=== PATIENT | male | born 1965 | race Caucasian/White ===

== ENCOUNTER 2023-03-05 15:51 | Inpatient (IN) | payer OTHER, SELFPAY ==
[2023-03-05] VITALS (8 sets, daily range): BP systolic 97–131; BP diastolic 68–92; BMI 28.0
[2023-03-05 08:35] LABS: % Basophils 0.1 % (0-2); % Eosinophils 0.1 % (0-6); % Immature Granulocytes 0.4 % (0-0.5); % Lymphocytes 1.5 % (20.5-51.1); % Neutrophils 88.9 % (42.2-75.2); Absolute Immature Granulocytes 0.1 10^3/uL (0-0.05); Absolute Lymphocytes 0.2 10^3/uL (1.2-3.4); Absolute Monocytes 1.1 10^3/uL (0.1-0.6); Absolute Neutrophils 10.4 10^3/uL (1.4-6.5); Hematocrit 46.7 % (39.0-52.0); Mean Corp Hgb Conc. 34.3 g/dL (33.0-37.0); Mean Corpuscular Hgb 28.4 pg (27.0-31.0); Mean Corpuscular Volume 82.8 fL (80.0-94.0); Mean Platelet Volume 8.5 fL (7.4-10.4); Nucleated Red Blood Cells % 0 % (-); Platelet Count 153 10^3/uL (130-400); Red Blood Cell Count 5.64 10^6/uL (4.70-6.10); White Blood Cell Count 11.7 10^3/uL (4.8-10.8)
[2023-03-05 08:59] LABS: Troponin I 0.026 ng/ml
[2023-03-05 09:00] LABS: ALT (SGPT) 442 U/L (0-50); Albumin 3.9 g/dl (3.5-5.0); Alkaline Phosphatase 210 U/L (38-126); Blood Urea Nitrogen 11 mg/dl (9-20); Calcium 9.4 mg/dl (8.4-10.2); Carbon Dioxide 24 mmol/L (22-30); Chloride 101 mmol/L (98-107); Glucose 163 mg/dl (70-99); Potassium 3.4 mmol/L (3.5-5.1); Sodium 136 mmol/L (135-145); Total Bilirubin 2.3 mg/dl (0.2-1.3); Total Protein 7.1 g/dl (6.3-8.2); eGFR > 60.00
[2023-03-05 09:15] LABS: AST (SGOT) 911 U/L (17-59)
[2023-03-05] MEDS: OMNIPAQUE 50 ML PO (09:46)
[2023-03-05] MEDS: BENTYL 20 MG IM (09:46)
[2023-03-05] MEDS: ZOFRAN 4 MG IV (09:46)
[2023-03-05] MEDS: NSS 1000 IV ×2 (09:47→13:27)
[2023-03-05 09:57] LABS: Lactic Acid 1.2 mmol/L (0.7-2.0)
--- NOTE | 2023-03-05 09:59 | ED.GENMED ---
History of Present Illness
General
Chief Complaint: Abdominal Pain
Source: patient
Exam Limitations: none
Time Seen by Provider: 03/05/23 09:05
Nursing documentation reviewed up to this point in time: agreed with
Travel History
Have you had any contact with someone who has COVID-19?: No
Do you have any symptoms of coronavirus? Fever > 100 degrees, chills, cough, shortness of breath, sore throat, loss of taste or smell, muscle aches, or headache?: No
History of Present Illness
History of Present Illness:
57-year-old male with past medical history of Hodgkin's lymphoma, anxiety presenting to the emergency department today with concerns of abdominal discomfort diffuse to the abdomen but also slightly increased to the right upper quadrant. Also has
some discomfort rating to the chest and back. Has been evaluated as an outpatient for this and has pending colonoscopy and CT scan as an outpatient. Has been treated with omeprazole. Pain has been worsening over the past few days which prompted
come to the ER. Denies any fevers vomit of breath. Denies changes in bowel movements or vomiting.
Past History
Past History
ED Past Medical History: Psychiatric (Generalized anxiety disorder), Other (Chronic back pain) and Other (Hodgkin's Lymphoma); Negative HTN or NIDDM
ED Past Surgical History: Orthopedic
Social History
Tobacco: Smoker (History of chewing tobacco use, quit one year ago)
Alcohol: None
Drug: None
Living: with family
Employment: Employed
Family History
Family History: CAD
Review of Systems
Review of Systems
Allergies reviewed?: Yes
All Other Systems: ROS reviewed and negative except as documented in HPI and ROS
Phy Exam
Physical Exam
Physical Exam:
GENERAL: Alert , in no apparent distress
EYE: pupils equal and reactive
NECK: Supple, no significant adenopathy.
ENT: o/p clr, mmm.
CARDIAC: Regular rate and rhythm .
LUNGS: Clear breath sounds bilaterally, no acute respiratory distress, no wheezes/rales/rhonchi
ABDOMEN: Diffuse abdominal pain to palpation slightly worse to the right upper quadrant.
NEUROLOGICAL: Alert and oriented, no focal neuro deficits
SKIN: Warm and dry, skin intact.
MUSCULOSKELETAL: No edema, well perfused.
PSYCH: Normal and appropriate interaction.
Course
Orders/Labs/Results
Orders:
Orders
03/05/23 08:17
Electrocardiogram (*1) Urgent
Reason for Study: Chest Pain
EKG- Treatment ONCE
03/05/23 08:28
CMP [Comprehensive Metabolic Panel] Urgent
Complete Blood Count/With Diff Urgent
Troponin I Urgent
03/05/23 09:24
CT Abd/pel W Iv And Oral Contr Urgent
Comment:
Reason For Exam: DIFFUSE ABD PAIN, elevated lfts, bili
Dicyclomine HCl [Bentyl] 20 mg IM NOW STA
Iohexol [Omnipaque] See Protocol PO NOW STA
Ondansetron Injectable [Zofran] 4 mg IV NOW STA
03/05/23 09:25
0.9% Sodium Chloride 1000 ml [Nss] 1,000 ml IV BOLUS
03/05/23 09:35
Hepatitis A IgM Antibody Urgent
Hepatitis B Core Ab, IgM Urgent
Hepatitis B Surface Antibody Urgent
Hepatitis B Surface Antigen Urgent
Hepatitis C Antibody Urgent
Lactic Acid Urgent
Lipase Urgent
Monotest Urgent
03/05/23 10:38
US Abdomen Complete/Upper Urgent
Comment:
Reason For Exam: ruq pain
03/05/23 11:26
HYDROmorphone [Dilaudid] 0.5 mg IV NOW STA
03/05/23 13:16
0.9% Sodium Chloride 1000 ml [Nss] 1,000 ml IV BOLUS
03/05/23 14:33
HYDROmorphone [Dilaudid] 0.5 mg IV NOW STA
Abnormal Lab Results
03/05/23 03/05/23
08:28 09:35
WBC 11.7 H 10^3/uL
(4.8-10.8)
Abs Immat Gran (auto) 0.1 H 10^3/uL
(0-0.05)
Absolute Neuts (auto) 10.4 H 10^3/uL
(1.4-6.5)
Absolute Lymphs (auto) 0.2 L 10^3/uL
(1.2-3.4)
Absolute Monos (auto) 1.1 H 10^3/uL
(0.1-0.6)
Neutrophils % 88.9 H %
(42.2-75.2)
Lymphocytes % 1.5 L %
(20.5-51.1)
Potassium 3.4 L mmol/L
(3.5-5.1)
Glucose 163 H mg/dl
(70-99)
Total Bilirubin 2.3 H mg/dl
(0.2-1.3)
AST 911 H* U/L
(17-59)
ALT 442 H U/L
(0-50)
Alkaline Phosphatase 210 H U/L
(38-126)
Lipase 1913 H* U/L
(23-300)
03/05/23 08:28
03/05/23 08:28
Vital Signs
Initial and Last Documented VS:
Initial Vital Signs
Temp Pulse Resp BP Pulse Ox
97.7 F 134 18 129/92 98
03/05/23 08:13 03/05/23 08:13 03/05/23 08:13 03/05/23 08:13 03/05/23 08:13
Last Documented Vital Signs
Temp Pulse Resp BP Pulse Ox
98.1 F 91 15 100/69 89
03/05/23 12:46 03/05/23 14:00 03/05/23 14:00 03/05/23 14:00 03/05/23 13:30
MDM/Problems Addressed
MDM/Problems Addressed:
57-year-old male presenting to the emergency department today with concerns of diffuse abdominal pain worsening for the past few weeks has been somewhat chronic evaluated as an outpatient recommended for outpatient CT scan and colonoscopy which is
currently pending. On arrival here pulse rate elevated to 130s sinus tachycardia patient is afebrile patient appears somewhat uncomfortable does have tenderness throughout the abdomen maximal to the right upper quadrant. Patient was found to have
elevated liver function test alk phos and bilirubin levels. Concerning his abdominal pain is diffuse plan for CT scan for further assessment of this. Heart rate improving to the 90s after receiving fluids Dilaudid treating pain well. Does have
elevated liver function test alk phos bilirubin but no obstructive signs on ultrasound or CT scan. Lipase was elevated consistent with pancreatitis CT scan confirming pancreatitis without complication. Patient will be admitted for further
assessment and monitoring.
*Critical Care Note
Total Time (30-74mins, 75-104mins- exclusive of procedures): Not Applicable
ED Attending Note
-
Portions of this chart may have been created with voice recognition software.� Occasional wrong word or��sound alike� substitutions may have occurred due to the inherent limitations of voice recognition software.
Discharge Plan
Departure
Patient Disposition: Admit
Date of Disposition: 03/05/23
Time of Disposition: 14:36
Admit to: Med/Surg
Admit to doctor: Sheu
Presentation/result/management discussed w/ accepting MD/DO: Hospitalist
Patient with high blood pressure during this ER visit?: No
Condition: Good
Covid-19: Not Applicable
Discharge Problem:
Pancreatitis
Prescriptions:
No Action
tamsulosin [Flomax] 0.4 mg Capsule
0.4 mg PO DAILY
folic acid 1 mg tablet
1 mg PO DAILY Qty: 30 0RF
diazepam 5 mg tablet
5 mg PO BID PRN (Reason: anxiety) 3 Days Qty: 7 0RF
Patient Comments:
03/05/2023, pt. filled this med. on 02/15/2023 for 60 tablets according to PDMP.
citalopram 40 mg Tablet
40 mg PO DAILY
omeprazole 40 mg Capsule,Delayed Release(Dr/Ec)
40 mg PO DAILY
benzonatate 100 mg Capsule
100 mg PO TID PRN (Reason: cough)
diclofenac sodium 50 mg Tablet,Delayed Release (Dr/Ec)
50 mg PO BIDPRN PRN (Reason: mild pain)
metoprolol tartrate 25 mg Tablet
25 mg PO BID
midodrine 5 mg tablet
5 mg PO TID
thiamine HCl (vitamin B1) 100 mg tablet
100 mg PO DAILY
Referrals:
Mayra Brito DO [Family Provider] -
Interventions
Interventions:
*Risk Screen - Suicide Last Done: 03/05/23 09:58
*General Assessment Last Done: 03/05/23 09:58
*Neglect/Abuse Screening Last Done: 03/05/23 09:58
HG-Mmekrd-Iawixadsic Assessment Last Done: 03/05/23 09:58
[2023-03-05 10:14] LABS: Monotest Negative (Negative)
[2023-03-05 10:34] LABS: Lipase 1913 U/L (23-300)
[2023-03-05 10:40] LABS: Hepatitis B Surface Antigen Negative (Negative)
[2023-03-05 10:46] LABS: Hepatitis A IgM Antibody Negative (Negative); Hepatitis B Core Ab, IgM Negative (Negative)
[2023-03-05 10:58] LABS: Hepatitis C Antibody Negative (Negative)
[2023-03-05 12:47] LABS: Hepatitis B Surface Antibody Negative
[2023-03-05] MEDS: DILAUDID 0.5 MG IV ×2 (12:48→14:44)
--- NOTE | 2023-03-05 14:43 | HPS.HSE ---
Addendum entered and electronically signed by Wilfred Munguia MD 03/05/23 16:13:
I saw and examined the patient.
The CAREER SERVICES OFFICER's note was reviewed and I agree with the note.
57M with PMH of Hodgkin lymphoma, DENICE, Depression/anxiety, alcohol use came to ER with new onset of abd pain for few days. associated nausea, no vomiting. Poor historian and requires to be redirected for specific information. Denies of having
previous episodes of pancreatitis. Patient states of alcohol use disorder, drinks 4 to 12 of travel size 99 proof alcohol bottles/day. No previous history of alcohol withdrawal.
HEENT: No pallor, cyanosis, or jaundice. Throat clear.
NECK: Supple. No JVD.
RESPIRATORY: Lungs clear to auscultation.
CVS: S1, S2 normal. RRR. No murmur, rub or gallop.
ABDOMEN: minimal distention, diffuse tenderness
EXTREMITIES: No peripheral cyanosis or edema.
COLLABORATIVE TEACHER: AOx3. No focal deficits.
Acute pancreatitis
-Elevated lipase of 1913.
-CT a/p showing inflammation
-Likely alcohol use related. Abdominal ultrasound showing gallstone as well although CBD of 4.6 mm only
-Continue on IV fluid/NPO/Pain meds
-GI to follow. f/us with Dr eric.
Acute transaminitis
-alcohol use related likely
-AST 911 ALT 442 ALP 210 TBilli 2.3
-ED checked and hep panel neg
-Alcohol abstinence recommended
Alcohol use disorder
-Drinks 4-12 publicized 99 proof alcohol bottles
-Check alcohol level
-Maintain on MSAS/ativan
Original Note:
Family Physician
-
Family Physician: Karolina Brito DO
Chief Complaint
-
abdominal pain
History of Present Illness
57-year-old male with past medical history of Hodgkin's lymphoma, anxiety presenting to the emergency department today with concerns of abdominal discomfort diffuse to the abdomen for past few month, which for past few days got worse and constant
pain. not able to sleep due to the pain. denied n/v/d. stated some mid sternum chest discomfort.denied fever, chills, chest pain, sob. denied dysuria or hematuria. patient scheduled for colonoscopy in March. patient is alcoholic. last drink was
last night.
CT with acute pancreatitis. admitting for further management.
Medical History
Past Medical History
Past Medical History: Reports Other
Additional Past Medical History:
pancreatitis
Hodgkin lymphoma
anixety
Past Surgical History: Reports Other
Additional Past Surgical History:
back surgery
Social History
Tobacco: Non-smoker
Alcohol: Daily
Drug: None
Personal:
Living: With Family
Family History
Family History: Not pertinent
Allergies / Home Medications
Allergies reflects when Allergies were last updated in [employer].
Home Medications with original date entered in [employer]
Allergy/Medication List:
Allergies
Allergy/AdvReac Type Severity Reaction Status Date / Time
No Known Allergies Allergy Verified 09/04/22 11:28
Home Medications
tamsulosin 0.4 mg capsule (Flomax) 0.4 mg PO DAILY Urinary Issue 09/04/22
diazepam 5 mg tablet 5 mg PO BID PRN anxiety 3 days #7 tabs 09/24/22
folic acid 1 mg tablet 1 mg PO DAILY Supplement #30 tabs 09/24/22
benzonatate 100 mg capsule 100 mg PO TID PRN cough 03/05/23
citalopram 40 mg tablet 40 mg PO DAILY 03/05/23
diclofenac sodium 50 mg tablet,delayed release 50 mg PO BIDPRN PRN mild pain 03/05/23
metoprolol tartrate 25 mg tablet 25 mg PO BID 03/05/23
midodrine 5 mg tablet 5 mg PO TID 03/05/23
omeprazole 40 mg capsule,delayed release 40 mg PO DAILY 03/05/23
thiamine HCl (vitamin B1) 100 mg tablet 100 mg PO DAILY 03/05/23
Review of Systems
-
Constitutional: Reports No Symptoms
EENT: Reports No Symptoms
Respiratory: Reports No Symptoms
Cardiac: Reports No Symptoms
Abdomen/GI: Reports Abdominal Pain
: Reports No Symptoms
Musculoskeletal: Reports No Symptoms
Skin: Reports No Symptoms
Neurological: Reports No Symptoms
Endocrine: Reports No Symptoms
Hematologic/Lymphatic: Reports No Symptoms
Psych: Reports No Symptoms
Physical Exam
Vital Signs
Vital Signs
Temp Pulse Resp BP Pulse Ox
98.1 F 91 15 100/69 89
03/05/23 12:46 03/05/23 14:00 03/05/23 14:00 03/05/23 14:00 03/05/23 13:30
Physical Exam
General: Well Developed, Well Nourished and No Apparent Distress
HEENT: NormoCephalic, Moist mucous membranes and Atraumatic
Respiratory: Clear
Cardiac: S1/S2 and Regular Rhythm; No Murmur or Rub
GI: Soft, Non Distended, Normal Bowel Sounds and Tender; No Organomegaly
Rectal: Deferred by Provider
Musculoskeletal: No Clubbing, No Cyanosis and No Edema
Skin: No Rash
Neuro: Nonfocal/grossly intact
Psych: Calm
Laboratory Results
-
03/05/23 08:28
03/05/23 08:28
Laboratory Results
Lactic Acid 1.2 mmol/L (0.7-2.0) 03/05/23 09:35
Total Bilirubin 2.3 mg/dl (0.2-1.3) H 03/05/23 08:28
AST 911 U/L (17-59) H* 03/05/23 08:28
ALT 442 U/L (0-50) H 03/05/23 08:28
Alkaline Phosphatase 210 U/L (38-126) H 03/05/23 08:28
Troponin I 0.026 ng/ml 03/05/23 08:28
Lipase 1913 U/L (23-300) H* 03/05/23 09:35
Data Reviewed
-
CT Scan: Report Reviewed by me
Lab Data: Labs Reviewed by me
Impression/Plan
-
#acute pancreatitis likely alcohol induced
-hxt of severe hepatic steatosis
-Lipase 1913
-wbc 11.7
-ast 911,alt 442,alk 210
-hep panel negative
-abdomen US with the impression of Several small shadowing gallstones are present within the gallbladder as well as a small amount of sludge. The bladder wall is slightly thickened, and is nonspecific.No evidence for biliary ductal dilation.No gross
abnormality of the pancreas, with no evidence for peripancreatic collection. Of note, the pancreatic tail is not well-visualized with shadowing from overlying bowel gas.
-CT abdomen pelvis with Mild stranding of the fat adjacent to the pancreas, which likely represents mild changes of acute pancreatitis.1.5 cm well-defined low-density lesion within the head of the pancreas, which is likely a pseudocyst. Continued
follow-up with CT and/or MRI considered.Small soft tissue densities adjacent to the medial gallbladder wall, exact etiology uncertain, but possibly on the basis of adenomyomatosis. No evidence for calcified gallstones. No evidence for biliary ductal
dilation.Diffuse fatty infiltration of the liver. 8 mm lesion in the posterior and superior right lobe of the liver, with appearance highly suggestive of hemangioma, and no further imaging follow-up of this small lesion is recommended.Mild to
moderate trabeculation of the bladder wall, mainly posteriorly, with no evidence for bladder mass. Prostate gland appears moderately enlarged and extends into the base of the bladder, compatible with hyperplasia.Mild thickening of the wall of the
gastric antrum with mild thickening of the folds of the second portion the duodenum. Findings likely represent reactive inflammation from adjacent pancreatitis.
-iv Dilaudid prn for pain
-zofran prn for n/v
-fluids continued
-trend LFT
-GI consult
-NPO
#hypokalemia likely from poor oral intake
-k 3.4
-oral kcl
-monitor BMP
#alcohol dependence
-last drink last night
-alcohol protocol
-monitor MSAS score
#Non-Hodgkin's lymphoma-treated in 2015 and currently not on any treatment
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
-Continue omeprazole
#Anxiety
-Continue citalopram,diazepam
#BPH
-Continue finasteride
#essential htn
-BP stable in ER
-continue metoprolol with parameters
#orthostatic hypotension
-midodrine continued
#DVT prophylaxis
-Lovenox
#CODE status
-full code
[2023-03-05] MEDS: KCL ELIXIR 40 MEQ TUBE (15:07)
[2023-03-05 18:24] LABS: Urine Albumin Trace (Neg - Trace); Urine Bilirubin 1+ (Negative); Urine Character Clear (Clear); Urine Color Yellow; Urine Glucose Negative (Negative); Urine Ketone Negative (Negative); Urine Leukocyte Negative (Negative); Urine Nitrite Negative (Negative); Urine Occult Blood Negative (Negative); Urine Urobilinogen 4+ (Neg - 1+)
[2023-03-05] MEDS: LR 1000 IV ×2 (18:26→23:39)
[2023-03-05] MEDS: DILAUDID 1 MG IV (18:27)
[2023-03-05 18:28] LABS: INR 1.07; PT 14.1 Sec (11.4-14.6)
[2023-03-05 18:29] LABS: APTT 31.6 Sec (23.4-35.0)
[2023-03-05 18:34] LABS: Creatine Phosphokinase 605 U/L (55-170); GGTP 1086 U/L (15-73); Magnesium 2.1 mg/dl (1.6-2.3); Phosphorus 3.6 mg/dl (2.5-4.5); Triglycerides 57 mg/dl (10-149)
[2023-03-05 18:35] LABS: Alcohol None Detected
--- NOTE | 2023-03-05 18:36 | PTCARENOTE ---
pt admitted to room 2116 from the ED at 1745. pt oriented to room, bed controls and plan of care with verbalized understanding. pt forgetful, poor historian concerning medical history and needs frequent reminders. bed alarm placed for pt safety
after pt instructed to use call matos and proceeded to go to bathroom immediately after being told not to get out of bed without assistance. gait steady. pt admission completed by medical record. family arrived and instructed to take pt's home
meds home. telemetry applied -SR/ST 90-100's. MSAS score upon arrival 4. pt given urinal-voided eric urine and UA specimen sent. c/o abdominal pain-8 and medicated per APR. pt instructed NPO. will observe.
[2023-03-05 18:42] LABS: B-Hydroxybutyrate 0.07 mmol/L (0.02-0.27)
[2023-03-05 18:45] LABS: Benzodiazepines Positive (Negative)
[2023-03-05 18:46] LABS: Amphetamines Negative (Negative); Barbiturates Negative (Negative); Buprenorphine Negative (Negative); Cocaine Negative (Negative); Marijuana Negative (Negative); Methadone Negative (Negative); Methamphetamines Negative (Negative); Opiates Positive (Negative); Phencyclidine Negative (Negative); Tricyclic Antidepressants Negative (Negative)
[2023-03-05 19:23] LABS: Fentanyl, Urine Negative (Negative)
[2023-03-05] MEDS: ProAmatine PO (21:10)
[2023-03-05] MEDS: LOPRESSOR 25 MG PO (21:17)
[2023-03-05] MEDS: LOVENOX 40 MG SC (21:17)
[2023-03-05] MEDS: THIAMINE INJECTION 200 MG IV (21:18)
[2023-03-06] VITALS (7 sets, daily range): BP systolic 135–166; BP diastolic 76–107; BMI 28.0
[2023-03-06] MEDS: DILAUDID 1 MG IV (02:51)
--- NOTE | 2023-03-06 03:39 | PTCARENOTE ---
Pt noted to be scratching torso and back. Received 1 mg of IV dilaudid at 0251. Back diffusely reddened, chest red splotches (non raised). UPHOLSTERY CUTTER covering house contacted, electronic orders received for PO benadryl (awaiting pharmacy verification).
Ongoing MSAS assessments = 4.
Bed alarm active for safety. Call matos within reach. Will continue to closely monitor.
[2023-03-06] MEDS: BENADRYL 25 MG PO (03:47)
[2023-03-06] MEDS: ATIVAN 1 MG IV ×4 (04:04→22:07)
[2023-03-06] MEDS: NSS (PRESERVATIVE FREE) 0.5 ML IV ×2 (04:04→20:03)
--- NOTE | 2023-03-06 04:17 | PTCARENOTE ---
Pt medicated with 1 mg ativan for MSAS score 5 (refer to MAR). Conversation more confused with increased activity/restlessness. Will continue to closely monitor.
[2023-03-06] MEDS: LR 1000 IV ×3 (05:12→19:42)
--- NOTE | 2023-03-06 07:32 | CON.GI ---
Addendum entered and electronically signed by Bri Mendieta MD 03/06/23 14:49:
I saw and examined the patient.
The COMMUNITY RELATIONS OFFICER's note was reviewed and I agree with the note.
57yo presents with hx ETOH abuse, erosive esophagitis, non hodgkin's lymphoma not on treatment , adenomatous colon polyps,� anxiety, chronic back pain with recurrent admission with abdominal pain with concern for recurrent pancreatitis.� Prior
admission in with pancreatitis and noted pseudocyst.� Pt admits to continued ETOH use 12 shots per day. � On admission.� WBC 11,700, hbg 16, keri 2.2, AST 733, alt 574, alk phos 163, lipase 1913.� Last ETOH 2 days ago 12 shots per day.�
Imaging on return with CT noted changes of acute pancreatitis 1.5 cm lesion head of pancreas likely pseudocyst. Pt also due for follow up colonoscopy this spring with hx polyps.�
-recurrent pancreatitis likely ETOH related
-increased LFT's
-noted pancreatitic pseudocyst in the past
-leukocytosis
-ETOH abuse
-non hodgkin's lymphoma
plan
Clear liquid diet
Pain management as per medical team
Continue IV fluid
Follow-up MRI/MRCP
Alcohol withdrawal protocol as per medical team
Advised on alcohol abstinence on discharge
Original Note:
Consultation
-
Date/Time Consultation Requested: 03/05/23 1741
Date/Time Consultation Performed: 03/06/23 1530
Requesting Provider: JESSIE Burnett
Performing Provider: JESSIE Galdamez, Bri Mendieta MD
Reason for Consultation: pancreatitis
Medical History
Chief Complaint / HPI
Chief Complaint: abdominal pain
History of Present Illness:
Pt is a 57yo presents with hx ETOH abuse, erosive esophagitis, non hodgkin's lymphoma not on treatment , adenomatous colon polyps, anxiety, chronic back pain with admission with diffuse abdominal pain. Pt was admitted this past summer with
admission on 09/04 with concern for pancreatitis with ETOH withdrawal. Initial imaging 09/04 with severe acute interstitial edematous pancreatitis with large amount of peripancreatic inflammatory fat and non loculated fluid in upper abdomen. No
necrosis or collection. mild abdominopelvic ascites. severe hepatic steatosis. During admission patient developed fevers and repeat imaging 09/[address] with concern for severe pancreatitis with peripancreatic fluid and tail pseudocyst and LLL PNA
not excluded. He then returned in September with similar finding and some increased fluid on CT. He returned to Dr. Pelaez and Jeannine Malik for follow up in December and recommended repeat CT, was counseled on ETOH and set up for
colonoscopy in March with hx polyp. He now returns wit abdominal pain. WBC 11,700, hbg 16, keri 2.2, AST 733, alt 574, alk phos 163, lipase 1913. Last ETOH 2 days ago 12 shots per day.
Imaging on return with CT noted changes of acute pancreatitis 1.5 cm lesion head of pancreas likely pseudocyst. GB density possibly on the basis of adenomyomatosis. No duct dilation. no bladder mass. Fatty liver and liver lesion likely
hemagioma. Mild thickening of the wall of the gastric antrum with mild thickening of the folds of the second portion the duodenum. Findings likely represent reactive inflammation from adjacent pancreatitis. US noted gallstones with sludge. bladder
wall thickening No gross abnormality of the pancreas, with no evidence for peripancreatic collection with MRI pending.
At this time patient admits to GERD with tums as needed and 7.5/10 abdominal pain. Pain is improved with pain meds worse with holding pain meds. He also admits to small amount of blood with stools several days ago. He otherwise denies
dysphagia, nausea, vomiting, diarrhea, constipation or black stool. EGD 2020 with erosive esophagitis, small HH, bulbuous papilla , normal duodenum, bx neg colon 2017 with IH, 3 mm AC polyp, otherwise normal bx TA polyp
Past Medical History
Past Medical History: Other (ETOH abuse, erosive esophagitis, gastritis, colon polyp, fatty liver, lyme disease non hodgkin's lymphoma, anxiety, chronic back pain)
Social History
Tobacco: Non-Smoker
Alcohol: Daily ( up to 12 shots til 2 days ag )
Drug: Marijuana (in past)
Living: With Family
Family History
Family History: Other (denies hx colon CA)
Allergies / Home Medications
Allergy/AdvReac Type Severity Reaction Status Date / Time
No Known Allergies Allergy Verified 09/04/22 11:28
Medication Instructions Recorded
tamsulosin 0.4 mg capsule (Flomax) 0.4 mg PO DAILY Urinary Issue 09/04/22
diazepam 5 mg tablet 5 mg PO BID PRN anxiety 3 days #7 09/24/22
tabs
folic acid 1 mg tablet 1 mg PO DAILY Supplement #30 tabs 09/24/22
benzonatate 100 mg capsule 100 mg PO TID PRN cough 03/05/23
citalopram 40 mg tablet 40 mg PO DAILY Mental 03/05/23
Health/Anxiety
diclofenac sodium 50 mg 50 mg PO BIDPRN PRN mild pain 03/05/23
tablet,delayed release
metoprolol tartrate 25 mg tablet 25 mg PO BID Blood Pressure 03/05/23
midodrine 5 mg tablet 5 mg PO TID Blood Pressure 03/05/23
omeprazole 40 mg capsule,delayed 40 mg PO DAILY GERD 03/05/23
release
thiamine HCl (vitamin B1) 100 mg 100 mg PO DAILY Supplement 03/05/23
tablet
Review of Systems
-
History Source: Patient
EENT: Reports No Symptoms
Respiratory: Reports Trouble Breathing
Cardiac: Reports Chest Pain
Abdomen/GI: Reports Abdominal Pain, Nausea, Vomiting and Bloody Stools (trace blood a few days ago)
: Reports Dark Urine
Musculoskeletal: Reports No Symptoms
Skin: Reports No Symptoms
Neurological: Reports Weakness
Endocrine: Reports No Symptoms
Hematologic/Lymphatic: Reports No Symptoms
Vital Signs
Temp Pulse Resp BP Pulse Ox
98.1 F 93 16 137/80 94
03/06/23 03:05 03/06/23 03:05 03/06/23 03:05 03/06/23 03:05 03/06/23 03:05
Physical Exam
Exam
General: Well Developed, Well Nourished and Other (anxious with withdrawal)
HEENT: Normocephalic and Other (minimal jaundice)
Respiratory: Clear
Cardiac: Other (tachy)
GI: Soft, Non Tender and Non Distended
Musculoskeletal: No Clubbing and No Cyanosis
Skin: Warm and Dry
Neuro: Awake, Alert and AO x 3
Psych: Other (anxious with mild tremor with withdrawal)
Results
WBC 11.7 10^3/uL (4.8-10.8) H 03/05/23 08:28
Hgb 16.0 g/dL (13.0-18.0) 03/05/23 08:28
Hct 46.7 % (39.0-52.0) 03/05/23 08:28
MCV 82.8 fL (80.0-94.0) 03/05/23 08:28
Plt Count 153 10^3/uL (130-400) 03/05/23 08:28
Absolute Neuts (auto) 10.4 10^3/uL (1.4-6.5) H 03/05/23 08:28
PT 14.1 Sec (11.4-14.6) 03/05/23 17:54
INR 1.07 03/05/23 17:54
APTT 31.6 Sec (23.4-35.0) 03/05/23 17:54
Sodium 136 mmol/L (135-145) 03/05/23 08:28
Potassium 3.4 mmol/L (3.5-5.1) L 03/05/23 08:28
Chloride 101 mmol/L (98-107) 03/05/23 08:28
Carbon Dioxide 24 mmol/L (22-30) 03/05/23 08:28
BUN 11 mg/dl (9-20) 03/05/23 08:28
Creatinine 0.8 mg/dL (0.7-1.3) 03/05/23 08:28
Calcium 9.4 mg/dl (8.4-10.2) 03/05/23 08:28
Total Bilirubin 2.3 mg/dl (0.2-1.3) H 03/05/23 08:28
AST 911 U/L (17-59) H* 03/05/23 08:28
ALT 442 U/L (0-50) H 03/05/23 08:28
Alkaline Phosphatase 210 U/L (38-126) H 03/05/23 08:28
Lipase 1913 U/L (23-300) H* 03/05/23 09:35
Hepatitis A IgM Ab Negative (Negative) 03/05/23 09:35
Hep Bs Antibody Negative 03/05/23 09:35
Hep B Core IgM Ab Negative (Negative) 03/05/23 09:35
Hepatitis C Antibody Negative (Negative) 03/05/23 09:35
Diagnostic Image Results:
03/05/23 CT Abd/pel W Iv And Oral Contr
Mild stranding of the fat adjacent to the pancreas, which likely represents mild changes of acute pancreatitis.
1.5 cm well-defined low-density lesion within the head of the pancreas, which is likely a pseudocyst. Continued follow-up with CT and/or MRI considered.
Small soft tissue densities adjacent to the medial gallbladder wall, exact etiology uncertain, but possibly on the basis of adenomyomatosis. No evidence for calcified gallstones. No evidence for biliary ductal dilation.
Diffuse fatty infiltration of the liver. 8 mm lesion in the posterior and superior right lobe of the liver, with appearance highly suggestive of hemangioma, and no further imaging follow-up of this small lesion is recommended.
Mild to moderate trabeculation of the bladder wall, mainly posteriorly, with no evidence for bladder mass. Prostate gland appears moderately enlarged and extends into the base of the bladder, compatible with hyperplasia.
Mild thickening of the wall of the gastric antrum with mild thickening of the folds of the second portion the duodenum. Findings likely represent reactive inflammation from adjacent pancreatitis.
03/05/23 US abdomen
Several small shadowing gallstones are present within the gallbladder as well as a small amount of sludge. The bladder wall is slightly thickened, and is nonspecific.
No evidence for biliary ductal dilation.
No gross abnormality of the pancreas, with no evidence for peripancreatic collection. Of note, the pancreatic tail is not well-visualized with shadowing from overlying bowel gas.
MRI pending
Prior GI Procedures:
EGD:� �[facility] 2020� � � - LA Grade A erosive esophagitis with no bleeding.
�� � � � � � � � � � � Biopsied.
�� � � � � � � � � � � - Small hiatal hernia.
�� � � � � � � � � � � - Erythematous mucosa in the stomach. Biopsied.
�� � � � � � � � � � � - Bulbous appearing papilla (biopsied the side)
�� � � � � � � � � � � - No gross lesions in the entire examined duodenum.
�� � � � � � � � � � � Biopsied.� bx neg
Colonoscopy:� [facility] 2017
� � � � � � � � � - Non-bleeding internal hemorrhoids.
�� � � � � � � � � � - One 3 mm polyp in the ascending colon, removed with a
�� � � � � � � � � � jumbo cold forceps. Resected and retrieved.-- Bx TA
�� � � � � � � � � � - The examined portion of the ileum was normal.
�� � � � � � � � � � - Otherwise normal to terminal ileum.
Assessment / Plan
-
Pt is a 57yo presents with hx ETOH abuse, erosive esophagitis, non hodgkin's lymphoma not on treatment , adenomatous colon polyps, anxiety, chronic back pain with recurrent admission with abdominal pain with concern for recurrent pancreatitis.
Prior admission in with pancreatitis and noted pseudocyst. Pt admits to continued ETOH use 12 shots per day. On admission. WBC 11,700, hbg 16, keri 2.2, AST 733, alt 574, alk phos 163, lipase 1913. Last ETOH 2 days ago 12 shots per
day. Imaging on return with CT noted changes of acute pancreatitis 1.5 cm lesion head of pancreas likely pseudocyst. Pt also due for follow up colonoscopy this spring with hx polyps.
-recurrent pancreatitis likely ETOH related to continued use
-increased LFT's wit concern for component of ETOH hepatitis
-noted pancreatitic pseudocyst
-leukocytosis
-ETOH abuse with withdrawal
- hepatic steatosis
other medical problems:
non hodgkin's lymphoma
anxiety
chronic back pain
PLAN:
etiology of pancreatitis likely ETOH related vs other -- TG normal, calcium stable, denies new med and admits to increased ETOH use til 2 days ago
still with abdominal pain today
cont pain control per hospitalist
await MRI
CRP 134.4 cont to trend
cont aggressive IVF at 200ml.hr
stressed ETOH abstinence
monitor for withdrawal
due OP follow up colonoscopy for hx colon polyps which is already scheduled
-
-
Thank you for consultation and allowing me to participate in the patient's care. Please call the space systems operations craftsman GI physician during the after hours with any questions or concerns.
[2023-03-06 07:33] LABS: Hematocrit 39.5 % (39.0-52.0); Mean Corp Hgb Conc. 32.9 g/dL (33.0-37.0); Mean Corpuscular Hgb 28.3 pg (27.0-31.0); Mean Corpuscular Volume 86.1 fL (80.0-94.0); Mean Platelet Volume 8.6 fL (7.4-10.4); Platelet Count 152 10^3/uL (130-400); Red Blood Cell Count 4.59 10^6/uL (4.70-6.10); Red Cell Dist. Width 14.7 % (11.5-14.5); White Blood Cell Count 7.1 10^3/uL (4.8-10.8)
[2023-03-06 07:53] LABS: ALT (SGPT) 574 U/L (0-50); AST (SGOT) 733 U/L (17-59); Albumin 3.1 g/dl (3.5-5.0); Alkaline Phosphatase 163 U/L (38-126); Amylase 81 U/L (30-110); Blood Urea Nitrogen 9 mg/dl (9-20); Calcium 8.1 mg/dl (8.4-10.2); Carbon Dioxide 29 mmol/L (22-30); Chloride 106 mmol/L (98-107); Estimated Creatinine Clearance 81 ml/min; Glucose 72 mg/dl (70-99); HDL Cholesterol 30 mg/dl; LDL Cholesterol, Calculated 111 mg/dl; Lipase 894 U/L (23-300); Potassium 3.8 mmol/L (3.5-5.1); Sodium 137 mmol/L (135-145); Total Bilirubin 2.2 mg/dl (0.2-1.3); Total Cholesterol 160 mg/dl (50-199); Total Protein 5.8 g/dl (6.3-8.2); Triglyceride 95 mg/dl (10-149); Very Low Density Lipoprotein 19 mg/dl (0-30); eGFR > 60.00
[2023-03-06] MEDS: CELEXA 40 MG PO (08:07)
[2023-03-06] MEDS: LOPRESSOR 25 MG PO ×2 (08:07→20:03)
[2023-03-06] MEDS: ProAmatine 5 MG PO ×3 (08:07→17:00)
[2023-03-06] MEDS: THIAMINE INJECTION 200 MG IV ×2 (08:07→19:56)
[2023-03-06] MEDS: PROTONIX 40 MG PO (08:07)
[2023-03-06] MEDS: MORPHINE SULFATE 2 MG IV ×4 (08:08→23:33)
[2023-03-06] MEDS: FLOMAX 0.400000000000000022 MG PO (08:08)
[2023-03-06] MEDS: FOLVITE 1 MG PO (08:08)
--- NOTE | 2023-03-06 11:07 | W.PN.HOSP.TC ---
Today's Communication/Plan
-
trial of CL diet
MRI/MRCP clean
monitor LFT
dialudid changed to morphine
Assessment / Plan
Assessment / Plan
Acute pancreatitis
Pancreatic pseudocyst
-Elevated lipase of 1913 - trending down
-CT a/p showing inflammation of pancreas
-Abdominal ultrasound showing gallstone as well although CBD of 4.6 mm only
-MRI/MRCP showing pancreatic pseudocyst. no choledocholithiasis
-Likely alcohol use related.�
-Continue on IV fluid/Pain meds - Dilaudid changed to morphine due to rash
-Trial of CL diet today
Acute transaminitis - trending down
-alcohol use related likely
-AST 911 ALT 442 ALP 210 TBilli 2.3
-ED checked and hep panel neg
-Alcohol abstinence recommended
Alcohol use disorder
-Drinks 4-12 publicized 99 proof alcohol bottles
-Check alcohol level
-Maintain on MSAS/ativan
Essential HTN
-restart on toprol xl once able to take PO meds
BPH
-on flomax, no urinary complains currntly
Depression/anx
-continue home citalopram once on oral meds
DVT PPX - lovenox
Full code
Family at bedside and question answered.
Anticipated Discharge: 24 - 48 hours
Subjective/Interval History
-
Date of Service: March 06, 2023
still have some abd pain
no nausea/vomiting
no other reported problems
Objective Data
-
Labs:
Laboratory Results
03/06/23
05:16
WBC 7.1
Hgb 13.0
Hct 39.5
Plt Count 152
Sodium 137
Potassium 3.8
Chloride 106
Carbon Dioxide 29
BUN 9
Creatinine 0.9
Glucose 72
Calcium 8.1 L
Total Bilirubin 2.2 H
AST 733 H*
ALT 574 H*
Alkaline Phosphatase 163 H
Vital Signs:
Vital Signs
Temp Pulse Resp BP Pulse Ox
98.2 F 90 18 135/76 93
03/06/23 07:40 03/06/23 07:40 03/06/23 07:40 03/06/23 07:40 03/06/23 07:40
I&O
03/05/23 03/06/23 03/07/23
06:59 06:59 06:59
Intake Total 2200 / 2200
Output Total 650 / 650
Balance -650 / -650 2200 / 2200
Review of Systems
-
Respiratory: Reports No Symptoms
Cardiac: Reports No Symptoms
Abdomen/GI: Reports No Symptoms
Physical Exam
-
General: Negative Appears in Distress
HEENT: Negative Oxygen
GI: Soft, Normal Bowel Sounds and Tender (upper abdomen)
Musculoskeletal: No Edema
Neuro: Awake, Alert, Oriented and No Motor Deficits
Psych: Calm
--- NOTE | 2023-03-06 12:13 | CM ---
Received CM consult for substance abuse counseling. Reviewed the chart notes and spoke with the patient at the bedside. The patient resides with his mother in a one story home with four steps to enter. The patient reports no DME/VN/SNF in the
past. The patient confirmed his [facility] of choice [facility]. Discussed substance abuse resources, offered [facility] information. Per patient, he prefers to handle it on his own outside of the hospital. Per previous
admission notes, patient has been provided with information from [facility] and [facility]. CM continues to be available to patient/family and is monitoring medical plan for needs at discharge.
Plan: Discharge to home when medically stable with no additional needs being identified at this time.
--- NOTE | 2023-03-06 13:01 | PN.CDI ---
CDI
- -
CDI:
Physician Documentation Request
Admit Date: 03/05/23 15:51
Dear Doctor Ezra,
Clinical Indicators:
Patient admitted with acute pancreatitis.
03/05 H & P, 'alcohol dependence'
03/06 GI consult, 'ETOH abuse with withdrawal'
03/06 PN, 'Alcohol use disorder...-Maintain on MSAS/ativan.'
MSAS Scores 4 -5
Ativan 1mg IV x 1 dose.
Due to potentially conflicting documentation, please provide further specificity as outlined below:
1. Please clarify the pattern of alcohol use, include all that apply:
- Use, with or without abuse and/or dependence
- Abuse with or without dependence
- Dependence
- Unable to determine
2. Please identify any associated manifestations:
- Withdrawal
- Other, please specify
- No manifestations
- Unable to determine
Use of terms such as suspected, likely, concern for, or probable (associated with a specific diagnosis that is being evaluated, monitored, or treated as if it exists) are acceptable and can be coded in the inpatient setting, when documented at the
time of discharge.
Thank you,
ZULMA Farris RN
CDI Specialist
available via tiger text
Please use your independent medical judgment in providing your response.
[2023-03-06] MEDS: LOVENOX 40 MG SC (17:00)
[2023-03-06] MEDS: LR IV (19:41)
[2023-03-07] VITALS (12 sets, daily range): BP systolic 119–156; BP diastolic 76–111; BMI 27.7
[2023-03-07] MEDS: ATIVAN 1 MG IV ×10 (00:18→16:05)
[2023-03-07] MEDS: NSS (PRESERVATIVE FREE) 0.5 ML IV ×4 (00:18→06:04)
[2023-03-07] MEDS: LR 1000 IV ×5 (00:23→19:49)
--- NOTE | 2023-03-07 00:30 | PTCARENOTE ---
Pt's BP elevated. VICE PRESIDENT UNDERWRITING covering house contacted to request hold parameters for scheduled midodrine, electronic orders received (refer to APR). Ongoing MSAS assessements, PRN ativan administered per orders (refer to APR). Pt with visual/auditory
hallucinations, restless. Able to redirect at this time. Bed alarm remains active for safety, pt violates frequently. Will continue to closely monitor.
--- NOTE | 2023-03-07 03:25 | PTCARENOTE ---
Pt's MSAS reassessment = 4. Voiding frequently, using urinal. Attempting to use call matos as telephone, reoriented to surroundings. Bed alarm remains active for safety. LR infusing via #22 RH, no-no in place to prevent tubing from kinking. Will
continue to closely monitor.
[2023-03-07] MEDS: MORPHINE SULFATE 2 MG IV ×2 (03:58→12:48)
[2023-03-07 06:02] LABS: Hematocrit 42.1 % (39.0-52.0); Hemoglobin 14.1 g/dL (13.0-18.0); Mean Corp Hgb Conc. 33.5 g/dL (33.0-37.0); Mean Corpuscular Hgb 28.5 pg (27.0-31.0); Mean Corpuscular Volume 85.2 fL (80.0-94.0); Mean Platelet Volume 9.1 fL (7.4-10.4); Platelet Count 157 10^3/uL (130-400); Red Blood Cell Count 4.94 10^6/uL (4.70-6.10); Red Cell Dist. Width 14.3 % (11.5-14.5)
--- NOTE | 2023-03-07 06:06 | PTCARENOTE ---
Pt removing telemetry and attempting to pull IV. States 'I am going to have to leave, my 80 year old mother can't drive tonight in the rain' Attempted to reorient to time, pt becoming belligerent. Explained that transportation must be present in
order to leave AMA. Pt unable to dial telephone independently. Pressing #69. MSAS = 8, medicated per protocol. Encouraged to wait and order breakfast and speak to the physician upon rounds. Pt seems agreeable at present. METEOROLOGICAL TECHNICIAN covering house
contacted w/situation. Nursing supervisor webbing made aware. Continuing to monitor closely.
--- NOTE | 2023-03-07 06:36 | PTCARENOTE ---
TT to attending regarding situation. Instruced pt will be transferred to IMU. Nursing supervisor agency appointments made aware.
[2023-03-07 06:37] LABS: ALT (SGPT) 493 U/L (0-50); AST (SGOT) 392 U/L (17-59); Albumin 3.7 g/dl (3.5-5.0); Alkaline Phosphatase 177 U/L (38-126); Blood Urea Nitrogen 7 mg/dl (9-20); Calcium 8.7 mg/dl (8.4-10.2); Carbon Dioxide 28 mmol/L (22-30); Chloride 101 mmol/L (98-107); Estimated Creatinine Clearance 91 ml/min; Glucose 82 mg/dl (70-99); Lipase 460 U/L (23-300); Potassium 3.9 mmol/L (3.5-5.1); Sodium 135 mmol/L (135-145); Total Protein 6.6 g/dl (6.3-8.2); eGFR > 60.00
--- NOTE | 2023-03-07 07:47 | W.PN.HOSP.TC ---
Addendum entered and electronically signed by Wilfred Munguia MD 03/07/23 14:11:
Patient continues to remain confused, trying to get out of bed.
Systolic blood pressure in 150-160, heart rate in 8000 range afebrile
Already on phenobarb protocol and as needed Ativan
Precedex ordered for conscious sedation
Upgraded to ICU level. Discussed with transcribing operators supervisor.
Original Note:
Today's Communication/Plan
-
start phenobarb protcol
flight and fall risk
unable to get hold of POA
Assessment / Plan
Assessment / Plan
Acute pancreatitis
Pancreatic pseudocyst
-Elevated lipase of 1912 - trending down
-CT a/p showing inflammation of pancreas
-Abdominal ultrasound showing gallstone as well although CBD of 4.6 mm only
-MRI/MRCP showing pancreatic pseudocyst. no choledocholithiasis
-Likely alcohol use related.�
-Continue on IV fluid/Pain meds - Dilaudid changed to morphine due to rash
-Trial of CL diet today
Alcohol withdrawal
Alcohol use disorder
-requiring ativan 6mg overnight and MSAS remains elevated
-patient communicating but confused and needs frequent reorientation. keep requesting to call some place in [place] but unable to provide contact number
-giving valium 2mg x1 and phenobarb after that
-remains flight risk and harm to himself,
Acute transaminitis - trending down
-alcohol use related likely
-AST 911 ALT 442 ALP 210 TBilli 2.3
-ED checked and hep panel neg
-Alcohol abstinence recommended
Essential HTN
-restart on toprol xl once able to take PO meds
BPH
-on flomax, no urinary complains currntly
Depression/anx
-continue home citalopram once on oral meds
DVT PPX - lovenox
Full code
03/06 Family at bedside and question answered.
03/07 I have tried to contact patient's mother and significant other and both numbers are switched off.
Total time spent : 55 mins
Anticipated Discharge: Within 24 hours
Subjective/Interval History
-
Date of Service: March 07, 2023
patient getting agitated and more confused overnight
forgetful and unable to remember things.
patient was delirious overnight
MSAS score of 8+ in night
Objective Data
-
Labs:
Laboratory Results
03/07/23
04:56
WBC 6.0
Hgb 14.1
Hct 42.1
Plt Count 157
Sodium 135
Potassium 3.9
Chloride 101
Carbon Dioxide 28
BUN 7 L
Creatinine 0.8
Glucose 82
Calcium 8.7
Total Bilirubin 1.0 D
AST 392 H
ALT 493 H
Alkaline Phosphatase 177 H
Vital Signs:
Vital Signs
Temp Pulse Resp BP Pulse Ox
98.2 F 81 16 136/90 93
03/07/23 03:05 03/07/23 03:05 03/07/23 03:05 03/07/23 03:05 03/07/23 03:05
I&O
03/06/23 03/07/23 03/08/23
06:59 06:59 06:59
Intake Total 6620 / 6620
Output Total 650 / 650 3475 / 3475
Balance -650 / -650 3145 / 3145
Review of Systems
-
Unable to obtain full review of systems at this time due to: Acuity
Physical Exam
-
General: Negative Cachectic
HEENT: Negative Oxygen
Respiratory: Clear to Auscultation
Cardiac: Regular Rhythm and S1/S2; Negative Murmur
GI: Soft, Nontender and Nondistended
Musculoskeletal: No Edema
Neuro: Awake and No Motor Deficits
Psych: Confused and Agitated
[2023-03-07] MEDS: VALIUM INJECTION 2 MG IV (07:49)
[2023-03-07] MEDS: PHENOBARBITAL 104 MG IV (08:02)
[2023-03-07] MEDS: FOLVITE 1 MG PO (08:17)
[2023-03-07] MEDS: ProAmatine PO ×3 (08:17→17:31)
[2023-03-07] MEDS: PROTONIX 40 MG PO (08:17)
[2023-03-07] MEDS: FLOMAX 0.400000000000000022 MG PO (08:17)
[2023-03-07] MEDS: LOPRESSOR 25 MG PO (08:17)
[2023-03-07] MEDS: CELEXA 40 MG PO (08:17)
[2023-03-07] MEDS: THIAMINE INJECTION 200 MG IV ×2 (08:18→20:10)
[2023-03-07] MEDS: ZYPREXA 5 MG PO (08:18)
--- NOTE | 2023-03-07 08:32 | PTCARENOTE ---
0700 am MSAS scored at 7, per protocol pt to recieve 1 mg ativan q2h. As day RN And night RN were pulling medication to waste Dr Munguia entered the med room and instructed RNs to 'hold off on the ativan he needs something stronger, I am ordering
valium'. PRN valium given with no improvement, Phenobarbital ordered and given. Pt continuing to get OOB, stating he wants to leave AMA, and having confused conversations. Pt attempting to take out IV, tegederm reinforced. PO zyprexa ordered and
given. Per protocol pt to be assessed again at 0900 for MSAS.
--- NOTE | 2023-03-07 09:44 | PTCARENOTE ---
Pt to be transferred to ICU, report given to Christiano RN, all questions answered.
--- NOTE | 2023-03-07 09:56 | W.PN.GI.CBS2 ---
Today's Communication / Plan
-
continue CLD
Assessment / Plan
-
Pt is a 57yo presents with hx ETOH abuse, erosive esophagitis, non hodgkin's lymphoma not on treatment , adenomatous colon polyps, anxiety, chronic back pain with recurrent admission with abdominal pain with concern for recurrent pancreatitis.
Prior admission in with pancreatitis and noted pseudocyst. Pt admits to continued ETOH use 12 shots per day. On admission. WBC 11,700, hbg 16, keri 2.2, AST 733, alt 574, alk phos 163, lipase 1913. Last ETOH 2 days ago 12 shots per
day. Imaging on return with CT noted changes of acute pancreatitis 1.5 cm lesion head of pancreas likely pseudocyst. Pt also due for follow up colonoscopy this spring with hx polyps.
-recurrent pancreatitis with pseudocyst - likely ETOH related. MRI- no CBD stone
-increased LFT's wit concern for component of ETOH hepatitis - trending down
-noted pancreatitic pseudocyst
-leukocytosis
-ETOH abuse with withdrawal
- hepatic steatosis
other medical problems:
non hodgkin's lymphoma
anxiety
chronic back pain
MRI abd 03/06
IMPRESSION: Small layer of gallstones and/or sludge in the dependent portion of the gallbladder. No evidence for lobar wall thickening or pericholecystic edema.
There is no evidence for biliary ductal dilation. No evidence for bile duct calculus.
1.3 cm focus of increased T2 and STIR signal within the head of the pancreas, which very likely represents a pseudocyst. Advise follow-up CT or MRI evaluation with attention to the pancreas in 6 months.
9 mm lesion in the posterior right lobe of the liver, corresponding to lesion seen on recent CT examination, and likely a small hemangioma
PLAN:
medical team to evaluate for alcohol withdrawal based on protocol
continue clear liquid
IVF
pain management
trend LFT
will follow
Total Time Spent with Patient (in minutes): 35
Subjective
Subjective
Date of Service: March 07, 2023
still c/o abdominal pain. tolerating clears. agitated and having tremors +
Objective
Data Reviewed
Laboratory Data:
Laboratory Results
03/07/23 04:56
03/07/23 04:56
Laboratory Results
PT 14.1 Sec (11.4-14.6) 03/05/23 17:54
INR 1.07 03/05/23 17:54
APTT 31.6 Sec (23.4-35.0) 03/05/23 17:54
Phosphorus 3.6 mg/dl (2.5-4.5) 03/05/23 17:54
Magnesium 2.1 mg/dl (1.6-2.3) 03/05/23 17:54
Total Bilirubin 1.0 mg/dl (0.2-1.3) D 03/07/23 04:56
AST 392 U/L (17-59) H 03/07/23 04:56
ALT 493 U/L (0-50) H 03/07/23 04:56
Alkaline Phosphatase 177 U/L (38-126) H 03/07/23 04:56
Amylase 81 U/L (30-110) 03/06/23 05:16
Lipase 460 U/L (23-300) H 03/07/23 04:56
Vital Signs and I&O:
Vital Signs
Temp Pulse Resp BP Pulse Ox
98.2 F 92 19 156/101 94
03/07/23 07:40 03/07/23 07:40 03/07/23 07:40 03/07/23 07:40 03/07/23 07:40
I&O
03/06/23 03/07/23 03/08/23
06:59 06:59 06:59
Intake Total 6620 / 6620
Output Total 650 / 650 3475 / 3475
Balance -650 / -650 3145 / 3145
Physical Exam
Physical Exam
GI: Soft, Non Distended and Tender (epigastric tenderness)
--- NOTE | 2023-03-07 13:05 | PTCARENOTE ---
Received pt as IMU overflow from [address] [place] [address]. MSAS per protocol. MSAS observed 8-10 for tremor, tachycardia, nausea, hallucinations, restlessness, and vague orientation. Garbled speech. Conversations not grounded in reality. Talking to people in room
that are not present. Pt with repeated attempts to get out of bed. Bed alarm in place. SaO2 89% on room air. 2L NC applied; SaO2 96%. Lungs diminished throughout. Sinus rhythm/Sinus tach on classroom monitor. Pedal pulses palpable. Scheduled
Midodrine held due to ordered parameters. Pt unable to cooperate with PO intake. Occasional complaint of 11/10 abdominal pain. Clear yellow urine in urinal at times. Frequently incontinent. Condom catheter attempted but pt continuously removed. LR @
200ml/hr through (R) FA #[id number]. (L) chest wall subq port not accessed at this time.
[2023-03-07] MEDS: PRECEDEX 100 IV ×2 (14:28→20:10)
[2023-03-07] MEDS: PHENOBARBITAL 97.5 MG IV ×2 (16:03→21:10)
--- NOTE | 2023-03-07 16:16 | CON.INTV ---
Consultation
Consultation Request
Date/Time Consultation Requested: 03-07-20231411
Date/Time Consultation Performed: 03-07-20231521
Requesting Provider: Dr. Munguia
Performing Provider: Dr. Corona
Reason for Consultation: Worsening alcohol withdrawal
Medical History
-
Chief Complaint: Abdominal pain
History of Present Illness:
57-year-old male with a PMHx of alcohol use disorder, Hodgkin's lymphoma and DENICE who presented with abdominal pain X several months. Pain got worse over the last few days. Liver enzymes were elevated including alkaline phosphatase, AST and ALT,
bilirubin. Lipase 1913. CT abdomen/pelvis showed acute pancreatitis and an adjacent 1.5 cm suspected pseudocyst. There was no calcified gallstones or biliary ductal dilation. Diffuse fatty infiltration of the liver was seen. He was admitted to
the floors on IV fluids. Abdominal ultrasound showed gallstones without evidence of biliary ductal dilation. There was no peripancreatic collection. Gastroenterology has been consulted. MRCP showed layering gallstones and/or sludge in the
dependent gallbladder without wall thickening or pericholecystic edema. There was no biliary duct dilation, no bile duct calculus. 1.3 cm focus at the head of the pancreas suspected to be pseudocyst. Suspected small hemangioma at the right lobe
of the liver measuring 9 mm. Patient continued to be managed but then was exhibiting signs of alcohol withdrawal, requiring several doses of Ativan. Alcohol withdrawal symptoms worsened and he was transferred to the ICU for further care and
Precedex drip. Therapeutic Massage Technician service is consulted for additional management/recommendations.
When I saw the patient he was in bed, sleeping, on Precedex at 0.7mcg/kg/hr. BP 144/90, heart rate 66, saturating 94% on 2 L/min nasal cannula.
PMHx: Hodgkin lymphoma s/p left anterior chemo port, DENICE, alcohol use disorder, depression
PSHx: L4-5 laminectomy; Chemo-Port insertion (2015)
Past Medical History
Past Medical History: Other (Above as per HPI)
Past Surgical History: Other (Above as per HPI)
Social History
Tobacco: Non-smoker
Alcohol: Daily
Drug: None
Personal:
Living: With Family
Family History
Family History: Reviewed & Not Pertinent
Allergies / Home Medications
Allergies
Allergy/AdvReac Type Severity Reaction Status Date / Time
hydromorphone [From Dilaudid] Allergy Mild Itching Verified 03/06/23 07:48
Home Medications
Medication Instructions Recorded Confirmed Last Taken Type
tamsulosin 0.4 mg capsule (Flomax) 0.4 mg PO DAILY Urinary Issue 09/04/22 03/05/23 Unknown History
diazepam 5 mg tablet 5 mg PO BID PRN anxiety 3 days #7 09/24/22 03/05/23 03/05/23 Rx
tabs 10 mg
folic acid 1 mg tablet 1 mg PO DAILY Supplement #30 tabs 09/24/22 03/05/23 Unknown Rx
benzonatate 100 mg capsule 100 mg PO TID PRN cough 03/05/23 03/05/23 3 Days Ago History
~03/02/23
citalopram 40 mg tablet 40 mg PO DAILY Mental 03/05/23 03/05/23 Unknown History
Health/Anxiety
diclofenac sodium 50 mg 50 mg PO BIDPRN PRN mild pain 03/05/23 03/05/23 Unknown History
tablet,delayed release
metoprolol tartrate 25 mg tablet 25 mg PO BID Blood Pressure 03/05/23 03/05/23 Unknown History
midodrine 5 mg tablet 5 mg PO TID Blood Pressure 03/05/23 03/05/23 Unknown History
omeprazole 40 mg capsule,delayed 40 mg PO DAILY GERD 03/05/23 03/05/23 03/05/23 History
release
thiamine HCl (vitamin B1) 100 mg 100 mg PO DAILY Supplement 03/05/23 03/05/23 Unknown History
tablet
Review of Systems
-
Unable to Obtain full review of systems at this time due to: Acuity
Vitals / Labs / Diagnostic Testing
Vital Signs
Temp Pulse Resp BP Pulse Ox
99.1 F 92 19 156/101 95
03/07/23 15:52 03/07/23 07:40 03/07/23 07:40 03/07/23 07:40 03/07/23 15:47
Lab Data
03/07/23 04:56
03/07/23 04:56
Diagnostic Testing:
Physical Exam
-
HEENT: Normocephalic and Anicteric
Cardiovascular: S1/S2
Respiratory: Clear, Wheeze (Negative), Rales (Negative) and Rhonchi (Negative)
GI: Soft and Non Distended
Neurology: Other (Lethargic, arousable to verbal stimuli, confused)
Skin: Warm and Dry
General: Comfortable and Sweats (Negative)
Assessment
-
Assessment: 57-year-old male with a PMHx of alcohol use disorder, Hodgkin's lymphoma and DENICE who presented with abdominal pain X several months. Pain got worse over the last few days. Liver enzymes were elevated including alkaline phosphatase,
AST and ALT, bilirubin. Lipase 1913. CT abdomen/pelvis showed acute pancreatitis and an adjacent 1.5 cm suspected pseudocyst. There was no calcified gallstones or biliary ductal dilation. Diffuse fatty infiltration of the liver was seen. He was
admitted to the floors on IV fluids. Abdominal ultrasound showed gallstones without evidence of biliary ductal dilation. There was no peripancreatic collection. Gastroenterology has been consulted. MRCP showed layering gallstones and/or sludge
in the dependent gallbladder without wall thickening or pericholecystic edema. There was no biliary duct dilation, no bile duct calculus. 1.3 cm focus at the head of the pancreas suspected to be pseudocyst. Suspected small hemangioma at the right
lobe of the liver measuring 9 mm. Patient continued to be managed but then was exhibiting signs of alcohol withdrawal, requiring several doses of Ativan. Alcohol withdrawal symptoms worsened and he was transferred to the ICU for further care and
Precedex drip. Therapeutic Massage Technician service is consulted for additional management/recommendations.
Chronic medical conditions SENIOR SUSTAINABILITY ADVISOR:Hodgkin lymphoma s/p left anterior chemo port, DENICE, alcohol use disorder, depression
Impression:
#Acute alcohol withdrawal with high ativan requirements now started on precedex gtt
#Acute pancreatitis
#Transaminitis
#Acute respiratory failure with hypoxemia on supplemental oxygen - likely due to hypoventilation
#Hx of Hodgkin lymphoma s/p lefrt anterior chest wall chemo-port
Plan:
- Continue Precedex drip and wean as tolerated
- Phenobarbital protocol + prn ativan + MSAS
- IV fluids with LR at 150 cc/h
- Thiamine, folate and MVN
- Maintain SpO2 >90-94%
- Trend LFTs and lipase
- if his mental status does not clear up over next [address] head
- Check TSH w/ reflex to free T4; check B12 level
- Maintain MAP >65
- Goal BG 140-180
- Transfuse blood products as needed to keep Hb>7g/dL and plt>50k
- Replete K>4, Mg>2
- Stress ulcer prophylaxis: N/A
- DVT ppx: LMWH
Critical care statement (Patient seen and evaluated on 03/07/2023): A total of 40 minutes of critical care time was provided for this patient today. This includes management of unstable vital signs, evaluation of the patient at bedside, reviewing the
patient's pertinent medical records including radiographs, microbiology, laboratory evaluations, and discussion with primary team, consultants, pharmacy, nutrition, physical therapy, case management, charge nurse, critical care nursing, and
respiratory therapy.
Data:
MRCP 03-06-2023:�Small layer of gallstones and/or sludge in the dependent portion of the gallbladder. No evidence for lobar wall thickening or pericholecystic edema.
There is no evidence for biliary ductal dilation. No evidence for bile duct calculus.
1.3 cm focus of increased T2 and STIR signal within the head of the pancreas, which very likely represents a pseudocyst. Advise follow-up CT or MRI evaluation with attention to the pancreas in 6 months.
9 mm lesion in the posterior right lobe of the liver, corresponding to lesion seen on recent CT examination, and likely a small hemangioma
Abd US 03-05-2023:
Several small shadowing gallstones are present within the gallbladder as well as a small amount of sludge. The bladder wall is slightly thickened, and is nonspecific.
No evidence for biliary ductal dilation.
No gross abnormality of the pancreas, with no evidence for peripancreatic collection. Of note, the pancreatic tail is not well-visualized with shadowing from overlying bowel gas.
--- NOTE | 2023-03-07 18:06 | PTCARENOTE ---
Pt with increasing agitation and hallucinations. Talking to his mom and girlfriend who are not present. Pt with repeated attempts to get out of bed and unable to orient. Unable to have conversation that is grounded in reality. Beginning to push in
attempt to get out of bed. Ativan administered Q1H per MSAS protocol without (+) effect. Dr João Munguia notified. New order to transfer to ICU level of care and initiate Precedex gtt. Precedex gtt increased to 0.7 mcg/kg/hr before goal RASS of 0 to -2
met. Girlfriend and mother now at bedside; updated on plan of care.
[2023-03-07] MEDS: LOVENOX 40 MG SC (18:32)
--- NOTE | 2023-03-07 20:00 | PTCARENOTE ---
Pt received A&Ox1, disoriented to place and time, asleep upon initial assessment, arousable to tactile stimulation. S/O and mother at bedside. Here with acute pancreatitis and alcohol withdrawal. IVF and Precedex infusing and titrated per orders. Pt
turned in bed, bed alarm on. Pt NSR on tele. Abd soft, non tender per pt. Voiding appropriately via CC. Frequent reorientation by RN needed. Pt hallucinating with garbled speech. PIV flushed without difficulty. MSAS protocol maintained, at this time
3. B/L hand mitts applied d/t pt pulling at wires. Lung sounds clear, diminished at bases. Skin intact.
[2023-03-07] MEDS: LOPRESSOR PO (20:45)
--- NOTE | 2023-03-07 23:59 | PTCARENOTE ---
Pt reassessed, no changed from previous assessment. Continued need for B/L mitts, active order in place.
[2023-03-08] VITALS (25 sets, daily range): BP systolic 83–146; BP diastolic 57–116; PULSE 61; BMI 27.4
[2023-03-08] MEDS: LR 1000 IV ×3 (00:13→12:56)
[2023-03-08] MEDS: PRECEDEX 100 IV ×4 (03:00→20:41)
--- NOTE | 2023-03-08 04:00 | PTCARENOTE ---
Pt reassessed, Precedex titrated per orders. labs drawn via L chest SQ port. Pt turned in bed q2
[2023-03-08 04:08] LABS: Hematocrit 44.2 % (39.0-52.0); Mean Corp Hgb Conc. 33.9 g/dL (33.0-37.0); Mean Corpuscular Hgb 28.3 pg (27.0-31.0); Mean Corpuscular Volume 83.4 fL (80.0-94.0); Mean Platelet Volume 8.4 fL (7.4-10.4); Platelet Count 138 10^3/uL (130-400); Red Cell Dist. Width 13.9 % (11.5-14.5); White Blood Cell Count 5.6 10^3/uL (4.8-10.8)
[2023-03-08 04:52] LABS: ALT (SGPT) 330 U/L (0-50); AST (SGOT) 138 U/L (17-59); Albumin 3.3 g/dl (3.5-5.0); Alkaline Phosphatase 161 U/L (38-126); Blood Urea Nitrogen 6 mg/dl (9-20); Calcium 9.1 mg/dl (8.4-10.2); Carbon Dioxide 26 mmol/L (22-30); Chloride 100 mmol/L (98-107); Estimated Creatinine Clearance 122 ml/min; Glucose 112 mg/dl (70-99); Magnesium 2.1 mg/dl (1.6-2.3); Potassium 3.6 mmol/L (3.5-5.1); Sodium 135 mmol/L (135-145); Total Bilirubin 0.9 mg/dl (0.2-1.3); Total Protein 6.2 g/dl (6.3-8.2); eGFR > 60.00
[2023-03-08 05:08] LABS: Lipase 147 U/L (23-300)
--- NOTE | 2023-03-08 06:36 | PTCARENOTE ---
Pt Sp02 89% on 2 L, increased to 4L NC for Sp02 of 92%, pt encouraged to take deep breaths.
[2023-03-08] MEDS: ATIVAN 1 MG IV ×2 (07:57→13:09)
--- NOTE | 2023-03-08 08:03 | W.PN.INTV ---
Today's Communication / Plan
Recommendations
Precedex gtt
Prn ativan + phenobarb protocol
May need additional meds for EtOH with librium, either standing or prn --> giving a one time dose now (50mg) to assess his response
Goal SpO2>90-94%
Remain in bed; may need 1:1
IVF, low fat diet
Continue ICU level of care for now while on precedex gtt
Assessment
-
Assessment: 57-year-old male with a PMHx of alcohol use disorder, Hodgkin's lymphoma and DENICE who presented with abdominal pain X several months. Pain got worse over the last few days. Liver enzymes were elevated including alkaline phosphatase,
AST and ALT, bilirubin. Lipase 1913. CT abdomen/pelvis showed acute pancreatitis and an adjacent 1.5 cm suspected pseudocyst. There was no calcified gallstones or biliary ductal dilation. Diffuse fatty infiltration of the liver was seen. He was
admitted to the floors on IV fluids. Abdominal ultrasound showed gallstones without evidence of biliary ductal dilation. There was no peripancreatic collection. Gastroenterology has been consulted. MRCP showed layering gallstones and/or sludge
in the dependent gallbladder without wall thickening or pericholecystic edema. There was no biliary duct dilation, no bile duct calculus. 1.3 cm focus at the head of the pancreas suspected to be pseudocyst. Suspected small hemangioma at the right
lobe of the liver measuring 9 mm. Patient continued to be managed but then was exhibiting signs of alcohol withdrawal, requiring several doses of Ativan. Alcohol withdrawal symptoms worsened and he was transferred to the ICU for further care and
Precedex drip. Card Grader service is consulted for additional management/recommendations.
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
Impression:
#Acute alcohol withdrawal with high ativan requirements now started on precedex gtt
#Acute pancreatitis
#Transaminitis
#Acute respiratory failure with hypoxemia on supplemental oxygen - likely due to hypoventilation (CXR is clear); other DDx includes R to L shunt
#Hx of Hodgkin lymphoma s/p lefrt anterior chest wall chemo-port
Plan:
- Continue Precedex drip and wean as tolerated
- Phenobarbital protocol + prn ativan + MSAS; may need librium as he still has moments with hallucinations and tries to get up out of bed and is confused, non-directable despite being on precedex and phenobarb.
- IV fluids with LR at 80 cc/h and wean as tolerated while trending serum lipase + HCT
- Ok to advance diet to low fat and monitor for intolerance
- Thiamine, folate and MVN
- Maintain SpO2 >90-94%
- If sats remain poor then will check TTE with bubble study as his sats do tend to improve with patient lying flat, which could be orthodeoxia
- Trend LFTs
- CT Head done today shows no acute intracranial pathology
- Maintain MAP >65
- Goal BG 140-180
- Transfuse blood products as needed to keep Hb>7g/dL and plt>50k
- Replete K>4, Mg>2
- Stress ulcer prophylaxis: N/A
- DVT ppx: LMWH
Continue ICU level of care while pt remains on precedex gtt.
Critical care statement: A total of 37 minutes of critical care time was provided for this patient today. This includes management of unstable vital signs, evaluation of the patient at bedside, reviewing the patient's pertinent medical records
including radiographs, microbiology, laboratory evaluations, and discussion with primary team, consultants, pharmacy, nutrition, physical therapy, case management, charge nurse, critical care nursing, and respiratory therapy.
Data:
CT Head 03-08-2023: No acute intracranial abnormality
MRCP 03-06-2023:�Small layer of gallstones and/or sludge in the dependent portion of the gallbladder. No evidence for lobar wall thickening or pericholecystic edema.
There is no evidence for biliary ductal dilation. No evidence for bile duct calculus.
1.3 cm focus of increased T2 and STIR signal within the head of the pancreas, which very likely represents a pseudocyst. Advise follow-up CT or MRI evaluation with attention to the pancreas in 6 months.
9 mm lesion in the posterior right lobe of the liver, corresponding to lesion seen on recent CT examination, and likely a small hemangioma
Abd US 03-05-2023:
Several small shadowing gallstones are present within the gallbladder as well as a small amount of sludge. The bladder wall is slightly thickened, and is nonspecific.
No evidence for biliary ductal dilation.
No gross abnormality of the pancreas, with no evidence for peripancreatic collection. Of note, the pancreatic tail is not well-visualized with shadowing from overlying bowel gas.
Subjective Dataa
Subjective Data
Date of Service:
Date of Service: March 08, 2023
Chief Complaint: Card Grader Follow Up
Subjective:
Pt seen this AM. No overnight events. Was unable to wean precedex as he gets agitated. He is more alert today but does occasionally become sleepy again goes back to bed. He is on 6L/min NC with sats 88%. HR 62 and BP 138/96. No ativan required
overnight. MSAS this AM is 4. Lipase now WNL.
Review of Systems
General: Other (unable to assess as pt is confused)
Objective Data
Data Reviewed
Vital Signs / I&O / Oxygen:
Vital Signs
Temp Pulse Resp BP Pulse Ox
96.5 F L 60 21 114/92 87
03/08/23 08:54 03/08/23 09:45 03/08/23 09:45 03/08/23 09:11 03/08/23 09:45
Intake and Output
03/07/23 03/08/23 03/09/23
06:59 06:59 06:59
Intake Total 6620 / 6620 3835.3 / 3999.1 655.2 / 655.2
Output Total 3475 / 3475 5225 / 5225
Balance 3145 / 3145 -1389.7 / -1225.9 655.2 / 655.2
SaO2 87
Nasal Cannula flow liters per 4
minute
Physical Exam
General: Comfortable and Chills (Negative)
HEENT: Normocephalic and Anicteric
Cardiovascular: S1-S2 and Peripheral Edema (negative)
Respiratory: Clear and Other (poor inspiratory effort)
GI: Soft, Non Distended, Non Tender and Normal Bowel Sounds
Neurology: Other (sleepy but easily arousable and occasionally more alert and answering questions appropriately)
Skin: Warm and Dry
Labs/Micro/Reports
Lab Data
03/08/23 03:58
03/08/23 03:58
--- NOTE | 2023-03-08 08:54 | PTCARENOTE ---
Pt received in bed @ 0700. Oriented to self. Swatted away nursing during assessment. Began yelling, 'Where the fuck is my dog Latasha!?' Conversation not grounded in reality. Unable to orient to hospital. PRN Ativan provided per [facility] protocol. Precedex
gtt infusing @ 0.7 mcg/kg/hr. B/L soft limb mitts in place. SaO2 95% on 4L NC. Poor inspiratory effort. Unable to take deep breath upon request for auscultation. Sinus rhythm on hotel maintenance technician. Palpable peripheral pulses. Abdomen nontender.
Positive bowel sounds. Refusing PO intake. Condom catheter #[address]; voiding yellow. LR infusing @ 150 ml/hr.
[2023-03-08] MEDS: CELEXA 40 MG PO (09:17)
[2023-03-08] MEDS: FOLVITE 1 MG PO (09:17)
[2023-03-08] MEDS: FLOMAX 0.400000000000000022 MG PO (09:17)
[2023-03-08] MEDS: PHENOBARBITAL 97.5 MG IV ×3 (09:17→22:23)
[2023-03-08] MEDS: PROTONIX IV 40 MG IV (09:18)
[2023-03-08] MEDS: LOPRESSOR PO ×2 (09:18→21:41)
[2023-03-08] MEDS: THIAMINE INJECTION 200 MG IV (09:18)
[2023-03-08] MEDS: ProAmatine PO ×3 (09:23→16:02)
[2023-03-08] MEDS: NSS (PRESERVATIVE FREE) 10 ML IV (09:23)
--- NOTE | 2023-03-08 10:52 | W.PN.HOSP.TC ---
Today's Communication/Plan
-
Alcohol withdrawal protocol
Replace thiamine
Encourage out of bed or seated position
Incentive spirometry
Head CT
Assessment / Plan
Assessment / Plan
57-year-old male with pancreatitis
On examination patient is awake
Oriented x 1-knows he is in [place] thinks this is May 04
Cardiovascular system S1-S2 appreciated
Chest clear to auscultation
Abdomen mild discomfort
No pedal edema
Able to move all extremities
#Acute pancreatitis
Pancreatic pseudocyst
-Elevated lipase of 1912 -normalized
-CT a/p showing inflammation of pancreas
-Abdominal ultrasound showing gallstone as well although CBD of 4.6 mm only
-MRI/MRCP showing pancreatic pseudocyst. no choledocholithiasis
-Likely alcohol use related.�
-Continue on IV fluid/pain control- Dilaudid changed to morphine due to rash
-Patient seems to be on full liquid diet
-GI following
#Alcohol withdrawal
Alcohol use disorder
TME
-MSAS 4
-patient communicating but confused and needs frequent reorientation. keep requesting to call some place in [place] but unable to provide contact number
-On Precedex, phenobarbital and Ativan as needed
#Acute transaminitis - trending down
-Alcohol use related likely
-AST 911 ALT 442 ALP 210 TBilli 2.3
-Hepatitis serology negative
-Alcohol abstinence recommended
#Acute hypoxic respiratory insufficiency-secondary to atelectasis likely
Incentive spirometry
Encourage seated position
#Essential HTN
-Toprol-12.5 twice daily
#Fatty liver-likely secondary to alcohol use
#Thickening of the wall of the gastric antrum-likely secondary to pancreatitis however needs EGD as outpatient
On PPI
#Enlarged prostate
-Nn Flomax, no urinary complains currently
#Depression/anxiety
-continue home citalopram
-Diazepam on hold
#Chronic hypotension on midodrine as outpatient
#History of Hodgkin's lymphoma
8 years ago treated in [place]
#DVT PPX - Lovenox
#Full code
Discussed with nursing
Discussed with commercial agent
Called both Mom
CC time 33 min
Anticipated Discharge: > 48 hours
Subjective/Interval History
-
Date of Service: March 08, 2023
Objective Data
-
Labs:
Laboratory Results
03/08/23
03:58
WBC 5.6
Hgb 15.0
Hct 44.2
Plt Count 138
Sodium 135
Potassium 3.6
Chloride 100
Carbon Dioxide 26
BUN 6 L
Creatinine 0.5 L
Glucose 112 H
Calcium 9.1
Total Bilirubin 0.9
AST 138 H
ALT 330 H
Alkaline Phosphatase 161 H
Vital Signs:
Vital Signs
Temp Pulse Resp BP Pulse Ox
96.5 F L 60 21 114/92 87
03/08/23 08:54 03/08/23 09:45 03/08/23 09:45 03/08/23 09:11 03/08/23 09:45
I&O
03/07/23 03/08/23 03/09/23
06:59 06:59 06:59
Intake Total 6620 / 6620 3835.3 / 3999.1 655.2 / 655.2
Output Total 3475 / 3475 5225 / 5225
Balance 3145 / 3145 -1389.7 / -1225.9 655.2 / 655.2
[2023-03-08 11:57] LABS: TSH Reflex To Free T4 3.49 uIU/ml (0.47-4.68)
[2023-03-08 12:15] LABS: Vitamin B12 824 pg/ml (239-931)
--- NOTE | 2023-03-08 12:16 | PTCARENOTE ---
Pt reassessed. Pt now oriented x2, oriented to self and [facility]. Beginning to wean Precedex gtt; currently infusing @ 0.5 mcg/kg/hr with goal RASS of 0 to -2. Tolerating juice and jello for breakfast. SaO2 92% on 6L NC. Deep breathing
encouraged. Pt taken to CT scan and returned.
[2023-03-08] MEDS: ATIVAN 2 MG IV (14:05)
--- NOTE | 2023-03-08 14:12 | PTCARENOTE ---
Pt reassessed. Unable to wean Precedex gtt. HR to 120s. Gross tremors. Pt no longer oriented to place; refuses to believe he is in [facility]. Ripped tubing to blood pressure cuff. Hallucinations. Pouring pretend bottles and asking nurses
if they would like to have a shot. Talking to mother who is not in the room. Frequent attempts to get out of bed. Bed alarm in place. Pt unable to maintain pulse ox with activity and actively removing. 6L NC in place. Precedex gtt increased to 1.1
mcg/kg/hr. MSAS per protocol. MSAS 8 - 12. Ativan administered per protocol.
[2023-03-08] MEDS: LIBRIUM 50 MG PO (15:08)
[2023-03-08] MEDS: LOVENOX 40 MG SC (18:13)
--- NOTE | 2023-03-08 19:44 | W.PN.GI.CBS2 ---
Today's Communication / Plan
-
continue supportive mx
Assessment / Plan
-
Pt is a 57yo presents with hx ETOH abuse, erosive esophagitis, non hodgkin's lymphoma not on treatment , adenomatous colon polyps, anxiety, chronic back pain with recurrent admission with abdominal pain with concern for recurrent pancreatitis.
Prior admission in with pancreatitis and noted pseudocyst. Pt admits to continued ETOH use 12 shots per day. On admission. WBC 11,700, hbg 16, keri 2.2, AST 733, alt 574, alk phos 163, lipase 1913. Last ETOH 2 days ago 12 shots per
day. Imaging on return with CT noted changes of acute pancreatitis 1.5 cm lesion head of pancreas likely pseudocyst. Pt also due for follow up colonoscopy this spring with hx polyps.
Alcohol induced pancreatitis and also alcohol withdrawal, on precedex, phenobarbital and ativan. Can advance diet as tolerated when pt's mental status is better / awake. LFT elevated ? alcoholic hepatitis but trending down, no steroids needed.
MRI showed small pseudocyst (1.3 cm), no intervention needed for this. Continue supportive mx, will follow.
Total Time Spent with Patient (in minutes): 35
Subjective
Subjective
Date of Service: March 08, 2023
Arousable, AAO x 1
Objective
Data Reviewed
Laboratory Data:
Laboratory Results
03/08/23 03:58
03/08/23 03:58
Laboratory Results
PT 14.1 Sec (11.4-14.6) 03/05/23 17:54
INR 1.07 03/05/23 17:54
APTT 31.6 Sec (23.4-35.0) 03/05/23 17:54
Phosphorus 3.6 mg/dl (2.5-4.5) 03/05/23 17:54
Magnesium 2.1 mg/dl (1.6-2.3) 03/08/23 03:58
Total Bilirubin 0.9 mg/dl (0.2-1.3) 03/08/23 03:58
AST 138 U/L (17-59) H 03/08/23 03:58
ALT 330 U/L (0-50) H 03/08/23 03:58
Alkaline Phosphatase 161 U/L (38-126) H 03/08/23 03:58
Amylase 81 U/L (30-110) 03/06/23 05:16
Lipase 147 U/L (23-300) 03/08/23 03:58
Vital Signs and I&O:
Vital Signs
Temp Pulse Resp BP Pulse Ox
98.7 F 87 22 129/91 92
03/08/23 15:50 03/08/23 17:45 03/08/23 17:45 03/08/23 17:00 03/08/23 16:45
I&O
03/07/23 03/08/23 03/09/23
06:59 06:59 06:59
Intake Total 6620 / 6620 3835.3 / 3999.1 1949.6 / 1949.6
Output Total 3475 / 3475 5225 / 5225 1625 / 1625
Balance 3145 / 3145 -1389.7 / -1225.9 324.6 / 324.6
--- NOTE | 2023-03-08 19:56 | PTCARENOTE ---
Received patient on 1.1mcg/hr Precedex and LR @80ml/hr. Pt is lethargic, will attempt to taper precedex. Left SubQ port access and right forearm 20. Pupils are round, equal and reactive. Pt alert to self otherwise confused. NSR on monitor, no
edema, 6L NC lung are coarse and diminished. Abdomen soft non tender, #25CC with yellow urine, skin is intact. Pt does turn himself in bed. On going plan of care.
[2023-03-09] VITALS (34 sets, daily range): BP systolic 97–184; BP diastolic 65–124; PULSE 65; O2SAT 94; BMI 27.3
[2023-03-09] MEDS: THIAMINE INJECTION 200 MG IV ×4 (00:03→23:17)
[2023-03-09] MEDS: LR 1000 IV (00:08)
--- NOTE | 2023-03-09 01:00 | PTCARENOTE ---
Weaning Precedex as tolerated. Pt starting to become more agitated when aroused, Hallucinating and unable to follow commands, began to pull at lines and climb out of bed, attempt to reorient patient unsuccessful, B/L wrist restraints placed for
safety. NSR on monitor, does not appear to be in pain. LR @80ml/hr. Condom catheter #[address] Plan of care ongoing.
[2023-03-09] MEDS: PRECEDEX 100 IV ×5 (01:43→22:06)
[2023-03-09 03:35] LABS: Hematocrit 41.2 % (39.0-52.0); Hemoglobin 14.3 g/dL (13.0-18.0); Mean Corp Hgb Conc. 34.7 g/dL (33.0-37.0); Mean Corpuscular Hgb 27.9 pg (27.0-31.0); Mean Corpuscular Volume 80.3 fL (80.0-94.0); Mean Platelet Volume 9.1 fL (7.4-10.4); Platelet Count 150 10^3/uL (130-400); Red Blood Cell Count 5.13 10^6/uL (4.70-6.10); Red Cell Dist. Width 14.4 % (11.5-14.5); White Blood Cell Count 9.5 10^3/uL (4.8-10.8)
[2023-03-09] MEDS: ATIVAN 1 MG IV ×3 (03:36→17:02)
[2023-03-09 03:50] LABS: ALT (SGPT) 212 U/L (0-50); AST (SGOT) 64 U/L (17-59); Albumin 3.2 g/dl (3.5-5.0); Alkaline Phosphatase 141 U/L (38-126); Blood Urea Nitrogen 9 mg/dl (9-20); Calcium 8.5 mg/dl (8.4-10.2); Carbon Dioxide 26 mmol/L (22-30); Chloride 102 mmol/L (98-107); Estimated Creatinine Clearance 104 ml/min; Glucose 110 mg/dl (70-99); Lipase 95 U/L (23-300); Potassium 3.7 mmol/L (3.5-5.1); Sodium 134 mmol/L (135-145); Total Bilirubin 0.8 mg/dl (0.2-1.3); Total Protein 6.1 g/dl (6.3-8.2); eGFR > 60.00
--- NOTE | 2023-03-09 06:28 | PTCARENOTE ---
Able to starts weaning Precedex 0.8mcg/15.8ml. Pt remains drowsy, NSR on monitor. No urine output, bladder scanned for 542ml, with some coaching pt was able to urinate 600mls. Plan of care on going.
[2023-03-09] MEDS: FOLVITE 1 MG PO (07:42)
[2023-03-09] MEDS: CELEXA 40 MG PO (07:42)
[2023-03-09] MEDS: ProAmatine PO ×3 (07:42→16:13)
[2023-03-09] MEDS: LOPRESSOR 25 MG PO ×2 (07:42→20:20)
[2023-03-09] MEDS: FLOMAX 0.400000000000000022 MG PO (07:42)
[2023-03-09] MEDS: PROTONIX IV 40 MG IV (07:46)
[2023-03-09] MEDS: NSS (PRESERVATIVE FREE) 10 ML IV (07:46)
[2023-03-09] MEDS: PHENOBARBITAL 97.5 MG IV (07:47)
--- NOTE | 2023-03-09 07:59 | W.PN.INTV ---
Today's Communication / Plan
Recommendations
Precedex gtt
Prn ativan + phenobarb protocol
May need additional meds for EtOH with librium, either standing or prn --> giving a one time dose now (50mg) to assess his response
Goal SpO2>90-94%
Remain in bed; may need 1:1
IVF, low fat diet
Continue ICU level of care for now while on precedex gtt
Assessment
-
Assessment: 57-year-old male with a PMHx of alcohol use disorder, Hodgkin's lymphoma and DENICE who presented with abdominal pain X several months. Pain got worse over the last few days. Liver enzymes were elevated including alkaline phosphatase,
AST and ALT, bilirubin. Lipase 1913. CT abdomen/pelvis showed acute pancreatitis and an adjacent 1.5 cm suspected pseudocyst. There was no calcified gallstones or biliary ductal dilation. Diffuse fatty infiltration of the liver was seen. He was
admitted to the floors on IV fluids. Abdominal ultrasound showed gallstones without evidence of biliary ductal dilation. There was no peripancreatic collection. Gastroenterology has been consulted. MRCP showed layering gallstones and/or sludge
in the dependent gallbladder without wall thickening or pericholecystic edema. There was no biliary duct dilation, no bile duct calculus. 1.3 cm focus at the head of the pancreas suspected to be pseudocyst. Suspected small hemangioma at the right
lobe of the liver measuring 9 mm. Patient continued to be managed but then was exhibiting signs of alcohol withdrawal, requiring several doses of Ativan. Alcohol withdrawal symptoms worsened and he was transferred to the ICU for further care and
Precedex drip. Informatics Physician service is consulted for additional management/recommendations.
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
Impression:
#Acute alcohol withdrawal with high ativan requirements now started on precedex gtt
#Acute pancreatitis
#Transaminitis
#Acute respiratory failure with hypoxemia on supplemental oxygen - likely due to hypoventilation (CXR is clear); other DDx includes R to L shunt
#Hx of Hodgkin lymphoma s/p lefrt anterior chest wall chemo-port
Plan:
- Continue Precedex drip and wean as tolerated
- Phenobarbital protocol + prn ativan + MSAS; may need librium as he still has moments with hallucinations and tries to get up out of bed and is confused, non-directable despite being on precedex and phenobarb.
- IVF DC'd as lipase WNL x 2 days now
- Low fat diet - monitor for intolerance
- Thiamine, folate and MVN
- Maintain SpO2 >90-94%
- If sats remain poor then will check TTE with bubble study as his sats do tend to improve with patient lying flat, which could be orthodeoxia
- Trend LFTs
- CT Head done on 03/08/2023 shows no acute intracranial pathology
- Maintain MAP >65
- Goal BG 140-180
- Transfuse blood products as needed to keep Hb>7g/dL and plt>50k
- Replete K>4, Mg>2
- Stress ulcer prophylaxis: N/A
- DVT ppx: LMWH
Continue ICU level of care while pt remains on precedex gtt.
Critical care statement: A total of 38 minutes of critical care time was provided for this patient today. This includes management of unstable vital signs, evaluation of the patient at bedside, reviewing the patient's pertinent medical records
including radiographs, microbiology, laboratory evaluations, and discussion with primary team, consultants, pharmacy, nutrition, physical therapy, case management, charge nurse, critical care nursing, and respiratory therapy.
Data:
CT Head 03-08-2023: No acute intracranial abnormality
MRCP 03-06-2023:�Small layer of gallstones and/or sludge in the dependent portion of the gallbladder. No evidence for lobar wall thickening or pericholecystic edema.
There is no evidence for biliary ductal dilation. No evidence for bile duct calculus.
1.3 cm focus of increased T2 and STIR signal within the head of the pancreas, which very likely represents a pseudocyst. Advise follow-up CT or MRI evaluation with attention to the pancreas in 6 months.
9 mm lesion in the posterior right lobe of the liver, corresponding to lesion seen on recent CT examination, and likely a small hemangioma
Abd US 03-05-2023:
Several small shadowing gallstones are present within the gallbladder as well as a small amount of sludge. The bladder wall is slightly thickened, and is nonspecific.
No evidence for biliary ductal dilation.
No gross abnormality of the pancreas, with no evidence for peripancreatic collection. Of note, the pancreatic tail is not well-visualized with shadowing from overlying bowel gas.
Subjective Dataa
Subjective Data
Date of Service:
Date of Service: March 09, 2023
Chief Complaint: Informatics Physician Follow Up
Subjective:
More agitated today. Try to get out of bed. Confused, having hallucinations. Screaming out for Nikki. He is saturating 92% on 2 L/min nasal cannula, heart rate 78 and BP 147/97.
Review of Systems
General: Other (Unable to obtain due to patient's acute clinical status)
Objective Data
Data Reviewed
Vital Signs / I&O / Oxygen:
Vital Signs
Temp Pulse Resp BP Pulse Ox
97.5 F 81 24 132/92 89
03/09/23 11:24 03/09/23 14:15 03/09/23 14:15 03/09/23 14:10 03/09/23 14:15
Intake and Output
03/08/23 03/09/23 03/10/23
06:59 06:59 06:59
Intake Total 3835.3 / 3999.1 3613.2 / 3709.0 1726.4 / 1726.4
Output Total 5225 / 5225 2225 / 2225 350 / 350
Balance -1389.7 / -1225.9 1388.2 / 1484.0 1376.4 / 1376.4
SaO2 89
Nasal Cannula flow liters per 3
minute
Physical Exam
General: Chills (Negative) and Other (Agitated)
HEENT: Normocephalic and Anicteric
Cardiovascular: S1-S2 and Peripheral Edema (negative)
Respiratory: Clear and Other (poor inspiratory effort)
GI: Soft, Non Distended, Non Tender and Normal Bowel Sounds
Neurology: Awake and Other (Confused)
Skin: Warm and Dry
Labs/Micro/Reports
Lab Data
03/09/23 03:13
03/09/23 03:13
--- NOTE | 2023-03-09 08:16 | PTCARENOTE ---
recd pt agitated, animated, demanding to be out of restraints and go home, I don't need to be here. Not processing history or current situation. Brief trial of restraint release pt attempted and nearly succeeded OOB with RN in room, restraints
remain in place per order. VS noted. Med as noted, hallucinating, see MSAS. Attempted 4l nc, sats 88, returned to 6 liters and encouraged deep breathing. abd slightly tender, unable to quantify pain, no guarding, did not increase with gentle
assessment/palpation. precedex remains at 0.8. rest of assessment as documented, ordered breakfast.
--- NOTE | 2023-03-09 09:15 | W.PN.HOSP.TC ---
Today's Communication/Plan
-
Wean Precedex
Lower Ativan
PT OT
LF diet
Assessment / Plan
Assessment / Plan
57-year-old male with pancreatitis
On examination patient is drowsy arousable
Answers questiosns
wants to eat
Cardiovascular system S1-S2 appreciated
Chest clear to auscultation
Abdomen soft, nt
No pedal edema
Able to move all extremities
#Acute pancreatitis
Pancreatic pseudocyst
-Elevated lipase of 1913 -normalized
-CT a/p showing inflammation of pancreas
-Abdominal ultrasound showing gallstone as well although CBD of 4.6 mm only
-MRI/MRCP showing pancreatic pseudocyst. no choledocholithiasis
-Likely alcohol use related.�
-Continue on IV fluid/pain control- Dilaudid changed to morphine due to rash
-Low fat diet
-GI following
#Alcohol withdrawal
Alcohol use disorder
-TME
-MSAS and ativan
-patient communicating but confused and needs frequent reorientation. keep requesting to call some place in [place] but unable to provide contact number
-On Precedex, phenobarbital and Ativan as needed
-Lower the dose of Ativan
#Acute transaminitis - trending down
-Alcohol use related likely
-AST 911 ALT 442 ALP 210 TBilli 2.3 on admission
-Hepatitis serology negative
-Alcohol abstinence recommended
#Acute hypoxic respiratory insufficiency-secondary to atelectasis likely
Incentive spirometry
Encourage seated position
#Essential HTN
-Toprol-12.5 twice daily
#Fatty liver-likely secondary to alcohol use
#Thickening of the wall of the gastric antrum-likely secondary to pancreatitis however needs EGD as outpatient
On PPI
#Enlarged prostate
-On Flomax, no urinary complains currently
#Depression/anxiety
-continue home citalopram
-Diazepam on hold
#Chronic hypotension on midodrine as outpatient
#History of Hodgkin's lymphoma
8 years ago treated in [place]
#DVT PPX - Lovenox
#Full code
Discussed with nursing
spoke to Mom 03/08/23
Anticipated Discharge: > 48 hours
Subjective/Interval History
-
Date of Service: March 09, 2023
Objective Data
-
Labs:
Laboratory Results
03/09/23
03:13
WBC 9.5
Hgb 14.3
Hct 41.2
Plt Count 150
Sodium 134 L
Potassium 3.7
Chloride 102
Carbon Dioxide 26
BUN 9
Creatinine 0.7
Glucose 110 H
Calcium 8.5
Total Bilirubin 0.8
AST 64 H
ALT 212 H
Alkaline Phosphatase 141 H
Vital Signs:
Vital Signs
Temp Pulse Resp BP Pulse Ox
98.1 F 66 23 140/68 94
03/09/23 07:48 03/09/23 08:15 03/09/23 08:15 03/09/23 08:00 03/09/23 08:00
I&O
03/08/23 03/09/23 03/10/23
06:59 06:59 06:59
Intake Total 3835.3 / 3999.1 3613.2 / 3709.0 311.6 / 311.6
Output Total 5225 / 5225 2225 / 2225
Balance -1389.7 / -1225.9 1388.2 / 1484.0 311.6 / 311.6
[2023-03-09] MEDS: TORADOL 10 MG IV (11:54)
--- NOTE | 2023-03-09 12:00 | PTCARENOTE ---
precedex titrated per MD order, family visiting. still hallucinating. fed self breakfast. see VS.
[2023-03-09 12:29] LABS: Ammonia 12 umol/L (9-30)
[2023-03-09] MEDS: ATIVAN 0.5 MG IV ×2 (13:12→14:53)
--- NOTE | 2023-03-09 13:18 | PTCARENOTE ---
weaning precedex, see intervention, IV fluids capped, family in and out, pt vacillates quickly between cooperative and angry. hallucinating, having conversations with people not present. At times, trying to eat pulse ox (or smoke it) and has no
comprehension as to events and difficult to redirect. med with ativan, see MAR.
--- NOTE | 2023-03-09 13:31 | PTCARENOTE ---
belligerant and using threatening speech. presently in bed, unrestrained (not pulling at lines) watching TV, med sitter ordered. precedex increased.
--- NOTE | 2023-03-09 13:55 | W.PN.GI.CBS2 ---
Today's Communication / Plan
-
continue supportive mx, GI s/o.
Assessment / Plan
-
Pt is a 57yo presents with hx ETOH abuse, erosive esophagitis, non hodgkin's lymphoma not on treatment , adenomatous colon polyps, anxiety, chronic back pain with recurrent admission with abdominal pain with concern for recurrent pancreatitis.
Prior admission in with pancreatitis and noted pseudocyst. Pt admits to continued ETOH use 12 shots per day. On admission. WBC 11,700, hbg 16, keri 2.2, AST 733, alt 574, alk phos 163, lipase 1913. Last ETOH 2 days ago 12 shots per
day. Imaging on return with CT noted changes of acute pancreatitis 1.5 cm lesion head of pancreas likely pseudocyst. Pt also due for follow up colonoscopy this spring with hx polyps.
Alcohol induced pancreatitis and also alcohol withdrawal, on precedex, phenobarbital and ativan. Pt is more awake today, eating solid breakfast when seen. Remains on precedex and phenobarb. Weaning. LFT improving. As noted previously, MRI
showed small pseudocyst (1.3 cm)and no intervention is needed for this. Continue supportive mx. Pt can f/u in GI as OP after d/c. Will s/o, call with questions.
Total Time Spent with Patient (in minutes): 35
Subjective
Subjective
Date of Service: March 09, 2023
more awake today but remains confused.
Objective
Data Reviewed
Laboratory Data:
Laboratory Results
03/09/23 03:13
03/09/23 03:13
Laboratory Results
PT 14.1 Sec (11.4-14.6) 03/05/23 17:54
INR 1.07 03/05/23 17:54
APTT 31.6 Sec (23.4-35.0) 03/05/23 17:54
Phosphorus 3.6 mg/dl (2.5-4.5) 03/05/23 17:54
Magnesium 2.1 mg/dl (1.6-2.3) 03/08/23 03:58
Total Bilirubin 0.8 mg/dl (0.2-1.3) 03/09/23 03:13
AST 64 U/L (17-59) H 03/09/23 03:13
ALT 212 U/L (0-50) H 03/09/23 03:13
Alkaline Phosphatase 141 U/L (38-126) H 03/09/23 03:13
Amylase 81 U/L (30-110) 03/06/23 05:16
Lipase 95 U/L (23-300) 03/09/23 03:13
Vital Signs and I&O:
Vital Signs
Temp Pulse Resp BP Pulse Ox
97.5 F 67 28 144/101 96
03/09/23 11:24 03/09/23 11:41 03/09/23 10:15 03/09/23 11:41 03/09/23 10:15
I&O
03/08/23 03/09/23 03/10/23
06:59 06:59 06:59
Intake Total 3835.3 / 3999.1 3613.2 / 3709.0 1586.6 / 1586.6
Output Total 5225 / 5225 2225 / 2225 350 / 350
Balance -1389.7 / -1225.9 1388.2 / 1484.0 1236.6 / 1236.6
[2023-03-09] MEDS: LUMINAL 64.7999999999999972 MG PO ×2 (15:32→21:31)
--- NOTE | 2023-03-09 15:49 | PTCARENOTE ---
see MAR and precedex titration for interventions for agitation, belligerance. took pills with sip water. condom cath maintained, draining. asking for 'burner phone to call and order some stuff from friends'. safe environment maintained.
[2023-03-09] MEDS: LOVENOX SC (17:02)
[2023-03-09] MEDS: LOVENOX 40 MG SC (17:11)
--- NOTE | 2023-03-09 18:32 | PTCARENOTE ---
amped up over dinner with family, agitated, swinging legs over side of bed, remains restrained. I/O tallied, condom cath remains on. fell asleep approx 1750.
--- NOTE | 2023-03-09 20:00 | PTCARENOTE ---
Pt sleeping, appears comfortable, NSR on monitor, Precedex infusing at 1.2mcg/hr, B/L wrist restraints in place, VM also on.
[2023-03-09] MEDS: ATIVAN 0.25 MG IV (22:06)
--- NOTE | 2023-03-09 23:23 | PTCARENOTE ---
Pt BP consistently elevated, 170/144, despite giving PO metoprolol. 1x dose morphine to be given. MSAS per protocol. VM continued. Precedex tapered per protocol.
[2023-03-09] MEDS: MORPHINE SULFATE 2 MG IV (23:28)
[2023-03-10] VITALS (39 sets, daily range): BP systolic 86–184; BP diastolic 62–143; BMI 27.6
[2023-03-10] MEDS: ATIVAN 0.25 MG IV ×2 (00:23→13:22)
[2023-03-10] MEDS: ATIVAN 0.5 MG IV ×3 (01:43→10:05)
[2023-03-10] MEDS: PRECEDEX 100 IV ×6 (02:19→22:47)
--- NOTE | 2023-03-10 02:24 | PTCARENOTE ---
Pt becoming increasingly more agitated, titrating precedex, MSAS Q1 hour due to Ativan requirements. BP has improved with Ativan administration.
[2023-03-10] MEDS: APRESOLINE 10 MG IV (03:16)
[2023-03-10 03:51] LABS: Hemoglobin 14.2 g/dL (13.0-18.0); Mean Corp Hgb Conc. 34.6 g/dL (33.0-37.0); Mean Corpuscular Hgb 27.7 pg (27.0-31.0); Mean Corpuscular Volume 79.9 fL (80.0-94.0); Mean Platelet Volume 8.4 fL (7.4-10.4); Platelet Count 184 10^3/uL (130-400); Red Blood Cell Count 5.13 10^6/uL (4.70-6.10); Red Cell Dist. Width 14.2 % (11.5-14.5); White Blood Cell Count 9.2 10^3/uL (4.8-10.8)
[2023-03-10 04:24] LABS: ALT (SGPT) 172 U/L (0-50); AST (SGOT) 53 U/L (17-59); Albumin 3.4 g/dl (3.5-5.0); Alkaline Phosphatase 140 U/L (38-126); Blood Urea Nitrogen 7 mg/dl (9-20); Calcium 8.6 mg/dl (8.4-10.2); Carbon Dioxide 25 mmol/L (22-30); Chloride 104 mmol/L (98-107); Estimated Creatinine Clearance 122 ml/min; Glucose 104 mg/dl (70-99); Magnesium 2.1 mg/dl (1.6-2.3); Potassium 3.7 mmol/L (3.5-5.1); Sodium 135 mmol/L (135-145); Total Bilirubin 0.8 mg/dl (0.2-1.3); Total Protein 6.5 g/dl (6.3-8.2); eGFR > 60.00
[2023-03-10] MEDS: THIAMINE INJECTION 200 MG IV ×2 (08:03→15:30)
[2023-03-10] MEDS: PROTONIX IV 40 MG IV (08:03)
[2023-03-10] MEDS: NSS (PRESERVATIVE FREE) 10 ML IV (08:03)
--- NOTE | 2023-03-10 08:09 | W.PN.INTV ---
Today's Communication / Plan
Recommendations
Precedex gtt
Prn ativan + phenobarb protocol
Psych consulted --> risperdal started
Goal SpO2>90-94%
Remain in bed; may need 1:1
IVF, low fat diet
Continue ICU level of care for now while on precedex gtt
Assessment
-
Assessment: 57-year-old male with a PMHx of alcohol use disorder, Hodgkin's lymphoma and DENICE who presented with abdominal pain X several months. Pain got worse over the last few days. Liver enzymes were elevated including alkaline phosphatase,
AST and ALT, bilirubin. Lipase 1913. CT abdomen/pelvis showed acute pancreatitis and an adjacent 1.5 cm suspected pseudocyst. There was no calcified gallstones or biliary ductal dilation. Diffuse fatty infiltration of the liver was seen. He was
admitted to the floors on IV fluids. Abdominal ultrasound showed gallstones without evidence of biliary ductal dilation. There was no peripancreatic collection. Gastroenterology has been consulted. MRCP showed layering gallstones and/or sludge
in the dependent gallbladder without wall thickening or pericholecystic edema. There was no biliary duct dilation, no bile duct calculus. 1.3 cm focus at the head of the pancreas suspected to be pseudocyst. Suspected small hemangioma at the right
lobe of the liver measuring 9 mm. Patient continued to be managed but then was exhibiting signs of alcohol withdrawal, requiring several doses of Ativan. Alcohol withdrawal symptoms worsened and he was transferred to the ICU for further care and
Precedex drip. Import/Export Agent service is consulted for additional management/recommendations.
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
Impression:
#Acute alcohol withdrawal with high ativan requirements now on precedex gtt
#Acute pancreatitis
#Transaminitis
#Acute respiratory failure with hypoxemia on supplemental oxygen - likely due to hypoventilation (CXR is clear); other DDx includes R to L shunt
#Hx of Hodgkin lymphoma s/p lefrt anterior chest wall chemo-port
Plan:
- Continue Precedex drip and wean as tolerated
- Psych consult recommended --> Risperdal started
- Phenobarbital protocol + prn ativan + MSAS; may need librium as he still has moments with hallucinations and tries to get up out of bed and is confused, non-directable despite being on precedex and phenobarb.
- IVF DC'd as lipase WNL x 2 days in a row
- Low fat diet - monitor for intolerance
- Thiamine, folate and MVN
- Maintain SpO2 >90-94%
- If sats remain poor then will check TTE with bubble study as his sats do tend to improve with patient lying flat, which could be orthodeoxia
- Trend LFTs
- CT Head done on 03/08/2023 shows no acute intracranial pathology
- Maintain MAP >65
- Goal BG 140-180
- Transfuse blood products as needed to keep Hb>7g/dL and plt>50k
- Replete K>4, Mg>2
- Stress ulcer prophylaxis: N/A
- DVT ppx: LMWH
Continue ICU level of care while pt remains on precedex gtt.
Critical care statement: A total of 41 minutes of critical care time was provided for this patient today. This includes management of unstable vital signs, evaluation of the patient at bedside, reviewing the patient's pertinent medical records
including radiographs, microbiology, laboratory evaluations, and discussion with primary team, consultants, pharmacy, nutrition, physical therapy, case management, charge nurse, critical care nursing, and respiratory therapy.
Data:
CT Head 03-08-2023: No acute intracranial abnormality
MRCP 03-06-2023:�Small layer of gallstones and/or sludge in the dependent portion of the gallbladder. No evidence for lobar wall thickening or pericholecystic edema.
There is no evidence for biliary ductal dilation. No evidence for bile duct calculus.
1.3 cm focus of increased T2 and STIR signal within the head of the pancreas, which very likely represents a pseudocyst. Advise follow-up CT or MRI evaluation with attention to the pancreas in 6 months.
9 mm lesion in the posterior right lobe of the liver, corresponding to lesion seen on recent CT examination, and likely a small hemangioma
Abd US 03-05-2023:
Several small shadowing gallstones are present within the gallbladder as well as a small amount of sludge. The bladder wall is slightly thickened, and is nonspecific.
No evidence for biliary ductal dilation.
No gross abnormality of the pancreas, with no evidence for peripancreatic collection. Of note, the pancreatic tail is not well-visualized with shadowing from overlying bowel gas.
Subjective Dataa
Subjective Data
Date of Service:
Date of Service: March 10, 2023
Chief Complaint: Import/Export Agent Follow Up
Subjective:
Patient seen and evaluated today at bedside. He continues to be agitated. He is on Precedex drip. Afebrile overnight.
Review of Systems
General: Other (Unable to obtain ROS due to patient's acute clinical condition)
Objective Data
Data Reviewed
Vital Signs / I&O / Oxygen:
Vital Signs
Temp Pulse Resp BP Pulse Ox
97.1 F 67 16 102/88 97
03/10/23 07:49 03/10/23 11:15 03/10/23 11:15 03/10/23 11:00 03/10/23 11:15
Intake and Output
03/09/23 03/10/23 03/11/23
06:59 06:59 06:59
Intake Total 3613.2 / 3709.0 2395.9 / 2419.6 209.1 / 209.1
Output Total 2225 / 2225 1600 / 1600
Balance 1388.2 / 1484.0 795.9 / 819.6 209.1 / 209.1
SaO2 97
Nasal Cannula flow liters per 2
minute
Physical Exam
General: Chills (Negative) and Other (Agitated, and sleepy at times)
HEENT: Normocephalic and Anicteric
Cardiovascular: S1-S2 and Peripheral Edema (negative)
Respiratory: Clear and Other (poor inspiratory effort)
GI: Soft, Non Distended, Non Tender and Normal Bowel Sounds
Neurology: Tremors (neg), Lethargic and Other (Confused)
Skin: Warm and Dry
Labs/Micro/Reports
Lab Data
03/10/23 03:23
03/10/23 03:23
[2023-03-10] MEDS: LUMINAL 64.7999999999999972 MG PO ×3 (08:31→21:01)
[2023-03-10] MEDS: FLOMAX 0.400000000000000022 MG PO (08:32)
[2023-03-10] MEDS: CELEXA 40 MG PO (08:32)
[2023-03-10] MEDS: ProAmatine PO ×3 (08:36→17:01)
[2023-03-10] MEDS: FOLVITE 1 MG PO (09:05)
[2023-03-10] MEDS: THERAGRAN 1 TABLET PO (09:05)
[2023-03-10] MEDS: LOPRESSOR PO (09:15)
--- NOTE | 2023-03-10 09:16 | PTCARENOTE ---
recd handoff at bedside, titrating precedex as noted, awakened for pills, speech raspy, positioned for comfort, BP initially elevated then lower, lopressor held, pulse ox initially mid 90s tolerating 2l. breakfast ordered, resting at present when
undisturbed, restless, speech quickly profane, remains restrained as ordered for safety.
--- NOTE | 2023-03-10 10:23 | W.PN.HOSP.TC ---
Today's Communication/Plan
-
Psyche eval
Lower metoprolol
Assessment / Plan
Assessment / Plan
57-year-old male with pancreatitis
On examination patient is drowsy arousable
Answers questions
Very inappropriate behavior at times
Cardiovascular system S1-S2 appreciated
Chest clear to auscultation
Abdomen soft, nt
No pedal edema
Able to move all extremities
#Acute pancreatitis
Pancreatic pseudocyst
-Elevated lipase of 1913 -normalized
-CT a/p showing inflammation of pancreas
-Abdominal ultrasound showing gallstone as well although CBD of 4.6 mm only
-MRI/MRCP showing pancreatic pseudocyst. no choledocholithiasis
-Likely alcohol use related.�
-Low fat diet
-GI following
#Alcohol withdrawal
Alcohol use disorder
-TME
-MSAS and Ativan prn
-Inappropriate behavior
-On Precedex, phenobarbital and Ativan as needed
-Lower the dose of Ativan
#Acute transaminitis - trending down
-Alcohol use related likely
-AST 911 ALT 442 ALP 210 TBilli 2.3 on admission
-Hepatitis serology negative
-Alcohol abstinence recommended
#Acute hypoxic respiratory insufficiency-secondary to atelectasis likely
Incentive spirometry
Encourage seated position
#Essential HTN
-Toprol changed to-12.5 twice daily
#Fatty liver-likely secondary to alcohol use
#Thickening of the wall of the gastric antrum-likely secondary to pancreatitis however needs EGD as outpatient
On PPI
#Enlarged prostate
-On Flomax, no urinary complains currently
#Depression/anxiety
-continue home citalopram
-Diazepam on hold while on Ativan
#Chronic hypotension on midodrine as outpatient
#History of Hodgkin's lymphoma
8 years ago treated in [place]
#DVT PPX - Lovenox
#Full code
Discussed with nursing at bed side
Patient with very inappropriate behavior-will request psychiatry consultation
PT OT evaluation noted
Discussed with system technologist
Anticipated Discharge: 24 - 48 hours
Subjective/Interval History
-
Date of Service: March 10, 2023
Objective Data
-
Labs:
Laboratory Results
03/10/23
03:23
WBC 9.2
Hgb 14.2
Hct 41.0
Plt Count 184 D
Sodium 135
Potassium 3.7
Chloride 104
Carbon Dioxide 25
BUN 7 L
Creatinine 0.6 L
Glucose 104 H
Calcium 8.6
Total Bilirubin 0.8
AST 53
ALT 172 H
Alkaline Phosphatase 140 H
Vital Signs:
Vital Signs
Temp Pulse Resp BP Pulse Ox
97.1 F 66 24 116/86 93
03/10/23 07:49 03/10/23 09:45 03/10/23 09:45 03/10/23 09:31 03/10/23 09:45
I&O
03/09/23 03/10/23 03/11/23
06:59 06:59 06:59
Intake Total 3613.2 / 3709.0 2395.9 / 2419.6 209.1 / 209.1
Output Total 2225 / 2225 1600 / 1600
Balance 1388.2 / 1484.0 795.9 / 819.6 209.1 / 209.1
--- NOTE | 2023-03-10 11:18 | PTCARENOTE ---
c/o needing to leave hospital. remains on video monitor. ate small amount of meal, then threw water glass off one side of bed, coffee and tray off the other. condom cath off, complete bath, linens changed. family remains bedside. seen by
Mandie and Cj.
--- NOTE | 2023-03-10 11:56 | CS.PSYCHR ---
Consult Summary - Psychiatry
-
Pt is 57 yo male with history of alcohol use, admitted 03/05/23 with acute pancreatitis, acute transaminitis. Per family, pt stopped drinking a couple days prior to admission. Pt managed on Phenobarb taper and MSAS protocol. Psychiatry consulted
for agitation, becoming aggressive with attempts to wean down Precedex. Pt was followed by Psychiatry on previous admission August 2022, was given Risperidone for persistent agitation/protracted delirium, pt eventually improved.
Psych hx: no inpatient tx;� past Rx Celexafor depression. Alcohol rehab many years ago, may have been ordered
PMH:� hodgkin's lymphoma treated in '2015 or 2017', hx of GERD, chronic back pain, esophagitis
SH: lives with mother who is supportive. has one child no contact only learned this many years after child's � not working� never . Hx of daily alcohol use
MSE: lying in bed with family/ mother present, in soft wrist restraints. Pt drowsy, able to state he is in [facility], then appears confused with rambling speech. No agitation at present, no signs of psychosis
Imp: Alcohol use d/o, severe, withdrawal delirium
Rec: continue MSAS and Phenobarb taper
Will try Risperidone 0.5 mg TID- effective previously
Will follow
[2023-03-10] MEDS: TORADOL 10 MG IV (13:22)
--- NOTE | 2023-03-10 13:30 | PTCARENOTE ---
nearly out of bed despite family presence and video monitoring, back to bed, repositioned, pulled off monitor, hallucinating about hunting and doing motorcycle tricks (wheelies), whispering that we are going to scare it off, 'take the shot'. Not
redirectable. ate very poorly.
[2023-03-10] MEDS: ATIVAN 1 MG IV ×2 (14:08→17:21)
--- NOTE | 2023-03-10 14:21 | PTCARENOTE ---
yelling, trying to climb oob, extremely profane, see MAR for ativan dose, precedex increased. not redirectable.
--- NOTE | 2023-03-10 15:17 | PTCARENOTE ---
scooting down in bed, pulling at restraints and twisting to get nearly over siderail. multiple staff in room, remains profane and impulsive, making verbal threats of violence. repositioned. Dr Corona in room, orders for 4 point restraints
obtained and applied for patient/staff safety. took a few sips water then continues hallucinating.
[2023-03-10] MEDS: RISPERDAL M-TAB (ORALLY DISINTEGRATING) 0.5 MG PO ×2 (15:30→21:02)
[2023-03-10] MEDS: LOVENOX 40 MG SC (17:06)
--- NOTE | 2023-03-10 17:25 | PTCARENOTE ---
multiple staff in room attempting to keep pt in bed, redirect. will not cooperate. assisted back into good position, continuing to yell out, profanities, demanding that we 'call someone for that lady bleeding right there' and other visual
hallucinations.
--- NOTE | 2023-03-10 18:22 | PTCARENOTE ---
sonorous, sleeping after last dose of ativan (first nap of day). skin warm, dry, oxygen in place, sats good 94%. calm, face relaxed, no distress.
--- NOTE | 2023-03-10 20:00 | PTCARENOTE ---
Resumed care of pt this evening. Received pt on precedex gtt infusing at 1.2mcg/kg/hr via left subQ port central line. Pt is currently sedated, RASS -2. MSAS: 2. Pt is NSR on tele monitor, has no edema, and +pedal pulses. Pt on 2L of O2 satting at
94% pulse ox. On auscultation pt lungs sound diminished at the bases bilaterally. Pt has poor appetite, has a round abdomen, and hypoactive BS. Pt has a condom catheter voiding eric colored urine. Skin is C/D/I. VSS.
[2023-03-10] MEDS: LOPRESSOR 12.5 MG PO (21:01)
[2023-03-11] VITALS (22 sets, daily range): BP systolic 104–173; BP diastolic 80–137; PULSE 74–75; O2SAT 91–92; BMI 26.9
[2023-03-11] MEDS: THIAMINE INJECTION 200 MG IV ×3 (01:03→16:19)
[2023-03-11] MEDS: ATIVAN 0.5 MG IV ×4 (02:17→08:20)
[2023-03-11] MEDS: PRECEDEX 100 IV ×6 (02:30→21:57)
--- NOTE | 2023-03-11 02:30 | PTCARENOTE ---
Pt is increasingly agitated, MSAS 8. PRN dose of ativan administered by this RN. VSS.
[2023-03-11] MEDS: NSS (PRESERVATIVE FREE) 0.5 ML IV ×3 (03:26→19:14)
--- NOTE | 2023-03-11 04:30 | PTCARENOTE ---
Pt required another dose of IV ativan for MSAS: 8. Pt also received a PRN dose of hydralazine for SBP 173. VSS.
[2023-03-11 06:35] LABS: Hematocrit 40.5 % (39.0-52.0); Hemoglobin 14.2 g/dL (13.0-18.0); Mean Corp Hgb Conc. 35.1 g/dL (33.0-37.0); Mean Corpuscular Hgb 28.2 pg (27.0-31.0); Mean Corpuscular Volume 80.5 fL (80.0-94.0); Mean Platelet Volume 8.5 fL (7.4-10.4); Platelet Count 198 10^3/uL (130-400); Red Blood Cell Count 5.03 10^6/uL (4.70-6.10); Red Cell Dist. Width 14.5 % (11.5-14.5)
[2023-03-11 07:12] LABS: ALT (SGPT) 114 U/L (0-50); AST (SGOT) 32 U/L (17-59); Albumin 3.2 g/dl (3.5-5.0); Alkaline Phosphatase 120 U/L (38-126); Blood Urea Nitrogen 9 mg/dl (9-20); Carbon Dioxide 23 mmol/L (22-30); Chloride 101 mmol/L (98-107); Estimated Creatinine Clearance 122 ml/min; Glucose 100 mg/dl (70-99); Sodium 135 mmol/L (135-145); Total Bilirubin 0.7 mg/dl (0.2-1.3); Total Protein 6.1 g/dl (6.3-8.2); eGFR > 60.00
--- NOTE | 2023-03-11 07:24 | W.PN.INTV ---
Today's Communication / Plan
Recommendations
O2
Asp precs
Dexmed
Phenob
Ativan IV prn
Risperdone
Assessment
-
Assessment: 57-year-old male with a PMHx of alcohol use disorder, Hodgkin's lymphoma and DENICE who presented with abdominal pain X several months. Pain got worse over the last few days. Liver enzymes were elevated including alkaline phosphatase,
AST and ALT, bilirubin. Lipase 1913. CT abdomen/pelvis showed acute pancreatitis and an adjacent 1.5 cm suspected pseudocyst. There was no calcified gallstones or biliary ductal dilation. Diffuse fatty infiltration of the liver was seen. He was
admitted to the floors on IV fluids. Abdominal ultrasound showed gallstones without evidence of biliary ductal dilation. There was no peripancreatic collection. Gastroenterology has been consulted. MRCP showed layering gallstones and/or sludge
in the dependent gallbladder without wall thickening or pericholecystic edema. There was no biliary duct dilation, no bile duct calculus. 1.3 cm focus at the head of the pancreas suspected to be pseudocyst. Suspected small hemangioma at the right
lobe of the liver measuring 9 mm. Patient continued to be managed but then was exhibiting signs of alcohol withdrawal, requiring several doses of Ativan. Alcohol withdrawal symptoms worsened and he was transferred to the ICU for further care and
Precedex drip. Billet Worker service is consulted for additional management/recommendations.
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
Impression:
#Acute alcohol withdrawal with high ativan requirements now on precedex gtt
#Acute pancreatitis
#Transaminitis
#Acute respiratory failure with hypoxemia on supplemental oxygen - likely due to hypoventilation (CXR is clear); other DDx includes R to L shunt
#Hx of Hodgkin lymphoma s/p lefrt anterior chest wall chemo-port
Plan:
- Continue Precedex drip and wean as tolerated
- Psych consult recommended --> Risperdal started 03-10 as presented good response in past
- Phenobarbital protocol + prn ativan + MSAS
Given ongoing agitation will step up phenobarbital dosing 03-11
Soft restrains due to agitation and hazard to staff
- IVF DC'd as lipase WNL x 2 days in a row
- Low fat diet - monitor for intolerance
- Thiamine change to po
Continue folate and MVN
- Maintain SpO2 >90-94%, O2 4L, POx 94%
Not yet able to be OOB, or do IS, PT
- Trend LFTs, improving
- CT Head done on 03/08/2023 shows no acute intracranial pathology
- Maintain MAP >65
Discontinued midodrine 03-11
- Goal BG 140-180
- Transfuse blood products as needed to keep Hb>7g/dL and plt>50k
- Replete K>4, Mg>2
- Stress ulcer prophylaxis: N/A
- DVT ppx: LMWH
D/w MDT
D/w Mr Mari cookienbettina 03-11, all questions answered
Critical care time: 35 min
Data:
CXR 03-08-23: no pulm infiltrates. L chest port-A-cath
CT Head 03-08-2023: No acute intracranial abnormality
MRCP 03-06-2023:�Small layer of gallstones and/or sludge in the dependent portion of the gallbladder. No evidence for lobar wall thickening or pericholecystic edema.
There is no evidence for biliary ductal dilation. No evidence for bile duct calculus.
1.3 cm focus of increased T2 and STIR signal within the head of the pancreas, which very likely represents a pseudocyst. Advise follow-up CT or MRI evaluation with attention to the pancreas in 6 months.
9 mm lesion in the posterior right lobe of the liver, corresponding to lesion seen on recent CT examination, and likely a small hemangioma
Abd US 03-05-2023:
Several small shadowing gallstones are present within the gallbladder as well as a small amount of sludge. The bladder wall is slightly thickened, and is nonspecific.
No evidence for biliary ductal dilation.
No gross abnormality of the pancreas, with no evidence for peripancreatic collection. Of note, the pancreatic tail is not well-visualized with shadowing from overlying bowel gas.
Subjective Dataa
Subjective Data
Date of Service:
Date of Service: March 11, 2023
Chief Complaint: Billet Worker Follow Up
Subjective:
Intermittent agitation continues, in 4 point soft restrains, still posing some risk to staff
Non sensical talk at time of visit
Review of Systems
General: Other (limited historian due to DTs)
Objective Data
Data Reviewed
Vital Signs / I&O / Oxygen:
Vital Signs
Temp Pulse Resp BP Pulse Ox
97.9 F 74 18 104/80 92
03/10/23 19:31 03/11/23 06:30 03/11/23 06:30 03/11/23 06:00 03/11/23 06:30
Intake and Output
03/10/23 03/11/23 03/12/23
06:59 06:59 06:59
Intake Total 2395.9 / 2419.6 1185.3 / 1185.3
Output Total 1600 / 1600 575 / 575
Balance 795.9 / 819.6 610.3 / 610.3
SaO2 92
Nasal Cannula flow liters per 2
minute
Physical Exam
General: Respiratory Distress (n), Chills (Negative) and Other (Agitated, and sleepy at times)
HEENT: Normocephalic and Anicteric
Cardiovascular: S1-S2, Murmur and Peripheral Edema (negative)
Respiratory: Clear, Non-Labored Respirations, Stridor (n) and Other (poor inspiratory effort)
GI: Soft, Non Distended, Non Tender and Normal Bowel Sounds
Neurology: Tremors (neg), Lethargic and Other (Confused)
Skin: Warm and Dry
Labs/Micro/Reports
Lab Data
03/11/23 06:20
03/11/23 06:20
[2023-03-11 07:44] LABS: Potassium 3.8 mmol/L (3.5-5.1)
--- NOTE | 2023-03-11 08:00 | PTCARENOTE ---
Received pt laying in bed with 4 point soft restraints. Video observation in room as well. Left SQ port with Precedex 1.2mcg/kg/hr. Right FA#22g protective catheter flushed and patent. Poor pedal pulses. Skin cool but pt does not need a blanket. He
is hallucinating. I asked him to open his eyes. He follows simple commands at times. Tolerating oxygen 4 liters nasal cannula. Diminished breath sounds in the bases. He was instructed to take deep breaths. 2 assist with CHG bath. Mouth care
performed. He was able to provide a breakfast order. +BSX4. Abdomen soft and round. Condom catheter with clear yellow urine. He was instructed on the plan of care. Will reinforce all nursing interventions and instructions. Safe environment
maintained.
[2023-03-11] MEDS: NSS (PRESERVATIVE FREE) 0.25 ML IV ×2 (08:20→14:07)
[2023-03-11] MEDS: LUMINAL 64.7999999999999972 MG PO ×2 (08:34→16:18)
[2023-03-11] MEDS: FLOMAX 0.400000000000000022 MG PO (08:34)
[2023-03-11] MEDS: CELEXA 40 MG PO (08:34)
[2023-03-11] MEDS: RISPERDAL M-TAB (ORALLY DISINTEGRATING) 0.5 MG PO ×2 (08:35→15:25)
[2023-03-11] MEDS: NSS (PRESERVATIVE FREE) 10 ML IV (08:36)
[2023-03-11] MEDS: FOLVITE 1 MG PO (08:36)
[2023-03-11] MEDS: LOPRESSOR 12.5 MG PO ×2 (08:36→19:14)
[2023-03-11] MEDS: PROTONIX IV 40 MG IV (08:37)
[2023-03-11] MEDS: ProAmatine PO (09:40)
--- NOTE | 2023-03-11 10:36 | W.PN.HOSP.TC ---
Today's Communication/Plan
-
Precedex wean as possible
Risperidone
Pheno
Assessment / Plan
Assessment / Plan
57-year-old male with pancreatitis
On examination patient is drowsy arousable
Answers questions
Very inappropriate behavior at times
Cardiovascular system S1-S2 appreciated
Chest clear to auscultation, diminished
Abdomen soft, nt
No pedal edema
Able to move all extremities
#Acute pancreatitis
Pancreatic pseudocyst
-Elevated lipase of 1913 -normalized
-CT a/p showing inflammation of pancreas
-Abdominal ultrasound showing gallstone as well although CBD of 4.6 mm only
-MRI/MRCP showing pancreatic pseudocyst. no choledocholithiasis
-Likely alcohol use related.�
-Low fat diet
#Alcohol withdrawal
Alcohol use disorder
-TME
-MSAS
-Inappropriate behavior
-On Precedex, phenobarbital and Ativan as needed
-Risperidone added by psychiatry
#Acute transaminitis - trending down
-Alcohol use related likely
-AST 911 ALT 442 ALP 210 TBilli 2.3 on admission
-Hepatitis serology negative
-Alcohol abstinence recommended
#Acute hypoxic respiratory insufficiency-secondary to atelectasis likely
Incentive spirometry
Encourage seated position
#Essential HTN
-Toprol changed to-12.5 twice daily
#Fatty liver-likely secondary to alcohol use
#Thickening of the wall of the gastric antrum-likely secondary to pancreatitis however needs EGD as outpatient
On PPI
#Enlarged prostate
-On Flomax, no urinary complains currently
#Depression/anxiety
-continue home citalopram
-Diazepam on hold while on Ativan
#Chronic hypotension on midodrine as outpatient
#History of Hodgkin's lymphoma
8 years ago treated in [place]
#DVT PPX - Lovenox
#Full code
Discussed with nursing at bed side
PT OT
Spoke to mom and updated.
Anticipated Discharge: > 48 hours
Subjective/Interval History
-
Date of Service: March 11, 2023
Objective Data
-
Labs:
Laboratory Results
03/11/23
06:20
WBC 9.0
Hgb 14.2
Hct 40.5
Plt Count 198
Sodium 135
Potassium 3.8
Chloride 101
Carbon Dioxide 23
BUN 9
Creatinine 0.6 L
Glucose 100 H
Calcium 9.0
Total Bilirubin 0.7
AST 32
ALT 114 H
Alkaline Phosphatase 120
Vital Signs:
Vital Signs
Temp Pulse Resp BP Pulse Ox
98 F 76 19 143/109 95
03/11/23 07:56 03/11/23 10:30 03/11/23 10:30 03/11/23 10:00 03/11/23 10:30
I&O
03/10/23 03/11/23 03/12/23
06:59 06:59 06:59
Intake Total 2395.9 / 2419.6 1185.3 / 1209.0 414.8 / 414.8
Output Total 1600 / 1600 575 / 575 475 / 475
Balance 795.9 / 819.6 610.3 / 634.0 -60.2 / -60.2
[2023-03-11] MEDS: NSS (PRESERVATIVE FREE) 0.125 ML IV ×2 (10:43→11:59)
[2023-03-11] MEDS: ATIVAN 0.25 MG IV ×2 (10:43→11:58)
--- NOTE | 2023-03-11 11:00 | PTCARENOTE ---
Very confused conversations with paranoia. He thinks the wall clock is a saw. Continuing with MSAS.
--- NOTE | 2023-03-11 13:50 | PTCARENOTE ---
Pt yelling profanities. He is hallucinating that they are stealing his car. He is seeing people in the room. He was repositioned and grabbed at the staff. His legs were over the side rails. Medicated per MSAS.
[2023-03-11] MEDS: ATIVAN 1 MG IV ×2 (14:07→19:15)
--- NOTE | 2023-03-11 18:15 | PTCARENOTE ---
Repositioned in bed for dinner. He ate a quarter of his meal then drifted off to sleep. He was a total feed. Drank most of his iced tea. Condom catheter replaced.
[2023-03-11] MEDS: THERAGRAN PO (18:28)
[2023-03-11] MEDS: SENOKOT PO (18:28)
[2023-03-11] MEDS: LOVENOX 40 MG SC (18:30)
[2023-03-11] MEDS: SENOKOT 8.59999999999999964 MG PO (19:14)
[2023-03-11] MEDS: VITAMIN B1 100 MG PO (19:14)
--- NOTE | 2023-03-11 20:00 | PTCARENOTE ---
Resumed care of pt this evening. Pt remains on precedex gtt infusing at 1.2 mcg/kg/hr. MSAS > 11. Pt continues to have both auditory and visual hallucinations. Pt is yelling profanity and threatens to harm others physically. PRN dose of ativan
administered by this RN per protocol. Pt is restrained, soft limb 4points w/ side rails. Pt is able to move all 4 extremities. Pt is NSR on tele monitor, has no edema, and potitive pedal pulses. Pt on 4L of O2 satting at 95% pulse ox. On
auscultation pt lungs sound diminshed at the bases bilaterally. Pt did not eat dinner. Pt has not had a BM and has hypoactive BS. Pt has condom cath in place voiding yellow/eric colored urine. Skin is C/D/I. VSS.
[2023-03-12] VITALS (39 sets, daily range): BP systolic 76–163; BP diastolic 45–108; BMI 26.1
--- NOTE | 2023-03-12 | PTCARENOTE ---
Pt resting comfortably at this time. Continuing MSAS per protocol. Most recent score was a 2. VSS.
[2023-03-12] MEDS: PRECEDEX 100 IV ×5 (02:01→21:10)
[2023-03-12] MEDS: RISPERDAL M-TAB (ORALLY DISINTEGRATING) PO (02:06)
[2023-03-12] MEDS: LUMINAL PO (02:06)
[2023-03-12 04:14] LABS: Hematocrit 43.1 % (39.0-52.0); Hemoglobin 14.7 g/dL (13.0-18.0); Mean Corp Hgb Conc. 34.1 g/dL (33.0-37.0); Mean Corpuscular Hgb 28.1 pg (27.0-31.0); Mean Corpuscular Volume 82.4 fL (80.0-94.0); Mean Platelet Volume 8.4 fL (7.4-10.4); Platelet Count 233 10^3/uL (130-400); Red Blood Cell Count 5.23 10^6/uL (4.70-6.10); Red Cell Dist. Width 14.1 % (11.5-14.5); White Blood Cell Count 5.9 10^3/uL (4.8-10.8)
[2023-03-12 04:45] LABS: Blood Urea Nitrogen 7 mg/dl (9-20); Calcium 9.2 mg/dl (8.4-10.2); Carbon Dioxide 26 mmol/L (22-30); Chloride 100 mmol/L (98-107); Estimated Creatinine Clearance 122 ml/min; Glucose 109 mg/dl (70-99); Magnesium 2.1 mg/dl (1.6-2.3); Potassium 3.8 mmol/L (3.5-5.1); Sodium 137 mmol/L (135-145); eGFR > 60.00
[2023-03-12] MEDS: ATIVAN 0.5 MG IV ×9 (05:38→21:08)
[2023-03-12] MEDS: NSS (PRESERVATIVE FREE) 0.5 ML IV (05:38)
--- NOTE | 2023-03-12 05:45 | PTCARENOTE ---
Pt scored an 8 on the MSAS. Pt is again having hallucinations, shouting profanity, and making physical threats towards staff members. PRN dose of ativan administered by this RN per protocol. VSS.
--- NOTE | 2023-03-12 07:37 | W.PN.INTV ---
Today's Communication / Plan
Recommendations
O2
MSAS
Assessment
-
Assessment: 57-year-old male with a PMHx of alcohol use disorder, Hodgkin's lymphoma and DENICE who presented with abdominal pain X several months. Pain got worse over the last few days. Liver enzymes were elevated including alkaline phosphatase,
AST and ALT, bilirubin. Lipase 1913. CT abdomen/pelvis showed acute pancreatitis and an adjacent 1.5 cm suspected pseudocyst. There was no calcified gallstones or biliary ductal dilation. Diffuse fatty infiltration of the liver was seen. He was
admitted to the floors on IV fluids. Abdominal ultrasound showed gallstones without evidence of biliary ductal dilation. There was no peripancreatic collection. Gastroenterology has been consulted. MRCP showed layering gallstones and/or sludge
in the dependent gallbladder without wall thickening or pericholecystic edema. There was no biliary duct dilation, no bile duct calculus. 1.3 cm focus at the head of the pancreas suspected to be pseudocyst. Suspected small hemangioma at the right
lobe of the liver measuring 9 mm. Patient continued to be managed but then was exhibiting signs of alcohol withdrawal, requiring several doses of Ativan. Alcohol withdrawal symptoms worsened and he was transferred to the ICU for further care and
Precedex drip. Veneer Stock Grader service is consulted for additional management/recommendations.
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
Impression:
#Acute alcohol withdrawal with high ativan requirements now on precedex gtt
#Acute pancreatitis
#Transaminitis
#Acute respiratory failure with hypoxemia on supplemental oxygen - likely due to hypoventilation (CXR is clear); other DDx includes R to L shunt
#Hx of Hodgkin lymphoma s/p lefrt anterior chest wall chemo-port
Plan:
- Continue Precedex drip since 03-07
Wean as tolerated, d/w RN
- Psych consult recommended --> Risperdal started 03-10 as presented good response in past
- Phenobarbital protocol + prn ativan + MSAS
Given ongoing agitation will step up phenobarbital dosing 03-11
Soft restrains due to agitation and hazard to staff
- IVF DC'd as lipase WNL x 2 days in a row
- Low fat diet - monitor for intolerance
- Thiamine change to po
Continue folate and MVN
- Maintain SpO2 >90-94%, O2 4L, POx 94%
Not yet able to be OOB, or do IS, PT
- Trend LFTs, improving
- CT Head done on 03/08/2023 shows no acute intracranial pathology
- Maintain MAP >65
Discontinued midodrine 03-11
- Goal BG 140-180
- Transfuse blood products as needed to keep Hb>7g/dL and plt>50k
- Replete K>4, Mg>2
- Stress ulcer prophylaxis: N/A
- DVT ppx: LMWH
Bowel regimen: sennosides
D/w MDT
D/w Mr Guerra girlfriend 03-11, all questions answered
Critical care time: 35 min
Data:
CXR 03-08-23: no pulm infiltrates. L chest port-A-cath
CT Head 03-08-2023: No acute intracranial abnormality
MRCP 03-06-2023:�Small layer of gallstones and/or sludge in the dependent portion of the gallbladder. No evidence for lobar wall thickening or pericholecystic edema.
There is no evidence for biliary ductal dilation. No evidence for bile duct calculus.
1.3 cm focus of increased T2 and STIR signal within the head of the pancreas, which very likely represents a pseudocyst. Advise follow-up CT or MRI evaluation with attention to the pancreas in 6 months.
9 mm lesion in the posterior right lobe of the liver, corresponding to lesion seen on recent CT examination, and likely a small hemangioma
Abd US 03-05-2023:
Several small shadowing gallstones are present within the gallbladder as well as a small amount of sludge. The bladder wall is slightly thickened, and is nonspecific.
No evidence for biliary ductal dilation.
No gross abnormality of the pancreas, with no evidence for peripancreatic collection. Of note, the pancreatic tail is not well-visualized with shadowing from overlying bowel gas.
Subjective Dataa
Subjective Data
Date of Service:
Date of Service: March 12, 2023
Chief Complaint: Veneer Stock Grader Follow Up
Subjective:
Remains off dexmedetomidine
Intermittent agitation continues
limte
Review of Systems
General: Other (limited historian, DTs)
Objective Data
Data Reviewed
Vital Signs / I&O / Oxygen:
Vital Signs
Temp Pulse Resp BP Pulse Ox
97.4 F 69 17 134/93 82
03/12/23 04:00 03/12/23 06:40 03/12/23 06:40 03/12/23 06:40 03/12/23 04:30
Intake and Output
03/11/23 03/12/23 03/13/23
06:59 06:59 06:59
Intake Total 1185.3 / 1209.0 1136.2 / 1136.2
Output Total 575 / 575 2300 / 2300
Balance 610.3 / 634.0 -1163.8 / -1163.8
SaO2 82
Nasal Cannula flow liters per 4
minute
Physical Exam
General: Respiratory Distress (n), Chills (Negative) and Other (Agitated, and sleepy at times)
HEENT: Normocephalic and Anicteric
Cardiovascular: S1-S2, Murmur and Peripheral Edema (negative)
Respiratory: Clear, Non-Labored Respirations, Stridor (n) and Other (poor inspiratory effort)
GI: Soft, Non Distended, Non Tender and Normal Bowel Sounds
Neurology: Tremors (neg), Lethargic and Other (Confused)
Skin: Warm and Dry
Labs/Micro/Reports
Lab Data
03/12/23 03:36
03/12/23 03:36
[2023-03-12] MEDS: FLOMAX 0.400000000000000022 MG PO (07:43)
[2023-03-12] MEDS: VITAMIN B1 100 MG PO ×2 (07:46→21:08)
[2023-03-12] MEDS: CELEXA 40 MG PO (07:47)
[2023-03-12] MEDS: RISPERDAL M-TAB (ORALLY DISINTEGRATING) 0.5 MG PO (07:47)
[2023-03-12] MEDS: LUMINAL 64.7999999999999972 MG PO ×3 (07:47→21:08)
[2023-03-12] MEDS: THERAGRAN 1 TABLET PO (07:47)
[2023-03-12] MEDS: SENOKOT 8.59999999999999964 MG PO (07:47)
[2023-03-12] MEDS: PROTONIX 40 MG PO (07:47)
[2023-03-12] MEDS: FOLVITE 1 MG PO (07:47)
[2023-03-12] MEDS: LOPRESSOR PO (07:55)
[2023-03-12] MEDS: NSS (PRESERVATIVE FREE) 0.25 ML IV ×6 (08:52→17:40)
--- NOTE | 2023-03-12 09:24 | PN.CDI ---
CDI
- -
CDI:
Physician Documentation Request
Admit Date: 03/05/23 15:51
Dear Doctor Mandie,
.
Clinical Indicators:
Patient admitted with acute pancreatitis; transferred to ICU in acute alcohol withdrawal 03/07.
03/08 Director Of State PN, 'Acute respiratory failure with hypoxemia...'
03/08 PN, Acute hypoxic respiratory insufficiency...'
03/08 RR trend:
03/08/23
10:30 03/08/23
11:00 03/08/23
11:45
Resp Rate 23 28 33
03/08/23
13:00 03/08/23
13:44 03/08/23
14:30
Resp Rate 42 35 30
03/08/23
15:00 03/08/23
16:00 03/08/23
17:00
Resp Rate 37 28 25
03/08 02 requirements:
03/08/23
10:49 03/08/23
21:26 03/08/23
20:30
Nasal Cannula flow liters per minute 6 6 6
Due to potentially conflicting documentations, please clarify which of the following accurately represents the patient's respiratory status:
Acute hypoxic respiratory failure
Acute hypoxic respiratory insufficiency (documentation complete)
Other, please specify
Additional information for Respiratory Failure:
Recognized criteria for Respiratory Failure (Source: [facility] Dec 2012)
ABGs: (1 or more) Symptoms
1. p)2 <60 or RA SPO2 <91% on RA 1. Tachypnea, SOB, dyspnea
2. pCO2 50 and pH <7.35 2. Use of accessory muscles
3. pO2 decrease of pCO2 increase by 3. Pallor or cyanosis
10 mmHg from baseline if known 4. Anxiety or restlessness
5. Unable to speak in full sentences
Supplemental O2 of > 40% (5LPM) Intubation is not required
Use of terms such as suspected, likely, concern for, or probable (associated with a specific diagnosis that is being evaluated, monitored, or treated as if it exists) are acceptable and can be coded in the inpatient setting, when documented at the
time of discharge.
Thank you,
ZULMA Farris RN
CDI Specialist
available via tiger text
Please use your independent medical judgment in providing your response.
--- NOTE | 2023-03-12 10:03 | W.PN.HOSP.TC ---
Addendum entered and electronically signed by Efrem Lockwood MD 03/13/23 07:31:
acute hypoxic resp failure when admitted
Original Note:
Today's Communication/Plan
-
Continue risperidone
Wean Precedex as tolerated
Continue phenobarbital taper
Assessment / Plan
Assessment / Plan
57-year-old male with pancreatitis
On examination patient is awaake , confused
Answers questions
Very inappropriate behavior at times
Cardiovascular system S1-S2 appreciated
Chest clear to auscultation, diminished
Abdomen soft, nt
No pedal edema
Able to move all extremities
#Acute pancreatitis
Pancreatic pseudocyst
-Elevated lipase of 1913 -normalized
-CT a/p showing inflammation of pancreas
-Abdominal ultrasound showing gallstone as well although CBD of 4.6 mm only
-MRI/MRCP showing pancreatic pseudocyst. no choledocholithiasis
-Likely alcohol use related.�
-Low fat diet-tolerating
#Alcohol withdrawal
Alcohol use disorder
-TME
-MSAS
-Inappropriate behavior
-On Precedex, phenobarbital and Ativan as needed
-Risperidone added by psychiatry
#Acute transaminitis - trending down
-Alcohol use related likely
-AST 911 ALT 442 ALP 210 TBilli 2.3 on admission
-Hepatitis serology negative
-Alcohol abstinence recommended
#Acute hypoxic respiratory insufficiency-secondary to atelectasis likely
Incentive spirometry
Encourage seated position
#Essential HTN
-Toprol changed to-12.5 twice daily
#Fatty liver-likely secondary to alcohol use
#Thickening of the wall of the gastric antrum-likely secondary to pancreatitis however needs EGD as outpatient
On PPI
#Enlarged prostate
-On Flomax, no urinary complains currently
#Depression/anxiety
-continue home citalopram
-Diazepam on hold while on Ativan
#Chronic hypotension on midodrine as outpatient
#History of Hodgkin's lymphoma
8 years ago treated in [place]
#DVT PPX - Lovenox
#Full code
Discussed with nursing at bed side
Spoke to mom and updated. 03/11/23
Anticipated Discharge: > 48 hours
Subjective/Interval History
-
Date of Service: March 12, 2023
Objective Data
-
Labs:
Laboratory Results
03/12/23
03:36
WBC 5.9
Hgb 14.7
Hct 43.1
Plt Count 233
Sodium 137
Potassium 3.8
Chloride 100
Carbon Dioxide 26
BUN 7 L
Creatinine 0.6 L
Glucose 109 H
Calcium 9.2
Vital Signs:
Vital Signs
Temp Pulse Resp BP Pulse Ox
97.7 F 75 17 97/55 82
03/12/23 08:09 03/12/23 07:55 03/12/23 06:40 03/12/23 07:55 03/12/23 04:30
I&O
03/11/23 03/12/23 03/13/23
06:59 06:59 06:59
Intake Total 1185.3 / 1209.0 1136.2 / 1136.2
Output Total 575 / 575 2300 / 2300
Balance 610.3 / 634.0 -1163.8 / -1163.8
--- NOTE | 2023-03-12 11:27 | PTCARENOTE ---
pt drowsy at change of shift , he is now MSAS of 4-8 , medicating with IV lorazepam as per protocol , pt is on a Phenobarb taper and Risperdal was added yesterday, he had some meds held overnight due to sedation, attempting to wean off Precedex to
eval if pt has any changes in behavior , pt is delusional and hallucinating , argumentative , foul language at times , he is restrained and has video monitor for safety , HR on monitor is NSR , BP low this am 97/84 , beta lexi held this am ,
pt very confused , needs to be fed, poor appetite , needs encouragement with feeding
[2023-03-12] MEDS: NSS (PRESERVATIVE FREE) 10 ML IV (12:28)
[2023-03-12] MEDS: ATIVAN 2 MG IV (14:20)
[2023-03-12] MEDS: NSS (PRESERVATIVE FREE) 1 ML IV (14:26)
[2023-03-12] MEDS: ATIVAN IV (14:26)
[2023-03-12] MEDS: RISPERDAL M-TAB (ORALLY DISINTEGRATING) 1 MG PO ×2 (14:48→21:08)
--- NOTE | 2023-03-12 15:01 | PTCARENOTE ---
had pt weaned down on Precedex to .5 mcg , pt then had been incontinence of large soft brown stool making the pt agitated , he became very loud and verbally aggressive , threatening staff and becoming physically aggressive , Dr Saucedo and other
nursing staff at bedside , pt was given 2mg of IV lorazepam for MSAS of 12, pt also had Risperdal increased to 1mg and was given to at 1500 , pt is now on increased dose of Precedex 1.1 mcg for his increased agitation .
--- NOTE | 2023-03-12 15:47 | CM ---
CM following re: discharge planning.
Reviewed pt's chart, met with pt.
PT evaluations noted - SNF level of care recommended. CM made an attempt to discussed it with the pt and found pt being restrained, 2 points soft wrist, very agitated, was screaming and yelling, verbalized homicidal thoughts towards nurses: 'Give me
back my f...ing car because I am going to kill you'. Pt was very difficult to redirect.
Psychiatry following.
D/c plan: SNF when pt is medically and behaviorally stable.
CM will follow with discharge plan updates as hospitalization progresses
--- NOTE | 2023-03-12 16:54 | PTCARENOTE ---
continues with agitation , following MSAS protocol , he's now dosing off at times , when he awakens he continues with hallucinations . delusions and agitation , current dose of Precedex up to 1.3mcg
[2023-03-12] MEDS: LOVENOX 40 MG SC (17:11)
--- NOTE | 2023-03-12 19:52 | PTCARENOTE ---
received patient. patient yelling from bed, disoriented and hallucinating. [address] precedex gtt infusing through port. SR on monitor. 2L NC placed on patient for O2 sat in high 80s. diminished breath sounds noted. MSAS 8.
condom cath in place. pt repositioned in bed. pt care ongoing.
[2023-03-12] MEDS: SENOKOT PO (20:17)
[2023-03-12] MEDS: LOPRESSOR 12.5 MG PO (21:08)
[2023-03-12] MEDS: APRESOLINE 10 MG IV (22:14)
--- NOTE | 2023-03-12 23:40 | PTCARENOTE ---
pt given dose of hydralazine for SBP in 160s, see MAR. repeat BPs 70s/50s, ICU RIVER CAPTAIN notified. pt hallucinating but awake. no new orders at this time, will monitor BP.
[2023-03-13] VITALS (35 sets, daily range): BP systolic 73–179; BP diastolic 48–111; BMI 26.3
[2023-03-13] MEDS: PRECEDEX 100 IV ×6 (00:52→23:05)
[2023-03-13 03:47] LABS: Blood Urea Nitrogen 12 mg/dl (9-20); Calcium 9.4 mg/dl (8.4-10.2); Carbon Dioxide 27 mmol/L (22-30); Chloride 101 mmol/L (98-107); Estimated Creatinine Clearance 81 ml/min; Glucose 103 mg/dl (70-99); Magnesium 2.2 mg/dl (1.6-2.3); Potassium 3.7 mmol/L (3.5-5.1); Sodium 138 mmol/L (135-145); eGFR > 60.00
--- NOTE | 2023-03-13 04:51 | PTCARENOTE ---
pt reassessed. AM labs sent. precedex gtt infusing. systems unchanged, pt continues with hallucinations. pt repositioned, care ongoing.
[2023-03-13] MEDS: ATIVAN 0.5 MG IV ×4 (05:10→23:02)
[2023-03-13] MEDS: KCL 260 MEQ IV (05:10)
[2023-03-13] MEDS: NSS (PRESERVATIVE FREE) 0.25 ML IV ×2 (07:31→08:52)
[2023-03-13] MEDS: RISPERDAL M-TAB (ORALLY DISINTEGRATING) 1 MG PO ×3 (07:32→20:56)
[2023-03-13] MEDS: FOLVITE 1 MG PO (07:32)
[2023-03-13] MEDS: LUMINAL 64.7999999999999972 MG PO ×3 (07:32→20:56)
[2023-03-13] MEDS: VITAMIN B1 100 MG PO ×2 (07:33→20:57)
[2023-03-13] MEDS: FLOMAX 0.400000000000000022 MG PO (07:33)
[2023-03-13] MEDS: CELEXA 40 MG PO (07:33)
[2023-03-13] MEDS: LOPRESSOR 12.5 MG PO ×2 (07:33→20:55)
[2023-03-13] MEDS: THERAGRAN 1 TABLET PO (07:33)
[2023-03-13] MEDS: PROTONIX 40 MG PO (07:33)
[2023-03-13] MEDS: SENOKOT PO (07:34)
--- NOTE | 2023-03-13 07:35 | W.PN.INTV ---
Today's Communication / Plan
Recommendations
O2
Dexmed
Phenob
Risperidone
Quetiapine
Restrains
Assessment
-
Assessment: 57-year-old male with a PMHx of alcohol use disorder, Hodgkin's lymphoma and DENICE who presented with abdominal pain X several months. Pain got worse over the last few days. Liver enzymes were elevated including alkaline phosphatase,
AST and ALT, bilirubin. Lipase 1913. CT abdomen/pelvis showed acute pancreatitis and an adjacent 1.5 cm suspected pseudocyst. There was no calcified gallstones or biliary ductal dilation. Diffuse fatty infiltration of the liver was seen. He was
admitted to the floors on IV fluids. Abdominal ultrasound showed gallstones without evidence of biliary ductal dilation. There was no peripancreatic collection. Gastroenterology has been consulted. MRCP showed layering gallstones and/or sludge
in the dependent gallbladder without wall thickening or pericholecystic edema. There was no biliary duct dilation, no bile duct calculus. 1.3 cm focus at the head of the pancreas suspected to be pseudocyst. Suspected small hemangioma at the right
lobe of the liver measuring 9 mm. Patient continued to be managed but then was exhibiting signs of alcohol withdrawal, requiring several doses of Ativan. Alcohol withdrawal symptoms worsened and he was transferred to the ICU for further care and
Precedex drip. Rotary Veneer Machine Operator service is consulted for additional management/recommendations.
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
Impression:
#Acute alcohol withdrawal with high ativan requirements now on precedex gtt
#Acute pancreatitis
#Transaminitis
#Acute respiratory failure with hypoxemia on supplemental oxygen - likely due to hypoventilation (CXR is clear); other DDx includes R to L shunt
#Hx of Hodgkin lymphoma s/p lefrt anterior chest wall chemo-port
Plan:
- Continue Precedex drip since 03-07
Still needs high dosing. Wean as tolerated
- Psych consult recommended --> Risperidone started 03-10 as presented good response in past
Increased risperidone on 03-12 afternoon due to ongoing agitation
Added quetiapine 25 mg po tid and follow response, acceptable QTc
- Phenobarbital protocol + prn ativan + MSAS
Given ongoing agitation will step up phenobarbital dosing 03-11, not tapering down from 64.8 mg tid dosing for now given refractory agitation/delirium
Soft restrains due to agitation and hazard to staff
- IVF DC'd as lipase WNL x 2 days in a row
- Low fat diet - monitor for intolerance
- Thiamine change to po
Continue folate and MVN
- Maintain SpO2 >90-94%, O2 4L, POx 93%
Not yet able to be OOB, or do IS, PT due to agitation
- Trend LFTs, improving
- CT Head done on 03/08/2023 shows no acute intracranial pathology
- Maintain MAP >65
Discontinued midodrine 03-11
- Goal BG 140-180
- Transfuse blood products as needed to keep Hb>7g/dL and plt>50k
- Replete K>4, Mg>2
- Stress ulcer prophylaxis: N/A
- DVT ppx: LMWH
Bowel regimen: sennosides
Continue outpatient citalopram
D/w MDT
D/w Mr Guerra girlfriend 03-11, all questions answered
Critical care time: 35 min
Data:
CXR 03-08-23: no pulm infiltrates. L chest port-A-cath
CT Head 03-08-2023: No acute intracranial abnormality
MRCP 03-06-2023:�Small layer of gallstones and/or sludge in the dependent portion of the gallbladder. No evidence for lobar wall thickening or pericholecystic edema.
There is no evidence for biliary ductal dilation. No evidence for bile duct calculus.
1.3 cm focus of increased T2 and STIR signal within the head of the pancreas, which very likely represents a pseudocyst. Advise follow-up CT or MRI evaluation with attention to the pancreas in 6 months.
9 mm lesion in the posterior right lobe of the liver, corresponding to lesion seen on recent CT examination, and likely a small hemangioma
Abd US 03-05-2023:
Several small shadowing gallstones are present within the gallbladder as well as a small amount of sludge. The bladder wall is slightly thickened, and is nonspecific.
No evidence for biliary ductal dilation.
No gross abnormality of the pancreas, with no evidence for peripancreatic collection. Of note, the pancreatic tail is not well-visualized with shadowing from overlying bowel gas.
Subjective Dataa
Subjective Data
Date of Service:
Date of Service: March 13, 2023
Chief Complaint: Rotary Veneer Machine Operator Follow Up
Subjective:
Remains intermittently agitated and posing some risk to staff when agitation escalates
Continues on 4 point restraints
Review of Systems
General: Other (Nonsensical talk at times)
Objective Data
Data Reviewed
Vital Signs / I&O / Oxygen:
Vital Signs
Temp Pulse Resp BP Pulse Ox
97.0 F 71 14 93/80 76
03/13/23 03:33 03/13/23 06:01 03/13/23 06:01 03/13/23 06:01 03/13/23 04:02
Intake and Output
03/12/23 03/13/23 03/14/23
06:59 06:59 06:59
Intake Total 1136.2 / 1159.9 764.8 / 764.8
Output Total 2300 / 2300 975 / 975
Balance -1163.8 / -1140.1 -210.2 / -210.2
SaO2 76
Nasal Cannula flow liters per 2
minute
Physical Exam
General: Respiratory Distress (n), Chills (Negative) and Other (Agitated, and sleepy at times)
HEENT: Normocephalic and Anicteric
Cardiovascular: S1-S2, Murmur and Peripheral Edema (negative)
Respiratory: Clear, Non-Labored Respirations, Stridor (n) and Other (poor inspiratory effort)
GI: Soft, Non Distended, Non Tender and Normal Bowel Sounds
Neurology: Other (Intermittently agitated)
Skin: Warm and Dry
Labs/Micro/Reports
Lab Data
03/12/23 03:36
03/13/23 03:15
--- NOTE | 2023-03-13 09:07 | W.PN.HOSP.TC ---
Today's Communication/Plan
-
Will discuss with psychiatry if any medication changes would be considered given the combination of buspirone, phenobarbital, Precedex and Ativan is not working for him.
Assessment / Plan
Assessment / Plan
57-year-old male with pancreatitis
On examination patient is awake , confused
Very inappropriate behavior at times
Cardiovascular system S1-S2 appreciated
Chest clear to auscultation, diminished
Abdomen soft, nt
No pedal edema
Able to move all extremities
#Alcohol withdrawal
Alcohol use disorder
-TME
-Inappropriate behavior
-On Precedex, phenobarbital and Ativan as needed
-Risperidone added by psychiatry
-He still very confused, will discuss with psychiatry if he needs any medicine changes/adjustments.
-Clearly the combination of Precedex phenobarbital as needed Ativan and buspirone is not working for him.
#Acute pancreatitis
Pancreatic pseudocyst
-Elevated lipase of 1913 -normalized
-CT a/p showing inflammation of pancreas
-Abdominal ultrasound showing gallstone as well although CBD of 4.6 mm only
-MRI/MRCP showing pancreatic pseudocyst. no choledocholithiasis
-Likely alcohol use related.�
-Low fat diet-tolerating
#Acute transaminitis - trending down
-Alcohol use related likely
-AST 911 ALT 442 ALP 210 TBilli 2.3 on admission
-Hepatitis serology negative
-Alcohol abstinence recommended
#Acute hypoxic respiratory insufficiency-secondary to atelectasis likely
Incentive spirometry
Encourage seated position
#Essential HTN
-Toprol changed to-12.5 twice daily
#Fatty liver-likely secondary to alcohol use
#Thickening of the wall of the gastric antrum-likely secondary to pancreatitis however needs EGD as outpatient
On PPI
#Enlarged prostate
-On Flomax, no urinary complains currently
#Depression/anxiety
-continue home citalopram
-Diazepam on hold while on Ativan
#Chronic hypotension on midodrine as outpatient
#History of Hodgkin's lymphoma
8 years ago treated in [place]
#DVT PPX - Lovenox
#Full code
Discussed with nursing at bed side
Spoke to mom and updated. 03/11/23
Anticipated Discharge: > 48 hours
Subjective/Interval History
-
Date of Service: March 13, 2023
Objective Data
-
Labs:
Laboratory Results
03/13/23
03:15
Sodium 138
Potassium 3.7
Chloride 101
Carbon Dioxide 27
BUN 12
Creatinine 0.9
Glucose 103 H
Calcium 9.4
Vital Signs:
Vital Signs
Temp Pulse Resp BP Pulse Ox
97.0 F 67 14 127/87 76
03/13/23 07:45 03/13/23 07:33 03/13/23 06:01 03/13/23 07:33 03/13/23 04:02
I&O
03/12/23 03/13/23 03/14/23
06:59 06:59 06:59
Intake Total 1136.2 / 1159.9 764.8 / 764.8
Output Total 2300 / 2300 975 / 975
Balance -1163.8 / -1140.1 -210.2 / -210.2
--- NOTE | 2023-03-13 09:18 | PTCARENOTE ---
pt again agitated in am MSAS 8 , delusional and hallucinating , Precedex now up to 1.4mcg , IV lorazepam 0.5mg IV given x2 since change of shift , pt has poor appetite due to his confusion and agitation , pt needs to be fed, HR NSR on monitor , BP
127/87 , on 2L NC with sats of 93% , attempted to wean down and sats dropped to 88% on room air , adequate urine output , Dr Lockwood here and aware of pts continued confusion and agitation
[2023-03-13] MEDS: NSS (PRESERVATIVE FREE) 0.125 ML IV (11:06)
[2023-03-13] MEDS: ATIVAN 0.25 MG IV (11:06)
[2023-03-13] MEDS: SEROQUEL 25 MG PO (11:41)
--- NOTE | 2023-03-13 13:26 | PTCARENOTE ---
pt given 3 doses of Lorazepam with MSAS protocol as of now , he was given 25mg of Seroquel at 1145 , he is finally asleep resting comfortable
[2023-03-13] MEDS: ATIVAN 1 MG IV ×2 (14:17→23:51)
[2023-03-13] MEDS: NSS (PRESERVATIVE FREE) 0.5 ML IV (14:18)
--- NOTE | 2023-03-13 14:20 | W.PN.UPDATE ---
Update Note
Progress Note Update
patient seen chart reviewed. spoke with nursing cm and dr grayson. this patient is well known to me. please see the summer admission where he was here in mid august to late september and this admission is almost a carbon copy of that one. he at first
was able to converse but gradually devolved into a delirious state which is the situation at present that went on for about three or four weeks with staff scratching their head as to why etoh wd should go on this long. his qtc was over 500 (we
stopped celexa which i will also do today) he was on phenobarb ativan valium seroquel and finally risperdal which is what seemed to do the trick (and perhaps just time....and abstinence) despite interaction w phenobarb which can decrease risperdal
levels. (note mr yen was quite pleasant as he recovered). at this point will inc risperdal to one mg qid will add an ativan prn for agitation,. dc celexa bc qtc. dc seroquel for same reason (i fear it will increase already at 470) continue w
precedex phenobarb msas. dc valium which was being held and use ativan which is shorter acting.
--- NOTE | 2023-03-13 14:34 | PTCARENOTE ---
Addendum entered by Tamela Rodriguez RN 03/13/23 14:38:
pt seen by Dr Mancini (psychiatry) , pt to have med adjustments to assist with his alcohol withdraw , pt continues to have hallucinations and delusions , current MSAS was >11 , lorazepam given as per protocol , Precedex continues at 1.4mcg , pts
mother and girlfriend here and updated on plan of care
Original Note:
pt seen by Dr Mancini (psychiatry)
--- NOTE | 2023-03-13 16:09 | PTCARENOTE ---
Family at bedside with patient. Attempt to update and review plan of cares from critical cares team for day. Patient immediately yelling 'shut the F' up and get me the F' out of here' Redirect patient and family behaviors. Continue to reinforce
safety concerns, reinforce plan of cares, and provide supportive cares. Continue ongoing video monitoring. Continue ongoing hourly rounds or more frequent patient safety checks. Assessment and vital signs updated.
[2023-03-13] MEDS: APRESOLINE 10 MG IV (16:38)
[2023-03-13] MEDS: LOVENOX 40 MG SC (17:46)
--- NOTE | 2023-03-13 18:08 | PTCARENOTE ---
Patient attempting to swing to punch staff during cares. Patient pulled off condom cath and incontinent of urine. Staff attempting to clean patient and reposition and change sheets. Four point spd protocol.. Maintain patient in safe environment.
Skin cares completed. Patient then became remorseful, crying and stating that he was just playing football. Taper prescedex as tolerated. Medications via Emar. Will follow patient care needs with pharmacy. Skin cares as per protocol. Hourly rounds
and frequent patient safety checks with video monitoring in use.
--- NOTE | 2023-03-13 20:06 | PTCARENOTE ---
pt received. resting comfortably in bed, precedex gtt infusing through SQ port, MSAS 3. SR on monitor. [address] 4L NC, diminished breath sounds noted. hypoactive bowel sounds. condom cath #[address] pt care ongoing.
[2023-03-13] MEDS: COLACE 100 MG PO (20:56)
--- NOTE | 2023-03-13 23:51 | PTCARENOTE ---
pt combative and yelling/grabbing at staff. MSAS 12, RASS +3. 1mg ativan given, see MAR. pt repositioned in bed, care ongoing.
[2023-03-14] VITALS (27 sets, daily range): BP systolic 78–156; BP diastolic 58–113; BMI 26.4
[2023-03-14] MEDS: PRECEDEX 100 IV ×7 (02:49→22:42)
[2023-03-14 04:59] LABS: Hematocrit 42.8 % (39.0-52.0); Hemoglobin 14.4 g/dL (13.0-18.0); Mean Corp Hgb Conc. 33.6 g/dL (33.0-37.0); Mean Corpuscular Hgb 27.9 pg (27.0-31.0); Mean Corpuscular Volume 82.9 fL (80.0-94.0); Mean Platelet Volume 8.1 fL (7.4-10.4); Platelet Count 237 10^3/uL (130-400); Red Blood Cell Count 5.16 10^6/uL (4.70-6.10); Red Cell Dist. Width 14.5 % (11.5-14.5)
--- NOTE | 2023-03-14 05:17 | PTCARENOTE ---
patient reassessed, currently sleeping. MSAS 3. precedex gtt infusing. assessments unchanged. AM labs sent. pt care ongoing.
[2023-03-14 05:22] LABS: ALT (SGPT) 56 U/L (0-50); AST (SGOT) 25 U/L (17-59); Albumin 3.3 g/dl (3.5-5.0); Alkaline Phosphatase 117 U/L (38-126); Blood Urea Nitrogen 9 mg/dl (9-20); Carbon Dioxide 26 mmol/L (22-30); Chloride 106 mmol/L (98-107); Estimated Creatinine Clearance 122 ml/min; Glucose 110 mg/dl (70-99); Potassium 3.7 mmol/L (3.5-5.1); Sodium 136 mmol/L (135-145); Total Bilirubin 0.5 mg/dl (0.2-1.3); Total Protein 6.2 g/dl (6.3-8.2); eGFR > 60.00
--- NOTE | 2023-03-14 07:49 | W.PN.INTV ---
Today's Communication / Plan
Recommendations
O2
DT protocol
Assessment
-
Assessment: 57-year-old male with a PMHx of alcohol use disorder, Hodgkin's lymphoma and DENICE who presented with abdominal pain X several months. Pain got worse over the last few days. Liver enzymes were elevated including alkaline phosphatase,
AST and ALT, bilirubin. Lipase 1913. CT abdomen/pelvis showed acute pancreatitis and an adjacent 1.5 cm suspected pseudocyst. There was no calcified gallstones or biliary ductal dilation. Diffuse fatty infiltration of the liver was seen. He was
admitted to the floors on IV fluids. Abdominal ultrasound showed gallstones without evidence of biliary ductal dilation. There was no peripancreatic collection. Gastroenterology has been consulted. MRCP showed layering gallstones and/or sludge
in the dependent gallbladder without wall thickening or pericholecystic edema. There was no biliary duct dilation, no bile duct calculus. 1.3 cm focus at the head of the pancreas suspected to be pseudocyst. Suspected small hemangioma at the right
lobe of the liver measuring 9 mm. Patient continued to be managed but then was exhibiting signs of alcohol withdrawal, requiring several doses of Ativan. Alcohol withdrawal symptoms worsened and he was transferred to the ICU for further care and
Precedex drip. Freight Loader service is consulted for additional management/recommendations.
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
Impression:
#Acute alcohol withdrawal with high ativan requirements now on precedex gtt
#Acute pancreatitis
#Transaminitis
#Acute respiratory failure with hypoxemia on supplemental oxygen - likely due to hypoventilation (CXR is clear); other DDx includes R to L shunt
#Hx of Hodgkin lymphoma s/p lefrt anterior chest wall chemo-port
Plan:
- Continue Precedex drip since 03-07
Still needs high dosing. Wean as tolerated
- Psych consult recommended --> Risperidone started 03-10 as presented good response in past
Increased risperidone on 03-12 afternoon due to ongoing agitation
03-13 added quetiapine 25 mg po tid and follow response, acceptable QTc
Psych reeval 03-13: increased risperidone up to 1 mg qid, d/c celexa and d/c quetiapine. [facility] for prolonged adm for ETOH w/d (about 3-4wks)
- Phenobarbital protocol + prn ativan + MSAS
Given ongoing agitation step up phenobarbital dosing 03-11, not tapering down from 64.8 mg tid dosing for now given refractory agitation/delirium
Soft restrains due to agitation and hazard to staff
- IVF DC'd as lipase WNL x 2 days in a row
- Low fat diet - monitor for intolerance
- Thiamine changed to po
Continue folate and MVN
- Maintain SpO2 >90-94%, O2 4L, POx 93%
Not yet able to be OOB, or do IS, PT due to agitation
- Trend LFTs, improving
- CT Head done on 03/08/2023 shows no acute intracranial pathology
- Maintain MAP >65
Discontinued midodrine 03-11
- Goal BG 140-180
- Transfuse blood products as needed to keep Hb>7g/dL and plt>50k
- Replete K>4, Mg>2
- Stress ulcer prophylaxis: N/A
- DVT ppx: LMWH
D/w MDT
D/w Mr Guerra girlfriend 03-11, all questions answered
Critical care time: 35 min
Data:
CXR 03-08-23: no pulm infiltrates. L chest port-A-cath
CT Head 03-08-2023: No acute intracranial abnormality
MRCP 03-06-2023:�Small layer of gallstones and/or sludge in the dependent portion of the gallbladder. No evidence for lobar wall thickening or pericholecystic edema.
There is no evidence for biliary ductal dilation. No evidence for bile duct calculus.
1.3 cm focus of increased T2 and STIR signal within the head of the pancreas, which very likely represents a pseudocyst. Advise follow-up CT or MRI evaluation with attention to the pancreas in 6 months.
9 mm lesion in the posterior right lobe of the liver, corresponding to lesion seen on recent CT examination, and likely a small hemangioma
Abd US 03-05-2023:
Several small shadowing gallstones are present within the gallbladder as well as a small amount of sludge. The bladder wall is slightly thickened, and is nonspecific.
No evidence for biliary ductal dilation.
No gross abnormality of the pancreas, with no evidence for peripancreatic collection. Of note, the pancreatic tail is not well-visualized with shadowing from overlying bowel gas.
Subjective Dataa
Subjective Data
Date of Service:
Date of Service: March 14, 2023
Chief Complaint: Freight Loader Follow Up
Subjective:
Still intermittent agitated and posing a risk to staff
Followed by psychiatry yesterday, medications adjusted
Review of Systems
General: Unobtainable - Sedation and Other (Intermittent agitationPresent)
Objective Data
Data Reviewed
Vital Signs / I&O / Oxygen:
Vital Signs
Temp Pulse Resp BP Pulse Ox
97.6 F 67 20 129/91 96
03/14/23 04:52 03/14/23 07:40 03/14/23 07:40 03/14/23 07:40 03/14/23 07:40
Intake and Output
03/13/23 03/14/23 03/15/23
06:59 06:59 06:59
Intake Total 764.8 / 788.5 1240.8 / 1266.5 25.7 / 25.7
Output Total 975 / 975 950 / 950
Balance -210.2 / -186.5 290.8 / 316.5 25.7 / 25.7
SaO2 96
Nasal Cannula flow liters per 2
minute
Physical Exam
General: Respiratory Distress (n), Chills (Negative) and Other (Agitated, and sleepy at times)
HEENT: Normocephalic and Anicteric
Cardiovascular: S1-S2, Murmur and Peripheral Edema (negative)
Respiratory: Clear, Non-Labored Respirations, Stridor (n) and Other (poor inspiratory effort)
GI: Soft, Non Distended, Non Tender and Normal Bowel Sounds
Neurology: Other (Intermittently agitated)
Skin: Warm and Dry
Labs/Micro/Reports
Lab Data
03/14/23 04:45
03/14/23 04:45
[2023-03-14] MEDS: COLACE PO ×2 (09:31→20:15)
[2023-03-14] MEDS: FLOMAX PO (09:32)
[2023-03-14] MEDS: LUMINAL PO (09:32)
[2023-03-14] MEDS: LOPRESSOR PO (09:32)
[2023-03-14] MEDS: FOLVITE PO (09:32)
[2023-03-14] MEDS: PROTONIX PO (09:32)
[2023-03-14] MEDS: THERAGRAN PO (09:33)
[2023-03-14] MEDS: VITAMIN B1 PO (09:33)
[2023-03-14] MEDS: RISPERDAL M-TAB (ORALLY DISINTEGRATING) 1 MG PO ×4 (09:36→20:14)
--- NOTE | 2023-03-14 09:40 | W.PN.HOSP.TC ---
Today's Communication/Plan
-
Celexa discontinued
Continue risperidone, wean Precedex as tolerated
As needed Ativan
Scheduled phenobarbital
I will also check an EEG
Assessment / Plan
Assessment / Plan
57-year-old male with pancreatitis
On examination patient is awake , confused
Very inappropriate behavior at times
Cardiovascular system S1-S2 appreciated
Chest clear to auscultation, diminished
Abdomen soft, nt
No pedal edema
Able to move all extremities
#Alcohol withdrawal
Alcohol use disorder
-TME
-Inappropriate behavior, hurting staff , inappropriate language
-On Precedex, phenobarbital and Ativan as needed
-Risperidone added by psychiatry
-He still very confused, psychiatry evaluation appreciated
-Last time patient was here for 23 days with similar presentation
#Acute pancreatitis
Pancreatic pseudocyst
-Elevated lipase of 1913 -normalized
-CT a/p showing inflammation of pancreas
-Abdominal ultrasound showing gallstone as well although CBD of 4.6 mm only
-MRI/MRCP showing pancreatic pseudocyst. no choledocholithiasis
-Likely alcohol use related.�
-Low fat diet-tolerating
#Acute transaminitis - trending down
-Alcohol use related likely
-AST 911 ALT 442 ALP 210 TBilli 2.3 on admission
-Hepatitis serology negative
-Alcohol abstinence recommended
#Acute hypoxic respiratory insufficiency-secondary to atelectasis likely
Incentive spirometry
Encourage seated position
#Essential HTN
-Toprol changed to-12.5 twice daily
#Fatty liver-likely secondary to alcohol use
#Thickening of the wall of the gastric antrum-likely secondary to pancreatitis however needs EGD as outpatient
On PPI
#Enlarged prostate
-On Flomax, no urinary complains currently
#Depression/anxiety
-Discontinued citalopram
-Diazepam on hold while on Ativan
#Chronic hypotension on midodrine as outpatient
#History of Hodgkin's lymphoma
8 years ago treated in [place]
#DVT PPX - Lovenox
#Full code
Discussed with nursing at bed side
Discussed with psychiatry yesterday
Spoke to patient's mother and updated on 03/14/2023-she apologized for the patient hurting a nurse's wrist
Anticipated Discharge: > 48 hours
Subjective/Interval History
-
Date of Service: March 14, 2023
Objective Data
-
Labs:
Laboratory Results
03/14/23
04:45
WBC 8.0
Hgb 14.4
Hct 42.8
Plt Count 237
Sodium 136
Potassium 3.7
Chloride 106
Carbon Dioxide 26
BUN 9
Creatinine 0.6 L
Glucose 110 H
Calcium 9.0
Total Bilirubin 0.5
AST 25
ALT 56 H
Alkaline Phosphatase 117
Vital Signs:
Vital Signs
Temp Pulse Resp BP Pulse Ox
97.0 F 67 20 129/91 96
03/14/23 07:30 03/14/23 07:40 03/14/23 07:40 03/14/23 07:40 03/14/23 07:40
I&O
03/13/23 03/14/23 03/15/23
06:59 06:59 06:59
Intake Total 764.8 / 788.5 1240.8 / 1266.5 25.7 / 25.7
Output Total 975 / 975 950 / 950
Balance -210.2 / -186.5 290.8 / 316.5 25.7 / 25.7
--- NOTE | 2023-03-14 09:46 | PTCARENOTE ---
Updated patient assessment, vital signs ongoing and constant redirection when working with patient. Continue to reinforce day, date, time, events and plan of cares. Patient continues to verbally abusive then restless, agitated and then crying at
times. Continue supportive cares and emotional support. Attempts at PO hydration, intake, pills/medicine are met with patient spitting out any intake followed by verbally abusive remarks. Continue supportive cares, hourly or more frequent rounds
with safety checks, spd protocols. Continue skin cares and turning protocols. Update with patient family via phone. Update with critcal cares team during grand rounds. Follow up plan of cares with predatory animal trapper and pharmacy.
--- NOTE | 2023-03-14 09:52 | PTCARENOTE ---
Hospitalist at bedside with patient updated events of evening and plan of cares for day. Will continue to follow and update new orders, follow up assessments ongoing.
[2023-03-14] MEDS: PHENOBARBITAL 65 MG IV ×3 (11:32→20:14)
--- NOTE | 2023-03-14 11:43 | PTCARENOTE ---
EEG completed. Patient now presently sleeping lightly when undisturbed. Talking to self and surrounds. Patient wakes easily confused to day date place and events. Reinforce events of hospitalization. Continue skin cares, turning, and follow up
patient care needs. Maintain spd protocol and frequent patient safety checks. Remote monitoring in use. Follow up medications and plan with pharmacy.
--- NOTE | 2023-03-14 12:44 | PTCARENOTE ---
Vascular access team at bedside. Dressing change and re-access port at this time. New IV tubing as per protocol. Again patient spitting at staff at times. Continue to redirect behaviors.
--- NOTE | 2023-03-14 13:40 | PTCARENOTE ---
Patient assessment unchanged. More awake and cursing constantly. Non focal complaints about everything. Attempts to reorient continually met with verbal abuse. Continue to attempt to provide po intake. SPD protocol. Maintain safety measures and
supportive cares ongoing.
--- NOTE | 2023-03-14 14:35 | W.PN.UPDATE ---
Update Note
Progress Note Update
patient seen chart reviewed. mr yen continues with serious outbursts periodically that place himself and staff at risk. this is interspersed with periods of relative quiet where one is lulled into a false sense of security re his condition but
then th e agitation recurs. discussed w nursing a standing order of a small amount of ativan o.5 mg qid . they feel it has been difficult to use amsas to guide them bc he will seem calm for the moment and as stated with no warning aggression will
recur. he did talk to me but for the most part it was gibberish....something about licking and sealing things. neither nursing or myself could figure out what he was saying. will discuss w pharmacy staff in icu.
--- NOTE | 2023-03-14 14:43 | PTCARENOTE ---
Dr Mancini at bedside. Patient continues to be difficult to assess. Reinforce review events of day and night. Patient waxes and wanes from calm into agitated and aggressive. Verbally abusive with overall threatening tones. Discuss options for wean
prescedex and medicine regimen. Continue spd protocol. Follow up rounds assessment unchanged. Continue to offer po/intake. Assessment and vital signs ongoing.
[2023-03-14] MEDS: ATIVAN 1 MG IV ×2 (15:09→21:26)
--- NOTE | 2023-03-14 15:35 | CM ---
CM following re: discharge planning.
Reviewed pt's chart, met with pt.
Pt remains in 2 points soft wrist restraints, very tearful, repeating 'mother, mother', a few words coming out from the pt and very difficult to recognize those words.
PT and OT recommend SNF.
Psychiatry following.
D/c plan: SNF when pt is medically and behaviorally stable.
CM will follow with discharge plan updates as hospitalization progresses
[2023-03-14] MEDS: NSS (PRESERVATIVE FREE) 0.25 ML IV (17:08)
[2023-03-14] MEDS: ATIVAN 0.5 MG IV (17:08)
[2023-03-14] MEDS: LOVENOX 40 MG SC (17:08)
--- NOTE | 2023-03-14 19:16 | PTCARENOTE ---
patient received. patient resting in bed, precedex gtt infusing through port. [address] SR on monitor. VSS. 2L NC, satting high 90s. diminished breath sounds noted. hypoactive bowel sounds. condom cath #[address], draining
dark yellow urine. family at bedside, updated on plan of care. frequent patient safety checks ongoing, remote monitoring in use. pt care ongoing.
[2023-03-14] MEDS: LOPRESSOR 12.5 MG PO (20:14)
[2023-03-14] MEDS: VITAMIN B1 100 MG PO (20:14)
--- NOTE | 2023-03-14 20:58 | PTCARENOTE ---
patient awake and restless, precedex gtt titrated - see worklist. pt fed dinner, meds given, oral care and hygiene provided, tucked in with warm blanket. pt care ongoing.
--- NOTE | 2023-03-14 21:47 | EEG.RPT ---
Electroencephalogram Report
Recording
Date of EE03/14/23
Type of EEG: Routine
Length of EEG recordin mins
Done with Video Recording: Yes
Patient Status: Inpatient
Recording Conditions: Confused
Hyperventilation Performed: No
Photic Stimulation Performed: Yes
Report
METHODS
A 21 channel digitized electroencephalogram was performed at [facility]. The 10/20 international system of electrode placement was used. In addition to EEG, the patient was monitored for EKG. The duration of the recording was 29 minutes.
BACKGROUND
During the awake state, with the eyes closed, the background consisted of a normal amplitude, 9 Hertz posterior reactive rhythm that attenuated appropriately with eye opening. Beta activity was distributed diffusely with an anterior predominance.
There was a normal anterior-posterior voltage gradient. With eye opening the background activity changed to a low voltage mixture of alpha, beta, and occasional theta range frequencies. There were no significant asymmetries of background activity
noted.
PHOTIC STIMULATION
Photic stimulation using a step-joseph increase in photic frequency varying from 1-31 Hertz resulted in no driving responses but no appearance of abnormal activity.
ABNORMAL EEG ACTIVITY
None
CLINICAL EVENTS
None
INTERPRETATION AND CLINICAL CORRELATION
This EEG is normal during the awake state as well as during the activation procedure of photic stimulation. No seizures were noted during the recording. A normal EEG, in itself, does not rule out a diagnosis of epilepsy. If clinical suspicion for
seizure persists, a sleep-deprived and/or prolonged recording may be warranted.
[2023-03-15] VITALS (24 sets, daily range): BP systolic 88–158; BP diastolic 61–126; BMI 26.4
--- NOTE | 2023-03-15 | PTCARENOTE ---
[facility] assumed care of patient at 1900. Nursing assessment completed and as documented. Patient confused, restless, actively hallucinating, unable to answer questions appropriately and with intermittent periods of agitated
and verbal outbursts. Patient ST/SR on monitor, +PP, on RA lung sounds diminished bilaterally. Patient inc of urine and bowel, #[address] draining eric urine, bowel sounds hypoactive. Patient uncooperative towards staff, remains in 4pt
restraints, medsitter in place, remains on MSAS protocol - see worklist for documentation. Repositioned for comfort, call matos within reach, VSS, care ongoing.
[2023-03-15] MEDS: ATIVAN 0.5 MG IV ×5 (00:05→23:11)
[2023-03-15] MEDS: NSS (PRESERVATIVE FREE) 0.25 ML IV ×5 (00:06→23:12)
--- NOTE | 2023-03-15 00:26 | PTCARENOTE ---
patient reassessed. repositioned in bed, restraints in place. assessments unchanged. precedex gtt infusing. safe environment maintained, frequent checks ongoing, pt care continues.
[2023-03-15] MEDS: PRECEDEX 100 IV ×4 (01:59→21:15)
--- NOTE | 2023-03-15 04:04 | PTCARENOTE ---
patient reassessed. resting comfortably in bed, RASS -2. precedex gtt infusing. assessments unchanged. oral care provided. pt care ongoing.
[2023-03-15 04:52] LABS: Blood Urea Nitrogen 9 mg/dl (9-20); Calcium 9.3 mg/dl (8.4-10.2); Carbon Dioxide 28 mmol/L (22-30); Chloride 101 mmol/L (98-107); Estimated Creatinine Clearance 122 ml/min; Glucose 112 mg/dl (70-99); Potassium 3.5 mmol/L (3.5-5.1); Sodium 138 mmol/L (135-145); eGFR > 60.00
[2023-03-15] MEDS: KCL 260 MEQ IV (05:29)
--- NOTE | 2023-03-15 08:00 | PTCARENOTE ---
Received patient from night time babysitter. Patient is AAOxself. Remains on dex gtt through left chest wall port. Handoff as charted in worklist. Patient is on 4L nasal cannula, saturation 91%. Sinus karen to sinus rhythm on monitor. Patient is in four
point restraints and medsitter for safety. Remains somnolent, hallucinating. Patient is a feed/ has been incontinent of bowel and bladder. Condom cath for urine. Skin intact. Will review orders, maintain safe environment.
[2023-03-15] MEDS: LOPRESSOR 12.5 MG PO ×2 (08:34→20:28)
[2023-03-15] MEDS: RISPERDAL M-TAB (ORALLY DISINTEGRATING) 1 MG PO ×4 (08:35→20:28)
[2023-03-15] MEDS: PHENOBARBITAL 65 MG IV (08:35)
[2023-03-15] MEDS: FOLVITE 1 MG PO (08:35)
[2023-03-15] MEDS: PROTONIX 40 MG PO (08:40)
[2023-03-15] MEDS: COLACE PO (08:40)
[2023-03-15] MEDS: FLOMAX 0.400000000000000022 MG PO (08:40)
[2023-03-15] MEDS: VITAMIN B1 100 MG PO ×2 (08:41→20:28)
[2023-03-15] MEDS: THERAGRAN 1 TABLET PO (08:41)
--- NOTE | 2023-03-15 08:46 | W.PN.INTV ---
Today's Communication / Plan
Recommendations
Dexmed
Phenob
Ativan
Assessment
-
Assessment: 57-year-old male with a PMHx of alcohol use disorder, Hodgkin's lymphoma and DENICE who presented with abdominal pain X several months. Pain got worse over the last few days. Liver enzymes were elevated including alkaline phosphatase,
AST and ALT, bilirubin. Lipase 1913. CT abdomen/pelvis showed acute pancreatitis and an adjacent 1.5 cm suspected pseudocyst. There was no calcified gallstones or biliary ductal dilation. Diffuse fatty infiltration of the liver was seen. He was
admitted to the floors on IV fluids. Abdominal ultrasound showed gallstones without evidence of biliary ductal dilation. There was no peripancreatic collection. Gastroenterology has been consulted. MRCP showed layering gallstones and/or sludge
in the dependent gallbladder without wall thickening or pericholecystic edema. There was no biliary duct dilation, no bile duct calculus. 1.3 cm focus at the head of the pancreas suspected to be pseudocyst. Suspected small hemangioma at the right
lobe of the liver measuring 9 mm. Patient continued to be managed but then was exhibiting signs of alcohol withdrawal, requiring several doses of Ativan. Alcohol withdrawal symptoms worsened and he was transferred to the ICU for further care and
Precedex drip. [employer] service is consulted for additional management/recommendations.
Chronic medical conditions [employer]:Hodgkin lymphoma s/p left anterior chemo port, DENICE, alcohol use disorder, depression
Impression:
#Acute alcohol withdrawal with high ativan requirements now on precedex gtt
#Acute pancreatitis
#Transaminitis
#Acute respiratory failure with hypoxemia on supplemental oxygen - likely due to hypoventilation (CXR is clear); other DDx includes R to L shunt
#Hx of Hodgkin lymphoma s/p left anterior chest wall chemo-port
Plan:
- Continue Precedex drip since 03-07
Still needs high dosing gtt. Wean as tolerated, unfortunately agitation escalates when weaning attempted
- Psych consult --> Risperidone started 03-10 as presented good response in past
Increased risperidone on 03-12 afternoon due to ongoing agitation
Psych reeval 03-13: increased risperidone up to 1 mg qid, d/c celexa and d/c short trial of quetiapine. Known to psych from previous adm for prolonged adm for ETOH w/d (about 3-4wks)
- Phenobarbital protocol
Given ongoing agitation step up phenobarbital dosing 03-11, not tapering down from 64.8 mg tid dosing for now given refractory agitation/delirium
IV ativan currently ATC plus prn
4 point soft restrains due to agitation and hazard to staff
- IVF DC'd as lipase WNL x 2 days in a row
- Low fat diet - monitor for intolerance
- Thiamine changed to po
Continue folate and MVN
- Maintain SpO2 >90-94%, O2 4L, POx 93%
Not yet able to be OOB, or do IS, PT due to agitation
- Trend LFTs, improving
- CT Head done on 03/08/2023 shows no acute intracranial pathology
Discontinued midodrine 03-11
- Goal BG 140-180
- Transfuse blood products as needed to keep Hb>7g/dL and plt>50k
- Replete K>4, Mg>2
- Stress ulcer prophylaxis: N/A
- DVT ppx: LMWH
D/w MDT
D/w Mr Guerra girlfriend 03-11, all questions answered
Critical care time: 35 min
Data:
CXR 03-08-23: no pulm infiltrates. L chest port-A-cath
CT Head 03-08-2023: No acute intracranial abnormality
MRCP 03-06-2023:�Small layer of gallstones and/or sludge in the dependent portion of the gallbladder. No evidence for lobar wall thickening or pericholecystic edema.
There is no evidence for biliary ductal dilation. No evidence for bile duct calculus.
1.3 cm focus of increased T2 and STIR signal within the head of the pancreas, which very likely represents a pseudocyst. Advise follow-up CT or MRI evaluation with attention to the pancreas in 6 months.
9 mm lesion in the posterior right lobe of the liver, corresponding to lesion seen on recent CT examination, and likely a small hemangioma
Abd US 03-05-2023:
Several small shadowing gallstones are present within the gallbladder as well as a small amount of sludge. The bladder wall is slightly thickened, and is nonspecific.
No evidence for biliary ductal dilation.
No gross abnormality of the pancreas, with no evidence for peripancreatic collection. Of note, the pancreatic tail is not well-visualized with shadowing from overlying bowel gas.
Subjective Dataa
Subjective Data
Date of Service:
Date of Service: March 15, 2023
Chief Complaint: [employer] Follow Up
Subjective:
Continue intermittent agitation is still posing threat to staff
So far unable to wean down dexmedetomidine drip
Review of Systems
General: Unobtainable - Sedation
Objective Data
Data Reviewed
Vital Signs / I&O / Oxygen:
Vital Signs
Temp Pulse Resp BP Pulse Ox
96 F L 68 12 118/90 99
03/15/23 08:44 03/15/23 08:34 03/15/23 06:30 03/15/23 08:34 03/15/23 06:30
Intake and Output
03/14/23 03/15/23 03/16/23
06:59 06:59 06:59
Intake Total 1240.8 / 1266.5 1056.8 / 1080.5 47.4 / 47.4
Output Total 950 / 950 1050 / 1050
Balance 290.8 / 316.5 6.8 / 30.5 47.4 / 47.4
SaO2 99
Nasal Cannula flow liters per 2
minute
Physical Exam
General: Respiratory Distress (n), Chills (Negative) and Other (Agitated, and sleepy at times)
HEENT: Normocephalic and Anicteric
Cardiovascular: S1-S2, Murmur and Peripheral Edema (negative)
Respiratory: Clear, Non-Labored Respirations, Stridor (n) and Other (poor inspiratory effort)
GI: Soft, Non Distended, Non Tender and Normal Bowel Sounds
Neurology: Other (Intermittently agitated)
Skin: Warm and Dry
Labs/Micro/Reports
Lab Data
03/14/23 04:45
03/15/23 04:22
--- NOTE | 2023-03-15 10:46 | W.PN.HOSP.TC ---
Today's Communication/Plan
-
Continue Ativan risperidone and try and wean Precedex as tolerated
Psychiatric following
Assessment / Plan
Assessment / Plan
57-year-old male with pancreatitis
On examination patient is awake , confused
Very inappropriate behavior at times
Cardiovascular system S1-S2 appreciated
Chest clear to auscultation, diminished
Abdomen soft, nt
No pedal edema
Able to move all extremities
#Alcohol withdrawal
Alcohol use disorder
-TME
-Inappropriate behavior, hurting staff , inappropriate language
-On Precedex, phenobarbital and Ativan
-Risperidone added by psychiatry
-He still very confused, psychiatry evaluation appreciated
-Last time patient was here for 23 days with similar presentation
#Acute pancreatitis
Pancreatic pseudocyst
-Elevated lipase of 1913 -normalized
-CT a/p showing inflammation of pancreas
-Abdominal ultrasound showing gallstone as well although CBD of 4.6 mm only
-MRI/MRCP showing pancreatic pseudocyst. no choledocholithiasis
-Likely alcohol use related.�
-Low fat diet-tolerating
#Acute transaminitis - trending down
-Alcohol use related likely
-AST 911 ALT 442 ALP 210 TBilli 2.3 on admission
-Hepatitis serology negative
-Alcohol abstinence recommended
#Acute hypoxic respiratory insufficiency-secondary to atelectasis likely
Incentive spirometry
Encourage seated position
#Essential HTN
-Toprol -12.5 twice daily
#Fatty liver-likely secondary to alcohol use
#Thickening of the wall of the gastric antrum-likely secondary to pancreatitis however needs EGD as outpatient
On PPI
#Enlarged prostate
-On Flomax, no urinary complains currently
#Depression/anxiety
-Discontinued citalopram
-Diazepam on hold while on Ativan
#Chronic hypotension on midodrine as outpatient
#History of Hodgkin's lymphoma
8 years ago treated in [place]
#DVT PPX - Lovenox
#Full code
Discussed with nursing at bed side
Spoke to patient's mother and updated on 03/14/2023
Anticipated Discharge: > 48 hours
Subjective/Interval History
-
Date of Service: March 15, 2023
Objective Data
-
Labs:
Laboratory Results
03/15/23
04:22
Sodium 138
Potassium 3.5
Chloride 101
Carbon Dioxide 28
BUN 9
Creatinine 0.6 L
Glucose 112 H
Calcium 9.3
Vital Signs:
Vital Signs
Temp Pulse Resp BP Pulse Ox
96 F L 67 11 103/78 90
03/15/23 08:44 03/15/23 09:00 03/15/23 09:00 03/15/23 09:00 03/15/23 08:45
I&O
03/14/23 03/15/23 03/16/23
06:59 06:59 06:59
Intake Total 1240.8 / 1266.5 1056.8 / 1080.5 94.8 / 94.8
Output Total 950 / 950 1050 / 1050
Balance 290.8 / 316.5 6.8 / 30.5 94.8 / 94.8
--- NOTE | 2023-03-15 13:57 | W.PN.UPDATE ---
Update Note
Progress Note Update
patient seen chart reviewed. spoke with nursing.today seems to be going a little bit better. the patient was quiet but he was awake and calm when i saw him. he remains delirious but started to cry and actually told me he was sad. he also said
other things that did not make sense but this is a step in the right direction. i don't think we should change psych meds at this point except to try and cut back the precedex (which of course is not really a psych medication) i would not add a
second antipsychotic at this point which could be counterproductive as akathisia could make him more agitated. his last admission it took a lot of time for him to get well and i suspect it will as well this go around. will follow
--- NOTE | 2023-03-15 14:00 | PTCARENOTE ---
Untied patients restraints. Patient helped turn from side to side in changing his linens. Then set up lunch tray and patient became verbally abusive upset with staff. Restrained patient again for his safety. Has had periods of calmness but never
lucid.
--- NOTE | 2023-03-15 14:04 | CM ---
CM following re: discharge planning.
Reviewed pt's chart, met with pt and pt's mother. pt's mother stated that pt has been sober for years and now has a girlfriend who is a drinker. Per mother, pt and his girlfriend live in her house
Pt remains on 4 pints points restraints, no changes since yesterday.
PT and OT recommend SNF.
Psychiatry following.
D/c plan: SNF when pt is medically and behaviorally stable.
CM will follow with discharge plan updates as hospitalization progresses
[2023-03-15] MEDS: ATIVAN 1 MG IV ×2 (14:50→21:33)
[2023-03-15] MEDS: LUMINAL 32.3999999999999986 MG PO ×2 (15:24→20:28)
--- NOTE | 2023-03-15 16:00 | PTCARENOTE ---
Continued to offer PO, patient was agreeable at first but then spit out his soup and apple juice. Will continue to offer
[2023-03-15] MEDS: LOVENOX 40 MG SC (17:56)
--- NOTE | 2023-03-15 18:01 | PTCARENOTE ---
Patient continues to be delirious. States he is speaking to his dad, who has , keeps talking to people at bedside who are not present, severe hallucinations and unable to reorient.
--- NOTE | 2023-03-15 20:00 | PTCARENOTE ---
[facility] assumed care of patient at 1900. Nursing assessment completed and as documented. Patient confused, restless, actively hallucinating, unable to answer questions appropriately and with intermittent periods of agitated
and verbal outbursts. Patient ST/SR on monitor, +PP, on RA lung sounds diminished bilaterally. Patient inc of urine and bowel, #[address] draining eric urine, bowel sounds hypoactive. Patient uncooperative towards staff, remains in 4pt
restraints, medsitter in place, remains on MSAS protocol - see worklist for documentation. Repositioned for comfort, call matos within reach, VSS, care ongoing.
[2023-03-15] MEDS: COLACE 100 MG PO (20:28)
[2023-03-16] VITALS (27 sets, daily range): BP systolic 54–164; BP diastolic 43–105; BMI 25.2
--- NOTE | 2023-03-16 | PTCARENOTE ---
No changes to physical assessment, patient remains hallucinating, intermittent verbal outburst, and uncooperative with staff/care. Remains on 4pt restraints, medsitter in place, and MSAS protocol. Care ongoing.
[2023-03-16] MEDS: APRESOLINE 10 MG IV (01:04)
[2023-03-16] MEDS: PRECEDEX 100 IV ×4 (01:05→17:31)
[2023-03-16] MEDS: ATIVAN 1 MG IV ×5 (03:41→20:51)
--- NOTE | 2023-03-16 04:00 | PTCARENOTE ---
No changes to physical assessment. Patient remains confused, conversing with self, and hallucinating. Labs drawn and sent. Attempting to wean precedex, see worklist. MSAS per protocol, 4pt restraints remain, med sitter remains in place. VSS, care
ongoing.
[2023-03-16 04:15] LABS: Hematocrit 43.7 % (39.0-52.0); Hemoglobin 14.8 g/dL (13.0-18.0); Mean Corp Hgb Conc. 33.9 g/dL (33.0-37.0); Mean Corpuscular Hgb 27.7 pg (27.0-31.0); Mean Corpuscular Volume 81.7 fL (80.0-94.0); Mean Platelet Volume 8.2 fL (7.4-10.4); Platelet Count 309 10^3/uL (130-400); Red Blood Cell Count 5.35 10^6/uL (4.70-6.10); Red Cell Dist. Width 14.5 % (11.5-14.5); White Blood Cell Count 8.6 10^3/uL (4.8-10.8)
[2023-03-16 04:39] LABS: Blood Urea Nitrogen 5 mg/dl (9-20); Calcium 9.2 mg/dl (8.4-10.2); Carbon Dioxide 22 mmol/L (22-30); Chloride 100 mmol/L (98-107); Estimated Creatinine Clearance 122 ml/min; Glucose 102 mg/dl (70-99); Magnesium 1.8 mg/dl (1.6-2.3); Potassium 3.7 mmol/L (3.5-5.1); Sodium 137 mmol/L (135-145); eGFR > 60.00
[2023-03-16] MEDS: ATIVAN 0.5 MG IV ×4 (06:22→23:39)
[2023-03-16] MEDS: NSS (PRESERVATIVE FREE) 0.25 ML IV ×4 (06:22→23:39)
[2023-03-16] MEDS: COLACE 100 MG PO ×2 (07:30→19:49)
[2023-03-16] MEDS: PROTONIX 40 MG PO (07:30)
[2023-03-16] MEDS: LOPRESSOR 12.5 MG PO (07:30)
[2023-03-16] MEDS: FLOMAX 0.400000000000000022 MG PO (07:30)
[2023-03-16] MEDS: LUMINAL 32.3999999999999986 MG PO ×3 (07:30→19:50)
[2023-03-16] MEDS: RISPERDAL M-TAB (ORALLY DISINTEGRATING) 1 MG PO ×4 (07:30→19:49)
[2023-03-16] MEDS: VITAMIN B1 100 MG PO ×2 (07:30→19:50)
[2023-03-16] MEDS: FOLVITE 1 MG PO (07:30)
[2023-03-16] MEDS: THERAGRAN 1 TABLET PO (07:31)
--- NOTE | 2023-03-16 07:39 | W.PN.HOSP.TC ---
Today's Communication/Plan
-
wean precedex as tolerated
ativan prn
phenobarbital taper
Risperidone as per psych
Assessment / Plan
Assessment / Plan
Physical Exam
General: no acute distress sedated on restraints
Cardiovascular system S1-S2 appreciated
Chest clear to auscultation, diminished
Abdomen: soft, nt
Ext:No pedal edema
Neuro/Psych: sedated confused
#Alcohol withdrawal
Alcohol use disorder
-TME
-Inappropriate behavior, hurting staff , inappropriate language
-On Precedex, phenobarbital and Ativan
-Risperidone as per psychiatry
-Last time patient was here for 23 days with similar presentation
#Acute pancreatitis
Pancreatic pseudocyst
-Elevated lipase of 1913 -normalized
-CT a/p showing inflammation of pancreas
-Abdominal ultrasound showing gallstone as well although CBD of 4.6 mm only
-MRI/MRCP showing pancreatic pseudocyst. no choledocholithiasis
-Likely alcohol use related.�
-Low fat diet-tolerating
#Acute transaminitis - trending down/resolving
-Alcohol use related likely
-AST 911 ALT 442 ALP 210 TBilli 2.3 on admission
-Hepatitis serology negative
-Alcohol abstinence recommended
#Acute hypoxic respiratory insufficiency-secondary to atelectasis likely
Incentive spirometry
Encourage seated position
#Essential HTN
-Toprol -12.5 twice daily
#Fatty liver-likely secondary to alcohol use
#Thickening of the wall of the gastric antrum-likely secondary to pancreatitis however needs EGD as outpatient
On PPI
#Enlarged prostate
-On Flomax, no urinary complains currently
#Depression/anxiety
-Discontinued citalopram
-Diazepam on hold while on Ativan
#Chronic hypotension on midodrine as outpatient
resume home midodrine with holding paramaters
#History of Hodgkin's lymphoma
8 years ago treated in [place]
#DVT PPX - Lovenox
#Full code
updated patient's mother Yvonne on 03/16/2023
I spent a total of 50 minutes with the patient or on the floor. More than 50% of this time involved counseling and coordination of care.
Anticipated Discharge: > 48 hours
Subjective/Interval History
-
Date of Service: March 16, 2023
Sedated appears comfortable at time of evaluation. Per nurse patient had to be sedated earlier in day with prn ativan following agitation arguing with his mother.
Objective Data
-
Labs:
Laboratory Results
03/16/23
03:48
WBC 8.6
Hgb 14.8
Hct 43.7
Plt Count 309 D
Sodium 137
Potassium 3.7
Chloride 100
Carbon Dioxide 22
BUN 5 L
Creatinine 0.5 L
Glucose 102 H
Calcium 9.2
Vital Signs:
Vital Signs
Temp Pulse Resp BP Pulse Ox
98.3 F 94 16 113/91 93
03/16/23 07:25 03/16/23 07:30 03/16/23 06:00 03/16/23 07:30 03/16/23 06:00
I&O
03/15/23 03/16/23 03/17/23
06:59 06:59 06:59
Intake Total 1056.8 / 1080.5 557.0 / 557.0
Output Total 1050 / 1050 1900 / 1900
Balance 6.8 / 30.5 -1343.0 / -1343.0
[2023-03-16] MEDS: NSS (PRESERVATIVE FREE) 0.5 ML IV ×4 (08:09→20:51)
--- NOTE | 2023-03-16 08:30 | W.PN.INTV ---
Today's Communication / Plan
Recommendations
DT protocol
Assessment
-
Assessment: 57-year-old male with a PMHx of alcohol use disorder, Hodgkin's lymphoma and DENICE who presented with abdominal pain X several months. Pain got worse over the last few days. Liver enzymes were elevated including alkaline phosphatase,
AST and ALT, bilirubin. Lipase 1913. CT abdomen/pelvis showed acute pancreatitis and an adjacent 1.5 cm suspected pseudocyst. There was no calcified gallstones or biliary ductal dilation. Diffuse fatty infiltration of the liver was seen. He was
admitted to the floors on IV fluids. Abdominal ultrasound showed gallstones without evidence of biliary ductal dilation. There was no peripancreatic collection. Gastroenterology has been consulted. MRCP showed layering gallstones and/or sludge
in the dependent gallbladder without wall thickening or pericholecystic edema. There was no biliary duct dilation, no bile duct calculus. 1.3 cm focus at the head of the pancreas suspected to be pseudocyst. Suspected small hemangioma at the right
lobe of the liver measuring 9 mm. Patient continued to be managed but then was exhibiting signs of alcohol withdrawal, requiring several doses of Ativan. Alcohol withdrawal symptoms worsened and he was transferred to the ICU for further care and
Precedex drip. [employer] W[employer]ing Machine Operator service is consulted for additional management/recommendations.
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
Impression:
#Acute alcohol withdrawal with high ativan requirements now on precedex gtt
#Acute pancreatitis
#Transaminitis
#Acute respiratory failure with hypoxemia on supplemental oxygen - likely due to hypoventilation (CXR is clear); other DDx includes R to L shunt
#Hx of Hodgkin lymphoma s/p left anterior chest wall chemo-port
Plan:
- Continue Precedex drip since 03-07
Still needs high dosing gtt. Wean as tolerated, unfortunately agitation escalates when weaning attempted
- Psych consult --> Risperidone started 03-10 as presented good response in past
Increased risperidone on 03-12 afternoon due to ongoing agitation
Psych reeval 03-13: increased risperidone up to 1 mg qid, d/c celexa and d/c short trial of quetiapine. Known to psych from previous adm for prolonged adm for ETOH w/d (about 3-4wks)
- Phenobarbital protocol
IV ativan currently ATC plus prn
4 point soft restrains due to agitation and hazard to staff
- IVF DC'd as lipase WNL x 2 days in a row
- Low fat diet - monitor for intolerance
- Thiamine changed to po
Continue folate and MVN
- Maintain SpO2 >90-94%, O2 4L, POx 93%
Not yet able to be OOB, or do IS, PT due to agitation
- Trend LFTs, improving
- CT Head done on 03/08/2023 shows no acute intracranial pathology
Discontinued midodrine 03-11
- Goal BG 140-180
- Transfuse blood products as needed to keep Hb>7g/dL and plt>50k
- Replete K>4, Mg>2
- Stress ulcer prophylaxis: N/A
- DVT ppx: LMWH
D/w MDT
D/w Mr Guerra girlfriend 03-11, all questions answered
Critical care time: 35 min
Data:
CXR 03-08-23: no pulm infiltrates. L chest port-A-cath
CT Head 03-08-2023: No acute intracranial abnormality
MRCP 03-06-2023:�Small layer of gallstones and/or sludge in the dependent portion of the gallbladder. No evidence for lobar wall thickening or pericholecystic edema.
There is no evidence for biliary ductal dilation. No evidence for bile duct calculus.
1.3 cm focus of increased T2 and STIR signal within the head of the pancreas, which very likely represents a pseudocyst. Advise follow-up CT or MRI evaluation with attention to the pancreas in 6 months.
9 mm lesion in the posterior right lobe of the liver, corresponding to lesion seen on recent CT examination, and likely a small hemangioma
Abd US 03-05-2023:
Several small shadowing gallstones are present within the gallbladder as well as a small amount of sludge. The bladder wall is slightly thickened, and is nonspecific.
No evidence for biliary ductal dilation.
No gross abnormality of the pancreas, with no evidence for peripancreatic collection. Of note, the pancreatic tail is not well-visualized with shadowing from overlying bowel gas.
Subjective Dataa
Subjective Data
Date of Service:
Date of Service: March 16, 2023
Chief Complaint: [employer] Waxing Machine Operator Follow Up
Subjective:
Continues with intermittent agitation and hallucinations
Continues with restraints
Review of Systems
General: Unobtainable - Sedation
Objective Data
Data Reviewed
Vital Signs / I&O / Oxygen:
Vital Signs
Temp Pulse Resp BP Pulse Ox
98.3 F 94 16 113/91 93
03/16/23 07:25 03/16/23 07:30 03/16/23 06:00 03/16/23 07:30 03/16/23 06:00
Intake and Output
03/15/23 03/16/23 03/17/23
06:59 06:59 06:59
Intake Total 1056.8 / 1080.5 557.0 / 557.0
Output Total 1050 / 1050 1900 / 1900
Balance 6.8 / 30.5 -1343.0 / -1343.0
SaO2 93
Nasal Cannula flow liters per 4
minute
Physical Exam
General: Respiratory Distress (n), Chills (Negative) and Other (Agitated, and sleepy at times)
HEENT: Normocephalic and Anicteric
Cardiovascular: S1-S2, Murmur and Peripheral Edema (negative)
Respiratory: Clear, Non-Labored Respirations, Stridor (n) and Other (poor inspiratory effort)
GI: Soft, Non Distended, Non Tender and Normal Bowel Sounds
Neurology: Other (Intermittently agitated)
Skin: Warm and Dry
Labs/Micro/Reports
Lab Data
03/16/23 03:48
03/16/23 03:48
--- NOTE | 2023-03-16 08:48 | PTCARENOTE ---
report received, assessments per work list. patient oriented to self only. visual and auditory hallucinations. restless. attempts to get up from bed. restraints maintained for patient and staff safety. Precedex per work list. prn dose Ativan given.
took medications with applesauce, no overt signs aspiration. abdomen soft. condom cath in place, eric urine. protective foams placed on bilateral wrists. left sided port with good blood returns. video monitoring continues
--- NOTE | 2023-03-16 11:50 | PTCARENOTE ---
Addendum entered by Manda Luna RN 03/16/23 13:03:
patient screaming and crying, sees his mother on fire on floor next to his bed. unable to redirect. prn dose ativan given
Original Note:
reassessed, no changes. remains intermittently restless. continues to hallucinate, restraints maintained for patient safety
--- NOTE | 2023-03-16 14:31 | W.PN.UPDATE ---
Update Note
Progress Note Update
patient seen chart reviewed. patient is much the same as when seen yesterday. lying quietly in bed eyes closed at this moment muttering to himself. he did rouse when i greeted him. spoke with nursing. precedex down to seven. did not make any
changes in psych meds today. patient was admitted on mar 05 this is approximately day 11/12 as mentioned he took much longer to clear last go around.
--- NOTE | 2023-03-16 15:50 | PTCARENOTE ---
Addendum entered by Manda Luna RN 03/16/23 16:43:
patient continues to be agitated and screaming in spite of precedex titration, calling this writer technical publications 'you stupid cunt' and attempting to grab and hit staff. medicated with Ativan per prn order
Original Note:
reassessed. increasingly more agitated and combative. screaming and hallucinating, visual and auditory. precedex titration per work list
[2023-03-16] MEDS: LOVENOX 40 MG SC (17:13)
--- NOTE | 2023-03-16 18:16 | PTCARENOTE ---
patient hypotensive, precedex per work list. scheduled ativan given. patient sleeping soundly for first time all shift, heart rate 80's
[2023-03-16] MEDS: LOPRESSOR PO (19:35)
--- NOTE | 2023-03-16 19:57 | PTCARENOTE ---
reassessed, oriented to self only, rass 0. precedex per work list. took a few bites dinner, pm medications administered without overt aspiration in applesauce. talking to self and avidly hallucinating.restraints maintained for patient and staff
safety
[2023-03-17] VITALS (31 sets, daily range): BP systolic 78–169; BP diastolic 37–136; PULSE 135–138; BMI 25.4
[2023-03-17] MEDS: PRECEDEX 100 IV ×5 (00:22→22:55)
--- NOTE | 2023-03-17 01:22 | PTCARENOTE ---
Received patient in bed, only oriented to self, in 4 point restraints with 4 side rails. Confused, slow conversation, having visual and auditory hallucinations. MSAS 7. Titrated precedex as per order. Afebrile, sinus tachycardia, 110s. BP high,
140s-160s/90s-100s. On 0.5 L nasal cannula, saturating 94%. Lung sounds diminished. Abdomen soft, no bowel movement. [address], draining yellow urine. Foams on wrists and ankles where restraints are. Precedex gtt through left chest
wall port. Hourly rounding and patient safety checks ongoing.
--- NOTE | 2023-03-17 04:19 | PTCARENOTE ---
Patient assessment unchanged from previous. Disoriented to time, place, and situation, unable to be reoriented. Patient safety checks and monitoring ongoing.
[2023-03-17] MEDS: NSS (PRESERVATIVE FREE) 0.25 ML IV ×4 (05:07→23:55)
[2023-03-17] MEDS: ATIVAN 0.5 MG IV ×4 (05:07→23:55)
[2023-03-17 05:32] LABS: Hematocrit 42.3 % (39.0-52.0); Hemoglobin 14.1 g/dL (13.0-18.0); Mean Corp Hgb Conc. 33.3 g/dL (33.0-37.0); Mean Corpuscular Hgb 27.8 pg (27.0-31.0); Mean Corpuscular Volume 83.3 fL (80.0-94.0); Mean Platelet Volume 8.1 fL (7.4-10.4); Platelet Count 319 10^3/uL (130-400); Red Blood Cell Count 5.08 10^6/uL (4.70-6.10); Red Cell Dist. Width 14.6 % (11.5-14.5); White Blood Cell Count 7.4 10^3/uL (4.8-10.8)
[2023-03-17 06:02] LABS: Blood Urea Nitrogen 7 mg/dl (9-20); Calcium 9.1 mg/dl (8.4-10.2); Carbon Dioxide 26 mmol/L (22-30); Chloride 105 mmol/L (98-107); Estimated Creatinine Clearance 81 ml/min; Glucose 108 mg/dl (70-99); Potassium 3.9 mmol/L (3.5-5.1); Sodium 137 mmol/L (135-145); eGFR > 60.00
[2023-03-17] MEDS: PROTONIX 40 MG PO (07:44)
[2023-03-17] MEDS: RISPERDAL M-TAB (ORALLY DISINTEGRATING) 1 MG PO ×4 (07:44→21:43)
[2023-03-17] MEDS: FOLVITE 1 MG PO (07:44)
[2023-03-17] MEDS: FLOMAX 0.400000000000000022 MG PO (07:45)
[2023-03-17] MEDS: ProAmatine PO ×4 (07:45→17:19)
[2023-03-17] MEDS: VITAMIN B1 100 MG PO ×2 (07:45→19:32)
[2023-03-17] MEDS: COLACE 100 MG PO ×2 (07:46→19:32)
[2023-03-17] MEDS: LUMINAL PO ×2 (07:46→09:00)
[2023-03-17] MEDS: LOPRESSOR 12.5 MG PO ×2 (07:46→19:32)
[2023-03-17] MEDS: THERAGRAN 1 TABLET PO (07:46)
--- NOTE | 2023-03-17 07:51 | W.PN.HOSP.TC ---
Today's Communication/Plan
-
wean precedex as tolerated
ativan prn
phenobarbital taper
Risperidone as per psych
Assessment / Plan
Assessment / Plan
Physical Exam
General: no acute distress sedated on restraints
Cardiovascular system S1-S2 appreciated
Chest clear to auscultation, diminished
Abdomen: soft, nt
Ext:No pedal edema
Neuro/Psych: sedated confused
#Alcohol withdrawal
Alcohol use disorder
-TME
-Inappropriate behavior, hurting staff , inappropriate language
-On Precedex, phenobarbital and Ativan
-Risperidone as per psychiatry
-Last time patient was here for 23 days with similar presentation
#Acute pancreatitis
Pancreatic pseudocyst
-Elevated lipase of 1913 -normalized
-CT a/p showing inflammation of pancreas
-Abdominal ultrasound showing gallstone as well although CBD of 4.6 mm only
-MRI/MRCP showing pancreatic pseudocyst. no choledocholithiasis
-Likely alcohol use related.�
-Low fat diet-tolerating
#Acute transaminitis - trending down/resolving
-Alcohol use related likely
-AST 911 ALT 442 ALP 210 TBilli 2.3 on admission
-Hepatitis serology negative
-Alcohol abstinence recommended
#Acute hypoxic respiratory insufficiency-secondary to atelectasis likely
Incentive spirometry
Encourage seated position
#Essential HTN
-Toprol -12.5 twice daily
#Fatty liver-likely secondary to alcohol use
#Thickening of the wall of the gastric antrum-likely secondary to pancreatitis however needs EGD as outpatient
On PPI
#Enlarged prostate
-On Flomax, no urinary complains currently
#Depression/anxiety
-Discontinued citalopram
-Diazepam on hold while on Ativan
#Chronic hypotension on midodrine as outpatient
resume home midodrine with holding paramaters
#History of Hodgkin's lymphoma
8 years ago treated in [place]
#DVT PPX - Lovenox
#Full code
updated patient's mother Yvonne on 03/16/2023
Total Critical Care Time___35__ minutes. I was immediately available to the patient and staff. I personally examined, reviewed labs, diagnostic images/reports, interpretations, treatment plans, discussed patient care with other providers and
family or caregivers (if patient is unable to make decisions), entered orders as appropriate and documented the medical record.
Anticipated Discharge: > 48 hours
Subjective/Interval History
-
Date of Service: March 17, 2023
sedated confused on restraints
Objective Data
-
Labs:
Laboratory Results
03/17/23
05:06
WBC 7.4
Hgb 14.1
Hct 42.3
Plt Count 319
Sodium 137
Potassium 3.9
Chloride 105
Carbon Dioxide 26
BUN 7 L
Creatinine 0.9
Glucose 108 H
Calcium 9.1
Vital Signs:
Vital Signs
Temp Pulse Resp BP Pulse Ox
98 F 133 15 138/91 92
03/17/23 07:40 03/17/23 07:46 03/17/23 06:00 03/17/23 07:46 03/17/23 06:00
I&O
03/16/23 03/17/23 03/18/23
06:59 06:59 06:59
Intake Total 557.0 / 692.8 718.3 / 718.3
Output Total 1900 / 1900 800 / 800
Balance -1343.0 / -1207.2 -81.7 / -81.7
[2023-03-17] MEDS: ATIVAN 1 MG IV ×2 (08:02→21:00)
[2023-03-17] MEDS: NSS (PRESERVATIVE FREE) 0.5 ML IV ×2 (08:02→21:00)
--- NOTE | 2023-03-17 09:44 | W.PN.INTV ---
Today's Communication / Plan
Recommendations
O2
Asp precs
DT protocol
Assessment
-
Assessment: 57-year-old male with a PMHx of alcohol use disorder, Hodgkin's lymphoma and DENICE who presented with abdominal pain X several months. Pain got worse over the last few days. Liver enzymes were elevated including alkaline phosphatase,
AST and ALT, bilirubin. Lipase 1913. CT abdomen/pelvis showed acute pancreatitis and an adjacent 1.5 cm suspected pseudocyst. There was no calcified gallstones or biliary ductal dilation. Diffuse fatty infiltration of the liver was seen. He was
admitted to the floors on IV fluids. Abdominal ultrasound showed gallstones without evidence of biliary ductal dilation. There was no peripancreatic collection. Gastroenterology has been consulted. MRCP showed layering gallstones and/or sludge
in the dependent gallbladder without wall thickening or pericholecystic edema. There was no biliary duct dilation, no bile duct calculus. 1.3 cm focus at the head of the pancreas suspected to be pseudocyst. Suspected small hemangioma at the right
lobe of the liver measuring 9 mm. Patient continued to be managed but then was exhibiting signs of alcohol withdrawal, requiring several doses of Ativan. Alcohol withdrawal symptoms worsened and he was transferred to the ICU for further care and
Precedex drip. Inventory Associate service is consulted for additional management/recommendations.
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
Impression:
#Acute alcohol withdrawal with high ativan requirements now on precedex gtt
#Acute pancreatitis
#Transaminitis
#Acute respiratory failure with hypoxemia on supplemental oxygen - likely due to hypoventilation (CXR is clear); other DDx includes R to L shunt
#Hx of Hodgkin lymphoma s/p left anterior chest wall chemo-port
Plan:
- Continue Precedex drip since 03-07
Still needs high dosing gtt. Wean as tolerated, unfortunately agitation escalates when weaning attempted
- Psych consult --> Risperidone started 03-10 as presented good response in past
Increased risperidone on 03-12 afternoon due to ongoing agitation
Psych reeval 03-13: increased risperidone up to 1 mg qid, d/c celexa and d/c short trial of quetiapine. Known to psych from previous adm for prolonged adm for ETOH w/d (about 3-4wks)
- Phenobarbital protocol to continue
IV ativan currently ATC plus prn
4 point soft restrains due to agitation and hazard to staff, continue
- IVF DC'd as lipase WNL x 2 days in a row
- Low fat diet - monitor for intolerance
- Thiamine changed to po
Continue folate and MVN
- Maintain SpO2 >90-94%, O2 4L, POx 93%
Not yet able to be OOB, or do IS, PT due to agitation
- Trend LFTs, improving
- CT Head done on 03/08/2023 shows no acute intracranial pathology
Discontinued midodrine 03-11
- Goal BG 140-180
- Transfuse blood products as needed to keep Hb>7g/dL and plt>50k
- Replete K>4, Mg>2
- Stress ulcer prophylaxis: N/A
- DVT ppx: LMWH
D/w MDT
D/w Mr Mari martinsfriend 03-11, all questions answered
Critical care time: 35 min
Data:
CXR 03-08-23: no pulm infiltrates. L chest port-A-cath
CT Head 03-08-2023: No acute intracranial abnormality
MRCP 03-06-2023:�Small layer of gallstones and/or sludge in the dependent portion of the gallbladder. No evidence for lobar wall thickening or pericholecystic edema.
There is no evidence for biliary ductal dilation. No evidence for bile duct calculus.
1.3 cm focus of increased T2 and STIR signal within the head of the pancreas, which very likely represents a pseudocyst. Advise follow-up CT or MRI evaluation with attention to the pancreas in 6 months.
9 mm lesion in the posterior right lobe of the liver, corresponding to lesion seen on recent CT examination, and likely a small hemangioma
Abd US 03-05-2023:
Several small shadowing gallstones are present within the gallbladder as well as a small amount of sludge. The bladder wall is slightly thickened, and is nonspecific.
No evidence for biliary ductal dilation.
No gross abnormality of the pancreas, with no evidence for peripancreatic collection. Of note, the pancreatic tail is not well-visualized with shadowing from overlying bowel gas.
Subjective Dataa
Subjective Data
Date of Service:
Date of Service: March 17, 2023
Chief Complaint: Inventory Associate Follow Up
Subjective:
Remains intermittently agitated
Restrained due to safety issues
Review of Systems
General: Other (Uncooperative)
Objective Data
Data Reviewed
Vital Signs / I&O / Oxygen:
Vital Signs
Temp Pulse Resp BP Pulse Ox
98 F 130 20 143/100 90
03/17/23 07:40 03/17/23 09:00 03/17/23 09:00 03/17/23 09:00 03/17/23 09:00
Intake and Output
03/16/23 03/17/23 03/18/23
06:59 06:59 06:59
Intake Total 557.0 / 692.8 718.3 / 734.1 55.4 / 55.4
Output Total 1900 / 1900 800 / 800 200 / 200
Balance -1343.0 / -1207.2 -81.7 / -65.9 -144.6 / -144.6
SaO2 90
Nasal Cannula flow liters per 2
minute
Physical Exam
General: Respiratory Distress (n), Chills (Negative) and Other (Agitated, and sleepy at times)
HEENT: Normocephalic and Anicteric
Cardiovascular: S1-S2, Murmur and Peripheral Edema (negative)
Respiratory: Clear, Non-Labored Respirations, Stridor (n) and Other (poor inspiratory effort)
GI: Soft, Non Distended, Non Tender and Normal Bowel Sounds
Neurology: Other (Intermittently agitated)
Skin: Warm and Dry
Labs/Micro/Reports
Lab Data
03/17/23 05:06
03/17/23 05:06
[2023-03-17] MEDS: LUMINAL 32.3999999999999986 MG PO (09:47)
--- NOTE | 2023-03-17 09:54 | PTCARENOTE ---
Complete assessment done and noted in chart/worklist. Pt was calm when received, but quickly became agitated, not following commands, hollaring out, and having hallucinations. Ativan prn given with little effect. Pt initially spitting crushed meds
in applesauce out, and refusing to take. Then after a while, pt was able to be fed meds and his breakfast. Precedex being titrated using RASS and MSAS, presently @ 1.1 mcg/kg/hr. Pt seen by Dr Saucedo, will con't with present plan of care. Pt with
remote screen observations maintained for added safety. Pt with 4 pt restraints on, foams under each retraint for skin protection.
[2023-03-17] MEDS: NSS 1000 IV ×2 (11:35→23:56)
--- NOTE | 2023-03-17 11:46 | W.PN.UPDATE ---
Update Note
Progress Note Update
patient seen chart reviewed discussed w nursing and dr mayer the patient was very quiet this am. mumbling in bed. he remains delirious but the precedex dosage is down to 1.1 which is lower than previously. he continues w scheduled and prn ativan.
did not make any changes at this point . my sense is that he is improving...he is not combative...but sensorium remains very clouded. will follow
[2023-03-17] MEDS: LOVENOX 40 MG SC (17:25)
--- NOTE | 2023-03-17 18:09 | PTCARENOTE ---
Pt MSAS throughout day 6-9. Precedex at 1.1 mcg/kg/hr, along with NS at 80 ml/hr. Pt occ sitting self up and hollaring out, other times sleeping. Pt's family member called and was updated. Dr Mancini in to see pt, updated, and will con't to monitor
and support during ETOH withdrawal.
--- NOTE | 2023-03-17 20:00 | PTCARENOTE ---
Received patient in bed, confused, disoriented, visual and auditory hallucinations. Precedex gtt on, 4 point restraints. Ate crushed meds through applesauce, tolerated well. Afebrile, sinus tach 100s-130s. BP high, 140-150s/100s. on 2 liters nasal
cannula, lung sounds diminished. Abdomen soft, no bowel movement in 3 days. Condom cath intact, draining yellow urine. Foams on wrists and ankles for protection. SQ port WNL. Hourly rounding and patient safety checks ongoing. Mother called and
updated.
--- NOTE | 2023-03-17 21:28 | PTCARENOTE ---
Patient increasingly more agitated, kicking, taking off EKG leads. Repeatedly asking to leave to go to 'the real hospital', when told patient is in [facility], patient responds 'I need to go to the real one, this one is old from the 1930s.
My mom is picking me up'. PRN ativan given for agitation.
[2023-03-17] MEDS: VALIUM INJECTION 5 MG IV (22:20)
--- NOTE | 2023-03-17 22:48 | PTCARENOTE ---
Patient restless, incomprehensible conversation, severe visual and auditory hallucinations. Patient screaming out, '[facility], there's a man in the room having a heart attack'. When attempted to reposition, patient became physically
violent and verbally abusive to staff. Kicking and cursing at staff, unable to be reoriented or calmed down with nonpharmacological techniques. Stat diazepam ordered and given, see MAR. Patient remains restrained in 4 points, talking to self. Safety
checks and emotional support ongoing
[2023-03-18] VITALS (26 sets, daily range): BP systolic 90–188; BP diastolic 70–127; BMI 25.8
[2023-03-18] MEDS: NSS (PRESERVATIVE FREE) 0.5 ML IV (01:05)
[2023-03-18] MEDS: ATIVAN 1 MG IV ×4 (01:05→19:06)
[2023-03-18] MEDS: PRECEDEX 100 IV ×7 (02:03→23:05)
[2023-03-18] MEDS: APRESOLINE 10 MG IV ×3 (02:04→16:03)
[2023-03-18 03:53] LABS: Hematocrit 40.5 % (39.0-52.0); Hemoglobin 13.9 g/dL (13.0-18.0); Mean Corp Hgb Conc. 34.3 g/dL (33.0-37.0); Mean Corpuscular Hgb 27.7 pg (27.0-31.0); Mean Corpuscular Volume 80.8 fL (80.0-94.0); Mean Platelet Volume 7.8 fL (7.4-10.4); Platelet Count 305 10^3/uL (130-400); Red Blood Cell Count 5.01 10^6/uL (4.70-6.10); Red Cell Dist. Width 14.6 % (11.5-14.5); White Blood Cell Count 8.5 10^3/uL (4.8-10.8)
[2023-03-18 04:18] LABS: ALT (SGPT) 32 U/L (0-50); AST (SGOT) 30 U/L (17-59); Albumin 3.4 g/dl (3.5-5.0); Alkaline Phosphatase 109 U/L (38-126); Blood Urea Nitrogen 8 mg/dl (9-20); Carbon Dioxide 22 mmol/L (22-30); Chloride 109 mmol/L (98-107); Estimated Creatinine Clearance 122 ml/min; Glucose 116 mg/dl (70-99); Potassium 3.9 mmol/L (3.5-5.1); Sodium 137 mmol/L (135-145); Total Bilirubin 0.5 mg/dl (0.2-1.3); Total Protein 6.3 g/dl (6.3-8.2); eGFR > 60.00
--- NOTE | 2023-03-18 04:24 | PTCARENOTE ---
Patient more calm now, appears to be sleeping. Patient was still yelling out and talking to self until about 0400. When turned, bathed, and changed, patient began reacting to visual and auditory hallucinations, resisting staff but tolerable and
nonviolent compared to earlier. Hourly rounding and patient safety checks ongoing.
[2023-03-18] MEDS: ATIVAN 0.5 MG IV ×4 (05:13→23:26)
[2023-03-18] MEDS: NSS (PRESERVATIVE FREE) 0.25 ML IV ×4 (05:14→23:26)
--- NOTE | 2023-03-18 07:01 | W.PN.HOSP.TC ---
Today's Communication/Plan
-
wean precedex as tolerated
ativan prn
phenobarbital taper
Risperidone as per psych
IVF gentle hydration while oral intake poor
Assessment / Plan
Assessment / Plan
Physical Exam
General: no acute distress sedated on restraints
Cardiovascular system S1-S2 appreciated
Chest clear to auscultation, diminished
Abdomen: soft, nt
Ext:No pedal edema
Neuro/Psych: sedated confused
#Alcohol withdrawal
Alcohol use disorder
-TME
-Inappropriate behavior, hurting staff , inappropriate language
-On Precedex, ativan scheduled and prn. Phenobarbital taper completed as per ICU
-Risperidone as per psychiatry
-Last time patient was here for 23 days with similar presentation
-IVF gentle hydration while oral intake poor d/t agitation confusion
#Acute pancreatitis
Pancreatic pseudocyst
-Elevated lipase of 1913 -normalized
-CT a/p showing inflammation of pancreas
-Abdominal ultrasound showing gallstone as well although CBD of 4.6 mm only
-MRI/MRCP showing pancreatic pseudocyst. no choledocholithiasis
-Likely alcohol use related.�
-Low fat diet as tolerated
#Acute transaminitis - trending down/resolving
-Alcohol use related likely
-AST 911 ALT 442 ALP 210 TBilli 2.3 on admission
-Hepatitis serology negative
-Alcohol abstinence recommended
#Acute hypoxic respiratory insufficiency-secondary to atelectasis likely
Incentive spirometry
Encourage seated position
#hx Essential HTN
-cont Toprol -12.5 twice daily with holding parameters
#Chronic hypotension on midodrine as outpatient
resume home midodrine with holding paramaters
#Fatty liver-likely secondary to alcohol use
#Thickening of the wall of the gastric antrum-likely secondary to pancreatitis however needs EGD as outpatient
On PPI
#Enlarged prostate
-On Flomax, no urinary complains currently
#Depression/anxiety
-Discontinued citalopram
-Diazepam on hold while on Ativan
#History of Hodgkin's lymphoma
8 years ago treated in [place]
#DVT PPX - Lovenox
#Full code
updated patient's significant other primary contact Valdo
Total Critical Care Time___35__ minutes. I was immediately available to the patient and staff. I personally examined, reviewed labs, diagnostic images/reports, interpretations, treatment plans, discussed patient care with other providers and
family or caregivers (if patient is unable to make decisions), entered orders as appropriate and documented the medical record.
Anticipated Discharge: > 48 hours
Subjective/Interval History
-
Date of Service: March 18, 2023
Sedated on restraints. Remains confused. Continues to require precedex
Objective Data
-
Labs:
Laboratory Results
03/18/23
03:36
WBC 8.5
Hgb 13.9
Hct 40.5
Plt Count 305
Sodium 137
Potassium 3.9
Chloride 109 H
Carbon Dioxide 22
BUN 8 L
Creatinine 0.6 L
Glucose 116 H
Calcium 9.0
Total Bilirubin 0.5
AST 30
ALT 32
Alkaline Phosphatase 109
Vital Signs:
Vital Signs
Temp Pulse Resp BP Pulse Ox
97.5 F 63 11 124/92 96
03/18/23 04:00 03/18/23 06:00 03/18/23 06:00 03/18/23 06:00 03/18/23 06:00
I&O
03/17/23 03/18/23 03/19/23
06:59 06:59 06:59
Intake Total 718.3 / 734.1 1586.4 / 1586.4
Output Total 800 / 800 600 / 600
Balance -81.7 / -65.9 986.4 / 986.4
[2023-03-18] MEDS: FLOMAX 0.400000000000000022 MG PO (07:17)
[2023-03-18] MEDS: THERAGRAN 1 TABLET PO (07:17)
[2023-03-18] MEDS: PROTONIX 40 MG PO (07:17)
[2023-03-18] MEDS: FOLVITE 1 MG PO (07:18)
[2023-03-18] MEDS: COLACE 100 MG PO (07:18)
[2023-03-18] MEDS: RISPERDAL M-TAB (ORALLY DISINTEGRATING) 1 MG PO ×4 (07:18→22:22)
[2023-03-18] MEDS: VITAMIN B1 100 MG PO (07:18)
--- NOTE | 2023-03-18 07:46 | W.PN.INTV ---
Today's Communication / Plan
Recommendations
Adjust sedation
Psychiatry following
Ropinirole continues
Continue Precedex
Consider Seroquel-follow QTc
Assessment
-
57-year-old male with a PMHx of alcohol use disorder, Hodgkin's lymphoma and DENICE who presented with abdominal pain X several months. Pain got worse over the last few days. Liver enzymes were elevated including alkaline phosphatase, AST and ALT,
bilirubin. Lipase 1913. CT abdomen/pelvis showed acute pancreatitis and an adjacent 1.5 cm suspected pseudocyst. There was no calcified gallstones or biliary ductal dilation. Diffuse fatty infiltration of the liver was seen. He was admitted to
the floors on IV fluids. Abdominal ultrasound showed gallstones without evidence of biliary ductal dilation. There was no peripancreatic collection. Gastroenterology has been consulted. MRCP showed layering gallstones and/or sludge in the
dependent gallbladder without wall thickening or pericholecystic edema. There was no biliary duct dilation, no bile duct calculus. 1.3 cm focus at the head of the pancreas suspected to be pseudocyst. Suspected small hemangioma at the right lobe
of the liver measuring 9 mm. Patient continued to be managed but then was exhibiting signs of alcohol withdrawal, requiring several doses of Ativan. Alcohol withdrawal symptoms worsened and he was transferred to the ICU for further care and
Precedex drip. Auto Heater Mechanic service is consulted for additional management/recommendations.
Chronic medical conditions SALES PERSON:
Hodgkin lymphoma s/p left anterior chemo port,
DENICE,
alcohol use disorder,
depression
Impression:
#Acute alcohol withdrawal with high ativan requirements now on precedex gtt
#Acute pancreatitis
#Transaminitis
#Acute respiratory failure with hypoxemia on supplemental oxygen - likely due to hypoventilation (CXR is clear); other DDx includes R to L shunt
#Hx of Hodgkin lymphoma s/p left anterior chest wall chemo-port
Plan:
Remains critically ill on a Precedex drip intermittently with severe agitation
Supplemental oxygen as needed
Aspiration precautions
Nebulizers if needed
Alcohol withdrawal treatment protocol
Follow MSAS
Attempt to wean Precedex
Benzodiazepines as needed
Phenobarbital protocol
Thiamine continues
Folate
Psychiatry following
Risperidone
Consider Seroquel-follow QTc
Lipase normalized
Follow LFTs
Monitor hemoglobin
Transfuse as needed
Replace electrolytes
DVT prophylaxis-on Lovenox
GI prophylaxis-on pantoprazole
Nutrition as tolerated
Bedside range of motion/eventual physical therapy
Critical care statement: A total of 38 minutes of critical care time was provided for this patient today. This includes management of unstable vital signs, evaluation of the patient at bedside, reviewing the patient's pertinent medical records
including radiographs, Precedex management microbiology, laboratory evaluations, and discussion with primary team, consultants, pharmacy, nutrition, physical therapy, case management, charge nurse, critical care nursing, and respiratory therapy.
Data:
CXR 03-08-23: no pulm infiltrates. L chest port-A-cath
CT Head 03-08-2023: No acute intracranial abnormality
MRCP 03-06-2023:�Small layer of gallstones and/or sludge in the dependent portion of the gallbladder. No evidence for lobar wall thickening or pericholecystic edema.
There is no evidence for biliary ductal dilation. No evidence for bile duct calculus.
1.3 cm focus of increased T2 and STIR signal within the head of the pancreas, which very likely represents a pseudocyst. Advise follow-up CT or MRI evaluation with attention to the pancreas in 6 months.
9 mm lesion in the posterior right lobe of the liver, corresponding to lesion seen on recent CT examination, and likely a small hemangioma
Abd US 03-05-2023:
Several small shadowing gallstones are present within the gallbladder as well as a small amount of sludge. The bladder wall is slightly thickened, and is nonspecific.
No evidence for biliary ductal dilation.
No gross abnormality of the pancreas, with no evidence for peripancreatic collection. Of note, the pancreatic tail is not well-visualized with shadowing from overlying bowel gas.
Subjective Dataa
Subjective Data
Date of Service:
Date of Service: March 18, 2023
Chief Complaint: Auto Heater Mechanic Follow Up and Pulmonary Follow Up
Subjective:
Patient sedated, review of systems unobtainable, no respiratory distress
Review of Systems
General: Other (Per HPI)
Objective Data
Data Reviewed
Vital Signs / I&O / Oxygen:
Vital Signs
Temp Pulse Resp BP Pulse Ox
97.5 F 63 11 124/92 96
03/18/23 04:00 03/18/23 06:00 03/18/23 06:00 03/18/23 06:00 03/18/23 06:00
Intake and Output
03/17/23 03/18/23 03/19/23
06:59 06:59 06:59
Intake Total 718.3 / 734.1 1586.4 / 1586.4
Output Total 800 / 800 600 / 600
Balance -81.7 / -65.9 986.4 / 986.4
SaO2 96
Nasal Cannula flow liters per 2
minute
Physical Exam
General: Respiratory Distress (n), Comfortable, Chills (Negative), Other (Agitated, and sleepy at times) and Other (Thick neck)
HEENT: Normocephalic, Anicteric and Moist Mucous Membranes
Cardiovascular: S1-S2, Murmur and Peripheral Edema (negative)
Respiratory: Clear, Crackles (Bilateral bases), Non-Labored Respirations, Accessory Resp Muscle Use (None), Stridor (n) and Other (poor inspiratory effort)
GI: Soft, Non Distended, Non Tender and Normal Bowel Sounds
Neurology: Awake, Alert and No Motor Deficits
Skin: Warm, Dry, Good Color and Cyanosis (n)
Labs/Micro/Reports
Lab Data
03/18/23 03:36
03/18/23 03:36
[2023-03-18] MEDS: ProAmatine PO ×2 (08:01→18:05)
[2023-03-18] MEDS: LOPRESSOR 12.5 MG PO ×2 (08:01→19:05)
[2023-03-18] MEDS: NSS 1000 IV ×2 (12:01→23:29)
[2023-03-18] MEDS: ProAmatine 5 MG PO (13:13)
--- NOTE | 2023-03-18 14:20 | PTCARENOTE ---
Patient received in AM with assessment as noted. Continues going through ETOH withdrawal and is extremely confused and frequently yelling out and verbally agitated. Having auditory and visual hallucinations and unable to reorient. MSAS scores of
6-7. Precedex continues at 1.3 mcg/kg/hr with PRN Ativan 1 mg q 4 hrs for increased agitation. Soft 4 pt restraints continued for patient safety with current order on chart and documentation as noted. NSR on monitor. Hypertensive in AM and received
Hydralazine 10 mg IV x1. B/P's improved after 1200. Hypothermic with 1200 rectal temp of 95.2 and Ethel hugger therapy initiated and documented as per protocol. Lungs decreased in bases bilaterally otherwise CTA. Sao2 96% on 2lnc. Hypo BS. Refusing
offers of food but he did take his PO meds crushed and mixed with applesauce. No bowel movement today. Isabella urine draining via condom catheter. Patient currently in bed with soft restraints in place. Will continue to monitor closely.
--- NOTE | 2023-03-18 16:05 | CM ---
CM following re: discharge planning.
Discussed in Rounds, reviewed pt's chart, met with pt.
Pt remains on 4 pints points restraints, no changes, became agitated when weak up, continue supportive care
PT and OT recommend SNF.
Psychiatry following.
D/c plan: SNF when pt is medically and behaviorally stable.
CM will follow with discharge plan updates as hospitalization progresses
[2023-03-18] MEDS: ATIVAN 2 MG IV (16:29)
[2023-03-18] MEDS: NSS (PRESERVATIVE FREE) 1 ML IV (16:29)
--- NOTE | 2023-03-18 16:37 | PTCARENOTE ---
Patient yelling out and increasingly agitated. aware and Ativan 2 mg IV x1 given at 1630 as per orders. Continues agitated and yelling out with audio and visual hallucinations ongoing at this time. Unable to reorient. Ethel ruiz held for
patient agitation and rectal temp >96.5. All other assessment data as previously noted.
[2023-03-18] MEDS: LOVENOX 40 MG SC (18:04)
[2023-03-18] MEDS: SEROQUEL 25 MG PO (19:28)
--- NOTE | 2023-03-18 20:00 | PTCARENOTE ---
Pt received this shift extremely agitated, hallucinating, yelling out, attempting to grab at staff, exit the bed and pulling at wires. PRN ativan and one time dose of seroquel given. [address] Precedex infusing and titrated per
orders. NRS-ST on the monitor. Lungs CTA, 2L NC in place. Pt with no BM for 3 days. Afebrile. CC #25 draining clear yellow urine. Skin checked under devices. SQ port infusing mediations without incident. q2 turns and hourly rounding completed
[2023-03-18] MEDS: COLACE PO (20:06)
[2023-03-18] MEDS: VITAMIN B1 PO (21:41)
[2023-03-19] VITALS (23 sets, daily range): BP systolic 101–191; BP diastolic 66–141; BMI 26.6
[2023-03-19] MEDS: PRECEDEX 100 IV ×6 (01:57→21:03)
--- NOTE | 2023-03-19 04:14 | PTCARENOTE ---
Pt remains in 4 point restraints. Ethel hugger placed for rectal temp 95.4, current temp 96.0 rectally
[2023-03-19] MEDS: ATIVAN 1 MG IV ×3 (04:45→16:44)
[2023-03-19 04:58] LABS: Blood Urea Nitrogen 6 mg/dl (9-20); Calcium 8.8 mg/dl (8.4-10.2); Carbon Dioxide 26 mmol/L (22-30); Chloride 106 mmol/L (98-107); Estimated Creatinine Clearance 122 ml/min; Glucose 106 mg/dl (70-99); Potassium 3.6 mmol/L (3.5-5.1); Sodium 138 mmol/L (135-145); eGFR > 60.00
[2023-03-19] MEDS: NSS (PRESERVATIVE FREE) 0.25 ML IV ×3 (05:34→17:49)
[2023-03-19] MEDS: ATIVAN 0.5 MG IV ×3 (05:34→17:48)
--- NOTE | 2023-03-19 07:08 | W.PN.HOSP.TC ---
Today's Communication/Plan
-
wean precedex as tolerated
ativan prn
seroquel
IVF gentle hydration while oral intake poor
Assessment / Plan
Assessment / Plan
Physical Exam
General: no acute distress sedated on restraints
Cardiovascular system S1-S2 appreciated
Chest clear to auscultation, diminished
Abdomen: soft, nt
Ext:No pedal edema
Neuro/Psych: sedated confused
#Alcohol withdrawal
Alcohol use disorder
-TME
-Inappropriate behavior, hurting staff , inappropriate language
-On Precedex, ativan scheduled and prn. Phenobarbital taper completed as per ICU
-Risperidone ineffective, switched to Seroquel
-Last time patient was here for 23 days with similar presentation
-IVF gentle hydration while oral intake poor d/t agitation confusion
Low Temps unclear etiology, resolved with donald ruiz
-TSH high but T4 wnl, rechecking with next AM labs
-cortisol low, rechecking with next AM labs
#Acute pancreatitis
Pancreatic pseudocyst
-Elevated lipase of 1913 -normalized
-CT a/p showing inflammation of pancreas
-Abdominal ultrasound showing gallstone as well although CBD of 4.6 mm only
-MRI/MRCP showing pancreatic pseudocyst. no choledocholithiasis
-Likely alcohol use related.�
-Low fat diet as tolerated
#Acute transaminitis - trending down/resolving
-Alcohol use related likely
-AST 911 ALT 442 ALP 210 TBilli 2.3 on admission
-Hepatitis serology negative
-Alcohol abstinence recommended
#Acute hypoxic respiratory insufficiency-secondary to atelectasis likely
Incentive spirometry
Encourage seated position
#hx Essential HTN
-cont Toprol -12.5 twice daily with holding parameters
#Chronic hypotension on midodrine as outpatient
resume home midodrine with holding paramaters
#Fatty liver-likely secondary to alcohol use
#Thickening of the wall of the gastric antrum-likely secondary to pancreatitis however needs EGD as outpatient
On PPI
#Enlarged prostate
-On Flomax, no urinary complains currently
#Depression/anxiety
-Discontinued citalopram
-Diazepam on hold while on Ativan
#History of Hodgkin's lymphoma
8 years ago treated in [place]
#DVT PPX - Lovenox
#Full code
updated patient's significant other primary contact Valdo
Total Critical Care Time___37__ minutes. I was immediately available to the patient and staff. I personally examined, reviewed labs, diagnostic images/reports, interpretations, treatment plans, discussed patient care with other providers and
family or caregivers (if patient is unable to make decisions), entered orders as appropriate and documented the medical record.
Anticipated Discharge: > 48 hours
Subjective/Interval History
-
Date of Service: March 19, 2023
Low temps unclear etiology. Remains on precedex gtt confused hallucinating intermittently agitated on restraints
Objective Data
-
Labs:
Laboratory Results
03/19/23
04:22
Sodium 138
Potassium 3.6
Chloride 106
Carbon Dioxide 26
BUN 6 L
Creatinine 0.6 L
Glucose 106 H
Calcium 8.8
Vital Signs:
Vital Signs
Temp Pulse Resp BP Pulse Ox
96.5 F L 73 14 146/91 93
03/19/23 04:36 03/19/23 06:00 03/19/23 06:00 03/19/23 06:00 03/19/23 06:00
I&O
03/18/23 03/19/23 03/20/23
06:59 06:59 06:59
Intake Total 1586.4 / 1696.1 2588.8 / 2588.8
Output Total 600 / 600 1550 / 1550
Balance 986.4 / 1096.1 1038.8 / 1038.8
--- NOTE | 2023-03-19 07:39 | W.PN.INTV ---
Today's Communication / Plan
Recommendations
Seroquel added
Wean Precedex
Thiamine
Replace electrolytes
Check TSH and cortisol with persistent hypothermia
Assessment
-
57-year-old male with a PMHx of alcohol use disorder, Hodgkin's lymphoma and DENICE who presented with abdominal pain X several months. Pain got worse over the last few days. Liver enzymes were elevated including alkaline phosphatase, AST and ALT,
bilirubin. Lipase 1913. CT abdomen/pelvis showed acute pancreatitis and an adjacent 1.5 cm suspected pseudocyst. There was no calcified gallstones or biliary ductal dilation. Diffuse fatty infiltration of the liver was seen. He was admitted to
the floors on IV fluids. Abdominal ultrasound showed gallstones without evidence of biliary ductal dilation. There was no peripancreatic collection. Gastroenterology has been consulted. MRCP showed layering gallstones and/or sludge in the
dependent gallbladder without wall thickening or pericholecystic edema. There was no biliary duct dilation, no bile duct calculus. 1.3 cm focus at the head of the pancreas suspected to be pseudocyst. Suspected small hemangioma at the right lobe
of the liver measuring 9 mm. Patient continued to be managed but then was exhibiting signs of alcohol withdrawal, requiring several doses of Ativan. Alcohol withdrawal symptoms worsened and he was transferred to the ICU for further care and
Precedex drip. Copy Director service is consulted for additional management/recommendations.
Chronic medical conditions RETORT COOLER:
Hodgkin lymphoma s/p left anterior chemo port,
DENICE,
alcohol use disorder,
depression
Hypothermia
Impression:
#Acute alcohol withdrawal with high ativan requirements now on precedex gtt
#Acute pancreatitis
#Transaminitis
#Acute respiratory failure with hypoxemia on supplemental oxygen - likely due to hypoventilation (CXR is clear); other DDx includes R to L shunt
#Hx of Hodgkin lymphoma s/p left anterior chest wall chemo-port
Plan:
Continues to be critically ill on a Precedex drip intermittently with severe agitation
Supplemental oxygen as needed
Aspiration precautions
Nebulizers if needed
Alcohol withdrawal treatment protocol
Continue to follow MSAS
Attempt to wean Precedex
Benzodiazepines as needed
Phenobarbital protocol-finished
Thiamine continues
Folate
Psychiatry following
Risperidone
Continue with Seroquel twice daily-follow QTc
Lipase normalized
Follow LFTs
Follow hemoglobin
Transfuse as needed
Monitor hypothermia-warming blanket
Check TSH
Check random cortisol
Continue to replace electrolytes
DVT prophylaxis-on Lovenox
GI prophylaxis-on pantoprazole
Nutrition as tolerated
Bedside range of motion/eventual physical therapy
Critical care statement: A total of 33 minutes of critical care time was provided for this patient today. This includes management of unstable vital signs, evaluation of the patient at bedside, reviewing the patient's pertinent medical records
including radiographs, Precedex management microbiology, laboratory evaluations, and discussion with primary team, consultants, pharmacy, nutrition, physical therapy, case management, charge nurse, critical care nursing, and respiratory therapy.
Data:
CXR 03-08-23: no pulm infiltrates. L chest port-A-cath
CT Head 03-08-2023: No acute intracranial abnormality
MRCP 03-06-2023:�Small layer of gallstones and/or sludge in the dependent portion of the gallbladder. No evidence for lobar wall thickening or pericholecystic edema.
There is no evidence for biliary ductal dilation. No evidence for bile duct calculus.
1.3 cm focus of increased T2 and STIR signal within the head of the pancreas, which very likely represents a pseudocyst. Advise follow-up CT or MRI evaluation with attention to the pancreas in 6 months.
9 mm lesion in the posterior right lobe of the liver, corresponding to lesion seen on recent CT examination, and likely a small hemangioma
Abd US 03-05-2023:
Several small shadowing gallstones are present within the gallbladder as well as a small amount of sludge. The bladder wall is slightly thickened, and is nonspecific.
No evidence for biliary ductal dilation.
No gross abnormality of the pancreas, with no evidence for peripancreatic collection. Of note, the pancreatic tail is not well-visualized with shadowing from overlying bowel gas.
Subjective Dataa
Subjective Data
Date of Service:
Date of Service: March 19, 2023
Chief Complaint: Copy Director Follow Up and Pulmonary Follow Up
Subjective:
Provided Seroquel last evening, less agitated, slept better, able to wean Precedex a bit, no respiratory distress
Review of Systems
General: Other
Objective Data
Data Reviewed
Vital Signs / I&O / Oxygen:
Vital Signs
Temp Pulse Resp BP Pulse Ox
96.5 F L 73 14 146/91 93
03/19/23 04:36 03/19/23 06:00 03/19/23 06:00 03/19/23 06:00 03/19/23 06:00
Intake and Output
03/18/23 03/19/23 03/20/23
06:59 06:59 06:59
Intake Total 1586.4 / 1696.1 2588.8 / 2588.8
Output Total 600 / 600 1550 / 1550
Balance 986.4 / 1096.1 1038.8 / 1038.8
SaO2 93
Nasal Cannula flow liters per 2
minute
Physical Exam
General: Respiratory Distress (n), Comfortable, Chills (Negative), Other (Agitated, and sleepy at times) and Other (Thick neck)
HEENT: Normocephalic, Anicteric and Moist Mucous Membranes
Cardiovascular: S1-S2, Murmur and Peripheral Edema (negative)
Respiratory: Clear, Crackles (Bilateral bases), Non-Labored Respirations, Accessory Resp Muscle Use (None), Stridor (n) and Other (poor inspiratory effort)
GI: Soft, Non Distended, Non Tender and Normal Bowel Sounds
Neurology: Awake, Alert and No Motor Deficits
Skin: Warm, Dry, Good Color and Cyanosis (n)
Labs/Micro/Reports
Lab Data
03/18/23 03:36
03/19/23 04:22
[2023-03-19] MEDS: FOLVITE 1 MG PO (08:00)
[2023-03-19] MEDS: LOPRESSOR 12.5 MG PO ×2 (08:00→20:49)
[2023-03-19] MEDS: COLACE 100 MG PO ×2 (08:00→20:49)
[2023-03-19] MEDS: RISPERDAL M-TAB (ORALLY DISINTEGRATING) 1 MG PO (08:00)
[2023-03-19] MEDS: THERAGRAN 1 TABLET PO (08:00)
[2023-03-19] MEDS: VITAMIN B1 100 MG PO ×2 (08:00→20:49)
[2023-03-19] MEDS: PROTONIX 40 MG PO (08:00)
[2023-03-19] MEDS: FLOMAX 0.400000000000000022 MG PO (08:00)
[2023-03-19] MEDS: ProAmatine PO ×3 (08:01→18:08)
[2023-03-19] MEDS: SEROQUEL 25 MG PO ×2 (08:18→20:49)
--- NOTE | 2023-03-19 10:48 | W.PN.UPDATE ---
Update Note
Progress Note Update
Pt seen, reviewed with nursing staff. Pt reportedly�very agitated last night- hallucinating, yelling out, attempting to grab at staff, got out of bed pulling at wires. Staff reports pt calmed with Seroquel in addition to Ativan. Decision was
made to switch from Risperidone to Seroquel. QTc 481 yesterday 03/18, compared to 459 on 03/15. Pt currently sleeping soundly. Precedex still being slowly weaned down; pt having persistent delirium with hallucinations per staff.
Imp: Alcohol use d/o, severe; protracted withdrawal delirium, similar to previous hospital course
Rec: Agree with trial of switching from Risperidone to Seroquel, although Seroquel has relatively more risk of QT prolongation. Would try to keep the dose in low range- 25 to 50 mg, monitoring EKG. Based on last episode, delirium will hopefully
clear with more time. Will continue to follow
[2023-03-19] MEDS: NSS 1000 IV (11:53)
[2023-03-19 12:41] LABS: Cortisol, Random 2.9 ug/dl
[2023-03-19 13:10] LABS: Free T4 1.18 ng/dl (0.78-2.19)
[2023-03-19] MEDS: APRESOLINE 10 MG IV (13:22)
[2023-03-19] MEDS: NSS (PRESERVATIVE FREE) 0.5 ML IV (16:44)
--- NOTE | 2023-03-19 16:56 | PTCARENOTE ---
Patient received in AM with assessment as noted. Calm at 0700 and took his AM meds without difficulty. Seroquel 25 mg PO q12 hrs started. He remained calm through the morning and Precedex weaned from 1.5 to 1.3 mcg/kg/hr. Around 1230 he became
agitated, yelling out and trying to climb OOB. PRN Ativan 1 mg IV given with minimal reduction in agitation. Precedex increased to 1.5 mcg at 1300. He has continued to yell out and trying to climb OOB through the afternoon and additional PRN Ativan
1 mg given at 1640. Auditory/Visual hallucinations continue. Oriented only to self. MSAS scores between 6-10 depending on level of agitation and HR. 4 pt soft restraints maintained for patient safety with current order on chart and documentation as
noted. NSR when calm and sinus tach with an HR 130-145 when agitated. Normothermic today. B/P's elevated when agitated. Lungs CTA. sao2 96% on room air. Hypo BS. Refusing food but will take crushed meds with applesauce. Had a moderate sized loose
brown stool today. Condom catheter draining eric urine. Patient currently in bed with restraints in place and bed alarm on. Will continue to monitor closely.
[2023-03-19] MEDS: LOVENOX 40 MG SC (17:48)
[2023-03-20] VITALS (20 sets, daily range): BP systolic 103–174; BP diastolic 65–119; BMI 27.0
[2023-03-20] MEDS: PRECEDEX 100 IV ×5 (00:21→23:56)
[2023-03-20] MEDS: NSS 1000 IV ×3 (00:33→23:55)
[2023-03-20] MEDS: ATIVAN 0.5 MG IV ×5 (00:35→23:56)
[2023-03-20] MEDS: NSS (PRESERVATIVE FREE) 0.25 ML IV ×5 (00:36→23:55)
[2023-03-20 04:50] LABS: Hematocrit 38.2 % (39.0-52.0); Hemoglobin 12.9 g/dL (13.0-18.0); Mean Corp Hgb Conc. 33.8 g/dL (33.0-37.0); Mean Corpuscular Hgb 27.4 pg (27.0-31.0); Mean Corpuscular Volume 81.3 fL (80.0-94.0); Mean Platelet Volume 8.1 fL (7.4-10.4); Platelet Count 307 10^3/uL (130-400); Red Cell Dist. Width 14.7 % (11.5-14.5); White Blood Cell Count 6.3 10^3/uL (4.8-10.8)
[2023-03-20 05:29] LABS: Blood Urea Nitrogen 3 mg/dl (9-20); Calcium 8.6 mg/dl (8.4-10.2); Carbon Dioxide 24 mmol/L (22-30); Chloride 105 mmol/L (98-107); Estimated Creatinine Clearance 122 ml/min; Glucose 93 mg/dl (70-99); Magnesium 1.8 mg/dl (1.6-2.3); Phosphorus 3.4 mg/dl (2.5-4.5); Potassium 3.6 mmol/L (3.5-5.1); Sodium 137 mmol/L (135-145); eGFR > 60.00
[2023-03-20 06:01] LABS: Cortisol, Random 7.2 ug/dl
[2023-03-20 06:29] LABS: Free T4 1.02 ng/dl (0.78-2.19)
--- NOTE | 2023-03-20 07:27 | W.PN.HOSP.TC ---
Today's Communication/Plan
-
start low dose synthroid
temp support as necessary
wean precedex restraints as possible
cont seroquel prn ativan
Assessment / Plan
Assessment / Plan
Physical Exam
General: no acute distress on restraints
Cardiovascular system S1-S2 appreciated
Chest clear to auscultation, diminished
Abdomen: soft, nt
Ext:No pedal edema
Neuro/Psych: awake alert but confused remains delirious, some meaningful verbal responses
#Alcohol withdrawal
Alcohol use disorder
-TME
-Inappropriate behavior, hurting staff , inappropriate language
-On Precedex, ativan scheduled and prn. Phenobarbital taper completed as per ICU
-Risperidone ineffective, switched to Seroquel
-Last time patient was here for 23 days with similar presentation
-IVF gentle hydration while oral intake poor d/t agitation confusion
Low Temps unclear etiology, resolved with donald ruiz
Hypothyroidism
-TSH high but T4 wnl, rechecked with next AM labs, TSH improved but remains elevated >10 though T4 wnl, started low dose Synthroid 25 mcg daily
-cortisol low, rechecked with next AM labs wnl
#Acute pancreatitis
Pancreatic pseudocyst
-Elevated lipase of 1913 -normalized
-CT a/p showing inflammation of pancreas
-Abdominal ultrasound showing gallstone as well although CBD of 4.6 mm only
-MRI/MRCP showing pancreatic pseudocyst. no choledocholithiasis
-Likely alcohol use related.�
-Low fat diet as tolerated
#Acute transaminitis - trending down/resolving
-Alcohol use related likely
-AST 911 ALT 442 ALP 210 TBilli 2.3 on admission
-Hepatitis serology negative
-Alcohol abstinence recommended
#Acute hypoxic respiratory insufficiency-secondary to atelectasis likely
Incentive spirometry
Encourage seated position
#hx Essential HTN
-cont Toprol -12.5 twice daily with holding parameters
#Chronic hypotension on midodrine as outpatient
resume home midodrine with holding paramaters
#Fatty liver-likely secondary to alcohol use
#Thickening of the wall of the gastric antrum-likely secondary to pancreatitis however needs EGD as outpatient
On PPI
#Enlarged prostate
-On Flomax, no urinary complains currently
#Depression/anxiety
-Discontinued citalopram
-Diazepam on hold while on Ativan
#History of Hodgkin's lymphoma
8 years ago treated in [place]
#DVT PPX - Lovenox
#Full code
updated patient's significant other primary contact Valdo
Total Critical Care Time___40__ minutes. I was immediately available to the patient and staff. I personally examined, reviewed labs, diagnostic images/reports, interpretations, treatment plans, discussed patient care with other providers and
family or caregivers (if patient is unable to make decisions), entered orders as appropriate and documented the medical record.
Anticipated Discharge: > 48 hours
Subjective/Interval History
-
Date of Service: March 20, 2023
remains confused delirious but calmer able to give meaningful verbal responses occasionally. Remains on precedex and restraints
Objective Data
-
Labs:
Laboratory Results
03/20/23
04:31
WBC 6.3
Hgb 12.9 L
Hct 38.2 L
Plt Count 307
Sodium 137
Potassium 3.6
Chloride 105
Carbon Dioxide 24
BUN 3 L
Creatinine 0.6 L
Glucose 93
Calcium 8.6
Vital Signs:
Vital Signs
Temp Pulse Resp BP Pulse Ox
98.0 F 99 13 162/100 96
03/20/23 04:35 03/19/23 22:00 03/19/23 22:00 03/19/23 22:00 03/19/23 22:00
I&O
03/19/23 03/20/23 03/21/23
06:59 06:59 06:59
Intake Total 2588.8 / 2698.5 2612.8 / 2612.8
Output Total 1550 / 1550 3100 / 3100
Balance 1038.8 / 1148.5 -487.2 / -487.2
[2023-03-20] MEDS: PROTONIX 40 MG PO (07:41)
[2023-03-20] MEDS: LOPRESSOR 12.5 MG PO ×2 (07:42→19:58)
[2023-03-20] MEDS: FLOMAX 0.400000000000000022 MG PO (07:44)
[2023-03-20] MEDS: SEROQUEL 25 MG PO ×2 (07:45→10:01)
[2023-03-20] MEDS: VITAMIN B1 100 MG PO ×2 (07:45→19:59)
[2023-03-20] MEDS: ProAmatine PO (07:45)
[2023-03-20] MEDS: THERAGRAN 1 TABLET PO (07:45)
[2023-03-20] MEDS: COLACE 100 MG PO ×2 (07:45→19:58)
[2023-03-20] MEDS: FOLVITE 1 MG PO (07:45)
--- NOTE | 2023-03-20 07:46 | W.PN.INTV ---
Today's Communication / Plan
Recommendations
Increase Seroquel
Attempt to wean Precedex
Ativan as needed
Psychiatry following
Assessment
-
57-year-old male with a PMHx of alcohol use disorder, Hodgkin's lymphoma and DENICE who presented with abdominal pain X several months. Pain got worse over the last few days. Liver enzymes were elevated including alkaline phosphatase, AST and ALT,
bilirubin. Lipase 1913. CT abdomen/pelvis showed acute pancreatitis and an adjacent 1.5 cm suspected pseudocyst. There was no calcified gallstones or biliary ductal dilation. Diffuse fatty infiltration of the liver was seen. He was admitted to
the floors on IV fluids. Abdominal ultrasound showed gallstones without evidence of biliary ductal dilation. There was no peripancreatic collection. Gastroenterology has been consulted. MRCP showed layering gallstones and/or sludge in the
dependent gallbladder without wall thickening or pericholecystic edema. There was no biliary duct dilation, no bile duct calculus. 1.3 cm focus at the head of the pancreas suspected to be pseudocyst. Suspected small hemangioma at the right lobe
of the liver measuring 9 mm. Patient continued to be managed but then was exhibiting signs of alcohol withdrawal, requiring several doses of Ativan. Alcohol withdrawal symptoms worsened and he was transferred to the ICU for further care and
Precedex drip. Guest Services Associate service is consulted for additional management/recommendations.
Chronic medical conditions SNAILER:
Hodgkin lymphoma s/p left anterior chemo port,
DENICE,
alcohol use disorder,
depression
Hypothermia
Impression:
#Acute alcohol withdrawal with high ativan requirements now on precedex gtt
#Acute pancreatitis
#Transaminitis
#Acute respiratory failure with hypoxemia on supplemental oxygen - likely due to hypoventilation (CXR is clear); other DDx includes R to L shunt
#Hx of Hodgkin lymphoma s/p left anterior chest wall chemo-port
Plan:
Continues to be critically ill on a Precedex drip intermittently with severe intermittent agitation
Supplemental oxygen as needed
Aspiration precautions
Nebulizers if needed
Alcohol withdrawal treatment protocol
Continue to follow MSAS
Attempt to wean Precedex-still on high doses
Benzodiazepines as needed
Phenobarbital protocol-finished
Thiamine continues
Folate
Psychiatry following
Ropinirole discontinued
Continue with Seroquel twice daily-follow QTc-increase Seroquel 50 in the morning and 20 5 at night
Lipase normalized
Follow LFTs
Follow hemoglobin
Transfuse as needed
Monitor hypothermia-warming blanket
Check TSH
Check random cortisol
Continue to replace electrolytes
DVT prophylaxis-on Lovenox
GI prophylaxis-on pantoprazole
Nutrition as tolerated
Bedside range of motion/eventual physical therapy
Critical care statement: A total of 35 minutes of critical care time was provided for this patient today. This includes management of unstable vital signs, evaluation of the patient at bedside, reviewing the patient's pertinent medical records
including radiographs, Precedex management microbiology, delirium management, laboratory evaluations, and discussion with primary team, consultants, pharmacy, nutrition, physical therapy, case management, charge nurse, critical care nursing, and
respiratory therapy.
Data:
CXR 03-08-23: no pulm infiltrates. L chest port-A-cath
CT Head 03-08-2023: No acute intracranial abnormality
MRCP 03-06-2023:�Small layer of gallstones and/or sludge in the dependent portion of the gallbladder. No evidence for lobar wall thickening or pericholecystic edema.
There is no evidence for biliary ductal dilation. No evidence for bile duct calculus.
1.3 cm focus of increased T2 and STIR signal within the head of the pancreas, which very likely represents a pseudocyst. Advise follow-up CT or MRI evaluation with attention to the pancreas in 6 months.
9 mm lesion in the posterior right lobe of the liver, corresponding to lesion seen on recent CT examination, and likely a small hemangioma
Abd US 03-05-2023:
Several small shadowing gallstones are present within the gallbladder as well as a small amount of sludge. The bladder wall is slightly thickened, and is nonspecific.
No evidence for biliary ductal dilation.
No gross abnormality of the pancreas, with no evidence for peripancreatic collection. Of note, the pancreatic tail is not well-visualized with shadowing from overlying bowel gas.
Subjective Dataa
Subjective Data
Date of Service:
Date of Service: March 20, 2023
Chief Complaint: Guest Services Associate Follow Up and Pulmonary Follow Up
Subjective:
Still extremely agitated at times,, not oriented, no respiratory distress, adequate review of systems unobtainable
Review of Systems
General: Unobtainable - Sedation
Objective Data
Data Reviewed
Vital Signs / I&O / Oxygen:
Vital Signs
Temp Pulse Resp BP Pulse Ox
98.0 F 65 13 173/109 96
03/20/23 04:35 03/20/23 07:42 03/19/23 22:00 03/20/23 07:45 03/19/23 22:00
Intake and Output
03/19/23 03/20/23 03/21/23
06:59 06:59 06:59
Intake Total 2588.8 / 2698.5 2612.8 / 2612.8
Output Total 1550 / 1550 3100 / 3100
Balance 1038.8 / 1148.5 -487.2 / -487.2
SaO2 96
Nasal Cannula flow liters per 4
minute
Physical Exam
General: Respiratory Distress (n), Comfortable, Chills (Negative), Other (Agitated, and sleepy at times) and Other (Thick neck)
HEENT: Normocephalic, Anicteric and Moist Mucous Membranes
Cardiovascular: S1-S2, Murmur and Peripheral Edema (negative)
Respiratory: Clear, Crackles (Bilateral bases), Non-Labored Respirations, Accessory Resp Muscle Use (None), Stridor (n) and Other (poor inspiratory effort)
GI: Soft, Non Distended, Non Tender and Normal Bowel Sounds
Neurology: Awake, Alert, No Motor Deficits and Other (Agitated)
Skin: Warm, Dry, Good Color and Cyanosis (n)
Labs/Micro/Reports
Lab Data
03/20/23 04:31
03/20/23 04:31
--- NOTE | 2023-03-20 08:10 | PTCARENOTE ---
Assumed care of pt at 0715 following shift report. Can attest to vital signs following 714. Pt received in 4 pt soft restraints w/ 4 side rails in use to protect pt. Pt restless/agitated at times. Notable for visual and auditory hallucinations. Pt
oriented to self only. Conversation mostly inappropriate (at times unintelligible) and unable to orient pt to surroundings or situation. Pt does not follow any commands and No distress noted. Pt on RA w/ POx 90-94%. No cough/SOB noted. Condom
catheter remains intact w/ eric urine noted. Precedex gtt infusing at 1.5 mcg/kg/min and NS @ 80ml/hr. Rectal probe in use w/ temp 95.9F noted- Ethel Hugger applied and set to medium. Pt turned and repositioned,comfort care and hygiene provided. Bed
exit alarm in use and safe environment maintained.
--- NOTE | 2023-03-20 09:30 | PTCARENOTE ---
Pt's POx 88-91% on RA. O2 applied at 2l/min w/ Pox improved to 92-96%. No respiratory distress noted.
[2023-03-20] MEDS: SYNTHROID 25 MCG PO (10:02)
[2023-03-20] MEDS: ATIVAN 1 MG IV ×4 (10:32→20:18)
[2023-03-20] MEDS: NSS (PRESERVATIVE FREE) 0.5 ML IV ×2 (10:33→17:23)
[2023-03-20] MEDS: KCL 270 MEQ IV (11:25)
--- NOTE | 2023-03-20 11:37 | PTCARENOTE ---
Addendum entered by Jeannine Dwyer RN 03/20/23 11:44:
Pt resting more quietly since prn dose Ativan 1mg IV administered for increasing agitation. Pt continues to have periods of restlessness but no longer fighting restraints or attempting to get OOB. Pt remains on O2 at 2l/min w/ POx 95%. Ethel Beltre
no longer in use as pt refusing it. Current rectal temp= 97.6F.
Original Note:
Phone call received from pt's significant other w/ reportedly pt's mother listening in on conversation. Update provided on pt's present condition/ plan of care. Questions answered-asking when they can come visit pt. This RN assured them that they
are welcome to visit at any point during visiting hours w/ goal of keeping pt calm and safe. Significant other verbalized understanding.
--- NOTE | 2023-03-20 12:08 | PTCARENOTE ---
Pt suddenly extremely agitated, yelling loudly, aggressively trying to hit and kick any staff who comes near him. HR 140's. Dr Cronin on unit and aware. STAT order for Ativan 1mg IV received and administered to pt.
--- NOTE | 2023-03-20 14:37 | CM ---
CM following re: discharge planning.
Discussed in Rounds, reviewed pt's chart, met with pt.
Pt remains on 4 pints restraints, no changes, became agitated when weak up, calling out 'Nikki Jordan'. continue supportive care
PT and OT recommend SNF.
Psychiatry following.
D/c plan: uncertain at this time and will depend on pt's progress.
CM will follow with discharge plan updates as hospitalization progresses
--- NOTE | 2023-03-20 16:00 | PTCARENOTE ---
Pt resting quietly w/ intervals of restlessness/extreme agitation. Unable to titrate Precedex due to agitation. Does not follow any commands. Safe environment maintained. Pt offered lunch and encouraged to eat but refused. No changes from previous
assessment findings.
--- NOTE | 2023-03-20 16:20 | W.PN.UPDATE ---
Update Note
Progress Note Update
patient seen chart reviewed spoke with nursing. the patient has again had periods of agitation today. at this moment he is quietly mumbling in bed. in my experience with him it was the risperdal which seemed to help although it could also have
been simply the time. i did review the last admit in detail. he was admitted 08/26. when i saw him on 09/05 he was still able to give some hx but by 09/06 he was already entering an encephalopathic state which continued until at least 09/16 when he was
agitated in four point restraints. there was a note on 09/19 from this sql report writer which noted he was better. he was from ten days to 13 days in a delirious state. he was not dc'ed until mid september. he is now on seroquel but so far no real
improvement. personally i would go back to the risperdal but will follow with you as seroquel is titrated. nursing reported there is a continuous ecg monitor. it may be that only time will heal him at this point.
[2023-03-20] MEDS: LOVENOX 40 MG SC (18:00)
--- NOTE | 2023-03-20 19:45 | PTCARENOTE ---
Pt continues to have visual and auditory hallucinations. Pt curses and yells out. PRN dose of ativan administered by this RN. Pt is in 4 point soft limb restraints w/ B/L mitts. VSS.
[2023-03-20] MEDS: SEROQUEL 50 MG PO (19:59)
--- NOTE | 2023-03-20 23:30 | PTCARENOTE ---
Pt took PO meds including seroquel dose w/ applesauce. Pt now appears to be resting comfortably w/ precedex gtt infusing at 1.5 mcg/kg/hr via left subQport. VSS.
[2023-03-21] VITALS (31 sets, daily range): BP systolic 94–158; BP diastolic 55–115; BMI 25.8
[2023-03-21] MEDS: PRECEDEX 100 IV ×7 (03:07→23:02)
[2023-03-21 05:00] LABS: Hematocrit 40.6 % (39.0-52.0); Hemoglobin 13.8 g/dL (13.0-18.0); Mean Corpuscular Hgb 28.1 pg (27.0-31.0); Mean Corpuscular Volume 82.7 fL (80.0-94.0); Mean Platelet Volume 8.2 fL (7.4-10.4); Platelet Count 288 10^3/uL (130-400); Red Blood Cell Count 4.91 10^6/uL (4.70-6.10); Red Cell Dist. Width 14.6 % (11.5-14.5); White Blood Cell Count 7.5 10^3/uL (4.8-10.8)
[2023-03-21] MEDS: ATIVAN 0.5 MG IV ×4 (05:04→23:51)
[2023-03-21] MEDS: NSS (PRESERVATIVE FREE) 0.25 ML IV ×4 (05:04→23:51)
[2023-03-21 05:29] LABS: Blood Urea Nitrogen 4 mg/dl (9-20); Carbon Dioxide 25 mmol/L (22-30); Chloride 102 mmol/L (98-107); Estimated Creatinine Clearance 122 ml/min; Glucose 110 mg/dl (70-99); Magnesium 1.9 mg/dl (1.6-2.3); Phosphorus 3.8 mg/dl (2.5-4.5); Potassium 3.6 mmol/L (3.5-5.1); Sodium 137 mmol/L (135-145); eGFR > 60.00
--- NOTE | 2023-03-21 07:26 | W.PN.HOSP.TC ---
Today's Communication/Plan
-
start low dose synthroid
temp support as necessary
wean precedex restraints as possible
cont seroquel
scheduled and prn ativan
Temperature control, repeat blood cultures, check covid flu
Assessment / Plan
Assessment / Plan
Physical Exam
General: no acute distress on restraints
Cardiovascular system S1-S2 appreciated
Chest clear to auscultation, diminished
Abdomen: soft, nt
Ext:No pedal edema
Neuro/Psych: awake alert but confused remains delirious, tangential speech
#Alcohol withdrawal
Alcohol use disorder
-TME
-Inappropriate behavior, hurting staff , inappropriate language
-On Precedex, ativan scheduled and prn. Phenobarbital taper completed as per ICU
-Risperidone ineffective, switched to Seroquel titrating as per ICU
-Last time patient was here for 23 days with similar presentation
-IVF gentle hydration while oral intake poor d/t agitation confusion
Low Temps unclear etiology, resolved with donald ruiz
Hypothyroidism
-TSH high but T4 wnl, rechecked with next AM labs, TSH improved but remains elevated >10 though T4 wnl, started low dose Synthroid 25 mcg daily
-cortisol low, rechecked with next AM labs wnl
Elevated temp fever 101.3 03/21 unclear etiology
-IV tylenol once ordered, cooling blanket prn
-checking COVID Influenza blood cultures CK
-temp possibly delirium related as oppose to infection
#Acute pancreatitis
Pancreatic pseudocyst
-Elevated lipase of 1913 -normalized
-CT a/p showing inflammation of pancreas
-Abdominal ultrasound showing gallstone as well although CBD of 4.6 mm only
-MRI/MRCP showing pancreatic pseudocyst. no choledocholithiasis
-Likely alcohol use related.�
-Low fat diet as tolerated
#Acute transaminitis - trending down/resolving
-Alcohol use related likely
-AST 911 ALT 442 ALP 210 TBilli 2.3 on admission
-Hepatitis serology negative
-Alcohol abstinence recommended
#Acute hypoxic respiratory insufficiency-secondary to atelectasis likely
Incentive spirometry
Encourage seated position
#hx Essential HTN
-cont Toprol -12.5 twice daily with holding parameters
#Chronic hypotension on midodrine as outpatient
resume home midodrine with holding paramaters
#Fatty liver-likely secondary to alcohol use
#Thickening of the wall of the gastric antrum-likely secondary to pancreatitis however needs EGD as outpatient
On PPI
#Enlarged prostate
-On Flomax, no urinary complains currently
#Depression/anxiety
-Discontinued citalopram
-Diazepam on hold while on scheduled Ativan as per psych
#History of Hodgkin's lymphoma
8 years ago treated in [place]
#DVT PPX - Lovenox
#Full code
updated patient's significant other primary contact Valdo
Total Critical Care Time___40__ minutes. I was immediately available to the patient and staff. I personally examined, reviewed labs, diagnostic images/reports, interpretations, treatment plans, discussed patient care with other providers and
family or caregivers (if patient is unable to make decisions), entered orders as appropriate and documented the medical record.
Anticipated Discharge: > 48 hours
Subjective/Interval History
-
Date of Service: March 21, 2023
Rambling. Occasionally answers questions but tangential speech.
Objective Data
-
Labs:
Laboratory Results
03/21/23
04:46
WBC 7.5
Hgb 13.8
Hct 40.6
Plt Count 288
Sodium 137
Potassium 3.6
Chloride 102
Carbon Dioxide 25
BUN 4 L
Creatinine 0.6 L
Glucose 110 H
Calcium 9.0
Vital Signs:
Vital Signs
Temp Pulse Resp BP Pulse Ox
97.1 F 66 15 136/101 92
03/21/23 03:34 03/21/23 06:00 03/21/23 06:00 03/21/23 06:00 03/20/23 20:00
I&O
03/20/23 03/21/23 03/22/23
06:59 06:59 06:59
Intake Total 2612.8 / 2722.5 2882.8 / 2882.8
Output Total 3100 / 3100 2675 / 2675
Balance -487.2 / -377.5 207.8 / 207.8
--- NOTE | 2023-03-21 07:44 | W.PN.INTV ---
Today's Communication / Plan
Recommendations
Titrate Seroquel
Consider Risperdal-psychiatry suggesting-I am okay with changing is unclear what works best for him
Follow hypothermia
Assessment
-
57-year-old male with a PMHx of alcohol use disorder, Hodgkin's lymphoma and DENICE who presented with abdominal pain X several months. Pain got worse over the last few days. Liver enzymes were elevated including alkaline phosphatase, AST and ALT,
bilirubin. Lipase 1913. CT abdomen/pelvis showed acute pancreatitis and an adjacent 1.5 cm suspected pseudocyst. There was no calcified gallstones or biliary ductal dilation. Diffuse fatty infiltration of the liver was seen. He was admitted to
the floors on IV fluids. Abdominal ultrasound showed gallstones without evidence of biliary ductal dilation. There was no peripancreatic collection. Gastroenterology has been consulted. MRCP showed layering gallstones and/or sludge in the
dependent gallbladder without wall thickening or pericholecystic edema. There was no biliary duct dilation, no bile duct calculus. 1.3 cm focus at the head of the pancreas suspected to be pseudocyst. Suspected small hemangioma at the right lobe
of the liver measuring 9 mm. Patient continued to be managed but then was exhibiting signs of alcohol withdrawal, requiring several doses of Ativan. Alcohol withdrawal symptoms worsened and he was transferred to the ICU for further care and
Precedex drip. Director Emergency Department service is consulted for additional management/recommendations.
Chronic medical conditions MANAGER AEROSPACE:
Hodgkin lymphoma s/p left anterior chemo port,
DENICE,
alcohol use disorder,
depression
Hypothermia
Impression:
#Acute alcohol withdrawal with high ativan requirements now on precedex gtt
#Acute pancreatitis
#Transaminitis
#Acute respiratory failure with hypoxemia on supplemental oxygen - likely due to hypoventilation (CXR is clear); other DDx includes R to L shunt
#Hx of Hodgkin lymphoma s/p left anterior chest wall chemo-port
Plan:
Remains critically ill on a Precedex drip intermittently with severe intermittent agitation
Supplemental oxygen as needed
Aspiration precautions
Nebulizers if needed-currently not bronchospastic
Alcohol withdrawal treatment protocol continues
Follow MSAS
Attempt to wean Precedex-still on high doses-1.5
Benzodiazepines as needed
Phenobarbital protocol-finished
Thiamine continues
Folate
Psychiatry following-correspondence reviewed-recommend Risperdal
Ropinirole discontinued
For now patient on Seroquel twice daily-follow QTc-increase Seroquel 50 in the morning and 25 at night
Lipase normalized
Follow LFTs
Follow hemoglobin
Transfuse as needed
Monitor hypothermia-warming blanket
TSH noted-Synthroid increased
Random cortisol noted
Replace electrolytes
DVT prophylaxis-on Lovenox
GI prophylaxis-on pantoprazole
Nutrition as tolerated
Bedside range of motion/eventual physical therapy
Critical care statement: A total of 34 minutes of critical care time was provided for this patient today. This includes management of unstable vital signs, evaluation of the patient at bedside, reviewing the patient's pertinent medical records
including radiographs, Precedex management microbiology, delirium management, laboratory evaluations, and discussion with primary team, consultants, pharmacy, nutrition, physical therapy, case management, charge nurse, critical care nursing, and
respiratory therapy.
Data:
CXR 03-08-23: no pulm infiltrates. L chest port-A-cath
CT Head 03-08-2023: No acute intracranial abnormality
MRCP 03-06-2023:�Small layer of gallstones and/or sludge in the dependent portion of the gallbladder. No evidence for lobar wall thickening or pericholecystic edema.
There is no evidence for biliary ductal dilation. No evidence for bile duct calculus.
1.3 cm focus of increased T2 and STIR signal within the head of the pancreas, which very likely represents a pseudocyst. Advise follow-up CT or MRI evaluation with attention to the pancreas in 6 months.
9 mm lesion in the posterior right lobe of the liver, corresponding to lesion seen on recent CT examination, and likely a small hemangioma
Abd US 03-05-2023:
Several small shadowing gallstones are present within the gallbladder as well as a small amount of sludge. The bladder wall is slightly thickened, and is nonspecific.
No evidence for biliary ductal dilation.
No gross abnormality of the pancreas, with no evidence for peripancreatic collection. Of note, the pancreatic tail is not well-visualized with shadowing from overlying bowel gas.
Subjective Dataa
Subjective Data
Date of Service:
Date of Service: March 21, 2023
Chief Complaint: Director Emergency Department Follow Up and Pulmonary Follow Up
Subjective:
Unclear if Seroquel helping significantly, still has episodes of agitation and outbursts, no respiratory distress, remains hypothermic
Review of Systems
General: Other (Per HPI)
Objective Data
Data Reviewed
Vital Signs / I&O / Oxygen:
Vital Signs
Temp Pulse Resp BP Pulse Ox
97.1 F 66 15 136/101 92
03/21/23 03:34 03/21/23 06:00 03/21/23 06:00 03/21/23 06:00 03/20/23 20:00
Intake and Output
03/20/23 03/21/23 03/22/23
06:59 06:59 06:59
Intake Total 2612.8 / 2722.5 2882.8 / 2882.8
Output Total 3100 / 3100 2675 / 2675
Balance -487.2 / -377.5 207.8 / 207.8
SaO2 92
Nasal Cannula flow liters per 4
minute
Physical Exam
General: Respiratory Distress (n), Comfortable, Chills (Negative), Other (Agitated, and sleepy at times) and Other (Thick neck)
HEENT: Normocephalic, Anicteric and Moist Mucous Membranes
Cardiovascular: S1-S2, Murmur and Peripheral Edema (negative)
Respiratory: Clear, Crackles (Bilateral bases), Non-Labored Respirations, Accessory Resp Muscle Use (None), Stridor (n) and Other (poor inspiratory effort)
GI: Soft, Non Distended, Non Tender and Normal Bowel Sounds
Neurology: Awake, Alert, No Motor Deficits and Other (Agitated)
Skin: Warm, Dry, Good Color and Cyanosis (n)
Labs/Micro/Reports
Lab Data
03/21/23 04:46
03/21/23 04:46
[2023-03-21] MEDS: PROTONIX 40 MG PO (08:10)
[2023-03-21] MEDS: FLOMAX 0.400000000000000022 MG PO (08:10)
[2023-03-21] MEDS: THERAGRAN 1 TABLET PO (08:11)
[2023-03-21] MEDS: FOLVITE 1 MG PO (08:11)
[2023-03-21] MEDS: SEROQUEL 50 MG PO ×2 (08:11→19:56)
[2023-03-21] MEDS: VITAMIN B1 100 MG PO ×2 (08:11→19:57)
--- NOTE | 2023-03-21 08:24 | PTCARENOTE ---
Richard ruiz applied to patient due to temperature being 96.5 F on rectal temperature probe reading.
[2023-03-21] MEDS: SYNTHROID 25 MCG PO (08:28)
[2023-03-21] MEDS: LOPRESSOR 12.5 MG PO ×2 (08:28→19:56)
[2023-03-21] MEDS: COLACE PO ×3 (08:29→20:50)
[2023-03-21] MEDS: KCL 270 MEQ IV (11:28)
--- NOTE | 2023-03-21 11:40 | PTCARENOTE ---
Patient took morning medications crushed in applesauce without difficulty. He ate 80% of his breakfast and is drinking thin liquids without any difficulty as well. Patient continues to demonstrate visual hallucinations and has episodes of agitation
on and off. Pt remains on Precedex 1.5mcg/kg/hr. Pt's girlfriend (Nikki) was updated over the phone by RN. Pt is receiving a potassium replacement IV at this time.
[2023-03-21] MEDS: ATIVAN 1 MG IV ×4 (13:19→22:52)
--- NOTE | 2023-03-21 13:23 | PTCARENOTE ---
Patient experiencing visual hallucinations, is restless in bed, HR and blood pressure are elevated, and he is yelling/cursing at nurse. 1mg Ativan IV given per agitation order.
--- NOTE | 2023-03-21 14:15 | W.PN.UPDATE ---
Update Note
Progress Note Update
patient seen chart reviewed. discussed w nursing. the patient has continued to have periods where he is combative. nursing told me they tried several times to remove mitts. when i saw him he proved to be quite paranoid and delusional. on the plus
side he was articulating words well. in the past i have been unable to understand him as his speech was quite garbled. so that is an improvement. however the verbalization of psychotic material was striking. he told me to please call 911 and report
that he is being held hostage. he also was seeing dogs in the room. i was able to distract him and fed him pudding and held a cup for him and he drank about 8 oz fluid which is also a positive. i don't know if one can say he is better or worse
with this change in medication but would hold on for another few days and see if he improves.
--- NOTE | 2023-03-21 15:31 | W.PN.UPDATE ---
Update Note
Progress Note Update
received a text from [facility] re continued agitation crying out in a very loud voice asking for another prn. i would be reluctant to use quietiapine given qtc and my memory of his last stay had qtc up over 500 significantly. i would consider returning
to risperdal although if you use ativan prns as a measure of how he is doing it seems he has had less today but it is very variable. i have increased the ativan prn frequency to q 2h. tomorrow would consider increase in ativan to one qid if he is
uses a lot of ativan. i would not increase the seroquel as i have seen in others increase in qtc.
--- NOTE | 2023-03-21 16:36 | PTCARENOTE ---
Made hospitalist aware of pt HR in 120-130's, rectal temp 101.3
[2023-03-21] MEDS: NSS 1000 IV (17:16)
[2023-03-21] MEDS: OFIRMEV 100 IV (17:26)
[2023-03-21 17:32] LABS: Hematocrit 44.1 % (39.0-52.0); Hemoglobin 15.1 g/dL (13.0-18.0); Mean Corp Hgb Conc. 34.2 g/dL (33.0-37.0); Mean Corpuscular Volume 81.7 fL (80.0-94.0); Mean Platelet Volume 8.3 fL (7.4-10.4); Platelet Count 363 10^3/uL (130-400); Red Cell Dist. Width 14.7 % (11.5-14.5); White Blood Cell Count 10.1 10^3/uL (4.8-10.8)
[2023-03-21] MEDS: LOVENOX 40 MG SC (17:36)
[2023-03-21 17:44] LABS: Creatine Phosphokinase 1352 U/L (55-170); Lactic Acid 1.2 mmol/L (0.7-2.0)
[2023-03-21 17:54] LABS: COVID-19 Antigen Negative (Negative)
--- NOTE | 2023-03-21 19:15 | PTCARENOTE ---
Report given to oncoming RN. Patient remains on precedex gtt and IVF. Blood cultures and flu/covid swab sent per order as patient had a temperature of 101.3 rectally in afternoon, see VS flowsheets. Lab called and told RN flu swab was rejected but
covid swab was able to be tested. Relayed to oncoming RN that patient still needs flu swab collected. Patient PRN ativan moved to q2 hours for increased agitation. See flowsheet/MAR for more shift details.
[2023-03-21] MEDS: NSS (PRESERVATIVE FREE) 0.5 ML IV ×2 (20:06→22:52)
[2023-03-21] MEDS: TYLENOL 650 MG PO (23:06)
[2023-03-22] VITALS (62 sets, daily range): BP systolic 61–177; BP diastolic 40–126; BMI 25.3
[2023-03-22] MEDS: NSS 1000 IV ×3 (02:36→22:46)
[2023-03-22] MEDS: ATIVAN 1 MG IV ×6 (02:36→22:50)
[2023-03-22] MEDS: NSS (PRESERVATIVE FREE) 0.5 ML IV ×4 (02:36→18:28)
[2023-03-22] MEDS: PRECEDEX 100 IV ×4 (02:38→14:33)
[2023-03-22] MEDS: VALIUM INJECTION 5 MG IV (05:05)
[2023-03-22 05:33] LABS: Hematocrit 44.1 % (39.0-52.0); Hemoglobin 15.1 g/dL (13.0-18.0); Mean Corp Hgb Conc. 34.2 g/dL (33.0-37.0); Mean Corpuscular Hgb 27.9 pg (27.0-31.0); Mean Corpuscular Volume 81.4 fL (80.0-94.0); Mean Platelet Volume 8.4 fL (7.4-10.4); Platelet Count 382 10^3/uL (130-400); Red Blood Cell Count 5.42 10^6/uL (4.70-6.10); Red Cell Dist. Width 14.7 % (11.5-14.5); White Blood Cell Count 17.4 10^3/uL (4.8-10.8)
[2023-03-22 05:40] LABS: Blood Urea Nitrogen 4 mg/dl (9-20); Calcium 9.1 mg/dl (8.4-10.2); Carbon Dioxide 27 mmol/L (22-30); Chloride 103 mmol/L (98-107); Estimated Creatinine Clearance 122 ml/min; Glucose 119 mg/dl (70-99); Magnesium 1.6 mg/dl (1.6-2.3); Phosphorus 2.5 mg/dl (2.5-4.5); Potassium 3.7 mmol/L (3.5-5.1); Sodium 137 mmol/L (135-145); eGFR > 60.00
[2023-03-22] MEDS: ATIVAN 0.5 MG IV ×2 (05:54→16:55)
[2023-03-22] MEDS: NSS (PRESERVATIVE FREE) 0.25 ML IV ×2 (05:54→16:55)
[2023-03-22] MEDS: APRESOLINE 10 MG IV (05:55)
--- NOTE | 2023-03-22 07:47 | W.PN.INTV ---
Today's Communication / Plan
Recommendations
Check cultures
Infectious disease evaluation
CT abdomen pelvis pending
Introduce clonidine if BP tolerates
Precedex wean
Assessment
-
57-year-old male with a PMHx of alcohol use disorder, Hodgkin's lymphoma and DENICE who presented with abdominal pain X several months. Pain got worse over the last few days. Liver enzymes were elevated including alkaline phosphatase, AST and ALT,
bilirubin. Lipase 1913. CT abdomen/pelvis showed acute pancreatitis and an adjacent 1.5 cm suspected pseudocyst. There was no calcified gallstones or biliary ductal dilation. Diffuse fatty infiltration of the liver was seen. He was admitted to
the floors on IV fluids. Abdominal ultrasound showed gallstones without evidence of biliary ductal dilation. There was no peripancreatic collection. Gastroenterology has been consulted. MRCP showed layering gallstones and/or sludge in the
dependent gallbladder without wall thickening or pericholecystic edema. There was no biliary duct dilation, no bile duct calculus. 1.3 cm focus at the head of the pancreas suspected to be pseudocyst. Suspected small hemangioma at the right lobe
of the liver measuring 9 mm. Patient continued to be managed but then was exhibiting signs of alcohol withdrawal, requiring several doses of Ativan. Alcohol withdrawal symptoms worsened and he was transferred to the ICU for further care and
Precedex drip. Clinical Trials Specialist service is consulted for additional management/recommendations.
Chronic medical conditions FRUIT TESTER:
Hodgkin lymphoma s/p left anterior chemo port,
DENICE,
alcohol use disorder,
depression
Hypothermia
Febrile illness
Impression:
#Acute alcohol withdrawal with high ativan requirements now on precedex gtt
#Acute pancreatitis
#Transaminitis
#Acute respiratory failure with hypoxemia on supplemental oxygen - likely due to hypoventilation (CXR is clear); other DDx includes R to L shunt
#Hx of Hodgkin lymphoma s/p left anterior chest wall chemo-port
Plan:
Critically ill on a Precedex drip intermittently with severe intermittent agitation
Supplemental oxygen as needed
Aspiration precautions
Nebulizers if needed-currently not bronchospastic
Chest x-ray 03/22/2023-NAD
Alcohol withdrawal treatment protocol continues
Follow MSAS
Attempt to wean Precedex-still on high doses-1.5
Benzodiazepines as needed
Phenobarbital protocol-finished
Thiamine continues
Folate
Psychiatry following-correspondence reviewed-recommend Risperdal
Ropinirole discontinued
Patient on Seroquel twice daily-follow QTc-increase Seroquel 50 in the morning and 25 at night
Introduce clonidine if blood pressure tolerates
Lipase normalized
Follow LFTs
Spiked temperature 03/21/2023
Check cultures-unrevealing thus far
Check chest x-ray-NAD
CT abdomen and pelvis
Lipase now normal
Infectious disease evaluation
Pressors if needed
Fluid boluses if needed
Monitor hemoglobin
Transfuse as needed
Follow hypothermia-warming blanket
TSH noted-Synthroid increased
Random cortisol noted
Continue to replace electrolytes
DVT prophylaxis-on Lovenox
GI prophylaxis-on pantoprazole
Nutrition as tolerated
Bedside range of motion/eventual physical therapy
Critical care statement: A total of 35 minutes of critical care time was provided for this patient today. This includes management of unstable vital signs, evaluation of the patient at bedside, reviewing the patient's pertinent medical records
including radiographs, Precedex management microbiology, delirium management, laboratory evaluations, and discussion with primary team, consultants, pharmacy, nutrition, physical therapy, case management, charge nurse, critical care nursing, and
respiratory therapy.
Data:
CXR 03-08-23: no pulm infiltrates. L chest port-A-cath
CT Head 03-08-2023: No acute intracranial abnormality
MRCP 03-06-2023:�Small layer of gallstones and/or sludge in the dependent portion of the gallbladder. No evidence for lobar wall thickening or pericholecystic edema.
There is no evidence for biliary ductal dilation. No evidence for bile duct calculus.
1.3 cm focus of increased T2 and STIR signal within the head of the pancreas, which very likely represents a pseudocyst. Advise follow-up CT or MRI evaluation with attention to the pancreas in 6 months.
9 mm lesion in the posterior right lobe of the liver, corresponding to lesion seen on recent CT examination, and likely a small hemangioma
Abd US 03-05-2023:
Several small shadowing gallstones are present within the gallbladder as well as a small amount of sludge. The bladder wall is slightly thickened, and is nonspecific.
No evidence for biliary ductal dilation.
No gross abnormality of the pancreas, with no evidence for peripancreatic collection. Of note, the pancreatic tail is not well-visualized with shadowing from overlying bowel gas.
Subjective Dataa
Subjective Data
Date of Service:
Date of Service: March 22, 2023
Chief Complaint: Clinical Trials Specialist Follow Up and Pulmonary Follow Up
Subjective:
Still intermittently agitated, no respiratory distress, no specific complaints
Review of Systems
General: Other (Per HPI)
Objective Data
Data Reviewed
Vital Signs / I&O / Oxygen:
Vital Signs
Temp Pulse Resp BP Pulse Ox
99.6 F 139 13 157/98 92
03/22/23 05:42 03/22/23 07:00 03/22/23 07:00 03/22/23 07:00 03/21/23 20:00
Intake and Output
03/21/23 03/22/23 03/23/23
06:59 06:59 06:59
Intake Total 2882.8 / 3092.5 3708.8 / 3708.8
Output Total 2675 / 2675 3825 / 3825
Balance 207.8 / 417.5 -116.2 / -116.2
SaO2 92
Nasal Cannula flow liters per 4
minute
Physical Exam
General: Respiratory Distress (n), Comfortable, Chills (Negative), Other (Agitated, and sleepy at times) and Other (Thick neck)
HEENT: Normocephalic, Anicteric and Moist Mucous Membranes
Cardiovascular: S1-S2, Murmur and Peripheral Edema (negative)
Respiratory: Clear, Crackles (Bilateral bases), Non-Labored Respirations, Accessory Resp Muscle Use (None), Stridor (n) and Other (poor inspiratory effort)
GI: Soft, Non Distended, Non Tender and Normal Bowel Sounds
Neurology: Awake, Alert, No Motor Deficits and Other (Agitated)
Skin: Warm, Dry, Good Color and Cyanosis (n)
Labs/Micro/Reports
Lab Data
03/22/23 04:51
03/22/23 04:51
[2023-03-22] MEDS: SEROQUEL 50 MG PO ×2 (08:11→20:40)
[2023-03-22] MEDS: VITAMIN B1 100 MG PO ×2 (08:12→20:40)
[2023-03-22] MEDS: TYLENOL 650 MG PO ×2 (08:12→18:16)
[2023-03-22] MEDS: FOLVITE 1 MG PO (08:12)
[2023-03-22] MEDS: LOPRESSOR 12.5 MG PO (08:12)
[2023-03-22] MEDS: PROTONIX 40 MG PO (08:12)
[2023-03-22] MEDS: SYNTHROID 25 MCG PO (08:12)
[2023-03-22] MEDS: THERAGRAN 1 TABLET PO (08:12)
[2023-03-22] MEDS: FLOMAX 0.400000000000000022 MG PO (08:12)
[2023-03-22] MEDS: COLACE 100 MG PO ×2 (08:12→20:40)
--- NOTE | 2023-03-22 09:30 | PTCARENOTE ---
Addendum entered by Mary Alice Acharya RN 03/22/23 09:42:
all safety precautions in place
Original Note:
pt received from previous rn- aox1, pt remains on precedex, given prn ativan as ordered. pt restless in bed, hallucinating. on room air, sinus tachy on monitor. pt four point restraints with mitts. pt refusing to eat breakfast however pt was given
liquids and applesauce with meds and tolerated. frequent reorientation. oral care and am care provided. plan of care discussed in rounds with dr. lemus
--- NOTE | 2023-03-22 09:57 | W.PN.HOSP.TC ---
Today's Communication/Plan
-
Check a chest x-ray
CT scan of the abdomen and pelvis with contrast
ID eval
Assessment / Plan
Assessment / Plan
CVS: S1-S2 normal
Chest: CTA B/L
Abdomen: Soft, unclear if patient has any tenderness. Not reliable exam, bowel sounds present
Extremities: No edema, normal pulses
HEELER: Non focal exam, no neck stiffness
#Alcohol withdrawal
Alcohol use disorder
-TME
-Inappropriate behavior, hurting staff , inappropriate language
-On Precedex, Ativan scheduled and prn.
-Phenobarbital taper completed .
-Risperidone ineffective, switched to Seroquel titrating per Psyche
-Last time patient was here for 23 days with similar presentation
-IVF gentle hydration while oral intake poor d/t agitation confusion
#Fevers
-Bld Cx
-Covid Neg
-Check CT A/P with contrast as the patient has a history of pseudocyst, add lipase
-Abdomen exam unreliable
-Check a chest x-ray
-ID eval
#Hypothyroidism
-TSH high but T4 wnl, rechecked with next AM labs, TSH improved but remains elevated >10 though T4 wnl, started low dose Synthroid 25 mcg daily
-Cortisol low, rechecked with next AM labs wnl
#Acute pancreatitis
Pancreatic pseudocyst
-Elevated lipase of 1913 -normalized
-CT a/p showing inflammation of pancreas
-Abdominal ultrasound showing gallstone as well although CBD of 4.6 mm only
-MRI/MRCP showing pancreatic pseudocyst. no choledocholithiasis
-Likely alcohol use related.�
-Low fat diet as tolerated
-Recheck as above
#Acute transaminitis - trending down/resolving
-Alcohol use related likely
-AST 911 ALT 442 ALP 210 TBilli 2.3 on admission
-Hepatitis serology negative
-Alcohol abstinence recommended
#Acute hypoxic respiratory insufficiency-secondary to atelectasis likely
Incentive spirometry
Encourage seated position
Rpt CXR
#hx Essential HTN
-cont Toprol -12.5 twice daily with holding parameters
#Chronic hypotension on midodrine as outpatient
resume home midodrine with holding paramaters
#Fatty liver-likely secondary to alcohol use
#Thickening of the wall of the gastric antrum-likely secondary to pancreatitis however needs EGD as outpatient
On PPI
#Enlarged prostate
-On Flomax, no urinary complains currently
#Depression/anxiety
-Discontinued citalopram
-Diazepam on hold while on scheduled Ativan as per psych
#History of Hodgkin's lymphoma
8 years ago treated in [place]
#DVT PPX - Lovenox
#Full code
Updated patient's mother.
D/W ID
Anticipated Discharge: > 48 hours
Subjective/Interval History
-
Date of Service: March 22, 2023
Objective Data
-
Labs:
Laboratory Results
03/22/23
04:51
WBC 17.4 H
Hgb 15.1
Hct 44.1
Plt Count 382
Sodium 137
Potassium 3.7
Chloride 103
Carbon Dioxide 27
BUN 4 L
Creatinine 0.6 L
Glucose 119 H
Calcium 9.1
Vital Signs:
Vital Signs
Temp Pulse Resp BP Pulse Ox
100.9 F H 123 13 146/84 95
03/22/23 08:00 03/22/23 08:12 03/22/23 07:00 03/22/23 08:12 03/22/23 08:00
I&O
03/21/23 03/22/23 03/23/23
06:59 06:59 06:59
Intake Total 2882.8 / 3092.5 3708.8 / 4078.5 629.1 / 629.1
Output Total 2675 / 2675 3825 / 4175 350 / 350
Balance 207.8 / 417.5 -116.2 / -96.5 279.1 / 279.1
[2023-03-22 10:39] LABS: Creatine Phosphokinase 1508 U/L (55-170); Lipase 197 U/L (23-300)
--- NOTE | 2023-03-22 11:08 | W.PN.UPDATE ---
Addendum entered and electronically signed by Hardik Mancini MD 03/22/23 11:50:
nms was suggested unlikely w seroquel but he was on risperdal for some time. he has the confusion and fever but he is not rigid...wrists ankles quite supple. doubt nms but workup will continue could consider stopping seroquel but i doubt this is
nms.
Original Note:
Update Note
Progress Note Update
patient seen chart reviewed. discussed with nursing and with dr silva. the patient was quiet when i saw him but that has not been the case earlier this am. he remains in a delirious state. discussed with dr goel that there are studies re seroquel's
effect on qtc which do not show that torsade is a serious risk will continue medications as they are. nursing continues to try to wean down the precedex. noted patient w fever and being seen by ID cxr and abd cat have been ordered. psych will
continue to follow
[2023-03-22] MEDS: KCL ELIXIR 40 MEQ PO (11:09)
[2023-03-22] MEDS: MAGNESIUM OXIDE 500 MG PO (11:09)
[2023-03-22] MEDS: OMNIPAQUE 50 ML PO (11:10)
--- NOTE | 2023-03-22 11:16 | CON.ID ---
Addendum entered and electronically signed by Sebastián Oneal, 03/22/23 13:22:
Automated differential reveals a significant left shift, and procalcitonin is noted to be elevated. Will initiate empiric antibiotics and follow.
Original Note:
Consultation
-
Date/Time Consultation Requested: 03/22/2023 10 AM
Date/Time Consultation Performed: 03/22/2023 11 AM
Requesting Provider: Dr. Lockwood
Performing Provider: Dr. Oneal
Reason for Consultation: Fever
Chief Complaint / Past History
History of Present Illness
Jovanni Guerra is a 57-year-old man being evaluated at the request of Dr. Lockwood in regards to fever. History is obtained from chart review, along with patient interview and review of records contained in the hospital EMR system. The patient was
initially admitted on 03/05/23 after presenting to the emergency room with abdominal discomfort. He was found to have acute pancreatitis and acute transaminitis likely secondary to recent alcohol use. It is noted that he was using significant
alcohol prior to admission.
Hospital course significant for alcohol withdrawal. Transaminitis improved, although he was found to have a pancreatic pseudocyst. Over the past 24 hours he has developed fevers to 101.3 degrees, and Infectious Diseases is asked to comment upon
further antimicrobial management.
At present, very little additional history is available from the patient secondary to encephalopathy. The patient denies pain.
Past History
Additional Past Medical History:
Anxiety
Chronic back pain
Hodgkin's lymphoma
EtOH abuse
Allergy History:
hydromorphone [From Dilaudid] Allergy (Verified 03/08/23 21:50)
Itching
Medications Reviewed: Yes
Current Antibiotics:
None
Social History
Tobacco: Smoker
Alcohol: Daily
Drug: None
Living: With Family
Employment: Employed
Family History
Family History: Unable to Obtain
Review of Systems
Vital Signs
Temp Pulse Resp BP Pulse Ox
100.9 F H 123 13 146/84 95
03/22/23 08:00 03/22/23 08:12 03/22/23 07:00 03/22/23 08:12 03/22/23 08:00
Physical Exam
Physical Exam
Constitutional: Well Developed, Acutely Ill, Chronically Ill and Non-toxic
Head: Normocephalic
Eyes: No Conjunctival Hemorrhage and Sclera Anicteric
Pharynx: Benign
Oral: No Thrush and No Ulcers
Cardiovascular: Regular Rate and S1/S2; Negative S3/S4
Pulmonary: Clear; Negative Wheezes, Rales or Rhonchi
Gastrointestinal: Soft, Non Tender, Non Distended, Normal Bowel Sounds, No Rebound and No Guarding
Extremities: Negative Edema, Cyanosis or Erythema
Skin: Negative Rash or Jaundice
Neurological: Awake and Alert
Psychological: Confused
Lines: Port (Left ACW; accessed. No surrounding erythema or tenderness.)
.
Lab / Diagnostic Study Results
03/22/23 04:51
03/22/23 04:51
Abs Immat Gran (auto) 0.1 10^3/uL (0-0.05) H 03/05/23 08:28
Absolute Neuts (auto) 10.4 10^3/uL (1.4-6.5) H 03/05/23 08:28
Absolute Lymphs (auto) 0.2 10^3/uL (1.2-3.4) L 03/05/23 08:28
Absolute Monos (auto) 1.1 10^3/uL (0.1-0.6) H 03/05/23 08:28
Absolute Basos (auto) 0.0 10^3/uL (0-0.2) 03/05/23 08:28
Immature Gran % 0.4 % (0-0.5) 03/05/23 08:28
Neutrophils % 88.9 % (42.2-75.2) H 03/05/23 08:28
Lymphocytes % 1.5 % (20.5-51.1) L 03/05/23 08:28
Monocytes % 9.0 % (1.7-9.3) 03/05/23 08:28
Eosinophils % 0.1 % (0-6) 03/05/23 08:28
Basophils % 0.1 % (0-2) 03/05/23 08:28
PT 14.1 Sec (11.4-14.6) 03/05/23 17:54
INR 1.07 03/05/23 17:54
Lactic Acid 1.2 mmol/L (0.7-2.0) 03/21/23 16:57
C-Reactive Protein 77.30 mg/L (0.0-10.00) H 03/07/23 04:56
Microbiology Results
Micro:
03/21/23 16:58 Blood Culture - Pending
Blood/Venous
03/21/23 16:58 Blood Culture - Pending
Blood/Venous
03/21/23 16:57 Influenza Types A & B (CHRISTIANNE) - Pending
Nasal Swab
Imaging:
03/22/2023 CXR: no acute infiltrates noted. No evidence of free intraperitoneal air. Visualized osseous structures are within normal limits.
03/06/2023 MRI abdomen without contrast: Small area of gallstones and/or sludge in the dependent portion of the gallbladder. No evidence for lobar wall thickening or pericholecystic edema. No evidence for biliary ductal dilatation. A 1.3 cm focus
of increased T2 and STIR signal within the head of the pancreas which likely represents a pseudocyst. Follow-up advised. Please see full dictation for additional detail.
Assessment / Plan
Fever
Leukocytosis
Pancreatitis; improved
CK; rising
Anxiety
Chronic back pain
Hodgkin's lymphoma
EtOH abuse
Recommendations:
Will check automated differential on today's CBC to determine if there is elevated neutrophils. If normal differential, it makes a bacterial etiology less likely.
Additionally, we will check a procalcitonin level; if normal, it again makes a bacterial etiology less likely.
Follow white count and temperature curve.
Will initiate further workup depending on pending labs and ongoing clinical status.
Care Review
Plan reviewed with: Physician (Hospitalist)
Total Time Spent with Patient (in minutes): 75
--- NOTE | 2023-03-22 11:41 | PTCARENOTE ---
pt noted to be hypotensive- pt woken up- bp slightly improved to map 63-70. Dr. lemus aware. hold catapres and ativan for [address] lemus. pt desatting to 85% while sleeping- placed on 2LNC. full bed bath provided, condom cath changed.
Discussed contrast intake with Kanchan Lockwood- pt drinking small amounts. pt in for ct abd, cxr completed. per Dr. Lockwood hold off on urine specimen until ct results. preecedex weaned to 1.1mcg
[2023-03-22 11:49] LABS: % Basophils 0.2 % (0-2); % Eosinophils 0.1 % (0-6); % Immature Granulocytes 0.6 % (0-0.5); % Lymphocytes 2.3 % (20.5-51.1); % Monocytes 6.6 % (1.7-9.3); % Neutrophils 90.2 % (42.2-75.2); Absolute Immature Granulocytes 0.1 10^3/uL (0-0.05); Absolute Lymphocytes 0.4 10^3/uL (1.2-3.4); Absolute Monocytes 1.1 10^3/uL (0.1-0.6); Absolute Neutrophils 15.4 10^3/uL (1.4-6.5); Nucleated Red Blood Cells % 0 % (-)
[2023-03-22 12:38] LABS: Procalcitonin 7.49 ng/ml (0.0-0.25)
[2023-03-22] MEDS: ATIVAN IV (12:42)
[2023-03-22] MEDS: LR 1000 IV (12:42)
[2023-03-22] MEDS: NSS (PRESERVATIVE FREE) IV (12:52)
[2023-03-22] MEDS: MERREM 500 MG IV ×2 (13:59→20:40)
[2023-03-22] MEDS: MORPHINE SULFATE 1 MG IV ×4 (13:59→20:40)
[2023-03-22] MEDS: STERILE WATER FOR INJECTION 10 ML IV ×2 (14:00→20:40)
--- NOTE | 2023-03-22 14:36 | CM ---
CM following re: discharge planning.
Discussed in Rounds, reviewed pt's chart, met with pt.
Pt remains on 4 pints restraints, no changes, became agitated when weak up, aox1, pt remains on Precedex, restless in bed, hallucinating, on room air.
PT and OT recommend SNF.
Psychiatry following.
D/c plan: uncertain at this time and will depend on pt's progress.
CM will follow with discharge plan updates as hospitalization progresses
--- NOTE | 2023-03-22 15:52 | PTCARENOTE ---
pt taken to cat scan, urine sent as per order. morphine ordered and given for severe abdominal pain. precedex weaned off and restraints taken off at 1400. pt cooperative at times. assisting with turning and repositioning. ivf continue. assessment
unchanged./
[2023-03-22 16:16] LABS: Urine Albumin Negative (Neg - Trace); Urine Bilirubin Negative (Negative); Urine Character Clear (Clear); Urine Color Yellow; Urine Glucose Negative (Negative); Urine Ketone Negative (Negative); Urine Leukocyte Negative (Negative); Urine Nitrite Negative (Negative); Urine Occult Blood Negative (Negative); Urine Urobilinogen Negative (Neg - 1+)
[2023-03-22] MEDS: LOVENOX 40 MG SC (16:54)
--- NOTE | 2023-03-22 17:29 | PTCARENOTE ---
pt given morphine and ativan as per order. discussed plan of care with dr. vale, pt fidgety and restless at times, however, redirectable, able to state location. remains tachy on room air.
--- NOTE | 2023-03-22 20:22 | PTCARENOTE ---
Assumed care of pt at 1900. Received pt off of Precedex infusion, is currently only receiving NS through his port. Pt A/O x1-2, stated that he was 'apparently in [facility]' as if it was hard to believe, was oriented to name and birthday
but not to time or situation. Unable to reorient. Pt is currently pleasantly confused and following commands, speech is almost entirely confabulated. Pt had removed the tegaderm from his SQ port, it was found underneath his gown, port was still
accessed with steri strips and biopatch intact. Sterile technique used to clean around port site with chloraprep and apply new central line dressing. Silk tape applied around edges of dressing to make it more difficult to possibly remove. Physical
assessment completed, see nursing shift assessment flowsheet for details. Pt has been ST 130s-140s on monitor, temp is currently low grade (99.3--had received Tylenol towards the end of previous shift). SpO2 92-93% on RA, pt keeps removing his pulse
ox. Pt in 4 point restraints with all side rails up, bed alarm activated.
[2023-03-22] MEDS: ATIVAN 2 MG IV (23:00)
[2023-03-22] MEDS: NSS (PRESERVATIVE FREE) 1 ML IV (23:00)
--- NOTE | 2023-03-22 23:03 | PTCARENOTE ---
Pt cooperative at start of shift, took pills without an issue, then became agitated that he was not allowed to leave. Pt cursing, pulling on restraints, hallucinating. Pt continuously needing to be pulled up in bed, repositioned, only to scoot to
the bottom of the bed again and bunch up the linens. Pt not making any sense when talking. Pt's significant other, Valdo, called with pt's mother in the background, updated on pt's condition/plan of care. Valdo asked if she could speak with
patient on the phone. Call was transferred in and phone held up to pt's ear, pt became more agitated and yelled into the phone 'my mom's you sick fuck' and attempted to bite the phone. Ativan given at 2250 when he was due for his PRN dose, and
another stat dose of 2mg was ordered by ICU [facility] [employer]NS[employer], given at 2300. Pt remains agitated, cursing, attempting to get restraints off and get OOB. Remains ST on monitor with HR in 140s and up to 160s at times.
[2023-03-23] VITALS (23 sets, daily range): BP systolic 100–162; BP diastolic 70–113; BMI 25.9
[2023-03-23] MEDS: ATIVAN 0.5 MG IV ×4 (00:02→23:40)
[2023-03-23] MEDS: NSS (PRESERVATIVE FREE) 0.25 ML IV ×4 (00:03→23:40)
--- NOTE | 2023-03-23 00:50 | PTCARENOTE ---
Midnight assessment unchanged. After stat dose of Ativan pt continued to be agitated with visual and auditory hallucinations, yelling out and cursing and having conversations with people who weren't there. Pt received scheduled dose of Ativan at
midnight and around 0030 was noted to be asleep. HR has come down to 120s.
[2023-03-23] MEDS: MERREM 500 MG IV ×4 (02:40→19:51)
[2023-03-23] MEDS: STERILE WATER FOR INJECTION 10 ML IV ×4 (02:41→19:51)
[2023-03-23] MEDS: ATIVAN 1 MG IV ×2 (02:41→07:57)
--- NOTE | 2023-03-23 04:14 | PTCARENOTE ---
Assessment unchanged. Pt is currently pleasantly confused again, cooperative with care, more soft-spoken and polite. Has remained off of Precedex all shift. ST 120s on monitor.
[2023-03-23 04:57] LABS: Hematocrit 37.5 % (39.0-52.0); Hemoglobin 12.9 g/dL (13.0-18.0); Mean Corp Hgb Conc. 34.4 g/dL (33.0-37.0); Mean Corpuscular Hgb 27.7 pg (27.0-31.0); Mean Corpuscular Volume 80.6 fL (80.0-94.0); Mean Platelet Volume 8.2 fL (7.4-10.4); Platelet Count 286 10^3/uL (130-400); Red Blood Cell Count 4.65 10^6/uL (4.70-6.10); Red Cell Dist. Width 15.5 % (11.5-14.5); White Blood Cell Count 11.9 10^3/uL (4.8-10.8)
[2023-03-23 05:20] LABS: Blood Urea Nitrogen 5 mg/dl (9-20); Calcium 8.8 mg/dl (8.4-10.2); Carbon Dioxide 22 mmol/L (22-30); Chloride 105 mmol/L (98-107); Estimated Creatinine Clearance 104 ml/min; Glucose 104 mg/dl (70-99); Magnesium 1.9 mg/dl (1.6-2.3); Potassium 3.5 mmol/L (3.5-5.1); Sodium 139 mmol/L (135-145); eGFR > 60.00
--- NOTE | 2023-03-23 05:22 | PTCARENOTE ---
Pt remains calm/cooperative at this time. Still confused, alert to self only. Allowed me to do CHG cloth bath and change linens and gown. Pt has had hiccups for the last couple of hours, discussed with Neel ROMAN as to what patient can have
that would not affect his QT. x1 dose of Valium ordered.
[2023-03-23] MEDS: VALIUM INJECTION 5 MG IV (05:38)
[2023-03-23] MEDS: ATIVAN IV (05:38)
[2023-03-23] MEDS: NSS (PRESERVATIVE FREE) IV (05:39)
[2023-03-23] MEDS: KCL 160 MEQ IV (05:45)
[2023-03-23] MEDS: SYNTHROID 25 MCG PO (05:53)
--- NOTE | 2023-03-23 07:42 | W.PN.INTV ---
Today's Communication / Plan
Recommendations
Precedex weaned
Clonidine added, Ativan as needed
Antibiotics
If remains off Precedex then transfer out of ICU-call pulmonary if respiratory issues arise
Assessment
-
57-year-old male with a PMHx of alcohol use disorder, Hodgkin's lymphoma and DENICE who presented with abdominal pain X several months. Pain got worse over the last few days. Liver enzymes were elevated including alkaline phosphatase, AST and ALT,
bilirubin. Lipase 1913. CT abdomen/pelvis showed acute pancreatitis and an adjacent 1.5 cm suspected pseudocyst. There was no calcified gallstones or biliary ductal dilation. Diffuse fatty infiltration of the liver was seen. He was admitted to
the floors on IV fluids. Abdominal ultrasound showed gallstones without evidence of biliary ductal dilation. There was no peripancreatic collection. Gastroenterology has been consulted. MRCP showed layering gallstones and/or sludge in the
dependent gallbladder without wall thickening or pericholecystic edema. There was no biliary duct dilation, no bile duct calculus. 1.3 cm focus at the head of the pancreas suspected to be pseudocyst. Suspected small hemangioma at the right lobe
of the liver measuring 9 mm. Patient continued to be managed but then was exhibiting signs of alcohol withdrawal, requiring several doses of Ativan. Alcohol withdrawal symptoms worsened and he was transferred to the ICU for further care and
Precedex drip. Continuous Process Machine Operator service is consulted for additional management/recommendations.
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
Hodgkin lymphoma s/p left anterior chemo port,
DENICE,
alcohol use disorder,
depression
Hypothermia
Febrile illness
Impression:
#Acute alcohol withdrawal with high ativan requirements now on precedex gtt
#Acute pancreatitis
#Transaminitis
#Acute respiratory failure with hypoxemia on supplemental oxygen - likely due to hypoventilation (CXR is clear); other DDx includes R to L shunt
#Hx of Hodgkin lymphoma s/p left anterior chest wall chemo-port
Plan:
Remains critically ill-Precedex drip just discontinued with continued ongoing hallucinations/delusions and agitation
Continue supplemental oxygen as needed
Aspiration precautions
Nebulizers if needed-currently not bronchospastic
Chest x-ray 03/22/2023-NAD
Continue with alcohol withdrawal treatment protocol
Continue to follow MSAS
Precedex finally weaned after over 2 weeks on 03/23/2023
Benzodiazepines as needed
Phenobarbital protocol-finished
Thiamine continues
Folate
Psychiatry following-correspondence reviewed-recommend Risperdal
Ropinirole discontinued
Patient on Seroquel twice daily-follow QTc-increase Seroquel 50 in the morning and 25 at night
Clonidine added 03/22/2023 if blood pressure tolerates
Lipase normalized
Follow LFTs
Spiked temperature 03/21/2023
Cultures unrevealing
Chest x-ray-NAD
CT abdomen and pelvis-possible UTI, no other abnormalities
UA negative
Lipase now normal
Infectious disease evaluation ongoing-correspondence reviewed-continue meropenem
Pressors if needed
Intermittent fluid boluses if needed
Follow hemoglobin
Transfuse as needed
Monitor hypothermia-warming blanket
TSH noted-Synthroid increased
Random cortisol noted
Replace electrolytes
DVT prophylaxis-on Lovenox
GI prophylaxis-on pantoprazole
Nutrition as tolerated
Bedside range of motion/eventual physical therapy
If hemodynamics improve and remains off Precedex then transfer out of ICU-call pulmonary if respiratory issues arise
Critical care statement: A total of 33 minutes of critical care time was provided for this patient today. This includes management of unstable vital signs, evaluation of the patient at bedside, reviewing the patient's pertinent medical records
including radiographs, Precedex management microbiology, delirium management, laboratory evaluations, and discussion with primary team, consultants, pharmacy, nutrition, physical therapy, case management, charge nurse, critical care nursing, and
respiratory therapy.
Data:
CXR 03-08-23: no pulm infiltrates. L chest port-A-cath
CT Head 03-08-2023: No acute intracranial abnormality
MRCP 03-06-2023:�Small layer of gallstones and/or sludge in the dependent portion of the gallbladder. No evidence for lobar wall thickening or pericholecystic edema.
There is no evidence for biliary ductal dilation. No evidence for bile duct calculus.
1.3 cm focus of increased T2 and STIR signal within the head of the pancreas, which very likely represents a pseudocyst. Advise follow-up CT or MRI evaluation with attention to the pancreas in 6 months.
9 mm lesion in the posterior right lobe of the liver, corresponding to lesion seen on recent CT examination, and likely a small hemangioma
Abd US 03-05-2023:
Several small shadowing gallstones are present within the gallbladder as well as a small amount of sludge. The bladder wall is slightly thickened, and is nonspecific.
No evidence for biliary ductal dilation.
No gross abnormality of the pancreas, with no evidence for peripancreatic collection. Of note, the pancreatic tail is not well-visualized with shadowing from overlying bowel gas.
Subjective Dataa
Subjective Data
Date of Service:
Date of Service: March 23, 2023
Chief Complaint: Continuous Process Machine Operator Follow Up and Pulmonary Follow Up
Subjective:
Still agitated, hallucinating, delusional, no complaints of shortness of breath
Review of Systems
General: Other (Per HPI)
Objective Data
Data Reviewed
Vital Signs / I&O / Oxygen:
Vital Signs
Temp Pulse Resp BP Pulse Ox
100.2 F 128 18 141/88 92
03/23/23 07:22 03/23/23 06:00 03/23/23 06:00 03/23/23 06:00 03/23/23 06:00
Intake and Output
03/22/23 03/23/23 03/24/23
06:59 06:59 06:59
Intake Total 3708.8 / 4078.5 4634.8 / 4634.8
Output Total 3825 / 4175 2450 / 2450
Balance -116.2 / -96.5 2184.8 / 2184.8
SaO2 92
Nasal Cannula flow liters per 4
minute
Physical Exam
General: Respiratory Distress (n), Comfortable, Chills (Negative), Other (Agitated, and sleepy at times) and Other (Thick neck)
HEENT: Normocephalic, Anicteric and Moist Mucous Membranes
Cardiovascular: S1-S2, Murmur and Peripheral Edema (negative)
Respiratory: Clear, Crackles (Bilateral bases), Non-Labored Respirations, Accessory Resp Muscle Use (None), Stridor (n) and Other (poor inspiratory effort)
GI: Soft, Non Distended, Non Tender and Normal Bowel Sounds
Neurology: Awake, Alert, No Motor Deficits and Other (Agitated)
Skin: Warm, Dry, Good Color and Cyanosis (n)
Labs/Micro/Reports
Lab Data
03/23/23 04:33
03/23/23 04:33
Microbiology
03/23/23 04:33 Nasal Swab Influenza Types A & B (CHRISTIANNE) - Final
Negative for Influenza A & B, NAAT
Negative results must be combined with clinical observations
and patient history.
Nucleic Acid Amplification test (NAAT)performed on the
[employer] platform.
03/21/23 16:58 Blood/Venous Blood Culture - Preliminary
No Growth in 24 hours- Final report to follow
03/21/23 16:58 Blood/Venous Blood Culture - Preliminary
No Growth in 24 hours- Final report to follow
[2023-03-23] MEDS: SEROQUEL 50 MG PO ×2 (07:56→19:50)
[2023-03-23] MEDS: COLACE 100 MG PO ×2 (07:56→19:50)
[2023-03-23] MEDS: FOLVITE 1 MG PO (07:56)
[2023-03-23] MEDS: FLOMAX 0.400000000000000022 MG PO (07:56)
[2023-03-23] MEDS: PROTONIX 40 MG PO (07:56)
[2023-03-23] MEDS: THERAGRAN 1 TABLET PO (07:56)
[2023-03-23] MEDS: VITAMIN B1 100 MG PO ×2 (07:57→19:50)
[2023-03-23] MEDS: MAGNESIUM OXIDE 500 MG PO (07:57)
[2023-03-23] MEDS: NSS 1000 IV ×2 (07:59→18:04)
--- NOTE | 2023-03-23 09:24 | W.PN.HOSP.TC ---
Today's Communication/Plan
-
Continue AB
Meds for agitation
Assessment / Plan
Assessment / Plan
CVS: S1-S2 normal
Chest: CTA B/L
Abdomen: Soft, unclear if patient has any tenderness. Not reliable exam, bowel sounds present
Extremities: No edema, normal pulses
DRAWBRIDGE TENDER: Non focal exam, no neck stiffness
#TME
Alcohol withdrawal
Alcohol use disorder
-? Wernicke's encephalopathy or Korsakoff's
-Inappropriate behavior, hurting staff , inappropriate language
-Off Precedex, Ativan scheduled and prn.
-Phenobarbital taper completed .
-Risperidone ineffective, switched to Seroquel titrating per Psyche
-Last time patient was here for 23 days with similar presentation
-IVF gentle hydration while oral intake poor d/t agitation confusion
-On restraints
#Fevers
-Bld Cx pending
-Covid Neg
-Chest x-ray negative
-CT of the abdomen and pelvis-1 cm pancreatic pseudocyst unchanged. Multiple 2 cm pseudocyst also unchanged. Diffuse thickening of the urinary bladder wall and enlargement of the prostate
-Abdomen exam unreliable
-Elevated procalcitonin level noted
-ID eval appreciated
-Started on meropenem
#Hypothyroidism
-TSH high but T4 wnl, rechecked with next AM labs, TSH improved but remains elevated >10 though T4 wnl, started low dose Synthroid 25 mcg daily
-Cortisol low, rechecked with next AM labs wnl
#Acute pancreatitis
Pancreatic pseudocyst
-Elevated lipase of 1913 -normalized
-CT a/p showing inflammation of pancreas
-Abdominal ultrasound showing gallstone as well although CBD of 4.6 mm only
-MRI/MRCP showing pancreatic pseudocyst. no choledocholithiasis
-Likely alcohol use related.�
-Low fat diet as tolerated
#Acute transaminitis - trending down/resolving
-Alcohol use related likely
-AST 911 ALT 442 ALP 210 TBilli 2.3 on admission
-Hepatitis serology negative
-Alcohol abstinence recommended
#Acute hypoxic respiratory insufficiency-secondary to atelectasis likely
Incentive spirometry
Encourage seated position
#hx Essential HTN
-Hold Toprol -12.5 twice daily
#Chronic hypotension on midodrine as outpatient
#Fatty liver-likely secondary to alcohol use
#Thickening of the wall of the gastric antrum-likely secondary to pancreatitis however needs EGD as outpatient
On PPI
#Enlarged prostate
-On Flomax
#Depression/anxiety
-Discontinued citalopram
-Diazepam on hold while on scheduled Ativan as per psych
#History of Hodgkin's lymphoma
8 years ago treated in [place]
#DVT PPX - Lovenox
#Full code
03/22/23-Updated patient's mother.
D/W RN and tile sorter
Anticipated Discharge: > 48 hours
Subjective/Interval History
-
Date of Service: March 23, 2023
Objective Data
-
Labs:
Laboratory Results
03/23/23
04:33
WBC 11.9 H
Hgb 12.9 L
Hct 37.5 L
Plt Count 286 D
Sodium 139
Potassium 3.5
Chloride 105
Carbon Dioxide 22
BUN 5 L
Creatinine 0.7
Glucose 104 H
Calcium 8.8
Vital Signs:
Vital Signs
Temp Pulse Resp BP Pulse Ox
100.2 F 128 18 141/88 92
03/23/23 07:22 03/23/23 06:00 03/23/23 06:00 03/23/23 06:00 03/23/23 06:00
I&O
03/22/23 03/23/2324
06:59 06:59 06:59
Intake Total 3708.8 / 4078.5 4634.8 / 4634.8
Output Total 3825 / 4175 2450 / 2450
Balance -116.2 / -96.5 2184.8 / 2184.8
--- NOTE | 2023-03-23 09:58 | W.PN.ID1 ---
Date of Service
Date of Service: March 23, 2023
Today's Communication
on meropenem and clinically improving - hopefully for deescalation to orals in the near future
Assessment / Plan
Pancreatic Pseudocyst
Fever
Leukocytosis
Pancreatitis; improved
CK; rising
Anxiety
Chronic back pain
Hodgkin's lymphoma
EtOH abuse
Recommendations:
had pancreatitis just over [address] a/p likely pancreatitc pseudocyst, possible cystitis
UA negative - cystitis ruled out, no need for culture and did not reflex
qtc acceptable
on meropenem and clinically improving - hopefully for deescalation to orals in the near future
Follow white count and temperature curve.
Chief Complaint
-: Fever, Leukocytosis and Other (Pancreatic pseudocyst)
Subjective / Review of Systems
fever curve improving - nearly resolved
BP stable
declining leukocytosis
cr stable
Vital Signs / Physical Exam
Vital Signs
Vital Signs
Temp Pulse Resp BP Pulse Ox
100.2 F 128 18 141/88 98
03/23/23 07:22 03/23/23 06:00 03/23/23 06:00 03/23/23 06:00 03/23/23 08:00
Physical Exam
Constitutional: No Acute Distress
Cardiovascular: Regular Rate and S1/S2; Negative Murmur or Rub
Pulmonary: Clear and Symmetric; Negative Wheezes or Rales
Gastrointestinal: Soft, Non Tender, Distended (mildly distended), Normal Bowel Sounds, No Rebound and No Guarding
Genito-Urinary: Negative Suprapubic Tenderness
Skin: Warm and Dry; Negative Rash or Jaundice
Neurological: Negative Oriented (confused)
Objective Data
Lab Data
Lab Results
03/23/23 04:33
03/23/23 04:33
PT 14.1 Sec (11.4-14.6) 03/05/23 17:54
INR 1.07 03/05/23 17:54
APTT 31.6 Sec (23.4-35.0) 03/05/23 17:54
Estimated Creat Clear 104 ml/min 03/23/23 04:33
Lactic Acid 1.2 mmol/L (0.7-2.0) 03/21/23 16:57
Total Bilirubin 0.5 mg/dl (0.2-1.3) 03/18/23 03:36
GGT 1086 U/L (15-73) H 03/05/23 17:54
AST 30 U/L (17-59) 03/18/23 03:36
ALT 32 U/L (0-50) 03/18/23 03:36
Alkaline Phosphatase 109 U/L (38-126) 03/18/23 03:36
C-Reactive Protein 77.30 mg/L (0.0-10.00) H 03/07/23 04:56
Amylase 81 U/L (30-110) 03/06/23 05:16
Most recent labs reviewed.
Micro Results:
03/23/23 04:33 Influenza Types A & B (CHRISTIANNE) - Final
Nasal Swab Negative for Influenza A & B, NAAT
Negative results must be combined with clinical observations
and patient history.
Nucleic Acid Amplification test (NAAT)performed on the
[employer] platform.
03/21/23 16:58 Blood Culture - Preliminary
Blood/Venous No Growth in 24 hours- Final report to follow
03/21/23 16:58 Blood Culture - Preliminary
Blood/Venous No Growth in 24 hours- Final report to follow
Imaging:
03/22/2023 CXR: no acute infiltrates noted. No evidence of free intraperitoneal air. Visualized osseous structures are within normal limits.
03/06/2023 MRI abdomen without contrast: Small area of gallstones and/or sludge in the dependent portion of the gallbladder. No evidence for lobar wall thickening or pericholecystic edema. No evidence for biliary ductal dilatation. A 1.3 cm focus
of increased T2 and STIR signal within the head of the pancreas which likely represents a pseudocyst. Follow-up advised. Please see full dictation for additional detail.
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
[2023-03-23] MEDS: NSS (PRESERVATIVE FREE) 0.5 ML IV (11:55)
--- NOTE | 2023-03-23 12:30 | PTCARENOTE ---
Pt assessed.No change in assessment.Pt is constantly conversing to auditory/visual hallucinations.He seems less agitated and less anxious at this time.He states he wants to go home as he is concerned about his mother,cars and pets.Plan of care
discussed with pt.He has removed his condom cath x 2 with resulting large amount incontinent urine.
--- NOTE | 2023-03-23 15:52 | PTCARENOTE ---
Pt assessed.No change in assessment noted.He has been intermittently sleeping,and awakens to verbal stimulation.Plan of care discussed with pt.
[2023-03-23] MEDS: LOVENOX 40 MG SC (18:01)
--- NOTE | 2023-03-23 18:13 | W.PN.UPDATE ---
Update Note
Progress Note Update
Chart reviewed, pt seen at bedside - was sleeping calmly, in soft mitts. Did not rouse so as to avoid risk of agitation, however it seems that overall behavior has been a bit calmer. Will continue to monitor.
No changes to medication regimen at this time
[2023-03-23] MEDS: MORPHINE SULFATE 1 MG IV (19:51)
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
[2023-03-24] VITALS (23 sets, daily range): BP systolic 87–172; BP diastolic 59–112; PULSE 112–144; BMI 26.0
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
[2023-03-24] MEDS: MERREM 500 MG IV ×4 (01:26→19:55)
[2023-03-24] MEDS: MORPHINE SULFATE 1 MG IV ×6 (01:27→22:52)
[2023-03-24] MEDS: STERILE WATER FOR INJECTION 10 ML IV ×4 (01:27→19:55)
[2023-03-24 04:28] LABS: Hematocrit 36.5 % (39.0-52.0); Hemoglobin 12.8 g/dL (13.0-18.0); Mean Corp Hgb Conc. 35.1 g/dL (33.0-37.0); Mean Corpuscular Hgb 28.4 pg (27.0-31.0); Mean Corpuscular Volume 81.1 fL (80.0-94.0); Platelet Count 264 10^3/uL (130-400); Red Cell Dist. Width 15.4 % (11.5-14.5); White Blood Cell Count 8.5 10^3/uL (4.8-10.8)
--- NOTE | 2023-03-24 04:35 | PTCARENOTE ---
Assessment unchanged. Pt remains calm and cooperative, conversation appropriate mixed with some confabulation. No longer talking about having his money stolen or his cars or cats, more fixated on getting home to take care of his mom because she has
a hard time caring for herself. Pt insistent that he is leaving today and told me to 'put in a good word for him'. ST 110s-120s on monitor. Given another PRN dose of Morphine, see EMAR. Pt has not slept all shift. Bed alarm activated.
[2023-03-24 04:56] LABS: Blood Urea Nitrogen 4 mg/dl (9-20); Calcium 8.5 mg/dl (8.4-10.2); Carbon Dioxide 25 mmol/L (22-30); Chloride 106 mmol/L (98-107); Creatine Phosphokinase 345 U/L (55-170); Estimated Creatinine Clearance 122 ml/min; Glucose 122 mg/dl (70-99); Magnesium 2.1 mg/dl (1.6-2.3); Potassium 3.6 mmol/L (3.5-5.1); Sodium 137 mmol/L (135-145); eGFR > 60.00
[2023-03-24] MEDS: NSS 1000 IV (05:22)
--- NOTE | 2023-03-24 07:30 | W.PN.INTV ---
Today's Communication / Plan
Recommendations
Continue Ativan as needed
Seroquel 50 twice daily
Clonidine continues
No longer requiring 4 point restraints-more cooperative
Assessment
-
57-year-old male with a PMHx of alcohol use disorder, Hodgkin's lymphoma and DENICE who presented with abdominal pain X several months. Pain got worse over the last few days. Liver enzymes were elevated including alkaline phosphatase, AST and ALT,
bilirubin. Lipase 1913. CT abdomen/pelvis showed acute pancreatitis and an adjacent 1.5 cm suspected pseudocyst. There was no calcified gallstones or biliary ductal dilation. Diffuse fatty infiltration of the liver was seen. He was admitted to
the floors on IV fluids. Abdominal ultrasound showed gallstones without evidence of biliary ductal dilation. There was no peripancreatic collection. Gastroenterology has been consulted. MRCP showed layering gallstones and/or sludge in the
dependent gallbladder without wall thickening or pericholecystic edema. There was no biliary duct dilation, no bile duct calculus. 1.3 cm focus at the head of the pancreas suspected to be pseudocyst. Suspected small hemangioma at the right lobe
of the liver measuring 9 mm. Patient continued to be managed but then was exhibiting signs of alcohol withdrawal, requiring several doses of Ativan. Alcohol withdrawal symptoms worsened and he was transferred to the ICU for further care and
Precedex drip. Art History Instructor service is consulted for additional management/recommendations.
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
Hodgkin lymphoma s/p left anterior chemo port,
DENICE,
alcohol use disorder,
depression
Hypothermia
Febrile illness
Impression:
#Acute alcohol withdrawal with high ativan requirements now on precedex gtt
#Acute pancreatitis
#Transaminitis
#Acute respiratory failure with hypoxemia on supplemental oxygen - likely due to hypoventilation (CXR is clear); other DDx includes R to L shunt
#Hx of Hodgkin lymphoma s/p left anterior chest wall chemo-port
Plan:
Improved-off Precedex drip, more cooperative, less abusive-now out of restraints
Wean supplemental oxygen
Aspiration precautions
Nebulizers if needed-currently not bronchospastic
Note: Chest x-ray 03/22/2023-NAD
Alcohol withdrawal treatment protocol
Follow MSAS
Precedex finally weaned off after over 2 weeks on 03/23/2023
Benzodiazepines as needed
Phenobarbital protocol-finished
Thiamine continues
Folate
Psychiatry following-correspondence reviewed-recommend Risperdal
Ropinirole discontinued
Patient on Seroquel twice daily-follow QTc-increased to Seroquel 50 mg twice daily
Clonidine added 03/22/2023 if blood pressure tolerates
Lipase normalized
Follow LFTs
Spiked temperature 03/21/2023
Cultures unrevealing
Chest x-ray-NAD
CT abdomen and pelvis-possible UTI, no other abnormalities
UA negative
Lipase now normal
Infectious disease evaluation ongoing-correspondence reviewed-continue meropenem
Pressors if needed
Intermittent fluid boluses if needed
Monitor hemoglobin
Transfuse as needed
Follow hypothermia-warming blanket
TSH noted-Synthroid increased
Random cortisol noted
Continue to replace electrolytes
DVT prophylaxis-on Lovenox
GI prophylaxis-on pantoprazole
Nutrition as tolerated
Bedside range of motion/eventual physical therapy
If remains off Precedex he may be transferred out of ICU-at that point brake lining driller will sign off and call pulmonary if respiratory issues arise
Reviewed the patient's pertinent medical records including radiographs, Precedex management microbiology, delirium management, laboratory evaluations, and discussion with primary team, consultants, pharmacy, nutrition, physical therapy, case
management, charge nurse, critical care nursing, and respiratory therapy.
Data:
CXR 03-08-23: no pulm infiltrates. L chest port-A-cath
CT Head 03-08-2023: No acute intracranial abnormality
MRCP 03-06-2023:�Small layer of gallstones and/or sludge in the dependent portion of the gallbladder. No evidence for lobar wall thickening or pericholecystic edema.
There is no evidence for biliary ductal dilation. No evidence for bile duct calculus.
1.3 cm focus of increased T2 and STIR signal within the head of the pancreas, which very likely represents a pseudocyst. Advise follow-up CT or MRI evaluation with attention to the pancreas in 6 months.
9 mm lesion in the posterior right lobe of the liver, corresponding to lesion seen on recent CT examination, and likely a small hemangioma
Abd US 03-05-2023:
Several small shadowing gallstones are present within the gallbladder as well as a small amount of sludge. The bladder wall is slightly thickened, and is nonspecific.
No evidence for biliary ductal dilation.
No gross abnormality of the pancreas, with no evidence for peripancreatic collection. Of note, the pancreatic tail is not well-visualized with shadowing from overlying bowel gas.
Subjective Dataa
Subjective Data
Date of Service:
Date of Service: March 24, 2023
Chief Complaint: Art History Instructor Follow Up and Pulmonary Follow Up
Subjective:
More pleasant and cooperative today, more oriented, no complaints of shortness of breath, chest pain or abdominal pain
Review of Systems
General: Other (Per HPI)
Objective Data
Data Reviewed
Vital Signs / I&O / Oxygen:
Vital Signs
Temp Pulse Resp BP Pulse Ox
98.0 F 111 22 143/112 92
03/23/23 23:38 03/24/23 06:00 03/24/23 06:00 03/24/23 06:00 03/23/23 21:36
Intake and Output
03/23/23 03/24/23 03/25/23
06:59 06:59 06:59
Intake Total 4634.8 / 4734.8 3840 / 3840
Output Total 2450 / 2450 2675 / 2675
Balance 2184.8 / 2284.8 1165 / 1165
SaO2 92
Nasal Cannula flow liters per 4
minute
Physical Exam
General: Respiratory Distress (n), Comfortable, Chills (Negative), Other (Agitated, and sleepy at times) and Other (Thick neck)
HEENT: Normocephalic, Anicteric and Moist Mucous Membranes
Cardiovascular: S1-S2, Murmur and Peripheral Edema (negative)
Respiratory: Clear, Crackles (Bilateral bases), Non-Labored Respirations, Accessory Resp Muscle Use (None), Stridor (n) and Other (poor inspiratory effort)
GI: Soft, Non Distended, Non Tender and Normal Bowel Sounds
Neurology: Awake, Alert, No Motor Deficits and Other (Agitated)
Skin: Warm, Dry, Good Color and Cyanosis (n)
Labs/Micro/Reports
Lab Data
03/24/23 04:15
03/24/23 04:15
Microbiology
03/21/23 16:58 Blood/Venous Blood Culture - Preliminary
No Growth in 48 hours- Final report to follow
03/21/23 16:58 Blood/Venous Blood Culture - Preliminary
No Growth in 48 hours- Final report to follow
03/23/23 04:33 Nasal Swab Influenza Types A & B (CHRISTIANNE) - Final
Negative for Influenza A & B, NAAT
Negative results must be combined with clinical observations
and patient history.
Nucleic Acid Amplification test (NAAT)performed on the
[employer] platform.
[2023-03-24] MEDS: ATIVAN IV (07:33)
[2023-03-24] MEDS: NSS (PRESERVATIVE FREE) IV (07:33)
[2023-03-24] MEDS: SEROQUEL 50 MG PO ×2 (07:59→19:56)
[2023-03-24] MEDS: FLOMAX 0.400000000000000022 MG PO (07:59)
[2023-03-24] MEDS: VITAMIN B1 100 MG PO ×2 (08:00→19:56)
[2023-03-24] MEDS: PROTONIX 40 MG PO (08:00)
[2023-03-24] MEDS: THERAGRAN 1 TABLET PO (08:00)
[2023-03-24] MEDS: FOLVITE 1 MG PO (08:00)
[2023-03-24] MEDS: COLACE 100 MG PO ×2 (08:00→19:55)
[2023-03-24] MEDS: MAGNESIUM OXIDE 500 MG PO (08:00)
[2023-03-24] MEDS: SYNTHROID 25 MCG PO (08:04)
--- NOTE | 2023-03-24 09:00 | PTCARENOTE ---
Received pt awake and alert.Pt is more lucid and conversation is less confused.+LAMB.Pt assisted to bathroom with 1 person minimal assist,and then to chair.Gait is slightly unsteady.Chair and bed alarm utilized.Pt c/o some abdominal discomfort
occasionally,but is unable to quantify or qualify.Does not want pain medication at this time.ST noted.Left sub q port intact with IVF.Decreased breath sounds bibasilar.POX 95% on RA.Appetite fair.No BM.Condom cath fell off and pt will use
urinal.Plan of care discussed with pt.
[2023-03-24] MEDS: APRESOLINE 10 MG IV (09:05)
--- NOTE | 2023-03-24 10:24 | W.PN.HOSP.TC ---
Today's Communication/Plan
-
Metoprolol
Stop IVF
OOB
Assessment / Plan
Assessment / Plan
CVS: S1-S2 normal
Chest: CTA B/L
Abdomen: Soft, unclear if patient has any tenderness. Not reliable exam, Pt says he has pancreatitis and not to touch the abdomen bowel sounds present
Extremities: No edema, normal pulses
BEVELER: Non focal exam, no neck stiffness
More organized and cooperative today. Pleasant
#TME
Alcohol withdrawal
Alcohol use disorder
-Was having Inappropriate behavior, hurting staff , inappropriate language - Much better today!
-Off Precedex, Ativan scheduled held and prn.
-Phenobarbital taper completed .
-Risperidone ineffective, switched to Seroquel to be continued
-Last time patient was here for 23 days with similar presentation
-Off restraints!
#Fevers
-Unclear source
-Bld Cx pending
-Covid Neg
-Chest x-ray negative
-CT of the abdomen and pelvis-1 cm pancreatic pseudocyst unchanged. Multiple 2 cm pseudocyst also unchanged. Diffuse thickening of the urinary bladder wall and enlargement of the prostate
-Abdomen exam unreliable
-Elevated procalcitonin level noted
-ID eval appreciated
-Started on meropenem
#Hypothyroidism
-TSH high but T4 wnl, rechecked with next AM labs, TSH improved but remains elevated >10 though T4 wnl, started low dose Synthroid 25 mcg daily
-Cortisol low, rechecked with next AM labs wnl
#Acute pancreatitis
Pancreatic pseudocyst
-Elevated lipase of 1913 -normalized
-CT a/p showing inflammation of pancreas
-Abdominal ultrasound showing gallstone as well although CBD of 4.6 mm only
-MRI/MRCP showing pancreatic pseudocyst. no choledocholithiasis
-Likely alcohol use related.�
-Low fat diet as tolerated
#Acute transaminitis - trending down/resolving
-Alcohol use related likely
-AST 911 ALT 442 ALP 210 TBilli 2.3 on admission
-Hepatitis serology negative
-Alcohol abstinence recommended
#Acute hypoxic respiratory insufficiency-secondary to atelectasis likely
Incentive spirometry
Encourage seated position
#Essential HTN
-Restart Toprol -12.5 twice daily and titrate up
#Chronic hypotension on midodrine as outpatient
#Fatty liver-likely secondary to alcohol use
#Thickening of the wall of the gastric antrum-likely secondary to pancreatitis however needs EGD as outpatient
On PPI
#Enlarged prostate
-On Flomax
#Depression/anxiety
-Discontinued citalopram
-Diazepam on hold while on scheduled Ativan as per psych
#History of Hodgkin's lymphoma
8 years ago treated in [place]
#DVT PPX - Lovenox
#Full code
D/W RN and casting machine service operator
Spoke to mom and updated 03/24/23
Anticipated Discharge: 24 - 48 hours
Subjective/Interval History
-
Date of Service: March 24, 2023
Objective Data
-
Labs:
Laboratory Results
03/24/23
04:15
WBC 8.5
Hgb 12.8 L
Hct 36.5 L
Plt Count 264
Sodium 137
Potassium 3.6
Chloride 106
Carbon Dioxide 25
BUN 4 L
Creatinine 0.6 L
Glucose 122 H
Calcium 8.5
Vital Signs:
Vital Signs
Temp Pulse Resp BP Pulse Ox
100.3 F 111 22 143/112 92
03/24/23 07:30 03/24/23 06:00 03/24/23 06:00 03/24/23 06:00 03/23/23 21:36
I&O
03/23/23 03/24/23 03/25/23
06:59 06:59 06:59
Intake Total 4634.8 / 4734.8 3840 / 3940 660 / 660
Output Total 2450 / 2450 2675 / 2675
Balance 2184.8 / 2284.8 1165 / 1265 660 / 660
--- NOTE | 2023-03-24 11:15 | PTCARENOTE ---
Pt assessed.No change in assessment noted.Pt received Hydralazine BP 175/100.Pt's Mom and girlfriend are at bedside.Plan of care discussed.
--- NOTE | 2023-03-24 12:04 | W.PN.ID1 ---
Date of Service
Date of Service: March 24, 2023
Today's Communication
on meropenem and clinically improving - hopefully for deescalation to orals in the near future
Assessment / Plan
Pancreatic Pseudocyst - likely infected
Fever - resolved
Leukocytosis - resolved
Pancreatitis; improved
CK; rising
Anxiety
Chronic back pain
Hodgkin's lymphoma
EtOH abuse
Recommendations:
had pancreatitis just over [address] a/p likely pancreatitc pseudocyst, possible cystitis
blood cultures x2 no growth to date
qtc acceptable
on meropenem and clinically improving - hopefully for deescalation to orals in the near future
Follow white count and temperature curve.
Chief Complaint
-: Fever, Leukocytosis and Other (Pancreatic pseudocyst)
Subjective / Review of Systems
no further mena fevers
hypotensive most of this am to 170s systolic - now hypotensive
tachycardia ongoing
leukocytosis resolved
plt normal
cr stable
Vital Signs / Physical Exam
Vital Signs
Vital Signs
Temp Pulse Resp BP Pulse Ox
98.9 F 124 14 93/78 95
03/24/23 11:30 03/24/23 10:18 03/24/23 10:18 03/24/23 11:17 03/24/23 08:00
Physical Exam
Constitutional: No Acute Distress
Cardiovascular: Regular Rate and S1/S2; Negative Murmur or Rub
Pulmonary: Clear and Symmetric; Negative Wheezes or Rales
Gastrointestinal: Soft, Tender, Non Distended and Normal Bowel Sounds
Skin: Warm and Dry; Negative Rash or Jaundice
Objective Data
Lab Data
Lab Results
03/24/23 04:15
03/24/23 04:15
PT 14.1 Sec (11.4-14.6) 03/05/23 17:54
INR 1.07 03/05/23 17:54
APTT 31.6 Sec (23.4-35.0) 03/05/23 17:54
Estimated Creat Clear 122 ml/min 03/24/23 04:15
Lactic Acid 1.2 mmol/L (0.7-2.0) 03/21/23 16:57
Total Bilirubin 0.5 mg/dl (0.2-1.3) 03/18/23 03:36
GGT 1086 U/L (15-73) H 03/05/23 17:54
AST 30 U/L (17-59) 03/18/23 03:36
ALT 32 U/L (0-50) 03/18/23 03:36
Alkaline Phosphatase 109 U/L (38-126) 03/18/23 03:36
C-Reactive Protein 77.30 mg/L (0.0-10.00) H 03/07/23 04:56
Amylase 81 U/L (30-110) 03/06/23 05:16
Most recent labs reviewed.
Micro Results:
03/21/23 16:58 Blood Culture - Preliminary
Blood/Venous No Growth in 48 hours- Final report to follow
03/21/23 16:58 Blood Culture - Preliminary
Blood/Venous No Growth in 48 hours- Final report to follow
03/23/23 04:33 Influenza Types A & B (CHRISTIANNE) - Final
Nasal Swab Negative for Influenza A & B, NAAT
Negative results must be combined with clinical observations
and patient history.
Nucleic Acid Amplification test (NAAT)performed on the
[employer] platform.
Imaging:
03/22/2023 CXR: no acute infiltrates noted. No evidence of free intraperitoneal air. Visualized osseous structures are within normal limits.
03/06/2023 MRI abdomen without contrast: Small area of gallstones and/or sludge in the dependent portion of the gallbladder. No evidence for lobar wall thickening or pericholecystic edema. No evidence for biliary ductal dilatation. A 1.3 cm focus
of increased T2 and STIR signal within the head of the pancreas which likely represents a pseudocyst. Follow-up advised. Please see full dictation for additional detail.
--- NOTE | 2023-03-24 13:29 | PTCARENOTE ---
Pt c/o abdominal pain.medicated with Morphine as requested.
[2023-03-24 13:32] LABS: D-Dimer 1.08 ug/mlFEU (0.00-0.50)
[2023-03-24] MEDS: ATIVAN 1 MG IV ×3 (15:22→22:52)
--- NOTE | 2023-03-24 15:25 | PTCARENOTE ---
Increased agitation and confusion noted.Continues to c/o abdominal pain,and now also right leg pain.Climbing OOB,wants to go downstairs.Reoriented.Medicated with morphine for pain and Ativan for agitation.
--- NOTE | 2023-03-24 16:02 | PTCARENOTE ---
Report given to Iftikhar Park RN to assume patient care.
--- NOTE | 2023-03-24 17:23 | W.PN.UPDATE ---
Update Note
Progress Note Update
Per radiology there is a small filling defect in the anterior basal left lower lobe pulmonary artery and minimal filling defect in the proximal aspect of the visualized right upper lobe pulmonary arteries consistent with small volume pulmonary
embolism bilaterally. 4 mm nodule in the right middle lobe
Will make pulmonary aware
Start Lovenox
[2023-03-24] MEDS: LOVENOX 75 MG SC (18:19)
--- NOTE | 2023-03-24 18:23 | W.PN.UPDATE ---
Update Note
Progress Note Update
Chart reviewed, pt not present at bedside however as per notes it appears that he has been increasingly calmer. Will need to returm to asses further.
No changes to medication regimen at this time
[2023-03-24] MEDS: LOPRESSOR 12.5 MG PO (19:56)
[2023-03-24] MEDS: ATIVAN 2 MG IV (21:32)
--- NOTE | 2023-03-24 22:00 | PTCARENOTE ---
Received pt eating dinner with girlfriend at bedside. Pt. oriented to place and self. Thought it was the year 1931. At times, pt cooperative and conversive with staff. Other times, he is argumentative and uncooperative, trying to climb OOB.
Reorienting frequently without much success. Pt. laughs at staff when trying to reorient. Ativan given at 2051 for agitation. Morphine also given for abdominal pain per pt. At 2129, bed alarm going off, pt. pulling all his wires off and at the
bottom of the bed screaming 'I have to go upstairs to get my clothes!'. Pt redirected back to bed, 2mg ativan ordered and given. Pt. now resting more calmly.
[2023-03-25] VITALS (10 sets, daily range): BP systolic 112–166; BP diastolic 67–138; BMI 25.5
--- NOTE | 2023-03-25 01:12 | PTCARENOTE ---
Bed alarm went off and pt found standing on top of his bed yelling 'you have to let my mom inside shes freezing outside!' Able to redirect pt back into bed. Pt apologizing for behavior. Encouraged to keep resting
[2023-03-25] MEDS: MERREM 500 MG IV ×4 (02:17→19:45)
[2023-03-25] MEDS: STERILE WATER FOR INJECTION 10 ML IV ×4 (02:17→19:45)
[2023-03-25 04:37] LABS: Hemoglobin 12.9 g/dL (13.0-18.0); Mean Corp Hgb Conc. 33.9 g/dL (33.0-37.0); Mean Corpuscular Hgb 28.2 pg (27.0-31.0); Mean Corpuscular Volume 83.2 fL (80.0-94.0); Mean Platelet Volume 8.3 fL (7.4-10.4); Platelet Count 257 10^3/uL (130-400); Red Blood Cell Count 4.57 10^6/uL (4.70-6.10); Red Cell Dist. Width 15.4 % (11.5-14.5); White Blood Cell Count 7.3 10^3/uL (4.8-10.8)
[2023-03-25 04:58] LABS: Blood Urea Nitrogen 6 mg/dl (9-20); Calcium 8.7 mg/dl (8.4-10.2); Carbon Dioxide 29 mmol/L (22-30); Chloride 104 mmol/L (98-107); Estimated Creatinine Clearance 104 ml/min; Glucose 107 mg/dl (70-99); Potassium 3.6 mmol/L (3.5-5.1); Sodium 137 mmol/L (135-145); eGFR > 60.00
[2023-03-25] MEDS: ATIVAN 1 MG IV ×6 (04:58→21:56)
[2023-03-25] MEDS: SYNTHROID 25 MCG PO (05:41)
[2023-03-25] MEDS: LOVENOX 75 MG SC ×2 (05:41→19:21)
--- NOTE | 2023-03-25 07:02 | PTCARENOTE ---
Pt continues to hallucinate always looking for his cats outside and demanding to go upstairs. PRN ativan given throughout night.
[2023-03-25] MEDS: COLACE 100 MG PO (07:52)
[2023-03-25] MEDS: LOPRESSOR 12.5 MG PO ×2 (07:53→19:45)
[2023-03-25] MEDS: FLOMAX 0.400000000000000022 MG PO (07:53)
[2023-03-25] MEDS: THERAGRAN 1 TABLET PO (07:53)
[2023-03-25] MEDS: VITAMIN B1 100 MG PO ×2 (07:53→19:44)
[2023-03-25] MEDS: MAGNESIUM OXIDE 500 MG PO (07:55)
[2023-03-25] MEDS: SEROQUEL 50 MG PO ×2 (07:55→19:45)
[2023-03-25] MEDS: FOLVITE 1 MG PO (07:55)
[2023-03-25] MEDS: PROTONIX 40 MG PO (07:55)
[2023-03-25] MEDS: MORPHINE SULFATE 1 MG IV ×5 (08:05→21:55)
--- NOTE | 2023-03-25 09:00 | PTCARENOTE ---
Received pt @ change of shift. Drowsy, awakens to verbal stimuli. Oriented to self only, required reorientation to time/place. Active hallucinations. Unable to reorient but remains cooperative. Anx/restless @ x's. Bed alarm active. C/O severe abd
pain, medicated w prn- see on monitor w HR in 100's. SpO2 95% on RA. Cont b/b. Able to take meds whole w H20, assisted w breakfast order. L SC port and #20 [employer] patent, dressings, c/d/i. Updated pt.'s significant other via phone and pt.
able to speak w her via phone as well. Pt. instructed on how to report care concerns. Call matos in reach.
--- NOTE | 2023-03-25 10:08 | W.PN.PUL3 ---
Today's Communication / Plan
-
Systemic AC
Check TTE
Maintain SpO2 >90-94%
PT/OT
Walking pulse ox prior to discharge
Hematology consult for hypercoagulable workup as he is unlikely to have good outpatient follow-up
Pulmonary service will continue to briefly follow.
Assessment
-
57-year-old male with a PMHx of alcohol use disorder, Hodgkin's lymphoma and DENICE who presented with abdominal pain X several months.� Pain got worse over the last few days.� Liver enzymes were elevated including alkaline phosphatase, AST and ALT,
bilirubin.� Lipase 1913.� CT abdomen/pelvis showed acute pancreatitis and an adjacent 1.5 cm suspected pseudocyst.� There was no calcified gallstones or biliary ductal dilation.� Diffuse fatty infiltration of the liver was seen.� He was admitted to
the floors on IV fluids.� Abdominal ultrasound showed gallstones without evidence of biliary ductal dilation.� There was no peripancreatic collection.� Gastroenterology has been consulted.� MRCP showed layering gallstones and/or sludge in the
dependent gallbladder without wall thickening or pericholecystic edema.� There was no biliary duct dilation, no bile duct calculus.� 1.3 cm focus at the head of the pancreas suspected to be pseudocyst.� Suspected small hemangioma at the right lobe
of the liver measuring 9 mm.� Patient continued to be managed but then was exhibiting signs of alcohol withdrawal, requiring several doses of Ativan.� Alcohol withdrawal symptoms worsened and he was transferred to the ICU for further care and
Precedex drip.� Primary Grade Teacher service was consulted for additional management/recommendations. Patient continues to be managed in the ICU and he is now improved with his level of agitation but he developed a pulmonary embolism which he was started on
therapeutic anticoagulation for. He is now downgraded to the IMU and pulmonary is continuing to follow along for additional recommendations.
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
Hodgkin lymphoma s/p left anterior chemo port,
DENICE,
alcohol use disorder,
depression
Hypothermia
Febrile illness
Impression:
#Bilateral submassive pulmonary embolism without RV strain
#Acute alcohol withdrawal with high ativan requirements now on precedex gtt
#Acute pancreatitis
#Transaminitis
#Hx of Hodgkin lymphoma s/p left anterior chest wall chemo-port
Plan:
Check TTE to assess right sided pressures
Maintain SpO2 >90-94%
PT/OT
Psych following for agitation episodes
Wean supplemental oxygen
Aspiration precautions
Nebulizers if needed-currently not bronchospastic
Spiked temperature 03/21/2023
Cultures unrevealing
Chest x-ray-NAD
CT abdomen and pelvis-possible UTI, no other abnormalities
UA negative
Lipase now normal
Infectious disease evaluation ongoing-correspondence reviewed-continue meropenem
Intermittent fluid boluses if needed
Monitor hemoglobin
Transfuse as needed
TSH and free T4 noted 9albeit checked on different days) -> continue LT4 and re-check TFTs in 4-6 weeks
Random cortisol noted
Continue to replace electrolytes
DVT prophylaxis-on therapeutic dosing of Lovenox
GI prophylaxis-on pantoprazole
Nutrition as tolerated
Bedside range of motion/eventual physical therapy
Patient continues to be managed in the IMU. Pulmonary service will continue to follow along briefly. Thank you for allowing us to be involved in care of this patient.
Data:
CXR 03-08-23: no pulm infiltrates. L chest port-A-cath
CT Head 03-08-2023:�No acute intracranial abnormality
MRCP 03-06-2023:�Small layer of gallstones and/or sludge in the dependent portion of the gallbladder. No evidence for lobar wall thickening or pericholecystic edema.
There is no evidence for biliary ductal dilation. No evidence for bile duct calculus.
1.3 cm focus of increased T2 and STIR signal within the head of the pancreas, which very likely represents a pseudocyst. Advise follow-up CT or MRI evaluation with attention to the pancreas in 6 months.
9 mm lesion in the posterior right lobe of the liver, corresponding to lesion seen on recent CT examination, and likely a small hemangioma
Abd US 03-05-2023:
Several small shadowing gallstones are present within the gallbladder as well as a small amount of sludge. The bladder wall is slightly thickened, and is nonspecific.
No evidence for biliary ductal dilation.
No gross abnormality of the pancreas, with no evidence for peripancreatic collection. Of note, the pancreatic tail is not well-visualized with shadowing from overlying bowel gas.
CTA Chest 03-24-2023:
1. � Small filling defect in the anterior basal left lower lobe pulmonary artery and minimal filling defect in the proximal aspect of the visualized right upper pulmonary arteries consistent with small volume pulmonary emboli bilaterally.
Significant attenuation of the left upper lobe pulmonary arteries limits evaluation.
2. � No aortic dissection or aneurysm.
3. � The 4 mm nodule in the right middle lobe is not clearly identified on prior chest CT due to motion artifact on the previous exam. Consider follow-up chest CT in 6 months to document stability.
Subjective Data
-
Date of Service:
Date of Service: March 25, 2023
Chief Complaint: Pulmonary Follow Up
Subjective:
Patient seen and evaluated today at bedside. Still confused, much less agitated than last several days, weeks, but says he is leaving in the morning. He is on room air, SpO2 95%. Heart rate 110. He does say that he feels short of breath, had been
worsening these last 3 days but better today.
Review of Systems
General: Other (Negative unless mentioned above)
Objective Data
Data Reviewed
Vital Signs / I&O / Oxygen:
Vital Signs
Temp Pulse Resp BP Pulse Ox
98.3 F 111 20 121/87 95
03/25/23 07:52 03/25/23 18:00 03/25/23 18:00 03/25/23 16:48 03/25/23 08:18
Intake and Output
03/24/23 03/25/23 03/26/23
06:59 06:59 06:59
Intake Total 3840 / 3940 1140 / 1140
Output Total 2675 / 2675 250 / 250 400 / 400
Balance 1165 / 1265 890 / 890 -400 / -400
SaO2 95
Nasal Cannula flow liters per 4
minute
Physical Exam
General: Respiratory Distress (Negative) and Comfortable
HEENT: Normocephalic and Anicteric
Cardiovascular: Peripheral Edema (Negative) and Other (Tachycardic)
Respiratory: Clear, Wheeze (Negative), Crackles (Negative) and Non-Labored Respirations
GI: Soft, Non Distended and Non Tender
Neurology: Awake, Alert, No Motor Deficits and Tremors (negative)
Skin: Warm and Dry
Labs/Micro/Reports
Lab Data
03/25/23 04:04
03/25/23 04:04
Microbiology
03/21/23 16:58 Blood/Venous Blood Culture - Preliminary
No Growth in 4 days- Final report to follow
03/21/23 16:58 Blood/Venous Blood Culture - Preliminary
No Growth in 4 days- Final report to follow
03/23/23 04:33 Nasal Swab Influenza Types A & B (CHRISTIANNE) - Final
Negative for Influenza A & B, NAAT
Negative results must be combined with clinical observations
and patient history.
Nucleic Acid Amplification test (NAAT)performed on the
[employer] platform.
--- NOTE | 2023-03-25 10:17 | W.PN.HOSP.TC ---
Today's Communication/Plan
-
urine porphobilinogen and Porphyrins
Lovenox
MRI Brain
Assessment / Plan
Assessment / Plan
CVS: S1-S2 normal
Chest: CTA B/L
Abdomen: Soft, patient states he has abdomen discomfort.
Extremities: No edema, normal pulses
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
More organized and cooperative today. But still has hallucinations
#TME
Alcohol withdrawal
Alcohol use disorder
-Was having Inappropriate behavior, hurting staff , inappropriate language - Much better today!
-Off Precedex, Ativan scheduled held and prn.
-Phenobarbital taper completed .
-Risperidone ineffective, switched to Seroquel to be continued
-Last time patient was here for 23 days with similar presentation
-Off restraints
-Patient is more cooperative now therefore we will order an MRI of the brain with and without contrast
-With patient having Isabella urine also check Urine Porphobilinogen, Porphyrin (R/O AIP)
# Segmental PE-started on Lovenox weight-based
-Will switch to Eliquis soon
-Venous Dopplers with no DVT
#Fevers
-Unclear source
-Bld Cx pending
-Covid Neg
-Chest x-ray negative
-CT of the abdomen and pelvis-1 cm pancreatic pseudocyst unchanged. Multiple 2 cm pseudocyst also unchanged. Diffuse thickening of the urinary bladder wall and enlargement of the prostate
-Abdomen exam unreliable
-Elevated procalcitonin level noted
-ID eval appreciated
-Started on meropenem
#Hypothyroidism
-TSH high but T4 wnl, rechecked with next AM labs, TSH improved but remains elevated >10 though T4 wnl, started low dose Synthroid 25 mcg daily
-Cortisol low, rechecked with next AM labs wnl
#Acute pancreatitis
Pancreatic pseudocyst
-Elevated lipase of 1913 -normalized
-CT a/p showing inflammation of pancreas
-Abdominal ultrasound showing gallstone as well although CBD of 4.6 mm only
-MRI/MRCP showing pancreatic pseudocyst. no choledocholithiasis
-Likely alcohol use related.�
-Low fat diet as tolerated
#Acute transaminitis - trending down/resolving
-Alcohol use related likely
-AST 911 ALT 442 ALP 210 TBilli 2.3 on admission
-Hepatitis serology negative
-Alcohol abstinence recommended
#Acute hypoxic respiratory insufficiency-secondary to atelectasis likely
Incentive spirometry
Encourage seated position
#Essential HTN
-Restarted Toprol -12.5 twice daily and titrate up
#Chronic hypotension on midodrine as outpatient
#Fatty liver-likely secondary to alcohol use
#Thickening of the wall of the gastric antrum-likely secondary to pancreatitis however needs EGD as outpatient
On PPI
#Enlarged prostate
-On Flomax
#Depression/anxiety
-Discontinued citalopram
-Diazepam on hold while on scheduled Ativan as per psych
#History of Hodgkin's lymphoma
8 years ago treated in [place]
#DVT PPX - Lovenox
#Full code
D/W RN and customer sales consultant
Spoke to mom and updated 03/24/23
Anticipated Discharge: 24 - 48 hours
Subjective/Interval History
-
Date of Service: March 25, 2023
Objective Data
-
Labs:
Laboratory Results
03/25/23
04:04
WBC 7.3
Hgb 12.9 L
Hct 38.0 L
Plt Count 257
Sodium 137
Potassium 3.6
Chloride 104
Carbon Dioxide 29
BUN 6 L
Creatinine 0.7
Glucose 107 H
Calcium 8.7
Vital Signs:
Vital Signs
Temp Pulse Resp BP Pulse Ox
98.3 F 99 48 122/81 95
03/25/23 07:52 03/25/23 09:03 03/25/23 08:00 03/25/23 07:53 03/25/23 08:18
I&O
03/24/23 03/25/23 03/26/23
06:59 06:59 06:59
Intake Total 3840 / 3940 1140 / 1140
Output Total 2675 / 2675 250 / 250 200 / 200
Balance 1165 / 1265 890 / 890 -200 / -200
--- NOTE | 2023-03-25 14:16 | CM ---
CM following re: discharge planning.
Reviewed pt's chart, met with pt. Pt presents sitting on the bed preparing to eat. pt expressed his desire to go to a SNF for a short term rehab, pt admitted being very weak.
PT and OT evaluations noted - SNF level of cafe recommended. Pt is aware, expressed his agreement. Pt stated he does not have a preference of a SNF but he would like to be in [facility].
Pt referred to following SNFs: [facility], [facility], [facility], [facility].
D/C plan: preferred and accepted SNF.
CM will follow to assist pt with discharge to a preferred SNF for a short term rehab.
--- NOTE | 2023-03-25 14:35 | W.PN.ID1 ---
Date of Service
Date of Service: March 25, 2023
Today's Communication
Continue antibiotics
Assessment / Plan
Pancreatic Pseudocyst - likely infected
Fever - resolved
Leukocytosis - resolved
Pancreatitis; improved
CK; rising
Anxiety
Chronic back pain
Hodgkin's lymphoma
EtOH abuse
Recommendations:
had pancreatitis just over [address] a/p likely pancreatitc pseudocyst, possible cystitis
blood cultures x2 no growth to date
qtc acceptable
on meropenem (d#4) and clinically improving - hopefully for deescalation to orals (possibly cipro + metronidazole) in the near future
Follow white count and temperature curve.
����������������������������������������������������������
Chief Complaint
-: Fever, Leukocytosis and Other (Pancreatic pseudocyst)
Subjective / Review of Systems
Review of Systems: No Fever, Abdominal Pain and No Nausea
Vital Signs / Physical Exam
Vital Signs
Vital Signs
Temp Pulse Resp BP Pulse Ox
98.3 F 99 48 122/81 95
03/25/23 07:52 03/25/23 09:03 03/25/23 08:00 03/25/23 07:53 03/25/23 08:18
Physical Exam
Constitutional: Comfortable, Chronically Ill and Non-toxic
Eyes: No Conjunctival Hemorrhage and Sclera Anicteric
Cardiovascular: S1/S2; Negative S3/S4
Pulmonary: Non Labored; Negative Wheezes, Rales or Rhonchi
Gastrointestinal: Soft, Tender, Non Distended, Normal Bowel Sounds, No Rebound and No Guarding
Genito-Urinary: Negative Lucas
Musculoskeletal: Negative Joint Swelling or Joint Effusion
Neurological: Awake and Alert
Psychological: Confused
Lines: Port
Objective Data
Lab Data
Lab Results
03/25/23 04:04
03/25/23 04:04
PT 14.1 Sec (11.4-14.6) 03/05/23 17:54
INR 1.07 03/05/23 17:54
APTT 31.6 Sec (23.4-35.0) 03/05/23 17:54
Estimated Creat Clear 104 ml/min 03/25/23 04:04
Lactic Acid 1.2 mmol/L (0.7-2.0) 03/21/23 16:57
Total Bilirubin 0.5 mg/dl (0.2-1.3) 03/18/23 03:36
GGT 1086 U/L (15-73) H 03/05/23 17:54
AST 30 U/L (17-59) 03/18/23 03:36
ALT 32 U/L (0-50) 03/18/23 03:36
Alkaline Phosphatase 109 U/L (38-126) 03/18/23 03:36
C-Reactive Protein 77.30 mg/L (0.0-10.00) H 03/07/23 04:56
Amylase 81 U/L (30-110) 03/06/23 05:16
Most recent labs reviewed.
Micro Results:
03/21/23 16:58 Blood Culture - Preliminary
Blood/Venous No Growth in 72 hours- Final report to follow
03/21/23 16:58 Blood Culture - Preliminary
Blood/Venous No Growth in 72 hours- Final report to follow
03/23/23 04:33 Influenza Types A & B (CHRISTIANNE) - Final
Nasal Swab Negative for Influenza A & B, NAAT
Negative results must be combined with clinical observations
and patient history.
Nucleic Acid Amplification test (NAAT)performed on the
[employer] platform.
Imaging:
03/22/2023 CXR: no acute infiltrates noted. No evidence of free intraperitoneal air. Visualized osseous structures are within normal limits.
03/06/2023 MRI abdomen without contrast: Small area of gallstones and/or sludge in the dependent portion of the gallbladder. No evidence for lobar wall thickening or pericholecystic edema. No evidence for biliary ductal dilatation. A 1.3 cm focus
of increased T2 and STIR signal within the head of the pancreas which likely represents a pseudocyst. Follow-up advised. Please see full dictation for additional detail.
[2023-03-25] MEDS: NSS (PRESERVATIVE FREE) 0.5 ML IV ×2 (14:36→19:46)
--- NOTE | 2023-03-25 16:55 | PTCARENOTE ---
Report given to IMU RN and pt. transferred with belongings on personnel monitor to rm [id number]. No further needs from this RN.
[2023-03-25] MEDS: COLACE PO (19:46)
--- NOTE | 2023-03-25 21:28 | PTCARENOTE ---
Received pt at change of shift. Pt is AAOx2. Disoriented to time and occasionally situation. Pt knows he's in [facility] but insistent on leaving in the morning to take girlfriend to work in the snow and then 'will be back'. Administering PRN doses of
morphine for pain and Ativan for agitation. Pt uncooperative and agitated. Pt refuses to allow this RN and PCT to fix monitor leads in order to be properly monitored. Bed alarm active. Call matos within reach.
[2023-03-26] VITALS (16 sets, daily range): BP systolic 107–164; BP diastolic 41–123; BMI 25.4
[2023-03-26] MEDS: ATIVAN 1 MG IV ×4 (00:11→11:50)
[2023-03-26] MEDS: MORPHINE SULFATE 1 MG IV ×3 (00:11→10:15)
[2023-03-26] MEDS: NSS (PRESERVATIVE FREE) 0.5 ML IV ×4 (00:12→11:51)
[2023-03-26] MEDS: MERREM 500 MG IV ×2 (02:30→08:25)
[2023-03-26] MEDS: STERILE WATER FOR INJECTION 10 ML IV ×2 (02:30→08:25)
[2023-03-26] MEDS: LOVENOX 75 MG SC ×2 (04:43→17:11)
[2023-03-26] MEDS: SYNTHROID 25 MCG PO (04:44)
[2023-03-26 05:14] LABS: Hematocrit 38.8 % (39.0-52.0); Hemoglobin 13.1 g/dL (13.0-18.0); Mean Corp Hgb Conc. 33.8 g/dL (33.0-37.0); Mean Corpuscular Hgb 27.6 pg (27.0-31.0); Mean Corpuscular Volume 81.7 fL (80.0-94.0); Mean Platelet Volume 8.4 fL (7.4-10.4); Platelet Count 284 10^3/uL (130-400); Red Blood Cell Count 4.75 10^6/uL (4.70-6.10); Red Cell Dist. Width 15.4 % (11.5-14.5); White Blood Cell Count 7.5 10^3/uL (4.8-10.8)
[2023-03-26 05:28] LABS: NT-proBNP 38.3 pg/ml; Troponin I < 0.012 ng/ml
[2023-03-26 05:50] LABS: Blood Urea Nitrogen 9 mg/dl (9-20); Calcium 9.3 mg/dl (8.4-10.2); Carbon Dioxide 27 mmol/L (22-30); Chloride 100 mmol/L (98-107); Estimated Creatinine Clearance 104 ml/min; Glucose 124 mg/dl (70-99); Magnesium 2.1 mg/dl (1.6-2.3); Phosphorus 3.2 mg/dl (2.5-4.5); Potassium 4.1 mmol/L (3.5-5.1); Sodium 138 mmol/L (135-145); eGFR > 60.00
[2023-03-26] MEDS: ATIVAN 2 MG IV ×2 (06:07→22:55)
--- NOTE | 2023-03-26 07:07 | PTCARENOTE ---
Pt increasingly agitated and not able to be redirected. Pt started to become physical with staff. Notified CREDIT REVIEW ANALYST. b/l wrist restraints ordered. Security called to assist this RN and staff in applying restraints. 1x dose 2mg IV ativan ordered and
administered. Pt remains agitated. Call matos in reach.
[2023-03-26] MEDS: PROTONIX 40 MG PO (08:26)
[2023-03-26] MEDS: FOLVITE 1 MG PO (08:26)
[2023-03-26] MEDS: MAGNESIUM OXIDE 500 MG PO (08:26)
[2023-03-26] MEDS: COLACE 100 MG PO ×2 (08:26→20:49)
[2023-03-26] MEDS: FLOMAX 0.400000000000000022 MG PO (08:26)
[2023-03-26] MEDS: VITAMIN B1 100 MG PO ×2 (08:26→20:49)
[2023-03-26] MEDS: SEROQUEL 50 MG PO ×2 (08:26→20:48)
[2023-03-26] MEDS: THERAGRAN 1 TABLET PO (08:26)
[2023-03-26] MEDS: LOPRESSOR 12.5 MG PO ×2 (08:26→20:48)
--- NOTE | 2023-03-26 09:33 | W.PN.PUL3 ---
Today's Communication / Plan
-
ETOH w/d improving
ECHO reviewed, normal
Consider transition to OAC if available
Consider stopping abx and observing off, ID following
MSAS protocol continued, psych following
Assessment
-
57-year-old male with a PMHx of alcohol use disorder, Hodgkin's lymphoma and DENICE who presented with abdominal pain X several months, acutely worsened in last few days.� Liver enzymes were elevated/Lipase 1913.� CT abdomen/pelvis showed acute
pancreatitis and an adjacent 1.5 cm suspected pseudocyst.� MRCP showed layering gallstones and/or sludge in the dependent gallbladder without wall thickening or pericholecystic edema.� Patient subsequently developed signs of alcohol withdrawal,
transferred to ICU for Precedex drip 03/07/23.� Surg Tech service was consulted for additional management/recommendations. He is transferred to IMU 03/25/23.
Bilateral submassive pulmonary embolism without RV strain
Acute alcohol withdrawal s/p treatment with precedex gtt
Acute pancreatitis
Transaminitis
Hx of Hodgkin lymphoma s/p left anterior chest wall chemo-port
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
Hodgkin lymphoma s/p left anterior chemo port
DENICE
alcohol use disorder
depression
Hypothermia
Febrile illness
Plan:
Patient had initially required ICU stay for acute alcohol w/d, events and data reviewed
Improved now and moved to IMU, off precedex gtt but maintained on MSAS protocol
TTE obtained and reviewed, normal findings, no significant VHD
Monitor cardiac status on telemetry
Doing well on RA
Maintain SpO2 >90-94%
PE noted, on lovenox SQ
Can consider transition to OAC if cooperative to take
Psych following for agitation episodes
History of ETOH abuse
Wean supplemental oxygen
Aspiration precautions
Nebulizers if needed-currently not bronchospastic
PT/OT
Has been >72 hours afebrile
Cultures reviewed and unrevealing
Chest x-ray-NAD
CT abdomen and pelvis-possible UTI, no other abnormalities
UA negative
Lipase now normal
Infectious disease evaluation ongoing-correspondence reviewed-continue meropenem
Can likely stop abx and observe
Monitor hemoglobin
Transfuse as needed
TSH and free T4 noted albeit checked on different days) -> continue LT4 and re-check TFTs in 4-6 weeks
Outpatient FU
Random cortisol noted
Continue to replace electrolytes as needed
DVT prophylaxis-on therapeutic dosing of Lovenox
GI prophylaxis-on pantoprazole
Nutrition as tolerated
Bedside range of motion/eventual physical therapy
Diagnostic Data:
CXR 03-08-23: no pulm infiltrates. L chest port-A-cath
CT Head 03-08-2023:�No acute intracranial abnormality
MRCP 03-06-2023:�Small layer of gallstones and/or sludge in the dependent portion of the gallbladder. No evidence for lobar wall thickening or pericholecystic edema. There is no evidence for biliary ductal dilation. No evidence for bile duct
calculus. 1.3 cm focus of increased T2 and STIR signal within the head of the pancreas, which very likely represents a pseudocyst. Advise follow-up CT or MRI evaluation with attention to the pancreas in 6 months.
9 mm lesion in the posterior right lobe of the liver, corresponding to lesion seen on recent CT examination, and likely a small hemangioma
Abd US 03-05-2023: Several small shadowing gallstones are present within the gallbladder as well as a small amount of sludge. The bladder wall is slightly thickened, and is nonspecific. No evidence for biliary ductal dilation.
No gross abnormality of the pancreas, with no evidence for peripancreatic collection. Of note, the pancreatic tail is not well-visualized with shadowing from overlying bowel gas.
CTA Chest 03-24-2023:
1. � Small filling defect in the anterior basal left lower lobe pulmonary artery and minimal filling defect in the proximal aspect of the visualized right upper pulmonary arteries consistent with small volume pulmonary emboli bilaterally.
Significant attenuation of the left upper lobe pulmonary arteries limits evaluation.
2. � No aortic dissection or aneurysm.
3. � The 4 mm nodule in the right middle lobe is not clearly identified on prior chest CT due to motion artifact on the previous exam. Consider follow-up chest CT in 6 months to document stability.
ECHO 03/26/23: Normal LV size and function with no regional wall motion abnormality. Estimated ejection fraction of 55 to 60%.�RV free wall not well-seen, however, appears to be normal size with normal�function.
No significant valvular disease.�Compared to prior from September 14, 2022, no significant change.
�
Subjective Data
-
Date of Service:
Date of Service: March 26, 2023
Chief Complaint: Pulmonary Follow Up
Subjective:
patient seen and examined, remains in restraints
somewhat confused on conversation
anxious appearing
Objective Data
Data Reviewed
Vital Signs / I&O / Oxygen:
Vital Signs
Temp Pulse Resp BP Pulse Ox
98.9 F 112 19 149/97 95
03/26/23 03:05 03/26/23 08:26 03/26/23 06:01 03/26/23 08:26 03/25/23 19:45
Intake and Output
03/25/23 03/26/23 03/27/23
06:59 06:59 06:59
Intake Total 1140 / 1140 480 / 480
Output Total 250 / 250 1200 / 1200
Balance 890 / 890 -720 / -720
SaO2 95
Nasal Cannula flow liters per 4
minute
Physical Exam
General: Respiratory Distress (Negative), Comfortable and Other (anxious appearing)
HEENT: Normocephalic, Anicteric and Moist Mucous Membranes
Cardiovascular: S1-S2, Regular Rhythm, Peripheral Edema (Negative) and Other (Tachycardic)
Respiratory: Clear, Wheeze (Negative), Crackles (Negative) and Non-Labored Respirations
GI: Soft, Non Distended and Non Tender
Neurology: Awake, Alert, No Motor Deficits, Tremors (negative) and Other (confused, not answering questions appropriately)
Skin: Warm and Dry
Labs/Micro/Reports
Lab Data
03/26/23 04:54
03/26/23 04:54
Microbiology
03/21/23 16:58 Blood/Venous Blood Culture - Preliminary
No Growth in 4 days- Final report to follow
03/21/23 16:58 Blood/Venous Blood Culture - Preliminary
No Growth in 4 days- Final report to follow
03/23/23 04:33 Nasal Swab Influenza Types A & B (CHRISTIANNE) - Final
Negative for Influenza A & B, NAAT
Negative results must be combined with clinical observations
and patient history.
Nucleic Acid Amplification test (NAAT)performed on the
[employer] platform.
--- NOTE | 2023-03-26 10:18 | W.PN.HOSP.TC ---
Today's Communication/Plan
-
Neuro eval
MRI
Assessment / Plan
Assessment / Plan
CVS: S1-S2 normal
Chest: CTA B/L
Abdomen: Soft, patient states he has abdomen discomfort , wont let me touch.
Extremities: No edema, normal pulses
PULMONOLOGIST: Non focal exam, no neck stiffness
#TME
-Treated as Alcohol withdrawal
Alcohol use disorder
-Was having Inappropriate behavior, hurting staff , inappropriate language - Much better - still hallucinating
-Off Precedex, Ativan scheduled held and prn.
-Phenobarbital taper completed .
-Risperidone ineffective, switched to Seroquel to be continued
-Last time patient was here for 23 days with similar presentation
-Off restraints as of yesterday. Again on restraints now. He was agitated overnight
-Patient is more cooperative now therefore we will order an MRI of the brain with and without contrast-patient agreeable-we can use a milligram of Ativan as needed
-With patient having Isabella urine also check Urine Porphobilinogen, Porphyrin (R/O AIP)
-Warnicke's encephalopathy/Korsakoff's need to be entertained
-Neurology evaluation requested
# Segmental PE-started on Lovenox weight-based
-Will switch to Eliquis soon
-Venous Dopplers with no DVT
#Fevers
-Unclear source
-Bld Cx pending
-Covid Neg
-Chest x-ray negative
-CT of the abdomen and pelvis-1 cm pancreatic pseudocyst unchanged. Multiple 2 cm pseudocyst also unchanged. Diffuse thickening of the urinary bladder wall and enlargement of the prostate
-Abdomen exam unreliable
-Elevated procalcitonin level noted
-ID eval appreciated
-Started on meropenem
#Hypothyroidism
-TSH high but T4 wnl, rechecked with next AM labs, TSH improved but remains elevated >10 though T4 wnl, started low dose Synthroid 25 mcg daily
-Cortisol low, rechecked with next AM labs wnl
#Acute pancreatitis
Pancreatic pseudocyst
-Elevated lipase of 1913 -normalized
-CT a/p showing inflammation of pancreas
-Abdominal ultrasound showing gallstone as well although CBD of 4.6 mm only
-MRI/MRCP showing pancreatic pseudocyst. no choledocholithiasis
-Likely alcohol use related.�
-Low fat diet as tolerated
#Acute transaminitis - trending down/resolving
-Alcohol use related likely
-AST 911 ALT 442 ALP 210 TBilli 2.3 on admission
-Hepatitis serology negative
-Alcohol abstinence recommended
#Acute hypoxic respiratory insufficiency-secondary to atelectasis likely also has PE now
Incentive spirometry
Encourage seated position
#Essential HTN
-Restarted Toprol -12.5 twice daily and titrate up
#Chronic hypotension on midodrine as outpatient
#Fatty liver-likely secondary to alcohol use
#Thickening of the wall of the gastric antrum-likely secondary to pancreatitis however needs EGD as outpatient
On PPI
#Enlarged prostate
-On Flomax
#Depression/anxiety
-Discontinued citalopram
-Diazepam on hold , PRN Ativan now
#History of Hodgkin's lymphoma
8 years ago treated in [place]
#DVT PPX - Lovenox
#Full code
D/W RN
Anticipated Discharge: > 48 hours
Subjective/Interval History
-
Date of Service: March 26, 2023
Objective Data
-
Labs:
Laboratory Results
03/26/23
04:54
WBC 7.5
Hgb 13.1
Hct 38.8 L
Plt Count 284
Sodium 138
Potassium 4.1
Chloride 100
Carbon Dioxide 27
BUN 9
Creatinine 0.7
Glucose 124 H
Calcium 9.3
Vital Signs:
Vital Signs
Temp Pulse Resp BP Pulse Ox
98.2 F 112 17 149/97 95
03/26/23 09:41 03/26/23 08:26 03/26/23 08:09 03/26/23 08:26 03/25/23 19:45
I&O
03/25/23 03/26/23 03/27/23
06:59 06:59 06:59
Intake Total 1140 / 1140 480 / 480
Output Total 250 / 250 1200 / 1200
Balance 890 / 890 -720 / -720
--- NOTE | 2023-03-26 10:39 | PTCARENOTE ---
Assumed care of patient this morning. He did answer all orientation questions appropriately this morning, however in conversation, he is still very confused. He was listing reasons this morning of why he would be able to go home and just 'come back
Saturday.' When RN mentioned weather outside, pt reports 'it's only 5 miles' and he would walk home in the snow. He was also angry that his family has not come in yet because they have '4 wheel drive' vehicles. He remains in b/l wrist restraints for
safety. He has set off the bed alarm once following loosening of restraints for his breakfast. He did feed himself and ate 100%. He has been continent asking for help with urinal. I spoke with his mother, Yvonne this morning and updated her.
Assessment, care and VS as charted.
--- NOTE | 2023-03-26 13:08 | CON.NEURO ---
Consultation
Order
CC: 'I will go home'
HPI: This is a 57-year-old man who presented to [facility] on March 05, 2023 with abdominal pain. Neurology consultation was requested for an evaluation and management of encephalopathy. History of prior endorses no complaints.
He requests to be released to go home.
According to EMR patient has had fluctuating mental status as well behavioral symptoms according 4 point soft restraints. No reports of seizures.
VS: 149/94, HR 112-124, afebrile.
Labs: Normal WBCs, sodium, platelets, glucose 124,
LDL-111, vitamin B12�824.
MAR: Lorazepam 1.5 mg at 11:50 AM IV today, Meropenem, Seroquel 50mg,
CT head(03/08/2023)-chronic calcifications of the left murdock radiata
Routine EEG(03/14/2023)-normal
PMH: Hodgkin lymphoma, hypothyroidism, DENICE, ETOH addiction, pancreatic/�mesenteric pseudocyst, BPH
PSH:
SH:lives with girlfriend; former smoker;
All: Hydromorphone (pruritus)
ROS:Constitutional: Negative. Negative for chills, fever and unexpected weight change.
HENT: Negative for ear pain, hearing loss, tinnitus and trouble swallowing.
Eyes: Negative. Negative for photophobia, pain and visual disturbance.
Respiratory: Negative for cough, choking and shortness of breath.
Cardiovascular: Negative for chest pain, palpitations and leg swelling.
Gastrointestinal: Negative for abdominal pain and vomiting.
Endocrine: Negative. Negative for cold intolerance.
Genitourinary: Negative for dysuria, flank pain and urgency.
Musculoskeletal: Negative for back pain, gait problem, neck pain and neck stiffness.
Skin: Negative for rash.
Allergic/Immunologic: Negative. Negative for immunocompromised state.
Neurological: Positive for confusion
Psychiatric/Behavioral: Positive for agitation
General: Well developed. Intermittently agitated. 4 point restraints
Cardio: Tachycardic
Neuro:
Mental Status: Alert, oriented to self, place, 2023. Labile mood. Poor attention, fluent. No hemineglect.
Cranial Nerves: Pupils are equally round and reactive to light. EOMs full. Visual tilley full to confrontation. No ptosis. No nystagmus. V1-V3 intact to light touch and pinprick bilaterally, symmetric. Face symmetric. Normal hearing AU. The
palate elevated well. SCMs and traps 5/5. Tongue midline. No dysarthria.
Motor: Moves all limbs spontaneously within bed plane
Reflexes: neg clonus BL
Sensory: stated that normal at the toes
Coordination: No tremors or myoclonic movements
Gait: deferred
Assessment and Plan:
I. Probable agitated delirium
II. Multifactorial encephalopathy(toxic,
III. ETOH addiction
IV. 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
-Delirium precautions
-Avoid medications known to have neuro toxic side effects (meropenem)
-Delirium precautions
-Brain MRI without denice
-Please check vit D, P levels
-Avoid benzodiazepines, opioids
I personally reviewed all radiology and labs along with past medical records pertinent to current medical problems.
Thank you for allowing us to participate in the care of this patient. We will continue to follow. Please do not hesitate to contact us with any questions or concerns.
Subjective/Objective
Subjective Data
Date of Service: March 26, 2023
Objective Data
Vital Signs
Temp Pulse Resp BP Pulse Ox
36.4 C 112 17 149/97 95
03/26/23 12:19 03/26/23 08:26 03/26/23 08:09 03/26/23 08:26 03/25/23 19:45
Lab Results
03/26/23 04:54
03/26/23 04:54
PT 14.1 Sec (11.4-14.6) 03/05/23 17:54
INR 1.07 03/05/23 17:54
APTT 31.6 Sec (23.4-35.0) 03/05/23 17:54
Sodium 138 mmol/L (135-145) 03/26/23 04:54
Potassium 4.1 mmol/L (3.5-5.1) 03/26/23 04:54
BUN 9 mg/dl (9-20) 03/26/23 04:54
Glucose 124 mg/dl (70-99) H 03/26/23 04:54
Calcium 9.3 mg/dl (8.4-10.2) 03/26/23 04:54
Phosphorus 3.2 mg/dl (2.5-4.5) 03/26/23 04:54
Xqm-J-Lglmeyxscrw Pept 38.3 pg/ml 03/26/23 04:54
LDL Cholesterol, Calc 111 mg/dl 03/06/23 05:16
Vitamin B12 824 pg/ml (239-931) 03/08/23 03:58
Ur Buprenorphine Negative (Negative) 03/05/23 18:00
Patient Allergies
hydromorphone [From Dilaudid] Allergy (Verified 03/08/23 21:50)
Itching
Medications
-
Active Medications
Generic Name Dose Route Start Last Admin
Trade Name Freq PRN Reason Stop Dose Admin
Acetaminophen 650 mg 03/21/23 16:34 03/22/23 18:16
Acetaminophen 325 Mg Tablet PO 04/18/23 16:33 650 mg
Q6HPRN PRN Administration
mild pain/ fever>100.5F
Clonidine HCl 0.1 mg 03/22/23 10:00
Clonidine 0.1 Mg Tablet PO 04/19/23 09:59
BID JANNET
Docusate Sodium 100 mg 03/13/23 20:00 03/26/23 08:26
Docusate Sodium 100 Mg Capsule PO 04/10/23 19:59 100 mg
BID JANNET Administration
Enoxaparin Sodium 75 mg 03/24/23 18:00 03/26/23 04:43
Enoxaparin Sodium 80 Mg/0.8 Ml Syringe SC 04/21/23 17:59 75 mg
Q12H JANNET Administration
Folic Acid 1 mg 03/06/23 08:00 03/26/23 08:26
Folic Acid 1 Mg Tablet PO 04/03/23 07:59 1 mg
DAILY JANNET Administration
Heparin Sodium (Porcine) 500 unit 03/07/23 16:13 03/26/23 08:26
Heparin Flush Pf (100 Unit/Ml) 5 Ml Syringe IV 04/04/23 16:12 500 unit
PRN PRN Administration
PORT FLUSH
Hydralazine HCl 10 mg 03/10/23 00:45 03/24/23 09:05
Hydralazine 20 Mg/Ml Vial IV 04/07/23 00:44 10 mg
Q4HPRN PRN Administration
SBP>160
Folic Acid 1 mg/ Sodium 50.2 mls @ 200.8 mls/hr 03/05/23 17:41
Chloride IV 04/02/23 17:40
DAILYPRN PRN
if NPO
Levothyroxine Sodium 25 mcg 03/20/23 08:00 03/26/23 04:44
Levothyroxine 25 Mcg Tablet PO 04/17/23 07:59 25 mcg
DAILY AT 0700 JANNET Administration
Lorazepam 1 mg 03/21/23 15:30 03/26/23 11:50
Lorazepam 2 Mg/Ml Vial IV 04/18/23 15:29 1 mg
Q2HPRN PRN Administration
agitation
Magnesium Oxide 500 mg 03/23/23 08:00 03/26/23 08:26
Magnesium Oxide 500 Mg Tablet PO 04/20/23 07:59 500 mg
DAILY JANNET Administration
Meropenem 500 mg 03/22/23 14:00 03/26/23 08:25
Meropenem 500 Mg/10 Ml Vial IV 500 mg
Q6H JANNET Administration
Metoprolol Tartrate 12.5 mg 03/10/23 20:00 03/26/23 08:26
Metoprolol 12.5 Mg Regular Release Dose (1/2 Of 25 Mg Tablet) PO 04/07/23 19:59 12.5 mg
BID JANNET Administration
Morphine Sulfate 1 mg 03/22/23 13:52 03/26/23 10:15
Morphine 2 Mg/Ml Syringe IV 04/05/23 13:51 1 mg
Q2HPRN PRN Administration
moderate - severe pain
Multivitamins Therapeutic 1 tablet 03/10/23 08:00 03/26/23 08:26
Multivitamin Tablet PO 04/07/23 07:59 1 tablet
DAILY JANNET Administration
Pantoprazole Sodium 40 mg 03/12/23 08:00 03/26/23 08:26
Pantoprazole 40 Mg Delayed Release Tablet PO 04/09/23 07:59 40 mg
DAILY JANNET Administration
Quetiapine Fumarate 50 mg 03/20/23 20:00 03/26/23 08:26
Quetiapine 25 Mg Tablet PO 04/17/23 19:59 50 mg
BID JANNET Administration
Sodium Chloride 0 flush 03/05/23 18:00
Sodium Chloride 0.9% (Flush) Syringe IV 04/02/23 17:59
PER PROTOCOL JANNET
Sodium Chloride 0.5 ml 03/21/23 15:39 03/26/23 11:51
Nss (Pf) 10 Ml Vial For Ativan 1 Mg Dose IV 04/11/23 14:49 0.5 ml
Q2HPRN PRN Administration
IV LORAZEPAM DILUTION
Sterile Water 10 ml 03/22/23 14:00 03/26/23 08:25
Sterile Water For Injection 10 Ml Vial IV 04/19/23 13:59 10 ml
Q6H JANNET Administration
Tamsulosin HCl 0.4 mg 03/06/23 08:00 03/26/23 08:26
Tamsulosin 0.4 Mg Capsule PO 04/03/23 07:59 0.4 mg
DAILY JANNET Administration
Thiamine HCl 100 mg 03/11/23 20:00 03/26/23 08:26
Thiamine 100 Mg Tablet PO 04/08/23 19:59 100 mg
BID JANNET Administration
Home Medications
Medication Instructions Recorded
tamsulosin 0.4 mg capsule (Flomax) 0.4 mg PO DAILY Urinary Issue 09/04/22
diazepam 5 mg tablet 5 mg PO BID PRN anxiety 3 days #7 09/24/22
tabs
folic acid 1 mg tablet 1 mg PO DAILY Supplement #30 tabs 09/24/22
benzonatate 100 mg capsule 100 mg PO TID PRN cough 03/05/23
citalopram 40 mg tablet 40 mg PO DAILY Mental 03/05/23
Health/Anxiety
diclofenac sodium 50 mg 50 mg PO BIDPRN PRN mild pain 03/05/23
tablet,delayed release
metoprolol tartrate 25 mg tablet 25 mg PO BID Blood Pressure 03/05/23
midodrine 5 mg tablet 5 mg PO TID Blood Pressure 03/05/23
omeprazole 40 mg capsule,delayed 40 mg PO DAILY GERD 03/05/23
release
thiamine HCl (vitamin B1) 100 mg 100 mg PO DAILY Supplement 03/05/23
tablet
Vital Signs and Labs
-
Vital Signs and Labs:
Vital Signs
Temp Pulse Resp BP Pulse Ox
36.4 C 112 17 149/97 95
03/26/23 12:19 03/26/23 08:26 03/26/23 08:09 03/26/23 08:26 03/25/23 19:45
Lab Results
03/26/23 04:54
03/26/23 04:54
PT 14.1 Sec (11.4-14.6) 03/05/23 17:54
INR 1.07 03/05/23 17:54
APTT 31.6 Sec (23.4-35.0) 03/05/23 17:54
Sodium 138 mmol/L (135-145) 03/26/23 04:54
Potassium 4.1 mmol/L (3.5-5.1) 03/26/23 04:54
BUN 9 mg/dl (9-20) 03/26/23 04:54
Glucose 124 mg/dl (70-99) H 03/26/23 04:54
Calcium 9.3 mg/dl (8.4-10.2) 03/26/23 04:54
Phosphorus 3.2 mg/dl (2.5-4.5) 03/26/23 04:54
Plv-E-Zdksgkzohzw Pept 38.3 pg/ml 03/26/23 04:54
LDL Cholesterol, Calc 111 mg/dl 03/06/23 05:16
Vitamin B12 824 pg/ml (046-931) 03/08/23 03:58
Ur Buprenorphine Negative (Negative) 03/05/23 18:00
Home Medications
-
Home Medications
tamsulosin 0.4 mg capsule (Flomax) 0.4 mg PO DAILY Urinary Issue 09/04/22
diazepam 5 mg tablet 5 mg PO BID PRN anxiety 3 days #7 tabs 09/24/22
folic acid 1 mg tablet 1 mg PO DAILY Supplement #30 tabs 09/24/22
benzonatate 100 mg capsule 100 mg PO TID PRN cough 03/05/23
citalopram 40 mg tablet 40 mg PO DAILY Mental Health/Anxiety 03/05/23
diclofenac sodium 50 mg tablet,delayed release 50 mg PO BIDPRN PRN mild pain 03/05/23
metoprolol tartrate 25 mg tablet 25 mg PO BID Blood Pressure 03/05/23
midodrine 5 mg tablet 5 mg PO TID Blood Pressure 03/05/23
omeprazole 40 mg capsule,delayed release 40 mg PO DAILY GERD 03/05/23
thiamine HCl (vitamin B1) 100 mg tablet 100 mg PO DAILY Supplement 03/05/23
Medications
-
Medications:
Generic Name Dose Route Start Last Admin
Trade Name Freq PRN Reason Stop Dose Admin
Acetaminophen 650 mg 03/21/23 16:34 03/22/23 18:16
Acetaminophen 325 Mg Tablet PO 04/18/23 16:33 650 mg
Q6HPRN PRN Administration
mild pain/ fever>100.5F
Clonidine HCl 0.1 mg 03/22/23 10:00
Clonidine 0.1 Mg Tablet PO 04/19/23 09:59
BID JANNET
Docusate Sodium 100 mg 03/13/23 20:00 03/26/23 08:26
Docusate Sodium 100 Mg Capsule PO 04/10/23 19:59 100 mg
BID JANNET Administration
Enoxaparin Sodium 75 mg 03/24/23 18:00 03/26/23 04:43
Enoxaparin Sodium 80 Mg/0.8 Ml Syringe SC 04/21/23 17:59 75 mg
Q12H JANNET Administration
Folic Acid 1 mg 03/06/23 08:00 03/26/23 08:26
Folic Acid 1 Mg Tablet PO 04/03/23 07:59 1 mg
DAILY JANNET Administration
Heparin Sodium (Porcine) 500 unit 03/07/23 16:13 03/26/23 08:26
Heparin Flush Pf (100 Unit/Ml) 5 Ml Syringe IV 04/04/23 16:12 500 unit
PRN PRN Administration
PORT FLUSH
Hydralazine HCl 10 mg 03/10/23 00:45 03/24/23 09:05
Hydralazine 20 Mg/Ml Vial IV 04/07/23 00:44 10 mg
Q4HPRN PRN Administration
SBP>160
Folic Acid 1 mg/ Sodium 50.2 mls @ 200.8 mls/hr 03/05/23 17:41
Chloride IV 04/02/23 17:40
DAILYPRN PRN
if NPO
Levothyroxine Sodium 25 mcg 03/20/23 08:00 03/26/23 04:44
Levothyroxine 25 Mcg Tablet PO 04/17/23 07:59 25 mcg
DAILY AT 0700 JANNET Administration
Lorazepam 1 mg 03/21/23 15:30 03/26/23 11:50
Lorazepam 2 Mg/Ml Vial IV 04/18/23 15:29 1 mg
Q2HPRN PRN Administration
agitation
Magnesium Oxide 500 mg 03/23/23 08:00 03/26/23 08:26
Magnesium Oxide 500 Mg Tablet PO 04/20/23 07:59 500 mg
DAILY JANNET Administration
Meropenem 500 mg 03/22/23 14:00 03/26/23 08:25
Meropenem 500 Mg/10 Ml Vial IV 500 mg
Q6H JANNET Administration
Metoprolol Tartrate 12.5 mg 03/10/23 20:00 03/26/23 08:26
Metoprolol 12.5 Mg Regular Release Dose (1/2 Of 25 Mg Tablet) PO 04/07/23 19:59 12.5 mg
BID JANNET Administration
Morphine Sulfate 1 mg 03/22/23 13:52 03/26/23 10:15
Morphine 2 Mg/Ml Syringe IV 04/05/23 13:51 1 mg
Q2HPRN PRN Administration
moderate - severe pain
Multivitamins Therapeutic 1 tablet 03/10/23 08:00 03/26/23 08:26
Multivitamin Tablet PO 04/07/23 07:59 1 tablet
DAILY JANNET Administration
Pantoprazole Sodium 40 mg 03/12/23 08:00 03/26/23 08:26
Pantoprazole 40 Mg Delayed Release Tablet PO 04/09/23 07:59 40 mg
DAILY JANNET Administration
Quetiapine Fumarate 50 mg 03/20/23 20:00 03/26/23 08:26
Quetiapine 25 Mg Tablet PO 04/17/23 19:59 50 mg
BID JANNET Administration
Sodium Chloride 0 flush 03/05/23 18:00
Sodium Chloride 0.9% (Flush) Syringe IV 04/02/23 17:59
PER PROTOCOL JANNET
Sodium Chloride 0.5 ml 03/21/23 15:39 03/26/23 11:51
Nss (Pf) 10 Ml Vial For Ativan 1 Mg Dose IV 04/11/23 14:49 0.5 ml
Q2HPRN PRN Administration
IV LORAZEPAM DILUTION
Sterile Water 10 ml 03/22/23 14:00 03/26/23 08:25
Sterile Water For Injection 10 Ml Vial IV 04/19/23 13:59 10 ml
Q6H JANNET Administration
Tamsulosin HCl 0.4 mg 03/06/23 08:00 03/26/23 08:26
Tamsulosin 0.4 Mg Capsule PO 04/03/23 07:59 0.4 mg
DAILY JANNET Administration
Thiamine HCl 100 mg 03/11/23 20:00 03/26/23 08:26
Thiamine 100 Mg Tablet PO 04/08/23 19:59 100 mg
BID JANNET Administration
--- NOTE | 2023-03-26 13:28 | W.PN.UPDATE ---
Update Note
Progress Note Update
Pt seen, reviewed with nursing staff. Pt reportedly still somewhat confused and agitated at times, although alert and oriented this morning. He was reportedly agitated last night, wanting to go home, required restraints. Pt taking Seroquel 50 mg
BID since 03/20. MSAS has been stopped, though pt continues to have a prn Ativan 1 mg order, received varying numbers of doses per day, 5 times yesterday, 4 since overnight/today. Pt seen, lying in bed, disheveled, behavior somewhat disorganized,
speech rambling, sensorium not completely clear.
Imp: Alcohol use d/o, severe; protracted withdrawal delirium, similar to previous hospital course
Rec:� Continue Seroquel, monitor due to prolonged QT.
Will place on routine scheduled Ativan and slowly taper
Will follow
[2023-03-26] MEDS: STERILE WATER FOR INJECTION IV (13:44)
--- NOTE | 2023-03-26 14:23 | PTCARENOTE ---
Patient agitated throughout afternoon, wanting to go home. MRI called for patient, patient refusing at this time and patient also attempting to get out of restraints. Patient remained in b/l wrist restraints for protective measures and risk of
elopement.
--- NOTE | 2023-03-26 15:54 | W.PN.ID1 ---
Date of Service
Date of Service: March 26, 2023
Today's Communication
Continue antibiotics. See below�
Assessment / Plan
Pancreatic Pseudocyst - likely infected
Fever - resolved
Leukocytosis - resolved
Pancreatitis; improved
CK; rising
Anxiety
Chronic back pain
Hodgkin's lymphoma
EtOH abuse
Recommendations:
had pancreatitis just over [address] a/p likely pancreatitc pseudocyst, possible cystitis
blood cultures x2 no growth to date
qtc acceptable
Neurology note reviewed.
Transition from meropenem to cefdinir + metronidazole with close observation.
Follow white count and temperature curve.
����������������������������������������������������������
Chief Complaint
-: Fever, Leukocytosis and Other (Pancreatic pseudocyst)
Subjective / Review of Systems
Review of Systems: No Fever
Vital Signs / Physical Exam
Vital Signs
Vital Signs
Temp Pulse Resp BP Pulse Ox
97.5 F 116 23 107/63 95
03/26/23 12:19 03/26/23 14:00 03/26/23 14:00 03/26/23 14:00 03/25/23 19:45
Physical Exam
Constitutional: No Acute Distress, Comfortable and Non-toxic
Cardiovascular: S1/S2; Negative S3/S4
Pulmonary: Non Labored
Gastrointestinal: Soft, Non Distended and Normal Bowel Sounds
Neurological: Awake
Psychological: Confused
Objective Data
Lab Data
Lab Results
03/26/23 04:54
03/26/23 04:54
PT 14.1 Sec (11.4-14.6) 03/05/23 17:54
INR 1.07 03/05/23 17:54
APTT 31.6 Sec (23.4-35.0) 03/05/23 17:54
Estimated Creat Clear 104 ml/min 03/26/23 04:54
Lactic Acid Cancelled 03/25/23 20:30
Total Bilirubin 0.5 mg/dl (0.2-1.3) 03/18/23 03:36
GGT 1086 U/L (15-73) H 03/05/23 17:54
AST 30 U/L (17-59) 03/18/23 03:36
ALT 32 U/L (0-50) 03/18/23 03:36
Alkaline Phosphatase 109 U/L (38-126) 03/18/23 03:36
C-Reactive Protein 77.30 mg/L (0.0-10.00) H 03/07/23 04:56
Amylase 81 U/L (30-110) 03/06/23 05:16
Most recent labs reviewed.
Micro Results:
03/21/23 16:58 Blood Culture - Preliminary
Blood/Venous No Growth in 4 days- Final report to follow
03/21/23 16:58 Blood Culture - Preliminary
Blood/Venous No Growth in 4 days- Final report to follow
03/23/23 04:33 Influenza Types A & B (CHRISTIANNE) - Final
Nasal Swab Negative for Influenza A & B, NAAT
Negative results must be combined with clinical observations
and patient history.
Nucleic Acid Amplification test (NAAT)performed on the
[employer] platform.
Imaging:
03/22/2023 CXR: no acute infiltrates noted. No evidence of free intraperitoneal air. Visualized osseous structures are within normal limits.
03/06/2023 MRI abdomen without contrast: Small area of gallstones and/or sludge in the dependent portion of the gallbladder. No evidence for lobar wall thickening or pericholecystic edema. No evidence for biliary ductal dilatation. A 1.3 cm focus
of increased T2 and STIR signal within the head of the pancreas which likely represents a pseudocyst. Follow-up advised. Please see full dictation for additional detail.
--- NOTE | 2023-03-26 16:30 | PTCARENOTE ---
ID, walked into patient room and found him with the plastic knife from his lunch tray attempting to cut off his restraints. Pt did rip off his ID bracelet. Pt very agitated stating he needs to get out of here. Pt's restraints adjusted.
Then few minutes later, patient was found with one side rail down and attempting to slide his body out of bed. Pt frequently stating he needs to go home. Mother, Yvonne called and updated. Now Mother and girlfriend are sitting at the bedside. Pt calm
while they are in the room with him.
[2023-03-26] MEDS: FLAGYL 500 MG PO (17:11)
[2023-03-26] MEDS: ATIVAN 1 MG PO (17:11)
[2023-03-26] MEDS: OMNICEF 300 MG PO (20:49)
--- NOTE | 2023-03-26 20:55 | PTCARENOTE ---
Received pt at change of shift. Pt was successful in getting out of wrist restraints twice. They have been placed back on. Pt is not oriented to place and believes that the monitor is burning. Hygiene care attempted but pt refused. Will try
again later in shift. Pt took all oral medications. VSS at this time. Pt able to turn body in bed while restrained and encouraged to do so. Call matos within reach.
[2023-03-26] MEDS: ATIVAN PO ×2 (21:55→21:59)
[2023-03-26] MEDS: NSS (PRESERVATIVE FREE) 1 ML IV (22:55)
--- NOTE | 2023-03-26 23:57 | PTCARENOTE ---
Pt experiences hallucinations with aggressive response to staff. Pt not able to be oriented. Pt hitting, spitting, kicking. DIRECTOR LABOR STANDARDS ordered 4 point soft limb restraints with 1x dose of 2mg IV Ativan. Pt ripped through restraints and deaccessed port.
3 security guards and 4 RNs to reapply restraints. Notified DIRECTOR LABOR STANDARDS again. Transfer to ICU order placed with violent restraints. Also notified psych physician weapons electrical engineering officer to update on pt status; IV team paged to reaccess his port.
[2023-03-27] VITALS (18 sets, daily range): BP systolic 88–171; BP diastolic 61–118; PULSE 108–110; BMI 25.7
[2023-03-27] MEDS: MORPHINE SULFATE 1 MG IV ×2 (00:08→02:31)
[2023-03-27] MEDS: FLAGYL 500 MG PO ×3 (00:17→15:40)
--- NOTE | 2023-03-27 00:33 | VATNOTE ---
PT DEACESSED L SUBQ PRT. REACCESSED PER PROTOCOL DOCUMENTED.
--- NOTE | 2023-03-27 01:00 | PTCARENOTE ---
Received tsx pt from IMU RN, Dayanna. Pt is in 4 point locked restraints w/ spit mask on. Pt continuously tries to elope. Pt also displays confusion towards place and time. Pt states 'I need to get out of this fucking place to help my girlfriend!
She's going to freeze!' Pt c/o whole body pain, 10 out of 10. PRN dose of morphine administered by this RN. VSS.
--- NOTE | 2023-03-27 01:37 | W.PN.UPDATE ---
Update Note
Progress Note Update
pt continues with aggressive behaviors tonight. PT continuously trying to get oob ' because i need to go home.' Pt placed in 4 point soft limb restraints but broke through them. He has required 5 people to hold him down. Ativan 2mg iv given and
didn't touch him. Transfer order placed to ICU for leather restraints.
--- NOTE | 2023-03-27 04:00 | PTCARENOTE ---
2nd dose of PRN morphine administered by this RN for whole body pain 10 out of 10. Pt has calmed down significantly. Restraints removed after pt demonstrated understanding of having to stay in bed and follow instructions. 1:1 observation maintained.
VSS.
[2023-03-27] MEDS: LOVENOX SC (07:06)
--- NOTE | 2023-03-27 07:30 | PTCARENOTE ---
Assumed care of patient. Pt rec'd quietly sleeping in room. NSR/ST on monitor. On R/A....resp rate 14. 1:1 d/c'd while pt sleeping. Safe environment confirmed. Bed alarm on. Will continue to monitor closely.
--- NOTE | 2023-03-27 08:17 | W.PN.NEURO.1 ---
Today's Communication / Plan
-
.
Neuro Assessment/Plan
Assessment
This is a 57-year-old man who presented to on 03/05/23 with report of abdominal pain.�He completed a phenobarbital taper for alcohol withdraw. Neurology consultation was requested for an evaluation and management of encephalopathy.� History of
prior endorses no complaints.�
According to EMR patient has had fluctuating mental status as well behavioral symptoms according 4 point soft restraints.� No reports of seizures.
Routine EEG(03/14/2023)-normal
I.� Probable agitated delirium
II.� Multifactorial encephalopathy (toxic, metabolic
III. ETOH addiction
IV.� Chronic left murdock radiata calcifications, likely dystrophic
Plan
-Delirium precautions
-Avoid medications known to have neuro toxic side effects (meropenem)
-Delirium precautions
-Brain MRI without gorge
-Avoid benzodiazepines, opioids
-DVT prophylaxis
Subjective/Objective
Subjective Data
Date of Service: March 27, 2023
Patient transferred to the ICU overnight due to severe agitation/breaking through soft restraints. Currently he is sleepind and resistant to any conversation/examination.
Objective Data
Vital Signs
Temp Pulse Resp BP Pulse Ox
99.7 F 113 16 163/105 96
03/27/23 00:04 03/27/23 01:00 03/27/23 01:00 03/27/23 01:00 03/26/23 18:01
Lab Results
03/26/23 04:54
03/26/23 04:54
PT 14.1 Sec (11.4-14.6) 03/05/23 17:54
INR 1.07 03/05/23 17:54
APTT 31.6 Sec (23.4-35.0) 03/05/23 17:54
Sodium 138 mmol/L (135-145) 03/26/23 04:54
Potassium 4.1 mmol/L (3.5-5.1) 03/26/23 04:54
BUN 9 mg/dl (9-20) 03/26/23 04:54
Glucose 124 mg/dl (70-99) H 03/26/23 04:54
Calcium 9.3 mg/dl (8.4-10.2) 03/26/23 04:54
Phosphorus 3.2 mg/dl (2.5-4.5) 03/26/23 04:54
Vqg-B-Awuqnvorbgx Pept 38.3 pg/ml 03/26/23 04:54
LDL Cholesterol, Calc 111 mg/dl 03/06/23 05:16
Vitamin B12 824 pg/ml (239-931) 03/08/23 03:58
Ur Buprenorphine Negative (Negative) 03/05/23 18:00
Patient Allergies
hydromorphone [From Dilaudid] Allergy (Verified 03/08/23 21:50)
Itching
Review of Systems
-
Unable to obtain full review of systems at this time due to: Other (patient refusing conversation)
Physical Exam
-
General: No Apparent Distress
HEENT: Normocephalic
Respiratory: No Dyspnea
GI: Non-distended
Extremities: No Clubbing, No Cyanosis and No Edema
Psych: Unable to Assess
Extended Neurological Exam
Mood & Affect: Unable to Assess
Attention Span & Concentration: Unable to assess
Memory: Unable to Assess
Tremor: Hand Tremor Absent and Head Tremor Absent
Involuntary Movement: None
Speech: Unable to Assess
Cranial Nerve II: Left Eye: Unable to Assess
Cranial Nerve II: Right Eye: Unable to Assess
Cranial Nerves III, IV, : Extraocular Movement: Unable to Assess
Cranial Nerve V: Facial Sensation: Unable to Assess
Cranial Nerve VII: Facial Symmetry: Normal Facial Symmetry
Cranial Nerve VIII: Hearing: Unremarkable Hearing to Normal Conversational Volume
Cranial Nerves IX, X: Palate Movement: Unable to Assess
Cranial Nerve XI: Shoulder Shrug: Unable to Assess
Cranial Nerve XII: Tongue Protusion: Unable to Assess
Muscle Strength, Overall: Spontaneously Moves
Muscle Bulk & Tone: Unable to Assess
Pronator Drift: Unable to Assess
Deep Tendon Reflexes: Unable to Assess
Cold Sensation: Unable to Assess
Vibration Sensation: Unable to Assess
Touch Sensation: Unable to Assess
Coordination: Unable to Assess
Babinski Sign: Unable to Test
Gait & Station: Unable to Assess
Data Reviewed
-
CT Head: Report Reviewed and Image Reviewed
MRI Head: Ordered and Pending
Labs: Report Reviewed
Reviewed with: Physician, Nurse and Patient
Medications
-
Active Medications
Generic Name Dose Route Start Last Admin
Trade Name Freq PRN Reason Stop Dose Admin
Acetaminophen 650 mg 03/21/23 16:34 03/22/23 18:16
Acetaminophen 325 Mg Tablet PO 04/18/23 16:33 650 mg
Q6HPRN PRN Administration
mild pain/ fever>100.5F
Cefdinir 300 mg 03/26/23 20:00 03/27/23 10:03
Cefdinir 300 Mg Capsule PO 300 mg
Q12 JANNET Administration
Clonidine HCl 0.1 mg 03/22/23 10:00
Clonidine 0.1 Mg Tablet PO 04/19/23 09:59
BID JANNET
Docusate Sodium 100 mg 03/13/23 20:00 03/27/23 10:04
Docusate Sodium 100 Mg Capsule PO 04/10/23 19:59 100 mg
BID JANNET Administration
Enoxaparin Sodium 75 mg 03/24/23 18:00 03/27/23 07:06
Enoxaparin Sodium 80 Mg/0.8 Ml Syringe SC 04/21/23 17:59 Not Given
Q12H JANNET
Folic Acid 1 mg 03/06/23 08:00 03/27/23 10:04
Folic Acid 1 Mg Tablet PO 04/03/23 07:59 Not Given
DAILY JANNET
Heparin Sodium (Porcine) 500 unit 03/07/23 16:13 03/27/23 00:08
Heparin Flush Pf (100 Unit/Ml) 5 Ml Syringe IV 04/04/23 16:12 500 unit
PRN PRN Administration
PORT FLUSH
Hydralazine HCl 10 mg 03/10/23 00:45 03/24/23 09:05
Hydralazine 20 Mg/Ml Vial IV 04/07/23 00:44 10 mg
Q4HPRN PRN Administration
SBP>160
Folic Acid 1 mg/ Sodium 50.2 mls @ 200.8 mls/hr 03/05/23 17:41
Chloride IV 04/02/23 17:40
DAILYPRN PRN
if NPO
Levothyroxine Sodium 25 mcg 03/20/23 08:00 03/27/23 10:03
Levothyroxine 25 Mcg Tablet PO 04/17/23 07:59 25 mcg
DAILY AT 0700 JANNET Administration
Lorazepam 1 mg 03/26/23 18:00 03/27/23 10:03
Lorazepam 1 Mg Tablet PO 04/23/23 17:59 1 mg
QID JANNET Administration
Magnesium Oxide 500 mg 03/23/23 08:00 03/27/23 10:03
Magnesium Oxide 500 Mg Tablet PO 04/20/23 07:59 Not Given
DAILY JANNET
Metoprolol Tartrate 12.5 mg 03/10/23 20:00 03/27/23 10:03
Metoprolol 12.5 Mg Regular Release Dose (1/2 Of 25 Mg Tablet) PO 04/07/23 19:59 12.5 mg
BID JANNET Administration
Metronidazole 500 mg 03/26/23 16:00 03/27/23 10:04
Metronidazole 500 Mg Tablet PO 500 mg
Q8 JANNET Administration
Multivitamins Therapeutic 1 tablet 03/10/23 08:00 03/27/23 10:04
Multivitamin Tablet PO 04/07/23 07:59 Not Given
DAILY JANNET
Pantoprazole Sodium 40 mg 03/12/23 08:00 03/27/23 10:03
Pantoprazole 40 Mg Delayed Release Tablet PO 04/09/23 07:59 40 mg
DAILY JANNET Administration
Quetiapine Fumarate 50 mg 03/20/23 20:00 03/27/23 10:04
Quetiapine 25 Mg Tablet PO 04/17/23 19:59 50 mg
BID JANNET Administration
Sodium Chloride 0 flush 03/05/23 18:00
Sodium Chloride 0.9% (Flush) Syringe IV 04/02/23 17:59
PER PROTOCOL JANNET
Tamsulosin HCl 0.4 mg 03/06/23 08:00 03/27/23 10:03
Tamsulosin 0.4 Mg Capsule PO 04/03/23 07:59 0.4 mg
DAILY JANNET Administration
Thiamine HCl 100 mg 03/11/23 20:00 03/27/23 10:04
Thiamine 100 Mg Tablet PO 04/08/23 19:59 Not Given
BID JANNET
Home Medications
Medication Instructions Recorded
tamsulosin 0.4 mg capsule (Flomax) 0.4 mg PO DAILY Urinary Issue 09/04/22
diazepam 5 mg tablet 5 mg PO BID PRN anxiety 3 days #7 09/24/22
tabs
folic acid 1 mg tablet 1 mg PO DAILY Supplement #30 tabs 09/24/22
benzonatate 100 mg capsule 100 mg PO TID PRN cough 03/05/23
citalopram 40 mg tablet 40 mg PO DAILY Mental 03/05/23
Health/Anxiety
diclofenac sodium 50 mg 50 mg PO BIDPRN PRN mild pain 03/05/23
tablet,delayed release
metoprolol tartrate 25 mg tablet 25 mg PO BID Blood Pressure 03/05/23
midodrine 5 mg tablet 5 mg PO TID Blood Pressure 03/05/23
omeprazole 40 mg capsule,delayed 40 mg PO DAILY GERD 03/05/23
release
thiamine HCl (vitamin B1) 100 mg 100 mg PO DAILY Supplement 03/05/23
tablet
--- NOTE | 2023-03-27 08:57 | W.PN.INTV ---
Today's Communication / Plan
Recommendations
Anti-psychotics as per psych
AC with LMWH and would recommend TRX to NOAC assuming it is not cost-prohibitive
prn ativan
Patient stable for downgrade out of ICU to telemetry. Air Antisubmarine Officer/pulmonary service will now sign off. Please reconsult if there are any additional questions/concerns.
Assessment
-
57-year-old male with a PMHx of alcohol use disorder, Hodgkin's lymphoma and DENICE who presented with abdominal pain X several months. Pain got worse over the last few days. Liver enzymes were elevated including alkaline phosphatase, AST and ALT,
bilirubin. Lipase 191. CT abdomen/pelvis showed acute pancreatitis and an adjacent 1.5 cm suspected pseudocyst. There was no calcified gallstones or biliary ductal dilation. Diffuse fatty infiltration of the liver was seen. He was admitted to
the floors on IV fluids. Abdominal ultrasound showed gallstones without evidence of biliary ductal dilation. There was no peripancreatic collection. Gastroenterology has been consulted. MRCP showed layering gallstones and/or sludge in the
dependent gallbladder without wall thickening or pericholecystic edema. There was no biliary duct dilation, no bile duct calculus. 1.3 cm focus at the head of the pancreas suspected to be pseudocyst. Suspected small hemangioma at the right lobe
of the liver measuring 9 mm. Patient continued to be managed but then was exhibiting signs of alcohol withdrawal, requiring several doses of Ativan. Alcohol withdrawal symptoms worsened and he was transferred to the ICU for further care and
Precedex drip. He was diagnosed with a acute pulmonary embolism on 03/24 and was started on anticoagulation. He improved, was downgraded to IMU. He now is being transferred back to ICU due to extreme agitation requiring 4 point leather restraints.
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
Hodgkin lymphoma s/p left anterior chemo port,
DENICE,
alcohol use disorder,
depression
Hypothermia
Febrile illness
Impression:
#Acute agitation likely due to delirium - required 4 point leather restraints, which he is now off of
#Bilateral submassive pulmonary embolism without RV strain
#Acute alcohol withdrawal s/p precedex gtt
#Acute pancreatitis
#Transaminitis
#Hx of Hodgkin lymphoma s/p left anterior chest wall chemo-port
Plan:
Psych came by to see patient and they will adjust his anti-psychotic medications --> going back to risperdal and stopping seroquel.
Outpatient alcohol rehab per patient, as he first needs to go to skilled rehab as per PT
Maintain SpO2 >90-94%
PT/OT
Wean supplemental oxygen
Aspiration precautions
Nebulizers if needed-currently not bronchospastic
Regarding his PE, he should continue on AC for minimum of 3 months. Would recommend eval from hematology for hypercoagulable workup and to decide duration of AC
If he takes PO meds, then change LMWH to NOAC (Eliquis assuming pt can afford medication).
Spiked temperature 03/21/2023
Cultures unrevealing
Chest x-ray-NAD
CT abdomen and pelvis-possible UTI, no other abnormalities
UA negative
Lipase now normal
Infectious disease evaluation ongoing-correspondence reviewed-continue meropenem
Intermittent fluid boluses if needed
Monitor hemoglobin
Transfuse as needed
TSH and free T4 noted (albeit checked on different days) -> continue LT4 and re-check TFTs in 4-6 weeks
Random cortisol noted
Continue to replace electrolytes
DVT prophylaxis-on therapeutic dosing of Lovenox
GI prophylaxis-on pantoprazole
Nutrition as tolerated
Bedside range of motion/eventual physical therapy
Dispo: Patient off restraints, is calm, in NAD, on room air, saturating >94%, and is stable for downgrade out of ICU to telemetry. Psych to continue to follow along. Air Antisubmarine Officer/pulmonary service will now sign off. Please reconsult if there are
any additional questions/concerns. Thank you for allowing us to be involved in the care of this patient.
Data:
CXR 03-08-23: no pulm infiltrates. L chest port-A-cath
CT Head 03-08-2023:�No acute intracranial abnormality
MRCP 03-06-2023:�Small layer of gallstones and/or sludge in the dependent portion of the gallbladder. No evidence for lobar wall thickening or pericholecystic edema.
There is no evidence for biliary ductal dilation. No evidence for bile duct calculus.
1.3 cm focus of increased T2 and STIR signal within the head of the pancreas, which very likely represents a pseudocyst. Advise follow-up CT or MRI evaluation with attention to the pancreas in 6 months.
9 mm lesion in the posterior right lobe of the liver, corresponding to lesion seen on recent CT examination, and likely a small hemangioma
Abd US 03-05-2023:
Several small shadowing gallstones are present within the gallbladder as well as a small amount of sludge. The bladder wall is slightly thickened, and is nonspecific.
No evidence for biliary ductal dilation.
No gross abnormality of the pancreas, with no evidence for peripancreatic collection. Of note, the pancreatic tail is not well-visualized with shadowing from overlying bowel gas.
CTA Chest 03-24-2023:
1. � Small filling defect in the anterior basal left lower lobe pulmonary artery and minimal filling defect in the proximal aspect of the visualized right upper pulmonary arteries consistent with small volume pulmonary emboli bilaterally.
Significant attenuation of the left upper lobe pulmonary arteries limits evaluation.
2. � No aortic dissection or aneurysm.
3. � The 4 mm nodule in the right middle lobe is not clearly identified on prior chest CT due to motion artifact on the previous exam. Consider follow-up chest CT in 6 months to document stability.
Subjective Dataa
Subjective Data
Date of Service:
Date of Service: March 27, 2023
Chief Complaint: Air Antisubmarine Officer Follow Up and Pulmonary Follow Up
Subjective:
Seen this AM. TRX here to ICU o/n as needed leather restraints. This AM he is sleeping, which he has been since 4 AM. After he awoken, I spoke with him. He is on room air, saturating 96%. Feels well. Denies any shortness of breath, has
occasional chest pain, denies abdominal pain, fevers or chills. He also occasionally has generalized body ache/pain.
Review of Systems
General: Other (Negative unless mentioned above)
Objective Data
Data Reviewed
Vital Signs / I&O / Oxygen:
Vital Signs
Temp Pulse Resp BP Pulse Ox
97.4 F 90 16 130/95 96
03/27/23 07:10 03/27/23 10:03 03/27/23 01:00 03/27/23 10:03 03/26/23 18:01
Intake and Output
03/26/23 03/27/23 03/28/23
06:59 06:59 06:59
Intake Total 480 / 480 240 / 240
Output Total 1200 / 1200 400 / 400
Balance -720 / -720 -160 / -160
SaO2 96
Nasal Cannula flow liters per 4
minute
Physical Exam
General: Respiratory Distress (n), Comfortable, Chills (Negative) and Other (Thick neck)
HEENT: Normocephalic, Anicteric and Moist Mucous Membranes
Cardiovascular: S1-S2, Murmur and Peripheral Edema (negative)
Respiratory: Clear, Crackles (Bilateral bases), Non-Labored Respirations, Accessory Resp Muscle Use (None), Stridor (n) and Other (poor inspiratory effort)
GI: Soft, Non Distended, Non Tender and Normal Bowel Sounds
Neurology: Awake, Alert and No Motor Deficits
Skin: Warm, Dry, Good Color and Cyanosis (n)
Labs/Micro/Reports
Lab Data
03/26/23 04:54
03/26/23 04:54
Microbiology
03/21/23 16:58 Blood/Venous Blood Culture - Final
No Growth - Final Report
03/21/23 16:58 Blood/Venous Blood Culture - Final
No Growth - Final Report
--- NOTE | 2023-03-27 10:00 | PTCARENOTE ---
Pt able to wake on his own. Assessed by both RN and . Pt able to be conversive w/o issue. Knows name, , place and date...confused to time of day. Assessment documented. Able to take po meds whole w/ water...no issues. Safe
environment confirmed.
[2023-03-27] MEDS: LOPRESSOR 12.5 MG PO ×2 (10:03→19:46)
[2023-03-27] MEDS: PROTONIX 40 MG PO (10:03)
[2023-03-27] MEDS: FLOMAX 0.400000000000000022 MG PO (10:03)
[2023-03-27] MEDS: SYNTHROID 25 MCG PO (10:03)
[2023-03-27] MEDS: OMNICEF 300 MG PO ×2 (10:03→19:46)
[2023-03-27] MEDS: ATIVAN 1 MG PO (10:03)
[2023-03-27] MEDS: MAGNESIUM OXIDE PO (10:03)
[2023-03-27] MEDS: THERAGRAN PO (10:04)
[2023-03-27] MEDS: COLACE 100 MG PO ×2 (10:04→19:46)
[2023-03-27] MEDS: FOLVITE PO (10:04)
[2023-03-27] MEDS: SEROQUEL 50 MG PO (10:04)
[2023-03-27] MEDS: VITAMIN B1 PO ×2 (10:04→19:46)
--- NOTE | 2023-03-27 11:01 | W.PN.HOSP.TC ---
Today's Communication/Plan
-
MRI
Transfer to tele
Assessment / Plan
Assessment / Plan
CVS: S1-S2 normal
Chest: CTA B/L
Abdomen: Soft, patient states he has abdomen discomfort , wont let me touch.
Extremities: No edema, normal pulses
DEVELOPMENT ADVISOR: Non focal exam, no neck stiffness, mostly aware about where
#TME
-Treated as Alcohol withdrawal
Alcohol use disorder
-Was having Inappropriate behavior, hurting staff , inappropriate language - Much better - still hallucinating
-Off Precedex, Ativan scheduled held and prn.
-Phenobarbital taper completed .
-Risperidone ineffective, switched to Seroquel to be continued
-Last time patient was here for 23 days with similar presentation
-Off restraints as of yesterday. Again on restraints now. He was agitated overnight
-Patient is more cooperative now therefore we will order an MRI of the brain with and without contrast-patient agreeable-we can use a milligram of Ativan as needed
-With patient having Isabella urine also check Urine Porphobilinogen, Porphyrin (R/O AIP)
-Warnicke's encephalopathy/Korsakoff's need to be entertained
-Neurology evaluation appreciated
-Patient refused to get MRI yesterday,Ordered again today try and get that done
# Segmental PE-started on Lovenox weight-based
-Will switch to Eliquis soon
-Venous Dopplers with no DVT
#Fevers
-Unclear source
-Bld Cx pending
-Covid Neg
-Chest x-ray negative
-CT of the abdomen and pelvis-1 cm pancreatic pseudocyst unchanged. Multiple 2 cm pseudocyst also unchanged. Diffuse thickening of the urinary bladder wall and enlargement of the prostate
-Abdomen exam unreliable
-Elevated procalcitonin level noted
-ID eval appreciated
-Started on meropenem-switch to cefdinir and Flagyl
#Hypothyroidism
-TSH high but T4 wnl, rechecked with next AM labs, TSH improved but remains elevated >10 though T4 wnl, started low dose Synthroid 25 mcg daily
-Cortisol low, rechecked with next AM labs wnl
#Acute pancreatitis
Pancreatic pseudocyst
-Elevated lipase of 1913 -normalized
-CT a/p showing inflammation of pancreas
-Abdominal ultrasound showing gallstone as well although CBD of 4.6 mm only
-MRI/MRCP showing pancreatic pseudocyst. no choledocholithiasis
-Likely alcohol use related.�
-Low fat diet as tolerated
#Acute transaminitis - trending down/resolving
-Alcohol use related likely
-AST 911 ALT 442 ALP 210 TBilli 2.3 on admission
-Hepatitis serology negative
-Alcohol abstinence recommended
#Acute hypoxic respiratory insufficiency-secondary to atelectasis likely also has PE now
Incentive spirometry
#Essential HTN
-Restarted Toprol -12.5 twice daily
#Chronic hypotension on midodrine as outpatient
#Fatty liver-likely secondary to alcohol use
#Thickening of the wall of the gastric antrum-likely secondary to pancreatitis however needs EGD as outpatient
On PPI
#Enlarged prostate
-On Flomax
#Depression/anxiety
-Discontinued citalopram
-Diazepam on hold , PRN Ativan now
#History of Hodgkin's lymphoma
8 years ago treated in [place]
#DVT PPX - Lovenox
#Full code
D/W RN
Discussed with psychiatry
Discussed with case management
Discussed with patient's mother and updated regarding last night's events and the plan today.
Anticipated Discharge: > 48 hours
Subjective/Interval History
-
Date of Service: March 27, 2023
Objective Data
-
Vital Signs:
Vital Signs
Temp Pulse Resp BP Pulse Ox
97.4 F 90 16 130/95 96
03/27/23 07:10 03/27/23 10:03 03/27/23 01:00 03/27/23 10:03 03/26/23 18:01
I&O
03/26/23 03/27/23 03/28/23
06:59 06:59 06:59
Intake Total 480 / 480 240 / 240
Output Total 1200 / 1200 400 / 400
Balance -720 / -720 -160 / -160
--- NOTE | 2023-03-27 11:54 | W.PN.ID1 ---
Date of Service
Date of Service: March 27, 2023
Today's Communication
Continue cefdinir and metronidazole for an additional 3 to 5 days.
Assessment / Plan
Suspected infected pancreatic pseudocyst
Fever - resolved
Leukocytosis - resolved
Pancreatitis; improved
CK; rising
Anxiety
Chronic back pain
Hodgkin's lymphoma
EtOH abuse
Recommendations:
blood cultures x2 no growth to date
Continue with cefdinir + metronidazole with close observation.
Follow white count and temperature curve.
����������������������������������������������������������
Chief Complaint
-: Fever, Leukocytosis and Other (Pancreatic pseudocyst)
Subjective / Review of Systems
Patient seen and examined. Moved to ICU yesterday secondary to ongoing encephalopathy. No specific complaints at present although reports feeling cold.
Review of Systems: No Fever and No Chills
Vital Signs / Physical Exam
Vital Signs
Vital Signs
Temp Pulse Resp BP Pulse Ox
97.4 F 90 17 130/95 96
03/27/23 07:10 03/27/23 10:03 03/27/23 10:00 03/27/23 10:03 03/26/23 18:01
Physical Exam
Constitutional: Comfortable and Chronically Ill
Cardiovascular: S1/S2; Negative S3/S4
Pulmonary: Clear and Non Labored
Gastrointestinal: Soft, Non Distended, Normal Bowel Sounds, No Rebound and No Guarding
Skin: Warm and Dry; Negative Rash or Jaundice
Neurological: Awake and Alert
Psychological: Calm
Objective Data
Lab Data
Lab Results
03/26/23 04:54
03/26/23 04:54
PT 14.1 Sec (11.4-14.6) 03/05/23 17:54
INR 1.07 03/05/23 17:54
APTT 31.6 Sec (23.4-35.0) 03/05/23 17:54
Estimated Creat Clear 104 ml/min 03/26/23 04:54
Lactic Acid Cancelled 03/25/23 20:30
Total Bilirubin 0.5 mg/dl (0.2-1.3) 03/18/23 03:36
GGT 1086 U/L (15-73) H 03/05/23 17:54
AST 30 U/L (17-59) 03/18/23 03:36
ALT 32 U/L (0-50) 03/18/23 03:36
Alkaline Phosphatase 109 U/L (38-126) 03/18/23 03:36
C-Reactive Protein 77.30 mg/L (0.0-10.00) H 03/07/23 04:56
Amylase 81 U/L (30-110) 03/06/23 05:16
Most recent labs reviewed.
Micro Results:
03/21/23 16:58 Blood Culture - Final
Blood/Venous No Growth - Final Report
03/21/23 16:58 Blood Culture - Final
Blood/Venous No Growth - Final Report
03/23/23 04:33 Influenza Types A & B (CHRISTIANNE) - Final
Nasal Swab Negative for Influenza A & B, NAAT
Negative results must be combined with clinical observations
and patient history.
Nucleic Acid Amplification test (NAAT)performed on the
Supersonic platform.
Imaging:
03/22/2023 CXR: no acute infiltrates noted. No evidence of free intraperitoneal air. Visualized osseous structures are within normal limits.
03/06/2023 MRI abdomen without contrast: Small area of gallstones and/or sludge in the dependent portion of the gallbladder. No evidence for lobar wall thickening or pericholecystic edema. No evidence for biliary ductal dilatation. A 1.3 cm focus
of increased T2 and STIR signal within the head of the pancreas which likely represents a pseudocyst. Follow-up advised. Please see full dictation for additional detail.
Care Review
Plan reviewed with: Nurse and Physician
--- NOTE | 2023-03-27 12:00 | PTCARENOTE ---
Pt sleeping throughout morning without issue. to see pt...pt snoring...will return later to see patient. Tx to [address] tele when bed available. Will continue to monitor.
[2023-03-27 13:02] LABS: Vitamin D, 25-OH*** < 12.8 ng/mL (30-80)
--- NOTE | 2023-03-27 13:15 | PTCARENOTE ---
No void since am...abdomen soft and nontender...bladder scanned for 178mls. Will continue to monitor.
[2023-03-27] MEDS: ATIVAN 0.5 MG PO ×3 (13:32→21:28)
--- NOTE | 2023-03-27 13:43 | W.PN.UPDATE ---
Update Note
Progress Note Update
patient seen chart reviewed. discussed w nursing and with dr batres. the patient has continued to have periods of significant agitation last evening requiring security to be called and restraints. today he is calm and talkative but remains in the
throes of a delirium describing material that is clearly delusional and paranoid. there is no true medication for delirium but will stop seroquel as driving up the dose could cause other complications and restart risperdal one mg tid which is what
helped last summer ( perhaps in addition to time....). have also ordered a prn of ativan one mg. i purposely made the prn stronger than the scheduled dose given how agitated mr yen can get. will follow
[2023-03-27] MEDS: RISPERDAL M-TAB (ORALLY DISINTEGRATING) 1 MG PO ×2 (15:40→21:28)
[2023-03-27] MEDS: ROXICODONE 5 MG PO ×2 (15:40→19:46)
[2023-03-27] MEDS: LOVENOX 75 MG SC (18:00)
--- NOTE | 2023-03-27 19:40 | PTCARENOTE ---
Report called to 2 riya RN....pt to transfer to Room 2132.
[2023-03-28] MEDS: ROXICODONE 5 MG PO ×2 (00:02→05:26)
[2023-03-28] MEDS: FLAGYL 500 MG PO ×3 (00:03→17:06)
[2023-03-28 03:23] VITALS: BP 129/97
[2023-03-28] MEDS: SYNTHROID 25 MCG PO (05:26)
[2023-03-28] MEDS: LOVENOX 75 MG SC (05:28)
--- NOTE | 2023-03-28 05:46 | VATNOTE ---
PT REFUSED TO HAVE ORDERED LABS DRAWN FROM HIS PRT. ATTEMPTED TO EXPLAIN TO PT ADVANTAGES BUT HIS BEHAVIOR BEGAN TO ESCALATE. PT THROWING HIS ARM AT ME TELLING ME TO DRAW THE LABS FROM HIS ARM. PCN AND PHLEBOTOMY MADE AWARE OF PTS DEMANDS.
[2023-03-28 06:21] LABS: Hematocrit 41.2 % (39.0-52.0); Hemoglobin 13.7 g/dL (13.0-18.0); Mean Corp Hgb Conc. 33.3 g/dL (33.0-37.0); Mean Corpuscular Hgb 27.7 pg (27.0-31.0); Mean Corpuscular Volume 83.4 fL (80.0-94.0); Mean Platelet Volume 8.3 fL (7.4-10.4); Platelet Count 237 10^3/uL (130-400); Red Blood Cell Count 4.94 10^6/uL (4.70-6.10); Red Cell Dist. Width 15.3 % (11.5-14.5); White Blood Cell Count 6.1 10^3/uL (4.8-10.8)
--- NOTE | 2023-03-28 06:47 | PTCARENOTE ---
Pt had no aggressive behaviors this shift, easily redirected and following directions from staff. took all his medications as ordered. Noted talking to 'others' in the room. Pt stating that 'will not stay any longer here, will go home as his mom
needs help'. Pt awake all shift, medicated for pain as needed. Will continue to monitor and maintain safety.
[2023-03-28 07:20] LABS: ALT (SGPT) 62 U/L (0-50); AST (SGOT) 33 U/L (17-59); Albumin 3.7 g/dl (3.5-5.0); Alkaline Phosphatase 137 U/L (38-126); Blood Urea Nitrogen 11 mg/dl (9-20); Calcium 9.2 mg/dl (8.4-10.2); Carbon Dioxide 29 mmol/L (22-30); Chloride 103 mmol/L (98-107); Direct Bilirubin 0.7 mg/dl (0.0-0.4); Estimated Creatinine Clearance 81 ml/min; Glucose 112 mg/dl (70-99); Phosphorus 3.4 mg/dl (2.5-4.5); Potassium 4.2 mmol/L (3.5-5.1); Sodium 136 mmol/L (135-145); Total Bilirubin 0.7 mg/dl (0.2-1.3); Total Protein 6.7 g/dl (6.3-8.2); eGFR > 60.00
[2023-03-28 07:58] VITALS: BP 135/97
[2023-03-28] MEDS: ATIVAN 0.5 MG PO ×4 (08:58→22:25)
[2023-03-28] MEDS: LOPRESSOR 12.5 MG PO ×2 (08:58→20:53)
[2023-03-28] MEDS: MAGNESIUM OXIDE 500 MG PO (08:58)
[2023-03-28] MEDS: VITAMIN B1 100 MG PO ×2 (08:58→20:53)
[2023-03-28] MEDS: THERAGRAN 1 TABLET PO (08:58)
[2023-03-28] MEDS: FOLVITE 1 MG PO (08:58)
[2023-03-28] MEDS: FLOMAX 0.400000000000000022 MG PO (08:58)
[2023-03-28] MEDS: PROTONIX 40 MG PO (08:59)
[2023-03-28] MEDS: COLACE 100 MG PO ×2 (08:59→20:53)
[2023-03-28] MEDS: OMNICEF 300 MG PO ×2 (09:01→20:53)
[2023-03-28] MEDS: RISPERDAL M-TAB (ORALLY DISINTEGRATING) 1 MG PO ×3 (09:01→22:25)
--- NOTE | 2023-03-28 10:54 | W.PN.HOSP.TC ---
Today's Communication/Plan
-
Await Psyche eval
Assessment / Plan
Assessment / Plan
CVS: S1-S2 normal
Chest: CTA B/L
Abdomen: Soft, patient states he has abdomen discomfort , wont let me touch.
Extremities: No edema, normal pulses
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 He was calm
#TME
-Treated as Alcohol withdrawal
Alcohol use disorder
-Was having Inappropriate behavior, hurting staff , inappropriate language - Much better - still hallucinating
-Off Precedex
-Phenobarbital taper completed .
-Risperidone ineffective, switched to Seroquel to be continued
-Last time patient was here for 23 days with similar presentation
-Off restraints as of yesterday. Again on restraints now. He was agitated overnight
-Patient is more cooperative now therefore we will order an MRI of the brain with and without contrast-patient agreeable-we can use a milligram of Ativan as needed
-With patient having Isabella urine also check Urine Porphobilinogen, Porphyrin (R/O AIP)
-Warnicke's encephalopathy/Korsakoff's need to be entertained
-Neurology evaluation appreciated
-Patient refused to get MRI yesterdaywill cancel
# Segmental PE-started on Lovenox weight-based
-Will switch to Eliquis
-Venous Dopplers with no DVT
#Fevers
-Unclear source
-Bld Cx pending
-Covid Neg
-Chest x-ray negative
-CT of the abdomen and pelvis-1 cm pancreatic pseudocyst unchanged. Multiple 2 cm pseudocyst also unchanged. Diffuse thickening of the urinary bladder wall and enlargement of the prostate
-Abdomen exam unreliable
-Elevated procalcitonin level noted
-ID eval appreciated
-Started on meropenem-switch to cefdinir and Flagyl
#Hypothyroidism
-TSH high but T4 wnl, rechecked with next AM labs, TSH improved but remains elevated >10 though T4 wnl, started low dose Synthroid 25 mcg daily
-Cortisol low, rechecked with next AM labs wnl
#Acute pancreatitis
Pancreatic pseudocyst
-Elevated lipase of 1913 -normalized
-CT a/p showing inflammation of pancreas
-Abdominal ultrasound showing gallstone as well although CBD of 4.6 mm only
-MRI/MRCP showing pancreatic pseudocyst. no choledocholithiasis
-Likely alcohol use related.�
-Low fat diet as tolerated
#Acute transaminitis - trending down/resolving
-Alcohol use related likely
-AST 911 ALT 442 ALP 210 TBilli 2.3 on admission
-Hepatitis serology negative
-Alcohol abstinence recommended
#Acute hypoxic respiratory insufficiency-secondary to atelectasis likely also has PE now
Incentive spirometry
#Essential HTN
-Restarted Toprol -12.5 twice daily
#Chronic hypotension on midodrine as outpatient
#Fatty liver-likely secondary to alcohol use
#Thickening of the wall of the gastric antrum-likely secondary to pancreatitis however needs EGD as outpatient
On PPI
#Enlarged prostate
-On Flomax
#Depression/anxiety
-Discontinued citalopram
-Diazepam on hold , PRN Ativan now
#History of Hodgkin's lymphoma
8 years ago treated in [place]
#DVT PPX - Eliquis
#Full code
D/W RN
Discussed with psychiatry
Discussed with case management
Reportedly after I saw the patient and before this documentation was done, patient's mother and girlfriend came to visit him very briefly. They refused for the patient to come home which agitated him.
Psychiatry will be seeing him soon to evaluate.
Anticipated Discharge: Within 24 hours
Subjective/Interval History
-
Date of Service: March 28, 2023
Objective Data
-
Labs:
Laboratory Results
03/28/23
05:58
WBC 6.1
Hgb 13.7
Hct 41.2
Plt Count 237
Sodium 136
Potassium 4.2
Chloride 103
Carbon Dioxide 29
BUN 11
Creatinine 0.9
Glucose 112 H
Calcium 9.2
Total Bilirubin 0.7
AST 33
ALT 62 H
Alkaline Phosphatase 137 H
Vital Signs:
Vital Signs
Temp Pulse Resp BP Pulse Ox
97.5 F 119 18 135/97 100
03/28/23 07:58 03/28/23 07:58 03/28/23 07:58 03/28/23 07:58 03/28/23 07:58
I&O
03/27/23 03/28/23 03/29/23
06:59 06:59 06:59
Intake Total 240 / 240 1320 / 1320
Output Total 400 / 400 300 / 300
Balance -160 / -160 1020 / 1020
--- NOTE | 2023-03-28 11:05 | W.PN.ID1 ---
Date of Service
Date of Service: March 28, 2023
Today's Communication
Continue abx for another 3 days.
Assessment / Plan
Suspected infected pancreatic pseudocyst
Fever - resolved
Leukocytosis - resolved
Pancreatitis; improved
CK; rising
Anxiety
Chronic back pain
Hodgkin's lymphoma
EtOH abuse
Recommendations:
blood cultures no growth to date
Continue with cefdinir + metronidazole for another 3 days and thereafter observe off antibiotics.
Follow white count and temperature curve.
����������������������������������������������������������
Chief Complaint
-: Fever, Leukocytosis and Other (Pancreatic pseudocyst)
Subjective / Review of Systems
Review of Systems: No Fever and No Chills
Vital Signs / Physical Exam
Vital Signs
Vital Signs
Temp Pulse Resp BP Pulse Ox
97.5 F 119 18 135/97 100
03/28/23 07:58 03/28/23 07:58 03/28/23 07:58 03/28/23 07:58 03/28/23 07:58
Physical Exam
Constitutional: No Acute Distress, Comfortable and Non-toxic
Eyes: No Conjunctival Hemorrhage and Sclera Anicteric
Cardiovascular: S1/S2; Negative S3/S4
Pulmonary: Clear; Negative Wheezes or Rales
Gastrointestinal: Soft, Non Tender and Non Distended
Skin: Negative Rash or Jaundice
Neurological: Awake and Alert
Psychological: Calm and Confused
Objective Data
Lab Data
Lab Results
03/28/23 05:58
03/28/23 05:58
PT 14.1 Sec (11.4-14.6) 03/05/23 17:54
INR 1.07 03/05/23 17:54
APTT 31.6 Sec (23.4-35.0) 03/05/23 17:54
Estimated Creat Clear 81 ml/min 03/28/23 05:58
Lactic Acid Cancelled 03/25/23 20:30
Total Bilirubin 0.7 mg/dl (0.2-1.3) 03/28/23 05:58
GGT 1086 U/L (15-73) H 03/05/23 17:54
AST 33 U/L (17-59) 03/28/23 05:58
ALT 62 U/L (0-50) H 03/28/23 05:58
Alkaline Phosphatase 137 U/L (38-126) H 03/28/23 05:58
C-Reactive Protein 77.30 mg/L (0.0-10.00) H 03/07/23 04:56
Amylase 81 U/L (30-110) 03/06/23 05:16
Most recent labs reviewed.
Micro Results:
03/21/23 16:58 Blood Culture - Final
Blood/Venous No Growth - Final Report
03/21/23 16:58 Blood Culture - Final
Blood/Venous No Growth - Final Report
03/23/23 04:33 Influenza Types A & B (CHRISTIANNE) - Final
Nasal Swab Negative for Influenza A & B, NAAT
Negative results must be combined with clinical observations
and patient history.
Nucleic Acid Amplification test (NAAT)performed on the
[employer] platform.
Imaging:
03/22/2023 CXR: no acute infiltrates noted. No evidence of free intraperitoneal air. Visualized osseous structures are within normal limits.
03/06/2023 MRI abdomen without contrast: Small area of gallstones and/or sludge in the dependent portion of the gallbladder. No evidence for lobar wall thickening or pericholecystic edema. No evidence for biliary ductal dilatation. A 1.3 cm focus
of increased T2 and STIR signal within the head of the pancreas which likely represents a pseudocyst. Follow-up advised. Please see full dictation for additional detail.
[2023-03-28 11:15] VITALS: BP 114/64
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
--- NOTE | 2023-03-28 15:06 | CM ---
Reviewed the chart notes and spoke with the patient at the bedside. The patient is refusing SNF at this time. Patient stated 'I just want to get out of here and go home'. Per PT notes, patient ambulated 300' with RW and close supervision. CM
continues to be available to patient/family and is monitoring medical plan for needs at discharge.
Plan: Discharge plans will depend on the patient's cognitive status.
[2023-03-28 15:25] VITALS: BP 130/85
--- NOTE | 2023-03-28 17:10 | PTCARENOTE ---
Pt came out of room this morning asking about how to work his phone, previous shift assisted him with a phone call, he remained calm throughout interaction. Pt had breakfast, took morning medications and stated that he would be leaving around
12:30pm, made aware of Pt's comment. After breakfast Pt then took a nap. Pt's mother and girlfriend arrived on unit causing Pt to become agitated, and come out to nurses station stating ' I need to know my lab results'. MD aware of Pt's agitation
and that family was present. Family left after 5-10 minutes after arriving on unit. Pt instructed to go back to room. Pt went back to room and took a long nap, waking for lunch, then back to to sleep again. Since family left the floor Pt has been
calm during interactions, resting, and eating meals. Call matos within reach.
[2023-03-28 19:31] VITALS: BP 98/67
[2023-03-28] MEDS: ELIQUIS 10 MG PO (20:53)
[2023-03-28] MEDS: MELATONIN 10 MG PO (22:27)
[2023-03-28 23:12] VITALS: BP 106/75
[2023-03-29] MEDS: FLAGYL 500 MG PO ×3 (00:07→15:33)
[2023-03-29 03:23] VITALS: BP 110/61
[2023-03-29] MEDS: SYNTHROID 25 MCG PO (05:13)
[2023-03-29 07:35] VITALS: BP 121/71
[2023-03-29] MEDS: VITAMIN B1 100 MG PO ×2 (09:18→20:52)
[2023-03-29] MEDS: OMNICEF 300 MG PO ×2 (09:18→20:51)
[2023-03-29] MEDS: FLOMAX 0.400000000000000022 MG PO (09:18)
[2023-03-29] MEDS: FOLVITE 1 MG PO (09:18)
[2023-03-29] MEDS: COLACE 100 MG PO ×2 (09:18→20:51)
[2023-03-29] MEDS: LOPRESSOR 12.5 MG PO ×2 (09:18→20:51)
[2023-03-29] MEDS: ELIQUIS 10 MG PO ×2 (09:18→20:51)
[2023-03-29] MEDS: THERAGRAN 1 TABLET PO (09:18)
[2023-03-29] MEDS: ATIVAN 0.5 MG PO ×4 (09:19→22:24)
[2023-03-29] MEDS: MAGNESIUM OXIDE 500 MG PO (09:19)
[2023-03-29] MEDS: RISPERDAL M-TAB (ORALLY DISINTEGRATING) 1 MG PO ×3 (09:19→22:24)
[2023-03-29] MEDS: PROTONIX 40 MG PO (09:19)
--- NOTE | 2023-03-29 10:19 | W.PN.HOSP.TC ---
Today's Communication/Plan
-
Does he need qid ?
Psychiatry to decide, if not wean off
Risperidone
Replace Vit D
Assessment / Plan
Assessment / Plan
CVS: S1-S2 normal
Chest: CTA B/L
Abdomen: Soft, patient states he has abdomen discomfort , wont let me touch.
Extremities: No edema, normal pulses
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 He was calm
#TME
-Treated as Alcohol withdrawal
Alcohol use disorder
-Was having Inappropriate behavior, hurting staff , inappropriate language - Much better - More organized.
-Off Precedex
-Phenobarbital taper completed .
-Risperidone switched to Seroquel - Then back to Risperidone
-Also on Ativan QID now
-Last time patient was here for 23 days with similar presentation
-Off restraints
-With patient having Isabella urine also check Urine Porphobilinogen, Porphyrin (R/O AIP)
-Wernk
-Neurology evaluation appreciated
-Patient refused to get MRI
# Segmental PE-started on Lovenox weight-based
-Switched to Eliquis
-Venous Dopplers with no DVT
#Fevers
-Possible infected pancreatic pseudocyst
-Bld Cx pending
-Covid Neg
-Chest x-ray negative
-CT of the abdomen and pelvis-1 cm pancreatic pseudocyst unchanged. Multiple 2 cm pseudocyst also unchanged. Diffuse thickening of the urinary bladder wall and enlargement of the prostate
-Abdomen exam unreliable
-Elevated procalcitonin level noted
-ID eval appreciated
-Started on meropenem-switch to cefdinir and Flagyl
#Hypothyroidism
-TSH high but T4 wnl, rechecked with next AM labs, TSH improved but remains elevated >10 though T4 wnl, started low dose Synthroid 25 mcg daily
-Cortisol low, rechecked with next AM labs wnl
#Acute pancreatitis
Pancreatic pseudocyst
-Elevated lipase of 1913 -normalized
-CT a/p showing inflammation of pancreas
-Abdominal ultrasound showing gallstone as well although CBD of 4.6 mm only
-MRI/MRCP showing pancreatic pseudocyst. no choledocholithiasis
-Likely alcohol use related.�
-Low fat diet as tolerated
#Acute transaminitis - better
-Alcohol use related likely
-AST 911 ALT 442 ALP 210 TBilli 2.3 on admission
-Hepatitis serology negative
-Alcohol abstinence recommended
#Acute hypoxic respiratory insufficiency-secondary to atelectasis likely also has PE now
Incentive spirometry
#Essential HTN
-Restarted Toprol -12.5 twice daily
#Chronic hypotension on midodrine as outpatient
#Fatty liver-likely secondary to alcohol use
#Thickening of the wall of the gastric antrum-likely secondary to pancreatitis however needs EGD as outpatient
On PPI
#Enlarged prostate
-On Flomax
#Vit D Def- Replace
#Depression/anxiety
-Discontinued citalopram
-Diazepam on hold , Ativan now
#History of Hodgkin's lymphoma
8 years ago treated in [place]
#DVT PPX - Eliquis
#Full code
D/W RN
Discussed with case management
Ambulating well
Called and spoke to patient's mother and girlfriend Nikki. They feel that he is still far off of his baseline.
We discussed about all the testing that he has had and the psychiatrist adjusting his medicines.
Discussed about patient not willing to get MRI and also about the labs pending.
Anticipated Discharge: 24 - 48 hours
Subjective/Interval History
-
Date of Service: March 29, 2023
Objective Data
-
Vital Signs:
Vital Signs
Temp Pulse Resp BP Pulse Ox
97.9 F 82 16 121/71 96
03/29/23 07:35 03/29/23 09:18 03/29/23 07:35 03/29/23 09:18 03/29/23 07:35
I&O
03/28/23 03/29/23 03/30/23
06:59 06:59 06:59
Intake Total 1320 / 1320 1300 / 1300
Output Total 300 / 300
Balance 1020 / 1020 1300 / 1300
[2023-03-29 11:21] VITALS: BP 114/82
[2023-03-29] MEDS: DRISDOL (VITAMIN D2) 50000 UNITS PO (12:01)
--- NOTE | 2023-03-29 12:11 | CM ---
Reviewed the chart notes and spoke with the patient's mother and significant other at the bedside. Per family, patient is not mentally at baseline. Per psychiatry, patient will be here through the weekend. CM continues to be available to
patient/family and is monitoring medical plan for needs at discharge.
Plan: Discharge plans will depend on the patient's progress. Hopefully home with family when cognitive status improves.
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
[2023-03-29 12:24] LABS: 24 Hour Urine Total Volume Random mL; Creatinine, Urine per Volume 66 mg/dL; Porphobilinogen, Urine < 5 umol/L (0.0-8.8); Urine Collection Length Random hr
--- NOTE | 2023-03-29 13:07 | W.PN.ID1 ---
Date of Service
Date of Service: March 29, 2023
Today's Communication
Complete course of antibiotics.
Assessment / Plan
Suspected infected pancreatic pseudocyst
Fever - resolved
Leukocytosis - resolved
Pancreatitis; improved
CK; rising
Anxiety
Chronic back pain
Hodgkin's lymphoma
EtOH abuse
Recommendations:
blood cultures no growth to date
Continue with cefdinir + metronidazole for another 2 days and thereafter observe off antibiotics.
����������������������������������������������������������
Chief Complaint
-: Fever, Leukocytosis and Other (Pancreatic pseudocyst)
Vital Signs / Physical Exam
Vital Signs
Vital Signs
Temp Pulse Resp BP Pulse Ox
98.4 F 98 14 114/82 94
03/29/23 11:21 03/29/23 11:21 03/29/23 11:21 03/29/23 11:21 03/29/23 11:21
Physical Exam
Physical Exam:
Constitutional: No Acute Distress, Comfortable and Non-toxic
Eyes: No Conjunctival Hemorrhage and Sclera Anicteric
Cardiovascular: S1/S2; Negative S3/S4
Pulmonary: Clear; Negative Wheezes or Rales
Gastrointestinal: Soft, Non Tender and Non Distended
Skin: Negative Rash or Jaundice
Neurological: Awake and Alert
Psychological: Calm�
Objective Data
Lab Data
Lab Results
03/28/23 05:58
03/28/23 05:58
PT 14.1 Sec (11.4-14.6) 03/05/23 17:54
INR 1.07 03/05/23 17:54
APTT 31.6 Sec (23.4-35.0) 03/05/23 17:54
Estimated Creat Clear 81 ml/min 03/28/23 05:58
Lactic Acid Cancelled 03/25/23 20:30
Total Bilirubin 0.7 mg/dl (0.2-1.3) 03/28/23 05:58
GGT 1086 U/L (15-73) H 03/05/23 17:54
AST 33 U/L (17-59) 03/28/23 05:58
ALT 62 U/L (0-50) H 03/28/23 05:58
Alkaline Phosphatase 137 U/L (38-126) H 03/28/23 05:58
C-Reactive Protein 77.30 mg/L (0.0-10.00) H 03/07/23 04:56
Amylase 81 U/L (30-110) 03/06/23 05:16
Most recent labs reviewed.
Micro Results:
03/21/23 16:58 Blood Culture - Final
Blood/Venous No Growth - Final Report
03/21/23 16:58 Blood Culture - Final
Blood/Venous No Growth - Final Report
03/23/23 04:33 Influenza Types A & B (CHRISTIANNE) - Final
Nasal Swab Negative for Influenza A & B, NAAT
Negative results must be combined with clinical observations
and patient history.
Nucleic Acid Amplification test (NAAT)performed on the
[employer] platform.
Imaging:
03/22/2023 CXR: no acute infiltrates noted. No evidence of free intraperitoneal air. Visualized osseous structures are within normal limits.
03/06/2023 MRI abdomen without contrast: Small area of gallstones and/or sludge in the dependent portion of the gallbladder. No evidence for lobar wall thickening or pericholecystic edema. No evidence for biliary ductal dilatation. A 1.3 cm focus
of increased T2 and STIR signal within the head of the pancreas which likely represents a pseudocyst. Follow-up advised. Please see full dictation for additional detail.
Care Review
Plan reviewed with: Physician (Psychiatry)
[2023-03-29 13:12] LABS: Coproporphyrin I 3 (0-6); Coproporphyrin III 23 (0-14); Heptacarboxylporphyrin <1 (0-2); Uroporphyrin 1 (0-4)
[2023-03-29 15:28] VITALS: BP 112/78
[2023-03-29] MEDS: TORADOL 15 MG IV (15:33)
[2023-03-29 19:16] VITALS: BP 117/86
[2023-03-29] MEDS: MELATONIN 10 MG PO (22:24)
[2023-03-29 23:08] VITALS: BP 119/82
[2023-03-30] MEDS: FLAGYL 500 MG PO ×3 (00:29→17:10)
[2023-03-30 03:32] VITALS: BP 123/73
[2023-03-30] MEDS: SYNTHROID 25 MCG PO (06:10)
[2023-03-30 07:10] LABS: Hematocrit 40.3 % (39.0-52.0); Hemoglobin 13.3 g/dL (13.0-18.0); Mean Corpuscular Volume 81.7 fL (80.0-94.0); Mean Platelet Volume 8.5 fL (7.4-10.4); Platelet Count 234 10^3/uL (130-400); Red Blood Cell Count 4.93 10^6/uL (4.70-6.10); Red Cell Dist. Width 15.1 % (11.5-14.5); White Blood Cell Count 6.4 10^3/uL (4.8-10.8)
[2023-03-30 07:50] VITALS: BP 105/73
[2023-03-30 08:02] LABS: ALT (SGPT) 42 U/L (0-50); AST (SGOT) 33 U/L (17-59); Albumin 3.6 g/dl (3.5-5.0); Alkaline Phosphatase 109 U/L (38-126); Blood Urea Nitrogen 13 mg/dl (9-20); Calcium 9.1 mg/dl (8.4-10.2); Carbon Dioxide 27 mmol/L (22-30); Chloride 103 mmol/L (98-107); Direct Bilirubin 0.6 mg/dl (0.0-0.4); Estimated Creatinine Clearance 91 ml/min; Glucose 106 mg/dl (70-99); Sodium 135 mmol/L (135-145); Total Bilirubin 0.6 mg/dl (0.2-1.3); Total Protein 6.5 g/dl (6.3-8.2); eGFR > 60.00
[2023-03-30] MEDS: VITAMIN B1 100 MG PO ×2 (08:49→20:50)
[2023-03-30] MEDS: LOPRESSOR 12.5 MG PO ×2 (08:49→20:50)
[2023-03-30] MEDS: FLOMAX 0.400000000000000022 MG PO (08:50)
[2023-03-30] MEDS: THERAGRAN 1 TABLET PO (08:50)
[2023-03-30] MEDS: PROTONIX 40 MG PO (08:50)
[2023-03-30] MEDS: RISPERDAL M-TAB (ORALLY DISINTEGRATING) 1 MG PO ×3 (08:50→22:30)
[2023-03-30] MEDS: COLACE 100 MG PO ×2 (08:50→20:49)
[2023-03-30] MEDS: MAGNESIUM OXIDE 500 MG PO (08:50)
[2023-03-30] MEDS: ATIVAN 0.5 MG PO ×4 (08:50→22:30)
[2023-03-30] MEDS: VITAMIN D3 (cholecalciferol) 50 MCG PO (08:50)
[2023-03-30] MEDS: FOLVITE 1 MG PO (08:50)
[2023-03-30] MEDS: ELIQUIS 10 MG PO ×2 (08:50→20:50)
[2023-03-30] MEDS: OMNICEF 300 MG PO ×2 (08:50→20:50)
--- NOTE | 2023-03-30 10:46 | W.PN.HOSP.TC ---
Today's Communication/Plan
-
Psyche management of meds
Assessment / Plan
Assessment / Plan
CVS: S1-S2 normal
Chest: CTA B/L
Abdomen: Soft, patient states he has abdomen discomfort , wont let me touch.
Extremities: No edema, normal pulses
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 He was calm
#TME
-Treated as Alcohol withdrawal
Alcohol use disorder
-Was having Inappropriate behavior, hurting staff , inappropriate language - Much better - More organized.
-Off Precedex
-Phenobarbital taper completed .
-Risperidone switched to Seroquel - Then back to Risperidone
-Ativan QID now and prn
-Last time patient was here for 23 days with similar presentation
-Off restraints- calm
-Porphyria panel only positive for coproporphyrin. Possible false but with chronic abdominal pain check heavy metals
-Neurology evaluation appreciated
-Patient refused to get MRI
# Segmental PE-started on Lovenox weight-based
-Switched to Eliquis
-Venous Dopplers with no DVT
#Fevers
-Possible infected pancreatic pseudocyst
-Bld Cx neg
-Covid Neg
-Chest x-ray negative
-CT of the abdomen and pelvis-1 cm pancreatic pseudocyst unchanged. Multiple 2 cm pseudocyst also unchanged. Diffuse thickening of the urinary bladder wall and enlargement of the prostate
-Abdomen exam unreliable
-Elevated procalcitonin level noted
-ID eval appreciated
-Started on meropenem-switched to cefdinir and Flagyl
#Hypothyroidism
-TSH high but T4 wnl, rechecked with next AM labs, TSH improved but remains elevated >10 though T4 wnl, started low dose Synthroid 25 mcg daily
-Cortisol low, rechecked with next AM labs wnl
#Acute pancreatitis
Pancreatic pseudocyst
-Elevated lipase of 1913 -normalized
-CT a/p showing inflammation of pancreas
-Abdominal ultrasound showing gallstone as well although CBD of 4.6 mm only
-MRI/MRCP showing pancreatic pseudocyst. no choledocholithiasis
-Likely alcohol use related.�
-Low fat diet as tolerated
#Acute transaminitis - better
-Alcohol use related likely
-AST 911 ALT 442 ALP 210 TBilli 2.3 on admission
-Hepatitis serology negative
-Alcohol abstinence recommended
#Acute hypoxic respiratory insufficiency-secondary to atelectasis likely also has PE now
Incentive spirometry
#Essential HTN
-Restarted Toprol -12.5 twice daily
#Chronic hypotension on midodrine as outpatient
#Fatty liver-likely secondary to alcohol use
#Thickening of the wall of the gastric antrum-likely secondary to pancreatitis however needs EGD as outpatient
On PPI
#Enlarged prostate
-On Flomax
#Vit D Def- Replace
#Depression/anxiety
-Discontinued citalopram
-Diazepam on hold , Ativan now
#History of Hodgkin's lymphoma
8 years ago treated in [place]
#DVT PPX - Eliquis
#Full code
D/W RN at bed side
03/29/23-Called and spoke to patient's mother and girlfriend Nikki. They feel that he is still far off of his baseline.
We discussed about all the testing that he has had and the psychiatrist adjusting his medicines.
Discussed about patient not willing to get MRI and also about the labs pending.
Anticipated Discharge: 24 - 48 hours
Subjective/Interval History
-
Date of Service: March 30, 2023
Objective Data
-
Labs:
Laboratory Results
03/30/23
06:44
WBC 6.4
Hgb 13.3
Hct 40.3
Plt Count 234
Sodium 135
Potassium 4.0
Chloride 103
Carbon Dioxide 27
BUN 13
Creatinine 0.8
Glucose 106 H
Calcium 9.1
Total Bilirubin 0.6
AST 33
ALT 42
Alkaline Phosphatase 109
Vital Signs:
Vital Signs
Temp Pulse Resp BP Pulse Ox
98.7 F 94 18 105/73 94
03/30/23 07:50 03/30/23 08:49 03/30/23 07:50 03/30/23 08:49 03/30/23 07:50
I&O
03/29/23 03/30/23 03/31/23
06:59 06:59 06:59
Intake Total 1300 / 1300 1919 / 1919
Output Total 1075 / 1075
Balance 1300 / 1300 845 / 845
[2023-03-30] MEDS: TORADOL 15 MG IV (10:58)
[2023-03-30] MEDS: FLUSH (NSS) 2 FLUSH IV (10:59)
[2023-03-30 11:31] VITALS: BP 102/63
--- NOTE | 2023-03-30 12:35 | W.PN.UPDATE ---
Update Note
Progress Note Update
Psychiatry follow up. Chart reviewed. Patient presents calm and cooperative. He states he does not understand why he has been so confused and I explained to him what could occur during alcohol withdrawal. He seems to understand and says that makes
sense. He admits to excessive drinking daily and that his father was an alcoholic. He states he has been in D&A IOPs before but not in a long time. He does not want to pursue inpatient D&A treatment once medically stable and notes several reasons
including financial and lifting current burden off his mom and girlfriend. He states he has not done well with AA in the past. He understands the different treatment options he has.
MSE- he makes good eye contact and is calm and cooperative. he is logical and goal directed. He denies SI/HI/AVH. No evidence of delusional thinking. His insight and judgement are limited. He is oriented to self, place, year, date, and president at
this time.
A/P- 57 yo male with severe alcohol use disorder/withdrawal presenting significantly more clear at this time. Hopefully he has turned a corner and will continue to show improved mental status. Would recommend girlfriend assess him to see if he
appears at baseline. He knows all his options for D&A treatment but the choice to pursue them is his. Psychiatry will follow up tomorrow.
[2023-03-30 15:56] VITALS: BP 104/72
[2023-03-30 19:30] VITALS: BP 123/80
[2023-03-30] MEDS: MELATONIN 10 MG PO (22:29)
[2023-03-30 23:12] VITALS: BP 109/72
[2023-03-31] MEDS: FLAGYL 500 MG PO ×3 (00:15→15:24)
[2023-03-31 03:44] VITALS: BP 88/57
[2023-03-31] MEDS: SYNTHROID 25 MCG PO (06:42)
--- NOTE | 2023-03-31 07:34 | PTCARENOTE ---
Pt slept all night, no behaviors noted, pleasant and cooperative.
[2023-03-31 07:40] VITALS: BP 118/84
[2023-03-31] MEDS: TORADOL 15 MG IV (08:13)
[2023-03-31] MEDS: FLUSH (NSS) 2 FLUSH IV (08:14)
--- NOTE | 2023-03-31 09:08 | PTCARENOTE ---
late note: 03/30/2023
pt walked around unit multiple times with his mom and girlfriend, no dizziness or unsteady gate noted, no complains offered by patient. Pt was eager to walk as much as possible to get his strength back. updated.
[2023-03-31] MEDS: RISPERDAL M-TAB (ORALLY DISINTEGRATING) 1 MG PO ×2 (09:14→15:24)
[2023-03-31] MEDS: LOPRESSOR 12.5 MG PO (09:16)
[2023-03-31] MEDS: FLOMAX 0.400000000000000022 MG PO (09:16)
[2023-03-31] MEDS: MAGNESIUM OXIDE 500 MG PO (09:17)
[2023-03-31] MEDS: VITAMIN B1 100 MG PO (09:17)
[2023-03-31] MEDS: FOLVITE 1 MG PO (09:18)
[2023-03-31] MEDS: ATIVAN 0.5 MG PO ×2 (09:18→12:40)
[2023-03-31] MEDS: ELIQUIS 10 MG PO (09:18)
[2023-03-31] MEDS: OMNICEF 300 MG PO (09:20)
[2023-03-31] MEDS: PROTONIX 40 MG PO (09:20)
[2023-03-31] MEDS: COLACE 100 MG PO (09:22)
[2023-03-31] MEDS: VITAMIN D3 (cholecalciferol) 50 MCG PO (09:24)
--- NOTE | 2023-03-31 09:32 | W.PN.HOSP.TC ---
Today's Communication/Plan
-
Does he need scheduled Ativan ?
Will discuss with Psyche
Also GI will kindly evaluate re his pain
PT and OT to evaluate again
Assessment / Plan
Assessment / Plan
CVS: S1-S2 normal
Chest: CTA B/L
Abdomen: Soft, patient states he has abdomen discomfort , says he has chronic pain
Extremities: No edema, normal pulses
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 He was calm
#Chronic abdominal pain for months. patient says off and on
? Chronic pain from pancreatitis.
Will have GI weight in.
Continue PPI
#TME
-Treated as Alcohol withdrawal
Alcohol use disorder
-Was having Inappropriate behavior, hurting staff , inappropriate language - Much better - More organized.
-Off Precedex
-Phenobarbital taper completed .
-Risperidone switched to Seroquel - Then back to Risperidone
-Ativan QID now and prn
-Last time patient was here for 23 days with similar presentation
-Off restraints-for days
-Porphyria panel only positive for coproporphyrin. Possible false but with chronic abdominal pain- check heavy metals
-Neurology evaluation appreciated
-Patient refused to get MRI
# Segmental PE-started on Lovenox weight-based
-Switched to Eliquis
-Venous Dopplers with no DVT
#Fevers
-Possible infected pancreatic pseudocyst
-Bld Cx neg
-Covid Neg
-Chest x-ray negative
-CT of the abdomen and pelvis-1 cm pancreatic pseudocyst unchanged. Multiple 2 cm pseudocyst also unchanged. Diffuse thickening of the urinary bladder wall and enlargement of the prostate
-Abdomen exam unreliable
-Elevated procalcitonin level noted
-ID eval appreciated
-Started on meropenem-switched to cefdinir and Flagyl
#Hypothyroidism
-TSH high but T4 wnl, rechecked with next AM labs, TSH improved but remains elevated >10 though T4 wnl, started low dose Synthroid 25 mcg daily
-Cortisol low, rechecked with next AM labs wnl
#Acute pancreatitis
Pancreatic pseudocyst
-Elevated lipase of 1913 -normalized
-CT a/p showing inflammation of pancreas
-Abdominal ultrasound showing gallstone as well although CBD of 4.6 mm only
-MRI/MRCP showing pancreatic pseudocyst. no choledocholithiasis
-Likely alcohol use related.�
-Low fat diet as tolerated
#Acute transaminitis - better
-Alcohol use related likely
-AST 911 ALT 442 ALP 210 TBilli 2.3 on admission
-Hepatitis serology negative
-Alcohol abstinence recommended
#Acute hypoxic respiratory insufficiency-secondary to atelectasis likely also has PE now
Incentive spirometry
#Essential HTN
-Restarted Toprol -12.5 twice daily
#Chronic hypotension on midodrine as outpatient
#Fatty liver-likely secondary to alcohol use
#Thickening of the wall of the gastric antrum-likely secondary to pancreatitis however needs EGD as outpatient
On PPI
#Enlarged prostate
-On Flomax
#Vit D Def- Replace
#Depression/anxiety
-Discontinued citalopram
-Diazepam on hold , Ativan now
#History of Hodgkin's lymphoma
8 years ago treated in [place]
#DVT PPX - Eliquis
#Full code
D/W RN at bed side
DS/W Case management
D/W GI
Anticipated Discharge: Within 24 hours
Subjective/Interval History
-
Date of Service: March 31, 2023
Objective Data
-
Vital Signs:
Vital Signs
Temp Pulse Resp BP Pulse Ox
97.7 F 93 16 118/84 96
03/31/23 07:40 03/31/23 09:16 03/31/23 07:40 03/31/23 09:16 03/31/23 07:40
I&O
03/30/23 03/31/23 04/01/23
06:59 06:59 06:59
Intake Total 0 / 1919 1080 / 1080
Output Total 1075 / 1075 860 / 860
Balance 845 / 845 220 / 220
--- NOTE | 2023-03-31 10:42 | W.PN.GI.CBS2 ---
Today's Communication / Plan
-
ok d/c gi pov
Assessment / Plan
-
Pt is a 57yo presents with hx ETOH abuse, erosive esophagitis, non hodgkin's lymphoma not on treatment , adenomatous colon polyps, anxiety, chronic back pain with recurrent admission with abdominal pain with concern for recurrent pancreatitis.
Prior admission in with pancreatitis and noted pseudocyst. Pt admits to continued ETOH use 12 shots per day. On admission. WBC 11,700, hbg 16, keri 2.2, AST 733, alt 574, alk phos 163, lipase 1913. Last ETOH 2 days ago 12 shots per
day. Imaging on return with CT noted changes of acute pancreatitis 1.5 cm lesion head of pancreas likely pseudocyst. Pt also due for follow up colonoscopy this spring with hx polyps. Initial consult for alcohol induced pancreatitis and also
alcohol withdrawals - had fevers/leukocytosis, ID saw patient thought infected pseudocyst, completed course of antibiotics. GI eval now for ongoing abd pain.
I discussed with Dr. Oropeza- given no signs of chronic panc, no need for panc enzymes at this time. He recommends outpatient follow up and decision to be made to repeat scan at that point depending on symptomalogy.
I sent msg to front desk lead they will call him next week for appt in [address] Oropeza. Card provided to patient as well.
Discussed with pt importance of EtOH cessation
I updated Dr. Lockwood patient can be discharged with outpatient follow up. Will sign off pls call with ?s.
Subjective
Subjective
Date of Service: March 31, 2023
GI asked for re-consult
Patient with prolonged hospitalization for recurrent EtOH pancreatitis with pseudocyst; I reviewed chart today
Last seen by GI Mar 09; at that time withdrawing from EtOH
He had fevers and leukocytosis thought to be from infected pseudocyst - ID was following, completed course of abx, fever/WBC resolved
Last abd CT 03/22: '1. Hypoattenuating lesion within the head of the pancreas, partially exophytic, measuring 1 cm in diameter. This lesion is unchanged compared to 03/05/2023, and likely represents a pancreatic pseudocyst.
2. Multiple hypoattenuating lesions within the mesentery anterior to the body and tail of the pancreas, measuring 2 cm in diameter, likely representing complex pseudocysts. These lesions are unchanged compared to 03/05/2023, and new compared to
09/04/2022.
3. Mild diffuse thickening of the wall of the urinary bladder. These correlate with urinalysis to exclude cystitis.
4. Enlargement of the prostate gland.'
Today re-consulted as having ongoing abd pain
Objective
Data Reviewed
Laboratory Data:
Laboratory Results
03/30/23 06:44
03/30/23 06:44
Laboratory Results
PT 14.1 Sec (11.4-14.6) 03/05/23 17:54
INR 1.07 03/05/23 17:54
APTT 31.6 Sec (23.4-35.0) 03/05/23 17:54
Phosphorus 3.4 mg/dl (2.5-4.5) 03/28/23 05:58
Magnesium 2.0 mg/dl (1.6-2.3) 03/28/23 05:58
Total Bilirubin 0.6 mg/dl (0.2-1.3) 03/30/23 06:44
AST 33 U/L (17-59) 03/30/23 06:44
ALT 42 U/L (0-50) 03/30/23 06:44
Alkaline Phosphatase 109 U/L (38-126) 03/30/23 06:44
Amylase 81 U/L (30-110) 03/06/23 05:16
Lipase 197 U/L (23-300) 03/22/23 04:51
Vital Signs and I&O:
Vital Signs
Temp Pulse Resp BP Pulse Ox
97.7 F 93 16 118/84 96
03/31/23 07:40 03/31/23 09:16 02/18/24 07:40 03/31/23 09:16 03/31/23 07:40
I&O
03/30/23 03/31/23 04/01/23
06:59 06:59 06:59
Intake Total 1919 / 1919 1080 / 1080
Output Total 1075 / 1075 860 / 860
Balance 845 / 845 220 / 220
Physical Exam
Physical Exam
HEENT: Anicteric
Cardiology: Normal Sinus Rhythm
Pulmonary: Clear
GI: Non Distended and Tender
Extremities: No Edema
Neuro: Non Focal
[2023-03-31] MEDS: THERAGRAN 1 TABLET PO (11:00)
[2023-03-31 11:55] VITALS: BP 112/83
--- NOTE | 2023-03-31 12:21 | PTOTSP ---
The patient ambulated 350 feet independently and was able to perform elevations without difficulty, offering no concerns regarding mobility upon return home. No further PT needs identified at this time, will sign off.
--- NOTE | 2023-03-31 13:59 | W.PN.UPDATE ---
Update Note
Progress Note Update
Pt seen- chart reviewed. He is medically stable at this point, his mental status clear. Still expresses disbelief that he became aggressive in the hospital and required restraints. 'They told me that happened but I don't remember it.'
He says that he should stop drinking alcohol. He is agreeable to outpatient rehab.
Would discharge patient with Risperdal currently ordered- this can be reassessed in outpatient followup.
--- NOTE | 2023-03-31 15:09 | CM ---
CM following re: discharge planning.
Reviewed pt's chart, met with pt and spoke to pt's girlfriend Nikki and she has been notified of pt's potential discharge.
Updated PT/OT evaluations noted- pt is independent with functional ability.
Psychiatrist updated note noted. pt agreeable with outpatient D&A program.
Per MD request, CM checked the cantu for Eliquis 5mg BID: covers by insurance 100%, no co-pay.
CM spoke to SAMIR Moss and he stated he spoke to the pt and pt agrees to follow up with [facility] for outpatient D&A rehab program and VIRAJ Moss will set it up for the pt.
CM provided pt with SAMIR brochure and pt stated: 'I have to stop drinking, no choice'. Support offered and provided.
D/C plan: home with [facility] D&A rehab programs. SAMIR following
--- NOTE | 2023-03-31 15:12 | W.PN.UPDATE ---
Update Note
Progress Note Update
Psychiatry notes reviewed. Discussed.
Discussed with GI
called and spoke to girlfriend and mom
PDMP shows that the patient has been on Valium for a long time. Valium has a very long half-life, may not be good especially with his alcohol use and LFTs being high on admission.
Switch to shorter acting Ativan in the hospital, which we will slowly taper off to daily as needed for anxiety so he does not go back to drinking.
I reviewed this with patient's significant other in detail. Asked her to keep the bottle of diazepam away so the patient does not have access to it. She is aware about Ativan and the need to get more prescription for that from PCP instead of the
Valium prescriptions.
Also discussed about labs pending-heavy metals
Discussed about abstinence from alcohol and is being followed by Finesse betancourt. Also aware that he needs a PCP appointment soon.
Discussed about risperidone, blood thinners.
Today's the last day of the patient's antibiotics therefore will not prescribe any antibiotics for discharge.
Family feels that patient is very close to his baseline.
Discussed with family that patient does not need to be in the hospital but still needs outpatient follow-up with neurology, psychiatry, GI and PCP.
Discussed not to allow the patient to drive until cleared by neurology.
He needs an MRI of the brain with and without contrast as outpatient-possibly an open MRI as the patient could not tolerate MRI here.
He lives with his mother and his girlfriend/significant other.
Case management reviewed the pricing for Eliquis .
Request case management to set up visiting nurses
Time spent today 1 hour or more
[2023-03-31 15:30] VITALS: BP 113/81
--- NOTE | 2023-03-31 15:38 | W.DS.TRANS ---
Addendum entered and electronically signed by Efrem Lockwood MD 03/31/23 15:46:
Dictation- [id number]
Original Note:
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
-
Discharge Instructions:
Discharge Diagnosis/Procedures Encephalopathy, mental status change, agitation,
pulmonary embolism, hypothyroidism, fevers,
acute pancreatitis, elevated liver function
tests, hypertension, fatty liver, enlarged
prostate, vitamin D deficiency, depression and
anxiety, history of Hodgkin's lymphoma, lung
nodule right side
Diet As tolerated
Activity As tolerated
Driving Restrictions No driving till cleared by neurology
Blood Work Hemoglobin A1c in 3 months, CBC and BMP in 2
weeks, thyroid function tests in [address] scan of the chest in 6 months.
Other Services VN
Stop these medications: Stop Valium, stop Celexa, stop diclofenac, stop
midodrine
Instructions:
Stand-Alone Forms:
Changes to Home Medications: Yes
Discharge Medications:
DC Medications w/original date entered in [employer]
tamsulosin 0.4 mg capsule (Flomax) 0.4 mg PO DAILY Urinary Issue 09/04/22
folic acid 1 mg tablet 1 mg PO DAILY Supplement #30 tabs 09/24/22
omeprazole 40 mg capsule,delayed release 40 mg PO DAILY GERD 03/05/23
thiamine HCl (vitamin B1) 100 mg tablet 100 mg PO DAILY Supplement 03/05/23
apixaban 5 mg tablet (Eliquis) 10 mg PO DIRECTED Blood clot prevention/tx #46 tabs 03/31/23
cholecalciferol (vitamin D3) 50 mcg (2,000 unit) tablet 50 mcg PO DAILY defeciency #30 tabs 03/31/23
docusate sodium 100 mg capsule 100 mg PO BID Constipation #0 caps 03/31/23
levothyroxine 25 mcg tablet 25 mcg PO DAILY AT 0700 Thyroid #30 tabs 03/31/23
lorazepam 0.5 mg tablet 0.5 mg PO TID anxiety #35 tabs 03/31/23
magnesium oxide 500 mg PO DAILY Electrolyte Repletion #0 tabs 03/31/23
melatonin 5 mg tablet 10 mg PO HS Sleep #0 tabs 03/31/23
metoprolol tartrate 25 mg tablet 12.5 mg PO BID Blood pressure #60 tabs 03/31/23
multivitamin with folic acid 400 mcg tablet (Tab-A-Sanam) 1 tab PO DAILY Supplement #0 tabs 03/31/23
risperidone 1 mg disintegrating tablet 1 mg PO TID Mental Health/Anxiety #90 tabs 03/31/23
Home Medication Changes
Celexa and Valium discontinued. Diclofenac discontinued, midodrine discontinued
New medicines
apixaban 5 mg tablet (Eliquis) 10 mg PO DIRECTED Blood clot prevention/tx #46 tabs 03/31/23
cholecalciferol (vitamin D3) 50 mcg (2,000 unit) tablet 50 mcg PO DAILY defeciency #30 tabs 03/31/23
docusate sodium 100 mg capsule 100 mg PO BID Constipation #0 caps 03/31/23
levothyroxine 25 mcg tablet 25 mcg PO DAILY AT 0700 Thyroid #30 tabs 03/31/23
lorazepam 0.5 mg tablet 0.5 mg PO TID anxiety #35 tabs 03/31/23
magnesium oxide 500 mg PO DAILY Electrolyte Repletion #0 tabs 03/31/23
melatonin 5 mg tablet 10 mg PO HS Sleep #0 tabs 03/31/23
metoprolol tartrate 25 mg tablet 12.5 mg PO BID Blood pressure #60 tabs 03/31/23
multivitamin with folic acid 400 mcg tablet (Tab-A-Sanam) 1 tab PO DAILY Supplement #0 tabs 03/31/23
risperidone 1 mg disintegrating tablet 1 mg PO TID Mental Health/Anxiety #90 tabs 03/31/23
Pending Results: Yes
Additional Pending Results:
Heavy metals
--- NOTE | 2023-03-31 15:40 | W.[place]-PDMP ---
[place]PD[place]
-
Checked the [place]- Prescription Drug Monitoring Program website, no red flags identified; changing valium to Ativan.
--- NOTE | 2023-03-31 16:57 | PTCARENOTE ---
pt was discharged home today, Left SQ port de accessed before discharge by IV team, instructions read to patient and some important information was highlighted.
--- NOTE | 2023-04-01 08:25 | W.PN.UPDATE ---
Update Note
Progress Note Update
Called Dr Bales's office and requested to call pt to give an appt.
Also requested a call back. DR Bales will be in saturday.
[2023-04-02 01:37] LABS: Arsenic, Blood <10.0 ug/L (<=12.0); Lead - Venous <2.0 ug/dL (<=4.9); Mercury, Blood 5.4 ug/L (<=10.0)
== END 2023-03-31 17:51 | disposition home or self-care (01) | DRG 438 ==
LOC: 2 NORTH 15:51
PROVIDERS: Internal Medicine; Nurse Practitioner Adult Health; Nurse Practitioner Family; Nurse Practitioner Primary Care; Physician Assistant; Physician Assistant Medical; Registered Nurse; ADMITTING PHYSICIAN Hospitalist; ATTENDING PHYSICIAN Hospitalist; CONSULT PHYSICIAN Internal Medicine Critical Care Medicine; CONSULT PHYSICIAN Internal Medicine Gastroenterology; CONSULT PHYSICIAN Psychiatry & Neurology Neurology; CONSULT PHYSICIAN Psychiatry & Neurology Psychiatry; EMERGENCY PHYSICIAN Emergency Medicine; FAMILY PHYSICIAN Student in an Organized Health Care Education/Training Program; OTHER PHYSICIAN Internal Medicine Infectious Disease
DX: K85.20 Alcohol induced acute pancreatitis without necrosis or infection (principal); G92.8 Other toxic encephalopathy; I26.99 Other pulmonary embolism without acute cor pulmonale; J96.01 Acute respiratory failure with hypoxia; K86.3 Pseudocyst of pancreas; K22.10 Ulcer of esophagus without bleeding; F10.231 Alcohol dependence with withdrawal delirium; J98.11 Atelectasis; F41.1 Generalized anxiety disorder; F32.A Depression, unspecified; K80.20 Calculus of gallbladder without cholecystitis without obstruction; K76.0 Fatty (change of) liver, not elsewhere classified; E87.6 Hypokalemia; K29.20 Alcoholic gastritis without bleeding; N40.0 Benign prostatic hyperplasia without lower urinary tract symptoms; I10 Essential (primary) hypertension; I95.1 Orthostatic hypotension; G89.29 Other chronic pain; R10.9 Unspecified abdominal pain; D72.829 Elevated white blood cell count, unspecified; R50.9 Fever, unspecified; K21.00 Gastro-esophageal reflux disease with esophagitis, without bleeding; E03.9 Hypothyroidism, unspecified; R79.89 Other specified abnormal findings of blood chemistry; E55.9 Vitamin D deficiency, unspecified; R91.1 Solitary pulmonary nodule; Z11.52 Encounter for screening for COVID-19; Z85.72 Personal history of non-Hodgkin lymphomas; Z87.891 Personal history of nicotine dependence; Z86.010 Personal history of colon polyps
CPT/HCPCS: 70450; 71045; 71275; 74177; 74181; 76700; 80048; 80053; 80061; 80306; 80307; 81003; 82010; 82077; 82140; 82150; 82175; 82248; 82306; 82533; 82550; 82570; 82607; 82977; 83605; 83655; 83690; 83735; 83825; 83880; 84100; 84110; 84120; 84145; 84439; 84443; 84478; 84484; 85025; 85027; 85379; 85610; 85730; 86140; 86308; 86705; 86706; 86709; 86803; 87040; 87340; 87502; 87811; 93005; 93306; 93970; 95816; 96361; 96372; 96374; 96375; 96376; 97116; 97163; 97164; 97166; 97167; 97168; 97530; 99285; Q9967

== ENCOUNTER → 2023-04-11 15:25 | Outpatient (REF) | payer OTHER, SELFPAY | LOC: RAD 15:25 | PROVIDERS: ATTENDING PHYSICIAN Student in an Organized Health Care Education/Training Program | DX: M25.432 Effusion, left wrist (principal); R20.2 Paresthesia of skin | CPT/HCPCS: 73110 ==

== ENCOUNTER → 2023-07-31 11:19 | Outpatient (REF) | payer OTHER, SELFPAY | LOC: PAVMRI 11:19 | PROVIDERS: ATTENDING PHYSICIAN Physician Assistant; FAMILY PHYSICIAN Student in an Organized Health Care Education/Training Program | DX: K86.0 Alcohol-induced chronic pancreatitis (principal) | CPT/HCPCS: 74183; A9575 ==

== ENCOUNTER 2023-11-07 20:15 | Inpatient (IN) | payer OTHER, SELFPAY ==
[2023-11-07] VITALS (18 sets, daily range): BP systolic 86–141; BP diastolic 47–99; BMI 23.7; BMI 23.2
--- NOTE | 2023-11-07 15:15 | ED.GENMED ---
History of Present Illness
General
Chief Complaint: Blood Pressure Problem
Source: patient and records
Time Seen by Provider: 11/07/23 14:56
History of Present Illness
History of Present Illness:
58yoM with a history of Hodgkin's lymphoma, pulmonary embolism, alcohol abuse (last drink 5-6 weeks ago), anxiety, depression presenting for evaluation of hypotension. Patient has been having abdominal pain for at least a month. Pain has been
gradually worsening. Pain is worse in the left upper quadrant but is also generalized. He was seen by his PCP today for his symptoms. He was hypotensive in the office with blood pressures of 70s/40s on multiple rechecks and he was sent to the ED
for evaluation. Patient reports feeling lightheaded from time to time but denies any syncope. He endorses decreased appetite and had 1 episode of vomiting yesterday. He is also been having exertional dyspnea for at least several weeks. No chest
pain. Patient was last hospitalized February to March 2023 for pancreatitis and alcohol withdrawal. No previous abdominal surgeries.
Past History
Past History
ED Past Medical History: Psychiatric (Generalized anxiety disorder), Other (Chronic back pain) and Other (Hodgkin's Lymphoma); Negative HTN or NIDDM
ED Past Surgical History: Orthopedic
Social History
Tobacco: Smoker (History of chewing tobacco use, quit one year ago)
Alcohol: None
Drug: None
Living: with family
Employment: Employed
Family History
Family History: CAD
Phy Exam
Physical Exam
Physical Exam:
Chronically ill appearing male, no acute distress
General Physical Exam
General Presentation: no apparent distress
General age: appears stated age
General Skin: warm and dry
General Habitus: normal
ENT Exam
ENT Exam: normocephalic
Cardiovascular Exam
Cardiovascular Exam: regular rate/rhythm and no murmur
Pulmonary Exam
Pulmonary Exam: lungs clear, no respiratory distress, no rales, no crackles, no rhonchi and no wheezing
Gastrointestinal Exam
Gastrointestinal Exam: soft, non distended and tender (+Tenderness in epigastrium and LUQ with voluntary guarding)
Neurological Exam
Neurological Exam: alert
Skin Exam
Skin Exam: normal color and warm/dry
Psychiatric Exam
Psychiatric Exam: normal mood/affect
Course
Orders/Labs/Results
Orders:
Orders
11/07/23 Dinner
NPO
Allow oral meds: Yes
Allow clear liquids: Sips of Clears
NPO with Ice Chips: Yes
11/07/23 15:16
Electrocardiogram (*1) Urgent
Reason for Study: Abdominal Pain
Cardiac Monitoring- Treatment ONCE
EKG- Treatment ONCE
0.9% Sodium Chloride 1000 ml [Nss] 1,000 ml IV BOLUS
11/07/23 15:43
PTT Urgent
Prothrombin Time Urgent
11/07/23 15:44
Complete Blood Count/With Diff Urgent
Lactate Level [Lactic Acid] Urgent
Troponin I Urgent
11/07/23 16:35
Alcohol Urgent
Comprehensive Metabolic Panel Urgent
Lipase Urgent
Magnesium Urgent
TSH Reflex To Free T4 Urgent
Comment: ADDON
11/07/23 17:10
CT Chest/abd/pel W Iv Cont Urgent
Reason For Exam: SOB, L sided abd pain, hypotension
11/07/23 18:51
Piperacillin/Tazo 3.375 Gram [Zosyn] 3.375 gram in 50 ml IV NOW
11/07/23 19:51
Admit/Transfer Patient As Directed
Co-Sign Provider:
Level of Care: Inpatient admission
Assign to:: Medical/Surgical
Physician / Group: hospitalist
Diagnosis: acute on chronic pancreatitis
Reason for Hospitalization: acute pancreatitis
Expected length of stay greater than two midnights?: Yes
ELOS- Estimated Length of Stay in days: 2
I certify the patient meets the requirements for IP care: Yes
PRN Pain Medication Management As Directed
May give lesser potent ordered pain med per pt: Yes
preference::
Protocol:: Medication orders for pain may be administered in a
manner that supports deferring to patient preference
when the pt is:
- Requesting an ordered lesser potent pain medication.
Least to most potent pain medications are defined
as: acetaminophen < NSAID < tramadol < opioids
(morphine, oxycodone, hydromorphone).
- Requesting a lesser dose of the same medication IF
ORDERED.
- Requesting a less intrusive route of administration
if both routes are prescribed by the provider (PO <
IV).
11/07/23 19:52
Code Status As Directed
Resuscitation Status: Full Code
11/07/23 19:57
Add On- LAB Stat
Tests Added?: alcohol level
11/07/23 20:00
Apixaban [Eliquis] 5 mg PO BID
Metoprolol [Lopressor] 12.5 mg PO BID
11/07/23 20:55
Acetaminophen [Tylenol] 650 mg PO Q4HPRN PRN
Bisacodyl [Dulcolax] 10 mg RECTAL [id number] PRN
Ketorolac [Toradol] 10 mg IV Q6HPRN PRN
Lactated Ringers [Lr] 1,000 ml IV 150 mls/hr
Morphine Sulfate 2 mg IV Q6HPRN PRN
Ondansetron Injectable [Zofran] 4 mg IV Q6HPRN PRN
Polyethylene Glycol Powder [Miralax] 17 grams PO DAILYPRN PRN
Zolpidem Tartrate [Ambien] 5 mg PO HSPRN PRN
11/07/23 20:55
GASTROINTESTINAL CONSULT Routine
Consulting Provider: Luda Maldonado
Was physician already notified: Yes
Reason for consult: acute on chronic pancreatitis
VTE Contraindication Routine
VTE Mechanical Device Contraindication: Medical Contraindication
Pharmocologic Contraindication: Medical Contraindication
Activity As Directed
Activity Level: With Assistance
Vital Signs As Directed
Frequency: Per unit guidelines
11/07/23 22:00
Gabapentin [Neurontin] 300 mg PO TID
11/08/23 06:00
Basic Metabolic Panel IN AM
Complete Blood Count/No Diff IN AM
LFT [Mjsgc-Axym-Mnyayxf] IN AM
Lipase IN AM
Lipid Profile [Cardiovascular Evaluation] IN AM
Magnesium IN AM
Levothyroxine [Synthroid] 25 mcg PO DAILY @ 0600
11/08/23 08:00
Cholecalciferol (Vitamin D3) [VITAMIN D3 (cholecalciferol)] 50 mcg PO DAILY
FOLic ACID [Folvite] 1 mg PO DAILY
Pantoprazole [Protonix IV] 40 mg IV DAILY
Sertraline HCl [Zoloft] 100 mg PO DAILY
Tamsulosin [Flomax] 0.4 mg PO DAILY
Thiamine HCl [Vitamin B1] 100 mg PO DAILY
Abnormal Lab Results
11/07/23 11/07/23 11/07/23
15:43 15:44 16:35
RBC 4.61 L 10^6/uL
(4.70-6.10)
Hgb 12.0 L g/dL
(13.0-18.0)
Hct 36.8 L %
(39.0-52.0)
MCV 79.8 L fL
(80.0-94.0)
MCH 26.0 L pg
(27.0-31.0)
MCHC 32.6 L g/dL
(33.0-37.0)
RDW 16.2 H %
(11.5-14.5)
Absolute Neuts (auto) 7.2 H 10^3/uL
(1.4-6.5)
Absolute Lymphs (auto) 0.9 L 10^3/uL
(1.2-3.4)
Absolute Monos (auto) 0.8 H 10^3/uL
(0.1-0.6)
Neutrophils % 78.5 H %
(42.2-75.2)
Lymphocytes % 9.5 L %
(20.5-51.1)
PT 15.0 H Sec
(11.4-14.6)
Glucose 108 H mg/dl
(70-99)
Calcium 8.3 L mg/dl
(8.4-10.2)
Total Protein 6.2 L g/dl
(6.3-8.2)
Albumin 3.3 L g/dl
(3.5-5.0)
Lipase 2259 H* U/L
(23-300)
11/07/23 15:44
11/07/23 16:35
Vital Signs
Initial and Last Documented VS:
Initial Vital Signs
Temp Pulse Resp BP Pulse Ox
98.3 F 76 16 86/60 100
11/07/23 14:47 11/07/23 14:47 11/07/23 14:47 11/07/23 14:47 11/07/23 14:47
Last Documented Vital Signs
Temp Pulse Resp BP Pulse Ox
97.6 F 64 14 141/54 100
11/07/23 21:05 11/07/23 21:05 11/07/23 21:05 11/07/23 21:05 11/07/23 21:05
MDM/Problems Addressed
Differential Diagnosis Includes:
58yoM here with LUQ abd pain x 1 month. Seen by PCP today and found to be hypotensive and sent to the ED. Hx of pancreatitis. Hx of alcohol abuse but has not drank in >1 month. BP 86/60 in triage. Remainder of vitals stable. Repeat BP on initial
exam improved. He is non-toxic appearing. +Voluntary guarding on abdominal exam. Differential diagnosis includes but is not limited to: pancreatitis, PUD, diverticulitis, colitis, perforated viscus
Initial ED plan: Check abdominal labs, lactate. troponin/EKG, and CT abdomen. IV fluid bolus.
*EKG
Interpreted by ED Provider?: Yes
EKG Intrepretation Date: 11/07/23
Heart Rate: 70
Rate: normal
Rhythm: sinus
[place]: normal axis
QRS Pattern: normal QRS
Ischemia: no ischemia
*Critical Care Note
Total Time (30-74mins, 75-104mins- exclusive of procedures): Not Applicable
Update Note
Update Note:
Labs reveal a lipase of >2200. Remainder of labs unremarkable including normal white count, lactate, and LFTs. CT shows severe acute pancreatitis with a peripancreatic fluid collection as well as splenic vein thrombosis. Patient admitted for further
evaluation and management.
ED Attending Note
-
Portions of this chart may have been created with voice recognition software.� Occasional wrong word or��sound alike� substitutions may have occurred due to the inherent limitations of voice recognition software.
Discharge Plan
Departure
Patient Disposition: Admit
Date of Disposition: 11/07/23
Time of Disposition: 19:09
Presentation/result/management discussed w/ accepting MD/DO: Hospitalist
Discharge Problem:
Acute pancreatitis
Interventions
Interventions:
*Risk Screen - Suicide Last Done: 11/07/23 20:58
*General Assessment Last Done: 11/07/23 14:47
*Neglect/Abuse Screening Last Done: 11/07/23 14:47
ED- Fall Risk Assessment Last Done: 11/07/23 16:36
*ED COVID-19 Vaccine History Last Done: 11/07/23 20:58
*Nursing Disposition Last Done: 11/07/23 20:52
ED- Cardiac Assessment Last Done: 11/07/23 16:36
ED- Neurological Assessment Last Done: 11/07/23 16:36
ED- Pulmonary Assessment Last Done: 11/07/23 16:36
Discharge Date and Time
Discharge Date/Time: 11/07/23 20:52
[2023-11-07] MEDS: NSS 1000 IV (15:46)
[2023-11-07 16:06] LABS: % Basophils 0.3 % (0-2); % Eosinophils 2.3 % (0-6); % Immature Granulocytes 0.4 % (0-0.5); % Lymphocytes 9.5 % (20.5-51.1); % Neutrophils 78.5 % (42.2-75.2); Absolute Eosinophils 0.2 10^3/uL (0-0.7); Absolute Lymphocytes 0.9 10^3/uL (1.2-3.4); Absolute Monocytes 0.8 10^3/uL (0.1-0.6); Absolute Neutrophils 7.2 10^3/uL (1.4-6.5); Hematocrit 36.8 % (39.0-52.0); Mean Corp Hgb Conc. 32.6 g/dL (33.0-37.0); Mean Corpuscular Volume 79.8 fL (80.0-94.0); Mean Platelet Volume 8.9 fL (7.4-10.4); Nucleated Red Blood Cells % 0 % (-); Platelet Count 237 10^3/uL (130-400); Red Blood Cell Count 4.61 10^6/uL (4.70-6.10); Red Cell Dist. Width 16.2 % (11.5-14.5); White Blood Cell Count 9.1 10^3/uL (4.8-10.8)
[2023-11-07 16:20] LABS: Lactic Acid 1.1 mmol/L (0.7-2.0)
[2023-11-07 16:26] LABS: INR 1.17
[2023-11-07 16:27] LABS: APTT 27.6 Sec (23.4-35.0)
[2023-11-07 16:33] LABS: Troponin I < 0.012 ng/ml
[2023-11-07 17:02] LABS: ALT (SGPT) 22 U/L (0-50); AST (SGOT) 28 U/L (17-59); Albumin 3.3 g/dl (3.5-5.0); Alkaline Phosphatase 120 U/L (38-126); Blood Urea Nitrogen 15 mg/dl (9-20); Calcium 8.3 mg/dl (8.4-10.2); Carbon Dioxide 24 mmol/L (22-30); Chloride 100 mmol/L (98-107); Estimated Creatinine Clearance 84 ml/min; Glucose 108 mg/dl (70-99); Magnesium 2.1 mg/dl (1.6-2.3); Potassium 4.1 mmol/L (3.5-5.1); Sodium 136 mmol/L (135-145); Total Bilirubin 0.3 mg/dl (0.2-1.3); Total Protein 6.2 g/dl (6.3-8.2); eGFR > 60.00
[2023-11-07 17:16] LABS: Lipase 2259 U/L (23-300)
[2023-11-07 18:49] LABS: TSH Reflex To Free T4 1.13 uIU/ml (0.47-4.68)
--- NOTE | 2023-11-07 19:30 | HPS.HSE ---
Family Physician
-
Family Physician: Amandeep Mark DO
Chief Complaint
-
low blood pressure and abdominal pain.
History of Present Illness
This is a 58-year-old male with past medical history significant for alcohol abuse, alcoholic pancreatitis, pulmonary embolism on anticoagulation, Hodgkin's lymphoma currently in remission, depression anxiety who presents to the emergency department
from PMD with low blood pressure and abdominal pain.
Patient reports longstanding bilateral lower quadrant abdominal pain for several weeks. It appears to been progressively worse over the last 2 to 3 weeks. It associated with 1-2 episodes of vomiting. Denies consistent nausea or diarrhea. Patient
reported that he had a rigors the previous evening and went to see his PMD today. At PMD office he was hypotensive and sent to the ED for evaluation.
Patient denies any recent alcohol use with last alcohol use about 30 days ago. He denies any medication changes. He denies any other recreational drug use. He denies any instrumentation.
Reports abdominal pain has been constant for weeks and he has been unable to sleep for several weeks. Patient denies any melena or hematochezia. Denies any chest pain, palpitations, lightheadedness or dizziness. He denies any lower extremity
swelling. He denies orthopnea or PND.
On arrival in the emergency department the patient was afebrile, blood pressure was 105/80, pulse 78 oxygen saturation 94% on room air. ECG with normal sinus at 70. Unchanged. There was no leukocytosis hemoglobin was 1200 count was 237,
electrolytes are within normal limits, BUN/creatinine were within normal limits. LFTs were within normal limits. Lipase was elevated at 2259. A CT of the abdomen and pelvis with contrast shows severe acute pancreatitis with 3 to 4 cm
peripancreatic fluid collection in the distal pancreas, there was a splenic vein thrombosis.
Medical History
Past Medical History
Past Medical History: Reports Dementia
Additional Past Medical History:
Alcoholic pancreatitis
BPH
Pulmonary embolism
Hodgkins lymphoma
Past Surgical History: Reports None
Social History
Tobacco: Former Smoker
Alcohol: Former
Drug: None
Personal: Partner
Living: With Family
Employment: Not Employed
Family History
Family History: Not pertinent
Allergies / Home Medications
Allergies reflects when Allergies were last updated in [employer].
Home Medications with original date entered in [employer]
Allergy/Medication List:
Allergies
Allergy/AdvReac Type Severity Reaction Status Date / Time
doxycycline Allergy Vomiting Verified 11/07/23 14:54
hydromorphone [From Dilaudid] Allergy Itching Verified 11/07/23 14:54
Home Medications
tamsulosin 0.4 mg capsule (Flomax) 0.4 mg PO DAILY Urinary Issue 09/04/22
folic acid 1 mg tablet 1 mg PO DAILY Supplement #30 tabs 09/24/22
omeprazole 40 mg capsule,delayed release 40 mg PO DAILY GERD 03/05/23
thiamine HCl (vitamin B1) 100 mg tablet 100 mg PO DAILY Supplement 03/05/23
cholecalciferol (vitamin D3) 50 mcg (2,000 unit) tablet 50 mcg PO DAILY defeciency #30 tabs 03/31/23
magnesium oxide 500 mg PO DAILY Electrolyte Repletion #0 tabs 03/31/23
melatonin 5 mg tablet 10 mg (2 x 5 mg) PO HS Sleep #0 tabs 03/31/23
metoprolol tartrate 25 mg tablet 12.5 mg (1/2 x 25 mg) PO BID Blood pressure #60 tabs 03/31/23
apixaban 5 mg tablet (Eliquis) 5 mg PO BID Blood clot prevention/tx 11/07/23
gabapentin 300 mg capsule 300 mg PO TID 11/07/23
levothyroxine 25 mcg tablet 25 mcg PO DAILY Thyroid 11/07/23
lorazepam 0.5 mg tablet 0.5 mg PO DAILYPRN PRN anxiety 11/07/23
sertraline 100 mg tablet 100 mg PO DAILY 11/07/23
sildenafil (pulm.hypertension) 20 mg tablet 60 mg PO DAILYPRN PRN ed 11/07/23
trazodone 100 mg tablet 100 mg PO HS 11/07/23
vitamin B complex 1 tab PO DAILY 11/07/23
Review of Systems
-
History Source: Patient
Constitutional: Reports Chills
EENT: Reports No Symptoms
Respiratory: Reports No Symptoms
Cardiac: Reports No Symptoms
Abdomen/GI: Reports Abdominal Pain
: Reports No Symptoms
Musculoskeletal: Reports No Symptoms
Neurological: Reports No Symptoms
Endocrine: Reports No Symptoms
Hematologic/Lymphatic: Reports No Symptoms
Psych: Reports No Symptoms
Physical Exam
Vital Signs
Vital Signs
Temp Pulse Resp BP Pulse Ox
98.3 F 70 20 105/80 94
11/07/23 14:47 11/07/23 16:45 11/07/23 16:45 11/07/23 16:45 11/07/23 16:45
Physical Exam
General: Well Developed, Well Nourished, Comfortable and Conversant
HEENT: NormoCephalic, Anicteric, Moist mucous membranes and Atraumatic
Respiratory: Clear
Cardiac: S1/S2 and Regular Rhythm
Breast: Deferred by me
GI: Non Distended, Normal Bowel Sounds and Tender
Rectal: Deferred by Provider
Genito-urinary: Deferred by me
Musculoskeletal: No Clubbing, No Cyanosis and No Edema
Skin: Warm
Neuro: AO x 3
Hematologic/Lymphatic: No Lymphadenopathy
Psych: Calm
Laboratory Results
-
11/07/23 15:44
11/07/23 16:35
Laboratory Results
PT 15.0 Sec (11.4-14.6) H 11/07/23 15:43
INR 1.17 11/07/23 15:43
APTT 27.6 Sec (23.4-35.0) 11/07/23 15:43
Lactic Acid 1.1 mmol/L (0.7-2.0) 11/07/23 15:44
Total Bilirubin 0.3 mg/dl (0.2-1.3) 11/07/23 16:35
AST 28 U/L (17-59) 11/07/23 16:35
ALT 22 U/L (0-50) 11/07/23 16:35
Alkaline Phosphatase 120 U/L (38-126) 11/07/23 16:35
Troponin I < 0.012 ng/ml 11/07/23 15:44
Lipase 2259 U/L (23-300) H* 11/07/23 16:35
Data Reviewed
-
CT Scan: Report Reviewed by me
MRI: Report Reviewed by me
Medical Tests (Nuc Med, Echo, EKG etc): Image Personally Visualized and interpreted
Lab Data: Labs Reviewed by me
Old Records: Reviewed
Impression/Plan
-
IMPRESSION:
58-year-old with history of alcohol abuse, has been off alcohol for at least 30 days who presents to the emergency department with bilateral lower quadrant abdominal pain for several weeks that is worsening more recently and rigors for 1 day, found
to be hypotensive in clinic comes to the ED and found to have acute pancreatitis with a lipase of [address] scan consistent with acute pancreatitis. Patient is nontoxic-appearing and hemodynamically stable in the emergency department.
PLAN:
1. Acute on chronic pancreatitis- Lipase 2200, CT showing either severe acute interstitial edematous pancreatitis or necrotizing pancreatitis involving the peripancreatic soft tissues around the pancreatic body and tail with a 3.4 cm peripancreatic
fluid collection inferior to the pancreatic tail. Given h/o etoh can rule out recurrent alcoholic pancreatitis. Possible gall stones given cholelithiasis but patient with normal LFTs and no ductal anomalies. Rigors at home but well appearing here
with normal bun/cr. Splenic vein thrombosis c/w chronic pancreatitis. Suspect the fluid collection may be seen on prior MRI in July showing irregular region of hypointense T2 signal and intrinsically hyperintense T1 signal adjacent to the distal
pancreatic body and tail with thin peripheral postcontrast enhancement measuring 4.4 x 3.2 cm and is stable from previous examinations and again may represent a chronic complex loculated peripancreatic collection.
- admit to med/surg
- npo except ice-chips and sips of water with oral medications
- pain control and iv fluids for acute pancreatitis
- etiology unclear, will check alcohol level, lipid panel, trend lfts
- continue zosyn x 24 hours and monitor for signs of infection
- GI consult
2. 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 He is on second line agent for splenic vein thrombosis due to prior PE.
- continue apixaban
- GI consult as above as may need enoxaparin
3. ETOH abuse - Patient reports last use was over 30 days ago. History of alcohol encephalopathy and memory loss. He sounds credible with respect to use.
- check levels as above
- if positive, will place on CIWA protocol
- otherwise continue supplementation with folic acid, thiamine and b complex
4. PE
- on apixaban
DVT PPX - on apixaban
Code Status - Full Code
[2023-11-07] MEDS: ZOSYN 50 IV (19:37)
[2023-11-07 20:11] LABS: Alcohol None Detected
[2023-11-07] MEDS: LOPRESSOR PO (20:45)
[2023-11-07] MEDS: ELIQUIS 5 MG PO (20:47)
[2023-11-07] MEDS: LR 1000 IV (20:55)
[2023-11-07] MEDS: NEURONTIN 300 MG PO (21:22)
[2023-11-07] MEDS: AMBIEN 5 MG PO (21:24)
[2023-11-07] MEDS: TORADOL 10 MG IV (23:42)
[2023-11-08] MEDS: ZOSYN 50 IV ×4 (01:25→20:06)
[2023-11-08 01:28] VITALS: BP 112/74
[2023-11-08] MEDS: MORPHINE SULFATE 2 MG IV ×2 (02:18→23:39)
--- NOTE | 2023-11-08 03:43 | PTCARENOTE ---
Addendum entered by Frederick Medina RN 11/08/23 03:54:
JESSIE notified about med misuse
Original Note:
Pt ax3, vital signs stable. Pt restless and anxious throughout shift, pt stated last drink was 30 days ago. JESSIE kohler notified about pts withdrawl on previous admission [facility] protocol implemented for safety. Pt complaining of insomnia, PRN Ambien
give (see MAR). Pt states he has trouble sleeping for past month. Pt stated 'I've been taking nyquil and melatonin to go to sleep'. Pt stated 'I finished a bottle of nyquil in 2 days because I was having trouble sleeping.' (Pt educated on misuse of
medications). POC ongoing
[2023-11-08] MEDS: LR 1000 IV ×3 (04:32→20:06)
[2023-11-08] MEDS: SYNTHROID 25 MCG PO (05:25)
[2023-11-08 06:16] LABS: Hematocrit 34.1 % (39.0-52.0); Hemoglobin 11.4 g/dL (13.0-18.0); Mean Corp Hgb Conc. 33.4 g/dL (33.0-37.0); Mean Corpuscular Volume 77.9 fL (80.0-94.0); Mean Platelet Volume 8.5 fL (7.4-10.4); Platelet Count 191 10^3/uL (130-400); Red Blood Cell Count 4.38 10^6/uL (4.70-6.10); Red Cell Dist. Width 15.9 % (11.5-14.5); White Blood Cell Count 7.3 10^3/uL (4.8-10.8)
--- NOTE | 2023-11-08 06:39 | W.PN.UPDATE ---
Update Note
Progress Note Update
[facility] protocol with Ativan added due to increased anxiety. He stated to nursing he drinks 1/2 bottle of Nyquil at night past few nights to go to sleep but denies drinking alcohol in past thirty days.
[2023-11-08 06:49] LABS: ALT (SGPT) 19 U/L (0-50); AST (SGOT) 21 U/L (17-59); Alkaline Phosphatase 115 U/L (38-126); Blood Urea Nitrogen 9 mg/dl (9-20); Calcium 8.5 mg/dl (8.4-10.2); Carbon Dioxide 27 mmol/L (22-30); Chloride 103 mmol/L (98-107); Direct Bilirubin 0.2 mg/dl (0.0-0.4); Estimated Creatinine Clearance 95 ml/min; Glucose 94 mg/dl (70-99); HDL Cholesterol 22 mg/dl; LDL Cholesterol, Calculated 149 mg/dl; Lipase 885 U/L (23-300); Magnesium 2.2 mg/dl (1.6-2.3); Potassium 3.9 mmol/L (3.5-5.1); Sodium 139 mmol/L (135-145); Total Bilirubin 0.3 mg/dl (0.2-1.3); Total Cholesterol 197 mg/dl (50-199); Total Protein 5.8 g/dl (6.3-8.2); Triglyceride 132 mg/dl (10-149); Very Low Density Lipoprotein 26 mg/dl (0-30); eGFR > 60.00
[2023-11-08 07:55] VITALS: BP 107/73
[2023-11-08] MEDS: PROTONIX IV 40 MG IV (08:30)
[2023-11-08] MEDS: VITAMIN D3 (cholecalciferol) 50 MCG PO (08:31)
[2023-11-08] MEDS: ZOLOFT 100 MG PO (08:31)
[2023-11-08] MEDS: ELIQUIS 5 MG PO ×2 (08:31→20:06)
[2023-11-08] MEDS: VITAMIN B1 100 MG PO (08:31)
[2023-11-08] MEDS: FOLVITE 1 MG PO (08:31)
[2023-11-08] MEDS: LOPRESSOR 12.5 MG PO ×2 (08:31→20:07)
[2023-11-08] MEDS: NSS (PRESERVATIVE FREE) 10 ML IV (08:31)
[2023-11-08] MEDS: NEURONTIN 300 MG PO ×3 (08:32→21:55)
[2023-11-08] MEDS: FLOMAX 0.4 MG PO (08:32)
--- NOTE | 2023-11-08 09:00 | W.PN.HOSP.TC ---
Today's Communication/Plan
-
Clear liq diet
Assessment / Plan
Assessment / Plan
58-year-old with history of alcohol abuse, has been off alcohol for at least 30 days who presents to the emergency department with bilateral lower quadrant abdominal pain for several weeks that is worsening more recently and rigors for 1 day, found
to be hypotensive in clinic comes to the ED and found to have acute pancreatitis with a lipase of [address] scan consistent with acute pancreatitis. Patient is nontoxic-appearing and hemodynamically stable in the emergency department.
PLAN:
1. Acute on chronic pancreatitis
- Lipase 2200, CT showing either severe acute interstitial edematous pancreatitis or necrotizing pancreatitis involving the peripancreatic soft tissues around the pancreatic body and tail with a 3.4 cm peripancreatic fluid collection inferior to the
pancreatic tail. Given h/o etoh can rule out recurrent alcoholic pancreatitis. Possible gall stones given cholelithiasis but patient with normal LFTs and no ductal anomalies. Rigors at home but well appearing here with normal bun/cr. Splenic vein
thrombosis c/w chronic pancreatitis. Suspect the fluid collection may be seen on prior MRI in July showing irregular region of hypointense T2 signal and intrinsically hyperintense T1 signal adjacent to the distal pancreatic body and tail with thin
peripheral postcontrast enhancement measuring 4.4 x 3.2 cm and is stable from previous examinations and again may represent a chronic complex loculated peripancreatic collection.
-Patient stopped drinking alcohol 1 month ago
-Appreciate GI input, continue IV fluids, pain control
-Trial of clears today
-Has an appointment with Dr. Oropeza on November 10
2. Splenic Vein thrombosis
- Secondary to chronic pancreatitis with collateral varices. He is on second line agent for splenic vein thrombosis due to prior PE.
- Continue apixaban
3. ETOH abuse - Patient reports last use was over 30 days ago. History of alcohol encephalopathy and memory loss. He sounds credible with respect to use.
-Patient stopped drinking 1 month ago, but drank half bottle of NyQuil for past few nights she did sleep
-[facility] protocol, folic acid, thiamine and b complex
4. PE
- on apixaban
DVT prophylaxis�Eliquis
Full code
Total time spent to see the patient on the floor, examine the patient, review data and lab results, discuss treatment plan with patient, nursing staff around 38 minutes.
Physical Exam
General: No acute distress
HEENT: Normocephalic, Atraumatic, EOMI, MMM
Respiratory: Clear to Auscultation bilaterally
Cardiac: Normal S1/S2, Regular Rate and Rhythm
GI: Soft, tender, nondistended
Extremities: No Clubbing, Cyanosis, or Edema
Neuro: Nonfocal/Grossly Intact
Psych: Calm, Cooperative
Derm: No Visible lesions
Anticipated Discharge: 24 - 48 hours
Subjective/Interval History
-
Date of Service: November 08, 2023
Patient reports he has chronic abdominal pain from chronic pancreatitis. Currently his pain at a 6 out of 10 in intensity. No nausea, no vomiting. No fever
Objective Data
-
Labs:
Laboratory Results
11/08/23
05:57
WBC 7.3
Hgb 11.4 L
Hct 34.1 L
Plt Count 191
Sodium 139
Potassium 3.9
Chloride 103
Carbon Dioxide 27
BUN 9
Creatinine 0.8
Glucose 94
Calcium 8.5
Total Bilirubin 0.3
AST 21
ALT 19
Alkaline Phosphatase 115
Vital Signs:
Vital Signs
Temp Pulse Resp BP Pulse Ox
98.1 F 70 16 115/74 98
11/08/23 07:55 11/08/23 08:31 11/08/23 07:55 11/08/23 08:31 11/08/23 07:55
I&O
11/07/23 11/08/23 11/09/23
06:59 06:59 06:59
Intake Total 60 / 60
Output Total 300 / 300 150 / 150
Balance -300 / -300 -90 / -90
--- NOTE | 2023-11-08 09:23 | CON.GI ---
Addendum entered and electronically signed by Luda Maldonado MD 11/08/23 13:27:
I saw and examined the patient.
The STEVEDORE DOCK's note was reviewed and I agree with the note.
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
his PCP yesterday and was noted to have hypotension and was sent to the ER. He says that he has been having abdominal pain for the past few days prior to admission with chills but no fever. Also reports no nausea or vomiting. He does have a
history of pancreatic pseudocyst which had improved on MRI in July but did show stable fluid collection adjacent to the distal body and tail. He now presents with recurrent pancreatitis he has been drinking alcohol and only quit about a month ago.
CT from current admission reveals severe acute pancreatitis cannot rule out necrotizing pancreatitis with 3.4 cm stable peripancreatic fluid collection inferior to the tail, SVT noted with collateral varices, fatty liver, gallstones and prostate
enlargement. Today he seems to be feeling improved and wants to eat. He is currently on IV fluids and pain control.
Assessment and plan recurrent acute pancreatitis related to alcohol unfortunately he only quit drinking about a month ago. He does have a history of peripancreatic fluid collection which seems to be stable doubt that he has necrosis and also doubt
infection of the fluid collection. His pseudocyst did resolve. If no other source of infection identified could DC antibiotics and follow clinically including WBC and blood cultures. Okay to start clear liquids today and if pain improves tomorrow
could advance to full liquids and low-fat diet as tolerated. He does have an appointment with Dr. Oropeza on October. Reinforced importance of strict alcohol abstinence moving forward although he does have gallstones noted on CT doubt that
this is related to gallstones most likely related to alcohol
Original Note:
Consultation
-
Date/Time Consultation Requested: 11/07/232054
Date/Time Consultation Performed: 11/08/23919
Requesting Provider: Dinora Gallardo MD
Performing Provider: JESSIE Galdamez
Reason for Consultation: pancreatitis
Medical History
Chief Complaint / HPI
Chief Complaint: abdominal pain
History of Present Illness:
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
past for pancreatitis. Pt was admitted in August/September 2022 then 03/05 to 03/31/2023 with prolonged ICU admission with pancreatitis and ETOH withdrawal.
He did have follow up in GI office in April with decreased ETOH use and recommended follow up MRI. He completed MRI in July with resolution of pseudocyst in head of pancreas and stable chronic complex loculated collection adjacent to distal body
and tail. He is now schedule follow up with Dr. Oropeza 11/10. He now presents with hypotension and abdominal pain with ETOH use several weeks ago. On admission lipase 3359 and normal LFT's. Imaging with CT noted severe acute pancreatitis
interstitial edematous vs necrotizing in body and tail with 3.4 cm peripancreatic fluid collection inferior to pancreatic tail with splenic vein thrombosis with collateral varices, fatty liver, cholelithiasis and severe enlargement of prostate
gland.
In review with patient he admits to continued ETOH use after February admission. He was progressively drinking more ETOH with stress and admits up to 13 shots per day at highest intake. He stopped ETOH about 1 month ago as began with abdominal
pain. He has persisted with pain since that time now 5/10. 2 days ago admits to period of vomiting with shakes prompting admission. Current abdominal pain states lower abdominal but more diffuse on exam. He admits to occasional GERD, dysphagia,
and occasional rectal bleeding. Pt denies hematemesis., diarrhea, or constipation. EGD 2020 with erosive esophagitis, small HH, bulbuous papilla , normal duodenum, bx neg colon 2017 with IH, 3 mm AC polyp, otherwise normal bx TA polyp.
Past Medical History
Past Medical History: Other (prior pancreatitis with pseudocyst, ETOH abuse, erosive esophagitis, gastritis, colon polyp, fatty liver, lyme disease non hodgkin's lymphoma, anxiety, chronic back pain, splenic vein thrmobosis on Eliquis, enlarge
prostate )
Social History
Tobacco: Non-Smoker
Alcohol: Former (quit 1 month ago up to 13 shot prior to quitting )
Drug: Marijuana (in past)
Living: With Family
Employment: Not Employed
Family History
Family History: Other (denies hx colon CA father with ETOH abuse )
Allergies / Home Medications
Allergy/AdvReac Type Severity Reaction Status Date / Time
doxycycline Allergy Vomiting Verified 11/07/23 14:54
hydromorphone [From Dilaudid] Allergy Itching Verified 11/07/23 14:54
�Medication �Instructions �Recorded
tamsulosin 0.4 mg capsule (Flomax) 0.4 mg PO DAILY Urinary Issue 09/04/22
folic acid 1 mg tablet 1 mg PO DAILY Supplement #30 tabs 09/24/22
omeprazole 40 mg capsule,delayed 40 mg PO DAILY GERD 03/05/23
release
thiamine HCl (vitamin B1) 100 mg 100 mg PO DAILY Supplement 03/05/23
tablet
cholecalciferol (vitamin D3) 50 50 mcg PO DAILY defeciency #30 tabs 03/31/23
mcg (2,000 unit) tablet
magnesium oxide 500 mg PO DAILY Electrolyte 03/31/23
Repletion #0 tabs
melatonin 5 mg tablet 10 mg (2 x 5 mg) PO HS Sleep #0 03/31/23
tabs
metoprolol tartrate 25 mg tablet 12.5 mg (1/2 x 25 mg) PO BID Blood 03/31/23
pressure #60 tabs
apixaban 5 mg tablet (Eliquis) 5 mg PO BID Blood clot 11/07/23
prevention/tx
gabapentin 300 mg capsule 300 mg PO TID 11/07/23
levothyroxine 25 mcg tablet 25 mcg PO DAILY Thyroid 11/07/23
lorazepam 0.5 mg tablet 0.5 mg PO DAILYPRN PRN anxiety 11/07/23
sertraline 100 mg tablet 100 mg PO DAILY 11/07/23
sildenafil (pulm.hypertension) 20 60 mg PO DAILYPRN PRN ed 11/07/23
mg tablet
trazodone 100 mg tablet 100 mg PO HS 11/07/23
vitamin B complex 1 tab PO DAILY 11/07/23
Review of Systems
-
History Source: Patient
Constitutional: Reports Fever, Weight Loss (few lbs ) and Chills
EENT: Reports No Symptoms
Respiratory: Reports Trouble Breathing (at times )
Cardiac: Reports Chest Pain (at times )
Abdomen/GI: Reports Abdominal Pain, Nausea and Vomiting
: Reports No Symptoms
Musculoskeletal: Reports Other (back pain)
Skin: Reports No Symptoms
Neurological: Reports Weakness
Endocrine: Reports No Symptoms
Hematologic/Lymphatic: Reports No Symptoms
Vital Signs
Temp Pulse Resp BP Pulse Ox
98.1 F 70 16 115/74 98
11/08/23 07:55 11/08/23 08:31 11/08/23 07:55 11/08/23 08:31 11/08/23 07:55
Physical Exam
Exam
General: Well Developed, Well Nourished and No Apparent Distress
HEENT: Normocephalic and Anicteric
Respiratory: Clear
Cardiac: Regular Rhythm
GI: Soft, Tender (diffuse ) and Distended (mild )
Musculoskeletal: No Clubbing and No Cyanosis
Skin: Warm and Dry
Neuro: Awake, Alert and AO x 3
Psych: Calm
Results
WBC 7.3 10^3/uL (4.8-10.8) 11/08/23 05:57
Hgb 11.4 g/dL (13.0-18.0) L 11/08/23 05:57
Hct 34.1 % (39.0-52.0) L 11/08/23 05:57
MCV 77.9 fL (80.0-94.0) L 11/08/23 05:57
Plt Count 191 10^3/uL (130-400) 11/08/23 05:57
Absolute Neuts (auto) 7.2 10^3/uL (1.4-6.5) H 11/07/23 15:44
PT 15.0 Sec (11.4-14.6) H 11/07/23 15:43
INR 1.17 11/07/23 15:43
APTT 27.6 Sec (23.4-35.0) 11/07/23 15:43
Sodium 139 mmol/L (135-145) 11/08/23 05:57
Potassium 3.9 mmol/L (3.5-5.1) 11/08/23 05:57
Chloride 103 mmol/L (98-107) 11/08/23 05:57
Carbon Dioxide 27 mmol/L (22-30) 11/08/23 05:57
BUN 9 mg/dl (9-20) 11/08/23 05:57
Creatinine 0.8 mg/dL (0.7-1.3) 11/08/23 05:57
Calcium 8.5 mg/dl (8.4-10.2) 11/08/23 05:57
Total Bilirubin 0.3 mg/dl (0.2-1.3) 11/08/23 05:57
AST 21 U/L (17-59) 11/08/23 05:57
ALT 19 U/L (0-50) 11/08/23 05:57
Alkaline Phosphatase 115 U/L (38-126) 11/08/23 05:57
Lipase 885 U/L (23-300) H 11/08/23 05:57
Diagnostic Image Results:
11/07/23 CT Chest/abd/pelvis with IV contrast
CHEST:
1. Left IJ chemotherapy Mediport in place.
2. Mild calcific atherosclerotic plaque in the left coronary artery.
ABDOMEN and PELVIS:
1. SEVERE ACUTE PANCREATITIS (either severe acute interstitial edematous pancreatitis or necrotizing pancreatitis involving the peripancreatic soft tissues around the pancreatic body and tail).
2. 3.4 cm peripancreatic fluid collection inferior to the pancreatic tail.
3. Splenic vein thrombosis with collateral varices in the left upper quadrant.
4. Moderate diffuse hepatic steatosis.
5. Cholelithiasis.
6. Moderate to severe enlargement of the prostate gland.
07/31/23 MR abvdomen
1. Interval resolution of the previously seen small pseudocyst in the head of the pancreas.
2. Relatively stable appearance of a chronic complex loculated collection adjacent to the distal pancreatic body and tail containing T1 hyperintense proteinaceous contents.
3. Minimal cholelithiasis.
4. Hepatic steatosis.
03/22/23 CT Abd/pelvis W Iv Cont
1. Hypoattenuating lesion within the head of the pancreas, partially exophytic, measuring 1 cm in diameter. This lesion is unchanged compared to 03/05/2023, and likely represents a pancreatic pseudocyst.
2. Multiple hypoattenuating lesions within the mesentery anterior to the body and tail of the pancreas, measuring 2 cm in diameter, likely representing complex pseudocysts. These lesions are unchanged compared to 03/05/2023, and new compared to
09/04/2022.
3. Mild diffuse thickening of the wall of the urinary bladder. These correlate with urinalysis to exclude cystitis.
4. Enlargement of the prostate gland.
03/06/23 MR abdomen
IMPRESSION: Small layer of gallstones and/or sludge in the dependent portion of the gallbladder. No evidence for lobar wall thickening or pericholecystic edema.
There is no evidence for biliary ductal dilation. No evidence for bile duct calculus.
1.3 cm focus of increased T2 and STIR signal within the head of the pancreas, which very likely represents a pseudocyst. Advise follow-up CT or MRI evaluation with attention to the pancreas in 6 months.
9 mm lesion in the posterior right lobe of the liver, corresponding to lesion seen on recent CT examination, and likely a small hemangioma
03/05/23 CT Abd/pel W Iv And Oral Contr
Mild stranding of the fat adjacent to the pancreas, which likely represents mild changes of acute pancreatitis.
1.5 cm well-defined low-density lesion within the head of the pancreas, which is likely a pseudocyst. Continued follow-up with CT and/or MRI considered.
Small soft tissue densities adjacent to the medial gallbladder wall, exact etiology uncertain, but possibly on the basis of adenomyomatosis. No evidence for calcified gallstones. No evidence for biliary ductal dilation.
Diffuse fatty infiltration of the liver. 8 mm lesion in the posterior and superior right lobe of the liver, with appearance highly suggestive of hemangioma, and no further imaging follow-up of this small lesion is recommended.
Mild to moderate trabeculation of the bladder wall, mainly posteriorly, with no evidence for bladder mass. Prostate gland appears moderately enlarged and extends into the base of the bladder, compatible with hyperplasia.
Mild thickening of the wall of the gastric antrum with mild thickening of the folds of the second portion the duodenum. Findings likely represent reactive inflammation from adjacent pancreatitis.
03/05/23 US abdomen
Several small shadowing gallstones are present within the gallbladder as well as a small amount of sludge. The bladder wall is slightly thickened, and is nonspecific.
No evidence for biliary ductal dilation.
No gross abnormality of the pancreas, with no evidence for peripancreatic collection. Of note, the pancreatic tail is not well-visualized with shadowing from overlying bowel gas.
Prior GI Procedures:
EGD 2020 with erosive esophagitis, small HH, bulbuous papilla , normal duodenum, bx neg
colon 2018 with IH, 3 mm AC polyp, otherwise normal bx TA polyp
Assessment / Plan
-
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
past for pancreatitis. Pt was admitted in September 2022 then 03/05 to 03/31/2023 with prolonged ICU admission with pancreatitis and ETOH withdrawal. He did have follow up in GI office in April with decreased ETOH use and recommended follow up
MRI. He completed MRI in July with resolution of pseudocyst in head of pancreas and stable chronic complex loculated collection adjacent to distal body and tail. He is now schedule follow up with Dr. Oropeza 11/10. He now presents with hypotension
and abdominal pain with ETOH use several weeks ago. On admission lipase 3359 and normal LFT's. Imaging with CT noted severe acute pancreatitis interstitial edematous vs necrotizing in body and tail with 3.4 cm peripancreatic fluid collection
inferior to pancreatic tail with splenic vein thrombosis with collateral varices, fatty liver, cholelithiasis and severe enlargement of prostate gland.
-recurrent pancreatitis likely ETOH related last ETOH 1 month ago
-CT with 3.4 cm peripancreatic fluid collection inferior to panc tail
-splenic vein thrombosis per CT with collateral varices on Eliquis
-hypotension
-cholithiasis
-ETOH abuse
-mild anemia
other medical problems:
non hodgkin's lymphoma
hx erosive esophagitis
cholelithiasis
enlarged prostate on imaging
colon polyps
fatty liver
anxiety
chronic back pain
PLAN:
etiology of abdominal pain likely pancreatitis -ETOH related vs other pt with noted also gallstones
currently LFT's normal and lipase trending down
if not improving consider MRI
cont IVF 150m/hr
pain control per hospitalist
current abx with report of fever/chills prior to admission but none noted after admission t/c stopping
ok for trial clear diet
if pt improved he is scheduled 11/[address] Oropeza at 9:45am
stressed ETOH abstinence
monitor for withdrawal
due OP follow up colonoscopy for hx colon polyps
-
-
Thank you for consultation and allowing me to participate in the patient's care. Please call the [facility] GI physician during the after hours with any questions or concerns.
[2023-11-08] MEDS: TORADOL 10 MG IV ×2 (14:23→20:26)
[2023-11-08 15:44] VITALS: BP 123/99
[2023-11-08] MEDS: LR IV (15:52)
[2023-11-08] MEDS: AMBIEN 5 MG PO (22:30)
[2023-11-08 23:20] VITALS: BP 124/52
[2023-11-09] MEDS: LR 1000 IV ×4 (03:12→23:48)
[2023-11-09] MEDS: ZOSYN 50 IV ×4 (03:13→20:39)
[2023-11-09 05:29] LABS: Hematocrit 31.9 % (39.0-52.0); Hemoglobin 10.6 g/dL (13.0-18.0); Mean Corp Hgb Conc. 33.2 g/dL (33.0-37.0); Mean Corpuscular Volume 78.2 fL (80.0-94.0); Mean Platelet Volume 8.6 fL (7.4-10.4); Platelet Count 199 10^3/uL (130-400); Red Blood Cell Count 4.08 10^6/uL (4.70-6.10); White Blood Cell Count 7.1 10^3/uL (4.8-10.8)
[2023-11-09 05:57] LABS: ALT (SGPT) 18 U/L (0-50); AST (SGOT) 19 U/L (17-59); Alkaline Phosphatase 108 U/L (38-126); Blood Urea Nitrogen 3 mg/dl (9-20); Calcium 8.6 mg/dl (8.4-10.2); Carbon Dioxide 26 mmol/L (22-30); Chloride 106 mmol/L (98-107); Estimated Creatinine Clearance 95 ml/min; Glucose 99 mg/dl (70-99); Lipase 865 U/L (23-300); Potassium 4.2 mmol/L (3.5-5.1); Sodium 140 mmol/L (135-145); Total Bilirubin 0.2 mg/dl (0.2-1.3); Total Protein 5.7 g/dl (6.3-8.2); eGFR > 60.00
[2023-11-09] MEDS: SYNTHROID 25 MCG PO (06:42)
--- NOTE | 2023-11-09 07:31 | W.PN.HOSP.TC ---
Today's Communication/Plan
-
For full liquids today
Possible discharge tomorrow
Assessment / Plan
Assessment / Plan
58-year-old with history of alcohol abuse, has been off alcohol for at least 30 days who presents to the emergency department with bilateral lower quadrant abdominal pain for several weeks that is worsening more recently and rigors for 1 day, found
to be hypotensive in clinic comes to the ED and found to have acute pancreatitis with a lipase of [address] scan consistent with acute pancreatitis. Patient is nontoxic-appearing and hemodynamically stable in the emergency department.
PLAN:
1. Acute on chronic pancreatitis
- Lipase 2200, CT showing either severe acute interstitial edematous pancreatitis or necrotizing pancreatitis involving the peripancreatic soft tissues around the pancreatic body and tail with a 3.4 cm peripancreatic fluid collection inferior to the
pancreatic tail. Given h/o etoh can rule out recurrent alcoholic pancreatitis. Possible gall stones given cholelithiasis but patient with normal LFTs and no ductal anomalies. Rigors at home but well appearing here with normal bun/cr. Splenic vein
thrombosis c/w chronic pancreatitis. Suspect the fluid collection may be seen on prior MRI in July showing irregular region of hypointense T2 signal and intrinsically hyperintense T1 signal adjacent to the distal pancreatic body and tail with thin
peripheral postcontrast enhancement measuring 4.4 x 3.2 cm and is stable from previous examinations and again may represent a chronic complex loculated peripancreatic collection.
-Patient stopped drinking alcohol 1 month ago
-Appreciate GI input, continue IV fluids, pain control
-Advance to full liquids today
-Has an appointment with Dr. Oropeza on November 10
-Hopeful for discharge November 09 so he can make his appointment on November 10
2. Splenic Vein thrombosis
- Secondary to chronic pancreatitis with collateral varices. He is on second line agent for splenic vein thrombosis due to prior PE.
- Continue apixaban
3. ETOH abuse - Patient reports last use was over 30 days ago. History of alcohol encephalopathy and memory loss. He sounds credible with respect to use.
-Patient stopped drinking 1 month ago, but drank half bottle of NyQuil for past few nights she did sleep
-MSAS protocol, folic acid, thiamine and b complex
4. PE
- on apixaban
DVT prophylaxis�Eliquis
Full code
Total time spent to see the patient on the floor, examine the patient, review data and lab results, discuss treatment plan with patient, nursing staff around 36 minutes.
Physical Exam
General: No acute distress
HEENT: Normocephalic, Atraumatic, EOMI, MMM
Respiratory: Clear to Auscultation bilaterally
Cardiac: Normal S1/S2, Regular Rate and Rhythm
GI: Soft, tender, nondistended
Extremities: No Clubbing, Cyanosis, or Edema
Neuro: Nonfocal/Grossly Intact
Psych: Calm, Cooperative
Derm: No Visible lesions
Anticipated Discharge: Within 24 hours
Subjective/Interval History
-
Date of Service: November 09, 2023
Patient reports abdominal pain 6 out of 10 in intensity, unchanged with clear liquids. He is asking for solids. No fever, no vomiting.
Objective Data
-
Labs:
Laboratory Results
11/09/23
05:17
WBC 7.1
Hgb 10.6 L
Hct 31.9 L
Plt Count 199
Sodium 140
Potassium 4.2
Chloride 106
Carbon Dioxide 26
BUN 3 L
Creatinine 0.8
Glucose 99
Calcium 8.6
Total Bilirubin 0.2
AST 19
ALT 18
Alkaline Phosphatase 108
Vital Signs:
Vital Signs
Temp Pulse Resp BP Pulse Ox
98.0 F 51 14 124/52 99
11/08/23 23:20 11/08/23 23:20 11/08/23 23:20 11/08/23 23:20 11/08/23 23:20
I&O
09/11/09/23 11/10/23
06:59 06:59 06:59
Intake Total 1879
Output Total 300 / 300 3549 / 3549
Balance -300 / -300 -0 / -1669
[2023-11-09 07:48] VITALS: BP 147/86
[2023-11-09] MEDS: PROTONIX IV 40 MG IV (08:21)
[2023-11-09] MEDS: LOPRESSOR 12.5 MG PO ×2 (08:21→20:41)
[2023-11-09] MEDS: FLOMAX 0.4 MG PO (08:21)
[2023-11-09] MEDS: NEURONTIN 300 MG PO ×3 (08:21→15:53)
[2023-11-09] MEDS: NSS (PRESERVATIVE FREE) 10 ML IV (08:21)
[2023-11-09] MEDS: ZOLOFT 100 MG PO (08:22)
[2023-11-09] MEDS: FOLVITE 1 MG PO (08:22)
[2023-11-09] MEDS: ELIQUIS 5 MG PO ×2 (08:22→20:39)
[2023-11-09] MEDS: VITAMIN D3 (cholecalciferol) 50 MCG PO (08:22)
[2023-11-09] MEDS: VITAMIN B1 100 MG PO (08:28)
[2023-11-09] MEDS: ZOFRAN 4 MG IV (08:29)
[2023-11-09] MEDS: TORADOL 10 MG IV ×2 (08:29→20:39)
[2023-11-09] MEDS: MORPHINE SULFATE 2 MG IV ×3 (10:06→22:48)
[2023-11-09] MEDS: MIRALAX 17 GRAMS PO (10:06)
--- NOTE | 2023-11-09 13:22 | W.PN.GI.CBS2 ---
Today's Communication / Plan
-
full liquids and low fat diet in AM if pain better
Assessment / Plan
-
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
past for pancreatitis. Pt was admitted in September 2022 then 03/05 to 03/31/2023 with prolonged ICU admission with pancreatitis and ETOH withdrawal. He did have follow up in GI office in April with decreased ETOH use and recommended follow up
MRI. He completed MRI in July with resolution of pseudocyst in head of pancreas and stable chronic complex loculated collection adjacent to distal body and tail. He is now schedule follow up with Dr. Oropeza 11/10. He now presents with hypotension
and abdominal pain with ETOH use several weeks ago. On admission lipase 3359 and normal LFT's. Imaging with CT noted severe acute pancreatitis interstitial edematous vs necrotizing in body and tail with 3.4 cm peripancreatic fluid collection
inferior to pancreatic tail with splenic vein thrombosis with collateral varices, fatty liver, cholelithiasis and severe enlargement of prostate gland.
-recurrent pancreatitis likely ETOH related last ETOH 1 month ago
-CT with 3.4 cm peripancreatic fluid collection inferior to panc tail
-splenic vein thrombosis per CT with collateral varices on Eliquis
-hypotension
-cholithiasis
-ETOH abuse
-mild anemia
other medical problems:
non hodgkin's lymphoma
hx erosive esophagitis
cholelithiasis
enlarged prostate on imaging
colon polyps
fatty liver
anxiety
chronic back pain
PLAN:
etiology of abdominal pain recurrent pancreatitis from ETOH less likely gallstones related
currently LFT's normal and lipase trending down
cont IVF can decrease to 125 ml/hr
pain control per hospitalist
Can DC antibiotics
will adv to full liquids
if improved for possible DC tomorrow evening if tolerates diet, he is scheduled 9/[address] Oropeza at 9:45am
stressed ETOH abstinence
monitor for withdrawal
due OP follow up colonoscopy for hx colon polyps
Subjective
Subjective
Date of Service: November 09, 2023
He says his pain is markedly improved today and wants to eat. He remains afebrile, WBC count is normal, lipase trending down, LFTs remain normal
Objective
Data Reviewed
Laboratory Data:
Laboratory Results
11/09/23 05:17
11/09/23 05:17
Laboratory Results
PT 15.0 Sec (11.4-14.6) H 11/07/23 15:43
INR 1.17 11/07/23 15:43
APTT 27.6 Sec (23.4-35.0) 11/07/23 15:43
Magnesium 2.2 mg/dl (1.6-2.3) 11/08/23 05:57
Total Bilirubin 0.2 mg/dl (0.2-1.3) 11/09/23 05:17
AST 19 U/L (17-59) 11/09/23 05:17
ALT 18 U/L (0-50) 11/09/23 05:17
Alkaline Phosphatase 108 U/L (38-126) 11/09/23 05:17
Lipase 865 U/L (23-300) H 11/09/23 05:17
Vital Signs and I&O:
Vital Signs
Temp Pulse Resp BP Pulse Ox
98.5 F 77 16 147/86 97
11/09/23 07:48 11/09/23 07:48 11/09/23 07:48 11/09/23 07:48 11/09/23 07:48
I&O
11/08/23 11/09/23 11/10/23
06:59 06:59 06:59
Intake Total 1880 / 1880
Output Total 300 / 300 3550 / 3550
Balance -300 / -300 -1670 / -1670
Physical Exam
Physical Exam
Cardiology: Normal Sinus Rhythm
Pulmonary: Clear
GI: Soft, Non Distended and Tender (epigastric area but improved from admission)
[2023-11-09 15:50] VITALS: BP 118/77
--- NOTE | 2023-11-09 15:53 | CM ---
Alert awake oriented patient who lives with his Girlfriend Nikki who live in a 1 story trailer with 4 steps to enter. He is independent in driving and in all activities of daily living.He uses a cane .He was offered VN he declined need.
No VN hx / No SNF history
Pharmacy [facility]
PCP DR Mark
PLAN Home Declined VN
[2023-11-09] MEDS: AMBIEN 5 MG PO (22:48)
[2023-11-09 23:00] VITALS: BP 133/87
[2023-11-09 23:49] VITALS: BP 129/83
[2023-11-10] MEDS: ZOSYN 50 IV ×2 (01:20→07:19)
[2023-11-10 04:34] LABS: Hematocrit 32.6 % (39.0-52.0); Hemoglobin 10.9 g/dL (13.0-18.0); Mean Corp Hgb Conc. 33.4 g/dL (33.0-37.0); Mean Corpuscular Hgb 25.5 pg (27.0-31.0); Mean Corpuscular Volume 76.2 fL (80.0-94.0); Mean Platelet Volume 8.8 fL (7.4-10.4); Platelet Count 194 10^3/uL (130-400); Red Blood Cell Count 4.28 10^6/uL (4.70-6.10); Red Cell Dist. Width 16.1 % (11.5-14.5); White Blood Cell Count 9.3 10^3/uL (4.8-10.8)
[2023-11-10] MEDS: MORPHINE SULFATE 2 MG IV ×2 (04:48→11:26)
[2023-11-10] MEDS: SYNTHROID 25 MCG PO (05:01)
[2023-11-10 05:03] LABS: Lipase 857 U/L (23-300)
[2023-11-10 05:12] LABS: Total Iron Binding Capacity 254 ug/dl (261-462)
[2023-11-10 05:37] LABS: Ferritin 66.3 ng/ml (17.9-464.0)
[2023-11-10 06:07] LABS: Folate 17.2 ng/ml (2.76-20)
[2023-11-10] MEDS: LOPRESSOR 12.5 MG PO (07:19)
[2023-11-10] MEDS: PROTONIX IV 40 MG IV (07:19)
[2023-11-10] MEDS: VITAMIN D3 (cholecalciferol) 50 MCG PO (07:19)
[2023-11-10] MEDS: VITAMIN B1 100 MG PO (07:19)
[2023-11-10] MEDS: FLOMAX 0.4 MG PO (07:19)
[2023-11-10] MEDS: NSS (PRESERVATIVE FREE) 10 ML IV (07:19)
[2023-11-10] MEDS: NEURONTIN 300 MG PO (07:19)
[2023-11-10] MEDS: FOLVITE 1 MG PO (07:20)
[2023-11-10] MEDS: ZOLOFT 100 MG PO (07:20)
[2023-11-10] MEDS: ELIQUIS 5 MG PO (07:20)
[2023-11-10 07:56] VITALS: BP 135/97
--- NOTE | 2023-11-10 08:34 | W.PN.HOSP.TC ---
Today's Communication/Plan
-
Advance to low-fat diet
Discharge today if tolerating
Follow-up with Dr. Oropeza tomorrow 11/10
Assessment / Plan
Assessment / Plan
58-year-old with history of alcohol abuse, has been off alcohol for at least 30 days who presents to the emergency department with bilateral lower quadrant abdominal pain for several weeks that is worsening more recently and rigors for 1 day, found
to be hypotensive in clinic comes to the ED and found to have acute pancreatitis with a lipase of [address] scan consistent with acute pancreatitis. Patient is nontoxic-appearing and hemodynamically stable in the emergency department.
PLAN:
1. Acute on chronic pancreatitis
- Lipase 2200, CT showing either severe acute interstitial edematous pancreatitis or necrotizing pancreatitis involving the peripancreatic soft tissues around the pancreatic body and tail with a 3.4 cm peripancreatic fluid collection inferior to the
pancreatic tail. Given h/o etoh can rule out recurrent alcoholic pancreatitis. Possible gall stones given cholelithiasis but patient with normal LFTs and no ductal anomalies. Rigors at home but well appearing here with normal bun/cr. Splenic vein
thrombosis c/w chronic pancreatitis. Suspect the fluid collection may be seen on prior MRI in July showing irregular region of hypointense T2 signal and intrinsically hyperintense T1 signal adjacent to the distal pancreatic body and tail with thin
peripheral postcontrast enhancement measuring 4.4 x 3.2 cm and is stable from previous examinations and again may represent a chronic complex loculated peripancreatic collection.
-Patient stopped drinking alcohol 1 month ago
-Appreciate GI input, continue IV fluids, pain control
-Advance to low fat today
-Has an appointment with Dr. Oropeza on November 10
-Discharge today if tolerating diet so he can make his appointment on November 10
2. Splenic Vein thrombosis
- Secondary to chronic pancreatitis with collateral varices. He is on second line agent for splenic vein thrombosis due to prior PE.
- Continue apixaban
3. ETOH abuse - Patient reports last use was over 30 days ago. History of alcohol encephalopathy and memory loss. He sounds credible with respect to use.
-Patient stopped drinking 1 month ago, but drank half bottle of NyQuil for past few nights she did sleep
-MSAS protocol, folic acid, thiamine and b complex
4. PE
- on apixaban
5. Microcytic anemia
-Iron studies
DVT prophylaxis�Eliquis
Full code
Physical Exam
General: No acute distress
HEENT: Normocephalic, Atraumatic, EOMI, MMM
Respiratory: Clear to Auscultation bilaterally
Cardiac: Normal S1/S2, Regular Rate and Rhythm
GI: Soft, tender, nondistended
Extremities: No Clubbing, Cyanosis, or Edema
Neuro: Nonfocal/Grossly Intact
Psych: Calm, Cooperative
Derm: No Visible lesions
Anticipated Discharge: Today
Subjective/Interval History
-
Date of Service: November 09, 2023
Reports abdominal pain is 6 out of 10 intensity. He has been tolerating his full liquid diet. No fever, no vomiting.
Objective Data
-
Labs:
Laboratory Results
11/09/23
05:17
WBC 7.1
Hgb 10.6 L
Hct 31.9 L
Plt Count 199
Sodium 140
Potassium 4.2
Chloride 106
Carbon Dioxide 26
BUN 3 L
Creatinine 0.8
Glucose 99
Calcium 8.6
Total Bilirubin 0.2
AST 19
ALT 18
Alkaline Phosphatase 108
Vital Signs:
Vital Signs
Temp Pulse Resp BP Pulse Ox
98.5 F 77 16 147/86 97
11/09/23 07:48 11/09/23 07:48 11/09/23 07:48 11/09/23 07:48 11/09/23 07:48
I&O
11/08/23 11/09/23 11/10/23
06:59 06:59 06:59
Intake Total 1879 / 1879
Output Total 300 / 300 0 / 3550
Balance -300 / -300 -1670 / -1670
--- NOTE | 2023-11-10 11:10 | W.PN.GI.CBS2 ---
Today's Communication / Plan
-
LOW FAT DIET
Dc today if toletes
Assessment / Plan
-
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
past for pancreatitis. Pt was admitted in September 2022 then 03/05 to 03/31/2023 with prolonged ICU admission with pancreatitis and ETOH withdrawal. He did have follow up in GI office in April with decreased ETOH use and recommended follow up
MRI. He completed MRI in July with resolution of pseudocyst in head of pancreas and stable chronic complex loculated collection adjacent to distal body and tail. He is now schedule follow up with Dr. Oropeza 11/10. He now presents with hypotension
and abdominal pain with ETOH use several weeks ago. On admission lipase 3359 and normal LFT's. Imaging with CT noted severe acute pancreatitis interstitial edematous vs necrotizing in body and tail with 3.4 cm peripancreatic fluid collection
inferior to pancreatic tail with splenic vein thrombosis with collateral varices, fatty liver, cholelithiasis and severe enlargement of prostate gland.
-recurrent pancreatitis likely ETOH related last ETOH 1 month ago
-CT with 3.4 cm peripancreatic fluid collection inferior to panc tail
-splenic vein thrombosis per CT with collateral varices on Eliquis
-hypotension
-cholithiasis
-ETOH abuse
-mild anemia
other medical problems:
non hodgkin's lymphoma
hx erosive esophagitis
cholelithiasis
enlarged prostate on imaging
colon polyps
fatty liver
anxiety
chronic back pain
PLAN:
etiology of abdominal pain from recurrent pancreatitis from ETOH less likely gallstones related
currently LFT's normal and lipase trending down
advance diet to low fat diet since sx markedly improved
DC IVF
pain control per hospitalist
Can DC antibiotics
If tolerates diet DC today, he is scheduled 11/[address] Oropeza at 9:45am
stressed ETOH abstinence
due OP follow up colonoscopy for hx colon polyps
Subjective
Subjective
Date of Service: November 10, 2023
Pain is markedly improved and is anxious to eat and go home. No nausea or vomiting afebrile no leukocytosis
Objective
Data Reviewed
Laboratory Data:
Laboratory Results
11/10/23 04:17
11/09/23 05:17
Laboratory Results
PT 15.0 Sec (11.4-14.6) H 11/07/23 15:43
INR 1.17 11/07/23 15:43
APTT 27.6 Sec (23.4-35.0) 11/07/23 15:43
Magnesium 2.2 mg/dl (1.6-2.3) 11/08/23 05:57
Total Bilirubin 0.2 mg/dl (0.2-1.3) 11/09/23 05:17
AST 19 U/L (17-59) 11/09/23 05:17
ALT 18 U/L (0-50) 11/09/23 05:17
Alkaline Phosphatase 108 U/L (38-126) 11/09/23 05:17
Lipase 857 U/L (23-300) H 11/10/23 04:17
Vital Signs and I&O:
Vital Signs
Temp Pulse Resp BP Pulse Ox
98.3 F 90 18 135/97 93
11/10/23 07:56 11/10/23 07:56 11/10/23 07:56 11/10/23 07:56 11/10/23 07:56
I&O
11/09/23 11/10/23 11/11/23
06:59 06:59 06:59
Intake Total 1880 / 1880 2600 / 2600
Output Total 3550 / 3550 4225 / 4225
Balance -1670 / -1670 -1625 / -1625
Physical Exam
Physical Exam
Cardiology: Normal Sinus Rhythm
Pulmonary: Clear
GI: Soft, Non Distended, Tender (Epigastric area) and Normal Bowel Sounds
--- NOTE | 2023-11-10 11:23 | W.DCSUMMARY ---
Discharge Summary
Discharge Data
Date of Admission: 11/07/23
Date of Discharge: 11/10/23
-
Pending Results: No
Hospital Course
Discharge diagnosis:
Acute on chronic pancreatitis
Pancreatic fluid collection
Splenic vein thrombosis
Alcohol abuse, recently quit 1 month ago
Pulmonary embolism on apixaban
Gastroesophageal reflux disease
Hypothyroidism
Anxiety/depression
Benign prostatic hypertrophy
Consults: GI
CT abdomen and pelvis:
1. SEVERE ACUTE PANCREATITIS (either severe acute interstitial edematous pancreatitis or necrotizing pancreatitis involving the peripancreatic soft tissues around the pancreatic body and tail).
2. 3.4 cm peripancreatic fluid collection inferior to the pancreatic tail.
3. Splenic vein thrombosis with collateral varices in the left upper quadrant.
4. Moderate diffuse hepatic steatosis.
5. Cholelithiasis.
6. Moderate to severe enlargement of the prostate gland.
Hospital course:
58-year-old male with a past medical history of alcohol abuse recently quit 1 month ago, hypothyroidism, splenic vein thrombosis, pulmonary embolism on Eliquis, and gastroesophageal reflux disease was admitted for acute severe pancreatitis. Patient
has been having abdominal pain for several weeks. He had a lipase drawn by his PCP, was told to come to the ER because it was elevated. Patient's lipase was found to be [address] of the abdomen and pelvis shows severe acute
pancreatitis as above.
Patient was seen in conjunction with GI. He was treated bowel rest, pain control, IV fluids. His lipase trended down. He was started on a diet, and slowly advanced. He tolerated a low-fat diet. He continued to have pain, but it was tolerable.
Patient is medically stable for discharge so he can keep his follow-up appointment with Dr. Oropeza in the office on 11/11/2023. He has been counseled to permanently abstain from drinking alcohol. He reports understanding. He also needs to
follow-up with his primary care doctor in 1 week.
Disposition: Home self-care
Discharge planning: Required 39 minutes
Discharge Plan
-
Patient Disposition: Home (Routine Discharge)
Discharge Diagnosis/Procedures: Acute on chronic pancreatitis, splenic vein thrombosis on Eliquis, peripancreatic fluid collection, history of alcohol abuse
Condition: Fair
Diet: Low Fat and Low Cholesterol
Activity: As tolerated
Driving Restrictions: As prior to admission
Activity Restrictions/Additional Instructions:
Continue to abstain from drinking alcohol.
Eat a low-fat diet.
Keep your appointment with Dr. Oropeza on 11/11/2023.
Follow-up with your primary care doctor in 1 week.
Referrals:
Rinku Oropeza MD [Active] - 11/11/23 9:45 am (proceed for appt but if discharged after call to reschedule)
Amandeep Mark, [Family Provider] - in one week
Prescriptions:
New
oxycodone 5 mg tablet
5 mg PO BID PRN (Reason: Pain) Qty: 20 0RF
Continued
tamsulosin [Flomax] 0.4 mg Capsule
0.4 mg PO DAILY
folic acid 1 mg tablet
1 mg PO DAILY Qty: 30 0RF
omeprazole 40 mg Capsule,Delayed Release(Dr/Ec)
40 mg PO DAILY
thiamine HCl (vitamin B1) 100 mg tablet
100 mg PO DAILY
metoprolol tartrate 25 mg Tablet
12.5 mg PO BID Qty: 60 0RF
magnesium oxide 500 mg magnesium Tablet
500 mg PO DAILY Qty: 0 0RF
melatonin 5 mg Tablet
10 mg PO HS Qty: 0 0RF
cholecalciferol (vitamin D3) 50 mcg (2,000 unit) Tablet
50 mcg PO DAILY Qty: 30 0RF
sertraline 100 mg Tablet
100 mg PO DAILY
Patient Comments:
11/07/23: Patient states he lost his bottle, awaiting refill.
trazodone 100 mg Tablet
100 mg PO HS
gabapentin 300 mg Capsule
300 mg PO TID
vitamin B complex Tablet
1 tab PO DAILY
sildenafil (pulm.hypertension) 20 mg Tablet
60 mg PO DAILYPRN PRN (Reason: ed)
levothyroxine 25 mcg tablet
25 mcg PO DAILY
lorazepam 0.5 mg tablet
0.5 mg PO DAILYPRN PRN (Reason: anxiety)
Patient Comments:
11/07/23: last filled 10/21/23 for 30 tablets
Eliquis 5 mg tablet
5 mg PO BID
Discharge Orders:
Discharge Patient (As Directed); Ordered 11/10/23
Ordered By: Pancho Arrington
Discharge Date and Time
Discharge Date/Time: 11/10/23 12:49
Print Language: MAORI
--- NOTE | 2023-11-10 12:16 | CM ---
CM reviewed chart and noted dc order
Bedside meeting with pt
No dc needs noted
His mother and SO already on their way in for a ride home
Discharge Disposition- home, no needs- family transport
[2023-11-10 12:43] VITALS: BP 131/85
== END 2023-11-10 12:49 | disposition home or self-care (01) | DRG 438 ==
LOC: 4 WEST ACU 20:15
PROVIDERS: Nurse Practitioner Adult Health; Physician Assistant; ADMITTING PHYSICIAN Internal Medicine; ATTENDING PHYSICIAN Family Medicine; CONSULT PHYSICIAN Internal Medicine Gastroenterology; EMERGENCY PHYSICIAN Student in an Organized Health Care Education/Training Program; FAMILY PHYSICIAN Family Medicine
DX: K85.20 Alcohol induced acute pancreatitis without necrosis or infection (principal); I26.99 Other pulmonary embolism without acute cor pulmonale; I82.891 Chronic embolism and thrombosis of other specified veins; C85.90 Non-Hodgkin lymphoma, unspecified, unspecified site; F10.10 Alcohol abuse, uncomplicated; K86.0 Alcohol-induced chronic pancreatitis; I25.10 Atherosclerotic heart disease of native coronary artery without angina pectoris; F32.A Depression, unspecified; F41.1 Generalized anxiety disorder; N40.0 Benign prostatic hyperplasia without lower urinary tract symptoms; I95.9 Hypotension, unspecified; K76.0 Fatty (change of) liver, not elsewhere classified; G89.29 Other chronic pain; K21.9 Gastro-esophageal reflux disease without esophagitis; E03.9 Hypothyroidism, unspecified; D50.9 Iron deficiency anemia, unspecified; K80.20 Calculus of gallbladder without cholecystitis without obstruction; Z88.1 Allergy status to other antibiotic agents; Z87.891 Personal history of nicotine dependence; Z87.19 Personal history of other diseases of the digestive system; Z79.01 Long term (current) use of anticoagulants; Z79.890 Hormone replacement therapy; Z79.899 Other long term (current) drug therapy
CPT/HCPCS: 71260; 74177; 80053; 80061; 82077; 82248; 82728; 82746; 83550; 83605; 83690; 83735; 84443; 84484; 85025; 85027; 85610; 85730; 93005; 96361; 96365; 99285; Q9967

== ENCOUNTER 2023-11-21 15:23 | Inpatient (IN) | payer OTHER, SELFPAY ==
[2023-11-21] VITALS (8 sets, daily range): BP systolic 110–134; BP diastolic 70–95; BMI 21.6; BMI 22.4
--- NOTE | 2023-11-21 10:16 | ED.GENMED ---
ED Provider Triage
<Jacy Willis PA-C - Last Filed: 11/21/23 10:19>
-
Patient seen by provider in Triage?: Seen in Triage
Attestation: A medical screening examination has been initiated by a qualified medical provider. Based on the assessment performed at this time, it has been determined that an emergent medical condition may exist and the patient has been informed
that further medical evaluation and possible additional diagnostic testing may be needed.
HPI: 58yoM here with upper abdominal pain, worse in LUQ. Also having SOB. Recent admission for pancreatitis.
GENERAL: Alert , in no apparent distress
EYE: No visual abnormalities.
NECK: Trachea midline
ENT: No visible abnormalities.
LUNGS: No acute respiratory distress
NEUROLOGICAL: Alert and oriented
SKIN: Skin intact. No visible changes.
MUSCULOSKELETAL: Moving extremities normally
PSYCH: Normal and appropriate interaction.
This is a medical evaluation conducted in person to initiate diagnostic evaluation and provide initial therapeutics. Please see further documentation by the treating clinician.
Abdominal labs, troponin/EKG, CXR, and CT abdomen ordered.
History of Present Illness
<Jacy Willis PA-C - Last Filed: 11/21/23 10:19>
General
Chief Complaint: Abdominal Pain
Time Seen by Provider: 11/21/23 11:32
<Dylan Hook PA-C - Last Filed: 11/21/23 14:03>
General
Source: patient
Exam Limitations: none
History of Present Illness
History of Present Illness:
58-year-old male presents complaining of persistent and increasing upper and left-sided abdominal pain. There is associated nausea with decreased appetite. He also notes shortness of breath. He denies chest pain. He has a history of
pancreatitis. He was admitted at the end of October for pancreatitis. He denies any vomiting or blood in the stool. Denies leg swelling or calf pain. No fevers. No other complaints at this time
Past History
<Jacy Willis PA-C - Last Filed: 11/21/23 10:19>
Past History
ED Past Medical History: Psychiatric (Generalized anxiety disorder), Other (Chronic back pain) and Other (Hodgkin's Lymphoma); Negative HTN or NIDDM
ED Past Surgical History: Orthopedic
Social History
Tobacco: Smoker (History of chewing tobacco use, quit one year ago)
Alcohol: None
Drug: None
Living: with family
Employment: Employed
Family History
Family History: CAD
Phy Exam
<Dylan Hook PA-C - Last Filed: 11/21/23 14:03>
Physical Exam
Physical Exam:
General: Well-appearing male no acute respiratory distress
HEENT: Normocephalic atraumatic sclera anicteric
Heart: Regular rate and rhythm no murmurs
Lungs: Clear no wheeze
Abdomen somewhat firm mildly diffusely tender more so tender over the epigastric and left side of the abdomen. Mild guarding no rebound tenderness normal bowel sounds nondistended
Extremities: No cyanosis or edema
Skin: Warm no rash or jaundice
Course
<Jacy Willis PA-C - Last Filed: 11/21/23 10:19>
Orders/Labs/Results
Orders:
Orders
11/21/23 10:14
Electrocardiogram (*1) Urgent
Reason for Study: Shortness of Breath
EKG- Treatment ONCE
11/21/23 10:19
CT Abd/pelvis W Iv Cont Urgent
Comment:
Reason For Exam: Upper abd pain, hx of pancreatitis
CR Chest - 2 Views Urgent
Comment:
Reason For Exam: SOB
11/21/23 11:04
Complete Blood Count/With Diff Urgent
Comprehensive Metabolic Panel Urgent
Lipase Urgent
Troponin I Urgent
11/21/23 11:55
0.9% Sodium Chloride 1000 ml [Nss] 1,000 ml IV BOLUS
Morphine Sulfate 4 mg IV NOW STA
Ondansetron Injectable [Zofran] 4 mg IV NOW STA
11/21/23 13:54
0.9% Sodium Chloride 1000 ml [Nss] 1,000 ml IV BOLUS
HYDROmorphone [Dilaudid] 1 mg IV NOW STA
Abnormal Lab Results
11/21/23
11:04
Hgb 12.6 L g/dL
(13.0-18.0)
MCV 76.9 L fL
(80.0-94.0)
MCH 24.9 L pg
(27.0-31.0)
MCHC 32.3 L g/dL
(33.0-37.0)
RDW 17.2 H %
(11.5-14.5)
Absolute Lymphs (auto) 0.8 L 10^3/uL
(1.2-3.4)
Neutrophils % 78.4 H %
(42.2-75.2)
Lymphocytes % 10.7 L %
(20.5-51.1)
Glucose 109 H mg/dl
(70-99)
Lipase 1495 H* U/L
(23-300)
11/21/23 11:04
11/21/23 11:04
Vital Signs
Initial and Last Documented VS:
Initial Vital Signs
Temp Pulse Resp BP Pulse Ox
98.1 F 103 20 110/86 98
11/21/23 10:11 11/21/23 10:11 11/21/23 10:11 11/21/23 10:11 11/21/23 10:11
Last Documented Vital Signs
Temp Pulse Resp BP Pulse Ox
98.1 F 82 15 134/95 100
11/21/23 10:11 11/21/23 12:15 11/21/23 12:15 11/21/23 12:08 11/21/23 12:15
<Dylan Hook PA-C - Last Filed: 11/21/23 14:03>
Orders/Labs/Results
Orders:
Orders
11/21/23 10:14
Electrocardiogram (*1) Urgent
Reason for Study: Shortness of Breath
EKG- Treatment ONCE
11/21/23 10:19
CT Abd/pelvis W Iv Cont Urgent
Comment:
Reason For Exam: Upper abd pain, hx of pancreatitis
CR Chest - 2 Views Urgent
Comment:
Reason For Exam: SOB
11/21/23 11:04
Complete Blood Count/With Diff Urgent
Comprehensive Metabolic Panel Urgent
Lipase Urgent
Troponin I Urgent
11/21/23 11:55
0.9% Sodium Chloride 1000 ml [Nss] 1,000 ml IV BOLUS
Morphine Sulfate 4 mg IV NOW STA
Ondansetron Injectable [Zofran] 4 mg IV NOW STA
11/21/23 13:54
0.9% Sodium Chloride 1000 ml [Nss] 1,000 ml IV BOLUS
HYDROmorphone [Dilaudid] 1 mg IV NOW STA
Abnormal Lab Results
11/21/23
11:04
Hgb 12.6 L g/dL
(13.0-18.0)
MCV 76.9 L fL
(80.0-94.0)
MCH 24.9 L pg
(27.0-31.0)
MCHC 32.3 L g/dL
(33.0-37.0)
RDW 17.2 H %
(11.5-14.5)
Absolute Lymphs (auto) 0.8 L 10^3/uL
(1.2-3.4)
Neutrophils % 78.4 H %
(42.2-75.2)
Lymphocytes % 10.7 L %
(20.5-51.1)
Glucose 109 H mg/dl
(70-99)
Lipase 1495 H* U/L
(23-300)
11/21/23 11:04
11/21/23 11:04
Vital Signs
Initial and Last Documented VS:
Initial Vital Signs
Temp Pulse Resp BP Pulse Ox
98.1 F 103 20 110/86 98
11/21/23 10:11 11/21/23 10:11 11/21/23 10:11 11/21/23 10:11 11/21/23 10:11
Last Documented Vital Signs
Temp Pulse Resp BP Pulse Ox
98.1 F 82 15 134/95 100
11/21/23 10:11 11/21/23 12:15 11/21/23 12:15 11/21/23 12:08 11/21/23 12:15
<Dylan oHok PA-C - Last Filed: 11/21/23 14:03>
MDM/Problems Addressed
Differential Diagnosis Includes:
Abdominal pain with shortness of breath. Consider acute on chronic pancreatitis versus bowel obstruction versus diverticulitis. Patient is anticoagulated on Eliquis. Do not PE but chest x-ray ordered. Will evaluate for pneumonia. He notes
nights as well. Check labs.
Lipase today 1495. This is higher than he was at discharge 3 weeks ago. I suspect component of his abdominal pain is from his pancreatitis. CT of the abdomen still pending
Treated with fluids pain medicine.
<Dylan Hook PA-C - Last Filed: 11/21/23 14:03>
*Critical Care Note
Total Time (30-74mins, 75-104mins- exclusive of procedures): Not Applicable
<Dylan Hook PA-C - Last Filed: 11/21/23 14:03>
Update Note
Update Note:
CT consistent with pancreatitis as well as colitis possibly reactive in nature. Morphine did not help pain. Ordered Dilaudid for pain. The chart list Dilaudid as a potential allergy for itching but he does not recall this. Will trial a dose
here. More fluids ordered. Admit to hospital
ED Attending Note
<Jacy Willis PA-C - Last Filed: 11/21/23 10:19>
-
Portions of this chart may have been created with voice recognition software.� Occasional wrong word or��sound alike� substitutions may have occurred due to the inherent limitations of voice recognition software.
Discharge Plan
Departure
Patient Disposition: Admit
Date of Disposition: 11/21/23
Time of Disposition: 14:02
Admit to: Telemetry
Presentation/result/management discussed w/ accepting MD/DO: Hospitalist
Discharge Problem:
Pancreatitis
Prescriptions:
No Action
tamsulosin [Flomax] 0.4 mg Capsule
0.4 mg PO DAILY
folic acid 1 mg tablet
1 mg PO DAILY Qty: 30 0RF
omeprazole 40 mg Capsule,Delayed Release(Dr/Ec)
40 mg PO DAILY
thiamine HCl (vitamin B1) 100 mg tablet
100 mg PO DAILY
metoprolol tartrate 25 mg Tablet
12.5 mg PO BID Qty: 60 0RF
magnesium oxide 500 mg magnesium Tablet
500 mg PO DAILY Qty: 0 0RF
cholecalciferol (vitamin D3) 50 mcg (2,000 unit) Tablet
50 mcg PO DAILY Qty: 30 0RF
sertraline 100 mg Tablet
150 mg PO DAILY
trazodone 100 mg Tablet
100 mg PO HS
gabapentin 300 mg Capsule
300 mg PO TID
vitamin B complex Tablet
1 tab PO DAILY
sildenafil (pulm.hypertension) 20 mg Tablet
60 mg PO DAILYPRN PRN (Reason: ed)
levothyroxine 25 mcg tablet
25 mcg PO DAILY
lorazepam 0.5 mg tablet
0.5 mg PO DAILY
Patient Comments:
11/07/23: last filled 10/21/23 for 30 tablets
Eliquis 5 mg tablet
5 mg PO DAILY
Patient Comments:
11/21/23--patient knows suppose to take this bid but has not/choosen to take it once a day
oxycodone 5 mg tablet
5 mg PO BIDPRN PRN (Reason: severe Pain)
melatonin 5 mg tablet
10 - 30 mg PO HS
Referrals:
Amandeep Mark DO [Family Provider] -
Interventions
Interventions:
*Risk Screen - Suicide Last Done: 11/21/23 10:11
*General Assessment Last Done: 11/21/23 10:11
*Neglect/Abuse Screening Last Done: 11/21/23 10:11
Discharge Date and Time
Print Language: TANZANIAN
[2023-11-21 11:18] LABS: % Basophils 0.4 % (0-2); % Eosinophils 1.9 % (0-6); % Immature Granulocytes 0.4 % (0-0.5); % Lymphocytes 10.7 % (20.5-51.1); % Monocytes 8.2 % (1.7-9.3); % Neutrophils 78.4 % (42.2-75.2); Absolute Eosinophils 0.1 10^3/uL (0-0.7); Absolute Lymphocytes 0.8 10^3/uL (1.2-3.4); Absolute Monocytes 0.6 10^3/uL (0.1-0.6); Absolute Neutrophils 5.9 10^3/uL (1.4-6.5); Hemoglobin 12.6 g/dL (13.0-18.0); Mean Corp Hgb Conc. 32.3 g/dL (33.0-37.0); Mean Corpuscular Hgb 24.9 pg (27.0-31.0); Mean Corpuscular Volume 76.9 fL (80.0-94.0); Mean Platelet Volume 8.6 fL (7.4-10.4); Nucleated Red Blood Cells % 0 % (-); Platelet Count 223 10^3/uL (130-400); Red Blood Cell Count 5.07 10^6/uL (4.70-6.10); Red Cell Dist. Width 17.2 % (11.5-14.5); White Blood Cell Count 7.5 10^3/uL (4.8-10.8)
[2023-11-21 11:45] LABS: ALT (SGPT) 17 U/L (0-50); AST (SGOT) 26 U/L (17-59); Alkaline Phosphatase 91 U/L (38-126); Blood Urea Nitrogen 12 mg/dl (9-20); Calcium 9.5 mg/dl (8.4-10.2); Carbon Dioxide 27 mmol/L (22-30); Chloride 103 mmol/L (98-107); Glucose 109 mg/dl (70-99); Lipase 1495 U/L (23-300); Sodium 143 mmol/L (135-145); Total Bilirubin 0.3 mg/dl (0.2-1.3); Total Protein 7.2 g/dl (6.3-8.2); eGFR > 60.00
[2023-11-21 11:47] LABS: Troponin I < 0.012 ng/ml
[2023-11-21] MEDS: ZOFRAN 4 MG IV (11:58)
[2023-11-21] MEDS: MORPHINE SULFATE 4 MG IV (11:58)
[2023-11-21] MEDS: NSS 1000 IV ×3 (11:59→16:35)
[2023-11-21] MEDS: DILAUDID 1 MG IV ×3 (14:08→21:55)
--- NOTE | 2023-11-21 14:15 | HPS.HSE ---
Addendum entered and electronically signed by Tommy Remy MD 11/21/23 15:25:
I saw and examined the patient.
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
Comment:
HPI;
58M HX HKL in remission for 4- 5 yrs , HX ETOH use disorder till September 2023 who reports 1 week history of increased abdominal pain across his upper abdomen with worsening pain to the left side.
last ETOH use was early september.
PHX
Alcoholic pancreatitis
Prolonged ICU admission for alcohol abuse and pancreatitis September 2022 then 03/05 to 03/31/2023.
MRI July 2023 pseudocyst head of pancreas stable complex loculated collection adjacent to distal body and tail
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
Fatty liver
GERD/erosive esophagitis
Hypothyroidism
Anxiety
Depression
Non-Hodgkin's lymphoma
Chronic back pain
BPH
Pulmonary embolism
PE:
Abdo: Soft, Non Distended, Normal Bowel Sounds, Tender (Entire upper abdomen worse left side) and No Hepatosplenomegaly
CT abdomen pelvis with IV contrast:
1. Extensive stranding along the distal pancreas slightly decreased from prior and consistent with acute pancreatitis.
2. Increased wall thickening and stranding along the adjacent transverse colon likely reactive colitis.
3. Fat necrosis in the left upper quadrant without drainable fluid collection
4. Persistent splenic vein thrombosis
5. Prostatomegaly with circumferential urinary bladder wall thickening which may represent sequelae of chronic outlet obstruction
6. Cholelithiasis
7. unchanged 7 mm cyst hepatic dome
CXR: No acute cardiopulmonary abnormality
Abnormal Lab Results
11/21/23
11:04
Hgb 12.6 L
MCV 76.9 L
MCH 24.9 L
MCHC 32.3 L
RDW 17.2 H
Absolute Lymphs (auto) 0.8 L
Neutrophils % 78.4 H
Lymphocytes % 10.7 L
Glucose 109 H
Lipase 1495 H*
ASSESSMENT & PLAN
Acute on Chronic pancreatitis
MRI pseudocyst head of pancreas stable complex loculated collection adjacent to distal body and tail
Lipase 1495
-N.p.o. except ice chips may increase to clears as tolerated
-Pain control patient given Dilaudid in the ER, IV Zofran as needed
-IV LR
-Follow CBC, CMP and Lipase
- GI consult
-Patient had reported appointment on 11/11/[address] Oropeza in office patient reports he was seen but is unsure of the plan and so was the doctor
DVT Px; on chr Eliquis
Full code
Original Note:
Family Physician
-
Family Physician: Amandeep Mark DO
Chief Complaint
-
Abdominal pain, lightheadedness, shortness breath, CARLSON
History of Present Illness
4-year-old male who reports 1 week history of increased abdominal pain across his upper abdomen with worsening pain to the left side. He also reports some dizziness and lightheadedness along with shortness breath and CARLSON upon standing. He also
complains of 1 day of soft pudding-like orange stool. He states he was seen by a primary care provider for line today who referred him to the ER for evaluation. He describes the pain as sharp to the left upper quadrant he denies headache, chest
pain, palpitations, cough, nausea, vomiting, urinary symptoms. He is very restless during exam with difficulty concentrating and focusing.
The patient had a recent admission 11/06 - 11/10/2023 secondary to severe acute pancreatitis with interstitial edematous pancreatitis involving the peripancreatic soft tissues and the pancreatic body and tail. His history of alcohol abuse reportedly
quit in September 2023. Due to prolonged ICU admission for alcohol abuse and pancreatitis September 2022 then 03/05 to 03/31/2023. He had a pseudocyst in the head of the pancreas and a stable chronic complex loculated collection adjacent to the
distal body and tail on MRI in July 2023. He was due to follow-up with Dr. Oropeza on 11/11/2023. he has history of a splenic vein thrombosis with collateral varices in the left upper quadrant pulmonary embolism on current Eliquis, fatty liver,
GERD/erosive esophagitis hypothyroidism, anxiety, depression, BPH, -Hodgkin's lymphoma treated with chemo 5 to 6 years ago, anxiety, chronic back pain history discectomy lumbar, erectile dysfunction
Medical History
Past Medical History
Past Medical History: Reports Dementia
Additional Past Medical History:
Alcoholic pancreatitis
Prolonged ICU admission for alcohol abuse and pancreatitis September 2022 then 03/05 to 03/31/2023.
MRI July 2023 pseudocyst head of pancreas stable complex loculated collection adjacent to distal body and tail
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
Fatty liver
GERD/erosive esophagitis
Hypothyroidism
Anxiety
Depression
Non-Hodgkin's lymphoma
Chronic back pain
BPH
Pulmonary embolism
Past Surgical History: Reports Other
Additional Past Surgical History:
Lower lumbar discectomy
Colonoscopy with benign polypectomy approximately 5 years ago per patient
Social History
Tobacco: Former Smoker
Alcohol: Former (Used to drink 36 ounces of 99 proof alcohol x 3 years stopped September 2023, then prior 6 beers a day from age [age])
Drug: None
Personal: Partner
Living: With Family (Girlfriend)
Employment: Not Employed
Family History
Family History: Other (Patient reports is estranged from his family believes his dad of cancer, mother is living unsure, brother estranged from unknown)
Allergies / Home Medications
Allergies reflects when Allergies were last updated in [facility].
Home Medications with original date entered in [facility]
Allergy/Medication List:
Allergies
Allergy/AdvReac Type Severity Reaction Status Date / Time
doxycycline AdvReac Vomiting Verified 11/21/23 10:10
hydromorphone [From Dilaudid] AdvReac Itching Verified 11/21/23 10:10
Home Medications
tamsulosin 0.4 mg capsule (Flomax) 0.4 mg PO DAILY Urinary Issue 09/04/22
folic acid 1 mg tablet 1 mg PO DAILY Supplement #30 tabs 09/24/22
omeprazole 40 mg capsule,delayed release 40 mg PO DAILY GERD 03/05/23
thiamine HCl (vitamin B1) 100 mg tablet 100 mg PO DAILY Supplement 03/05/23
cholecalciferol (vitamin D3) 50 mcg (2,000 unit) tablet 50 mcg PO DAILY defeciency #30 tabs 03/31/23
magnesium oxide 500 mg PO DAILY Electrolyte Repletion #0 tabs 03/31/23
metoprolol tartrate 25 mg tablet 12.5 mg (1/2 x 25 mg) PO BID Blood pressure #60 tabs 03/31/23
apixaban 5 mg tablet (Eliquis) 5 mg PO DAILY Blood clot prevention/tx 11/07/23
gabapentin 300 mg capsule 300 mg PO TID 11/07/23
levothyroxine 25 mcg tablet 25 mcg PO DAILY Thyroid 11/07/23
lorazepam 0.5 mg tablet 0.5 mg PO DAILY 11/07/23
sertraline 100 mg tablet 150 mg PO DAILY 11/07/23
sildenafil (pulm.hypertension) 20 mg tablet 60 mg PO DAILYPRN PRN ed 11/07/23
trazodone 100 mg tablet 100 mg PO HS 11/07/23
vitamin B complex 1 tab PO DAILY 11/07/23
melatonin 5 mg tablet 10 - 30 mg PO HS Sleep 11/21/23
oxycodone 5 mg tablet 5 mg PO BIDPRN PRN severe Pain 11/21/23
Review of Systems
-
History Source: Patient
A 12 point ROS was completed and negative except as noted: Yes
Constitutional: Reports Night Sweats (Patient reports has these chronically for many weeks); Denies Fever or Fatigue
EENT: Reports Sore Throat; Denies Runny Nose
Respiratory: Reports Trouble Breathing (Shortness of breath CARLSON with activity); Denies Cough
Cardiac: Denies Chest Pain, Diaphoresis, Palpitations or Syncope
Abdomen/GI: Reports Abdominal Pain (Entire upper abdomen worse left-sided) and Diarrhea (Pudding-like stool x 1 orange in color); Denies Nausea, Vomiting, Constipated, Bloody Stools or Black Stools
: Denies Dysuria, Frequency, Flank Pain, Incontinence, Difficulty Voiding or Urgency
Musculoskeletal: Denies Joint Pain or Edema
Skin: Denies Itching or Rash
Neurological: Reports Dizzy; Denies Headache
Endocrine: Reports No Symptoms
Hematologic/Lymphatic: Reports No Symptoms
Psych: Reports Anxiety
Physical Exam
Vital Signs
Vital Signs
Temp Pulse Resp BP Pulse Ox
98.1 F 70 16 123/84 100
11/21/23 10:11 11/21/23 14:06 11/21/23 14:06 11/21/23 14:06 11/21/23 14:06
Physical Exam
General: Conversant; No Fever or Chills
HEENT: NormoCephalic, Anicteric, Moist mucous membranes, PERRLA, [place] Conjunctivae and No Ptosis
Respiratory: Clear; No Wheezes, Rales or Rhonchi
Cardiac: S1/S2 and Regular Rhythm; No Murmur, Rub, Gallop or Peripheral Edema
GI: Soft, Non Distended, Normal Bowel Sounds, Tender (Entire upper abdomen worse left side) and No Hepatosplenomegaly
Rectal: Deferred by Provider
Genito-urinary: Deferred by me
Musculoskeletal: No Clubbing, No Cyanosis and No Edema
Skin: Warm, Dry and Rash; No Jaundice
Neuro: AO x 3, No Motor Deficits and No Sensory Deficits; No Slurred Speech, Facial Droop, Tremors or Sedated
Psych: Calm
Laboratory Results
-
11/21/23 11:04
11/21/23 11:04
Laboratory Results
Total Bilirubin 0.3 mg/dl (0.2-1.3) 11/21/23 11:04
AST 26 U/L (17-59) 11/21/23 11:04
ALT 17 U/L (0-50) 11/21/23 11:04
Alkaline Phosphatase 91 U/L (38-126) 11/21/23 11:04
Troponin I < 0.012 ng/ml 11/21/23 11:04
Lipase 1495 U/L (23-300) H* 11/21/23 11:04
Data Reviewed
-
CT Scan: Report Reviewed by me
Lab Data: Labs Reviewed by me
Impression/Plan
-
Impression/plan:
Admit to MedSurg
#Acute on Chronic pancreatitis
#MRI pseudocyst head of pancreas stable complex loculated collection adjacent to distal body and tail
Lipase 1495
-N.p.o. except ice chips may increase to clears as tolerated
-Pain control patient given Dilaudid in the ER, IV Zofran as needed
-IV NSS
-Follow CBC, CMP
-Patient had reported appointment on 11/11/[address] Oropeza in office patient reports he was seen but is unsure of the plan and so was the doctor
CT abdomen pelvis with IV contrast:
1. Extensive stranding along the distal pancreas slightly decreased from prior and consistent with acute pancreatitis.
2. Increased wall thickening and stranding along the adjacent transverse colon likely reactive colitis.
3. Fat necrosis in the left upper quadrant without drainable fluid collection
4. Persistent splenic vein thrombosis
5. Prostatomegaly with circumferential urinary bladder wall thickening which may represent sequelae of chronic outlet obstruction
6. Cholelithiasis
7. Unchanged 7 mm cyst hepatic dome
CXR: No acute cardiopulmonary abnormality
#Restless behavior difficulty focusing unclear
-Will check urine drug screen, EtOH
-TSH with free T4 reflex
#Alcohol abuse-Prior
#Hx September 2022 then 03/05 to 03/31/2023 prolonged ICU admission pancreatitis and alcohol withdrawal
-Reportedly stopped drinking September 2023 was drinking 36 ounces of 99 proof x 3 years then prior 6 beers since age 13
-Check EtOH level
EKG: NSR 86 bpm, QTc 466 MS no significant change from November 07, 2023
#GERD/erosive esophagitis
-IV PPI
#Fatty liver-Chronic
#7 mm cyst hepatic dome
#Splenic vein thrombosis with collateral varices in the left upper quadrant
#Pulmonary embolism
-on current Eliquis
#HTN -benign
-Continue metoprolol to tartrate 12.5 mg twice daily
#Hypothyroidism
-Check TSH with free T4 reflex
-Continue levothyroxine 25 mcg p.o. daily
#Anxiety/Depression
-Continue lorazepam 0.5 mg daily, trazodone 100 mg at bedtime, Zoloft 150 mg daily
#BPH
-Monitor urine output
Continue Flomax 0.4 mg daily
#Hodgkin's lymphoma hx -treated with chemo approximately 5 to 6 years ago
-Follows with [facility]
#Chronic back pain
Continue gabapentin 300 mg 3 times daily
Patient reports no longer on oxycodone made his stomach upset
#Insomnia
Continue melatonin 10 mg p.o. at bedtime
#Erectile dysfunction
-Hold current sildenafil 60 mg as needed
VTE prophylaxis
Continue [employer] Eliquis
Full code
--- NOTE | 2023-11-21 15:57 | CON.GI ---
Addendum entered and electronically signed by Rosie Gallegos MD 11/21/23 17:56:
I saw and examined the patient.
The CABLE TV INSTALLER or PA's note was reviewed and I agree with the note.
Comment: 57-year-old male past medical history as below including alcoholic pancreatitis complicated by splenic vein thrombosis and PE with multiple hospitalizations. He did have necrotizing pancreatitis in the past with a peripancreatic fluid
collection. He has recently seen Dr. Oropeza in the office with plan for repeat CT in 6 weeks to reassess the fluid collection. However, now he is coming in with ongoing abdominal pain. This is similar to the pain he has had in the past from his
pancreatitis. He has nausea but no vomiting. He states he has some new symptoms including night sweats, insomnia, back pain, lightheadedness and shortness of breath.
He underwent a CT scan here which showed findings consistent with acute pancreatitis as well as fat necrosis without drainable fluid collection. There is a persistent splenic vein thrombosis. Lipase elevated 1495.
Suspect this is recurrent acute pancreatitis. Recommend IV fluids, monitor I's and O's, n.p.o., pain control. Dr. Oropeza will see the patient tomorrow and reviewed his imaging as well.
Original Note:
Consultation
-
Date/Time Consultation Requested: 11/21/23 1500
Date/Time Consultation Performed: 11/21/23 1600
Requesting Provider: JESSIE Apple
Performing Provider: JESSIE Galdamez, Corie Gallegos MD
Reason for Consultation: abdominal pain
Medical History
Chief Complaint / HPI
Chief Complaint: abdominal pain
History of Present Illness:
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
past for pancreatitis. Pt was admitted in September 2022 then 03/05 to 03/31/2023 with prolonged ICU admission with pancreatitis and ETOH withdrawal. He did have follow up in GI office in April with decreased ETOH use and recommended follow up
MRI. He completed MRI in July with resolution of pseudocyst in head of pancreas and stable chronic complex loculated collection adjacent to distal body and tail. He was recently admitted 11/06- 11/09 with acute on chronic pancreatitis with
admission of ETOH use 1 month prior up to 13 shots per day. During that admission he was noted with elevtated lipase and severe acute pancreatitis interstitial edematous vs necrotizing in body and tail with 3.4 cm peripancreatic fluid collection
inferior to pancreatic tail with splenic vein thrombosis with collateral varices, fatty liver, cholelithiasis and severe enlargement of prostate gland. per imaging. He was treated with bowel rest, IVF with improved symptoms and diet advancement.
He was counseled on quitting ETOH. He was seen in close follow up 11/[address] Oropeza. He was recommended follow up CT in 6 weeks to reassess for pancreatic collection. He was given Tramadol for abdominal pain. He now returns with continued
abdominal pain. On admission noted normal WBC's and LFT's with lipase 1495. CT repeated with extensive stranding distal pancreas slightly decreased from prior study. colitis with increased thickening and stranding adjacent transverse colon likely
reactive. fat necrosis LUQ without drainage collection also persistent splenic vein thrombosis, bladder thickening with chronic bladder outlet.
He now presents with continued abdominal pain with last ETOH use in September but admits to up to 13 shots per day at highest intake prior to that time. Abdominal pain is constant. Pain is worse LLQ and with eating and better with tramadol.
2 days ago admits to period of vomiting with shakes prompting admission. Current abdominal pain states lower abdominal but more diffuse on exam. He admits to occasional nausea without vomiting. dysphagia, diarrhea, and occasional rectal
bleeding. Pt denies hematemesis., or constipation. EGD 2020 with erosive esophagitis, small HH, bulbuous papilla , normal duodenum, bx neg colon 2017 with IH, 3 mm AC polyp, otherwise normal bx TA polyp.
Past Medical History
Past Medical History: Other (prior pancreatitis with pseudocyst, ETOH abuse, erosive esophagitis, gastritis, colon polyp, fatty liver, lyme disease non hodgkin's lymphoma, anxiety, chronic back pain, splenic vein thrmobosis on Eliquis, enlarge
prostate )
Social History
Tobacco: Non-Smoker
Alcohol: Former (quit 1 month ago up to 13 shot prior to quitting )
Drug: Marijuana (in past)
Living: With Family
Employment: Not Employed
Family History
Family History: Other (denies hx colon CA father with ETOH abuse )
Allergies / Home Medications
Allergy/AdvReac Type Severity Reaction Status Date / Time
doxycycline AdvReac Vomiting Verified 11/21/23 10:10
hydromorphone [From Dilaudid] AdvReac Itching Verified 11/21/23 10:10
�Medication �Instructions �Recorded
tamsulosin 0.4 mg capsule (Flomax) 0.4 mg PO DAILY Urinary Issue 09/04/22
folic acid 1 mg tablet 1 mg PO DAILY Supplement #30 tabs 09/24/22
omeprazole 40 mg capsule,delayed 40 mg PO DAILY GERD 03/05/23
release
thiamine HCl (vitamin B1) 100 mg 100 mg PO DAILY Supplement 03/05/23
tablet
cholecalciferol (vitamin D3) 50 50 mcg PO DAILY defeciency #30 tabs 03/31/23
mcg (2,000 unit) tablet
magnesium oxide 500 mg PO DAILY Electrolyte 03/31/23
Repletion #0 tabs
metoprolol tartrate 25 mg tablet 12.5 mg (1/2 x 25 mg) PO BID Blood 03/31/23
pressure #60 tabs
apixaban 5 mg tablet (Eliquis) 5 mg PO DAILY Blood clot 11/07/23
prevention/tx
gabapentin 300 mg capsule 300 mg PO TID 11/07/23
levothyroxine 25 mcg tablet 25 mcg PO DAILY Thyroid 11/07/23
lorazepam 0.5 mg tablet 0.5 mg PO DAILY 11/07/23
sertraline 100 mg tablet 150 mg PO DAILY 11/07/23
sildenafil (pulm.hypertension) 20 60 mg PO DAILYPRN PRN ed 11/07/23
mg tablet
trazodone 100 mg tablet 100 mg PO HS 11/07/23
vitamin B complex 1 tab PO DAILY 11/07/23
melatonin 5 mg tablet 10 - 30 mg PO HS Sleep 11/21/23
oxycodone 5 mg tablet 5 mg PO BIDPRN PRN severe Pain 11/21/23
Review of Systems
-
History Source: Patient
Constitutional: Reports Fever, Weight Loss (few lbs ) and Chills
EENT: Reports No Symptoms
Respiratory: Reports Trouble Breathing (at times )
Cardiac: Reports Chest Pain (at times )
Abdomen/GI: Reports Abdominal Pain, Nausea, Vomiting and Diarrhea
: Reports No Symptoms
Musculoskeletal: Reports Other (back pain)
Skin: Reports No Symptoms
Neurological: Reports Weakness
Endocrine: Reports No Symptoms
Hematologic/Lymphatic: Reports No Symptoms
Vital Signs
Temp Pulse Resp BP Pulse Ox
98.1 F 82 21 123/84 98
11/21/23 10:11 11/21/23 15:15 11/21/23 15:15 11/21/23 14:06 11/21/23 15:15
Physical Exam
Exam
General: Well Developed, Well Nourished and No Apparent Distress
HEENT: Normocephalic and Anicteric
Respiratory: Clear
Cardiac: Regular Rhythm
GI: Soft, Tender (diffuse worse LLQ) and Distended (mild )
Musculoskeletal: No Clubbing and No Cyanosis
Skin: Warm and Dry
Neuro: Awake, Alert, AO x 3 and Other (anxious in exam)
Psych: Other (anxious but cooperative )
Results
WBC 7.5 10^3/uL (4.8-10.8) 11/21/23 11:04
Hgb 12.6 g/dL (13.0-18.0) L 11/21/23 11:04
Hct 39.0 % (39.0-52.0) 11/21/23 11:04
MCV 76.9 fL (80.0-94.0) L 11/21/23 11:04
Plt Count 223 10^3/uL (130-400) 11/21/23 11:04
Absolute Neuts (auto) 5.9 10^3/uL (1.4-6.5) 11/21/23 11:04
Sodium 143 mmol/L (135-145) 11/21/23 11:04
Potassium 4.0 mmol/L (3.5-5.1) 11/21/23 11:04
Chloride 103 mmol/L (98-107) 11/21/23 11:04
Carbon Dioxide 27 mmol/L (22-30) 11/21/23 11:04
BUN 12 mg/dl (9-20) 11/21/23 11:04
Creatinine 0.8 mg/dL (0.7-1.3) 11/21/23 11:04
Calcium 9.5 mg/dl (8.4-10.2) 11/21/23 11:04
Total Bilirubin 0.3 mg/dl (0.2-1.3) 11/21/23 11:04
AST 26 U/L (17-59) 11/21/23 11:04
ALT 17 U/L (0-50) 11/21/23 11:04
Alkaline Phosphatase 91 U/L (38-126) 11/21/23 11:04
Lipase 1495 U/L (23-300) H* 11/21/23 11:04
Diagnostic Image Results:
11/21/23 CT Abd/pelvis W Iv Cont
There is extensive stranding along the distal pancreas which appears slightly decreased from prior and is consistent with acute pancreatitis. There is increased wall thickening and stranding along the adjacent transverse colon likely reactive
colitis. There is fat necrosis in the left upper quadrant without drainable fluid collection.
Persistent splenic vein thrombosis.
Prostatomegaly with circumferential urinary bladder wall thickening which may be sequelae of chronic outlet obstruction, less likely acute sinusitis.
Cholelithiasis.
11/21/23 CXR No acute cardiopulmonary abnormality.
11/07/23 CT Chest/abd/pelvis with IV contrast
CHEST:
1. Left IJ chemotherapy Mediport in place.
2. Mild calcific atherosclerotic plaque in the left coronary artery.
ABDOMEN and PELVIS:
1. SEVERE ACUTE PANCREATITIS (either severe acute interstitial edematous pancreatitis or necrotizing pancreatitis involving the peripancreatic soft tissues around the pancreatic body and tail).
2. 3.4 cm peripancreatic fluid collection inferior to the pancreatic tail.
3. Splenic vein thrombosis with collateral varices in the left upper quadrant.
4. Moderate diffuse hepatic steatosis.
5. Cholelithiasis.
6. Moderate to severe enlargement of the prostate gland.
07/31/23 MR abvdomen
1. Interval resolution of the previously seen small pseudocyst in the head of the pancreas.
2. Relatively stable appearance of a chronic complex loculated collection adjacent to the distal pancreatic body and tail containing T1 hyperintense proteinaceous contents.
3. Minimal cholelithiasis.
4. Hepatic steatosis.
03/22/23 CT Abd/pelvis W Iv Cont
1. Hypoattenuating lesion within the head of the pancreas, partially exophytic, measuring 1 cm in diameter. This lesion is unchanged compared to 03/05/2023, and likely represents a pancreatic pseudocyst.
2. Multiple hypoattenuating lesions within the mesentery anterior to the body and tail of the pancreas, measuring 2 cm in diameter, likely representing complex pseudocysts. These lesions are unchanged compared to 03/05/2023, and new compared to
09/04/2022.
3. Mild diffuse thickening of the wall of the urinary bladder. These correlate with urinalysis to exclude cystitis.
4. Enlargement of the prostate gland.
03/06/23 MR abdomen
IMPRESSION: Small layer of gallstones and/or sludge in the dependent portion of the gallbladder. No evidence for lobar wall thickening or pericholecystic edema.
There is no evidence for biliary ductal dilation. No evidence for bile duct calculus.
1.3 cm focus of increased T2 and STIR signal within the head of the pancreas, which very likely represents a pseudocyst. Advise follow-up CT or MRI evaluation with attention to the pancreas in 6 months.
9 mm lesion in the posterior right lobe of the liver, corresponding to lesion seen on recent CT examination, and likely a small hemangioma
03/05/23 CT Abd/pel W Iv And Oral Contr
Mild stranding of the fat adjacent to the pancreas, which likely represents mild changes of acute pancreatitis.
1.5 cm well-defined low-density lesion within the head of the pancreas, which is likely a pseudocyst. Continued follow-up with CT and/or MRI considered.
Small soft tissue densities adjacent to the medial gallbladder wall, exact etiology uncertain, but possibly on the basis of adenomyomatosis. No evidence for calcified gallstones. No evidence for biliary ductal dilation.
Diffuse fatty infiltration of the liver. 8 mm lesion in the posterior and superior right lobe of the liver, with appearance highly suggestive of hemangioma, and no further imaging follow-up of this small lesion is recommended.
Mild to moderate trabeculation of the bladder wall, mainly posteriorly, with no evidence for bladder mass. Prostate gland appears moderately enlarged and extends into the base of the bladder, compatible with hyperplasia.
Mild thickening of the wall of the gastric antrum with mild thickening of the folds of the second portion the duodenum. Findings likely represent reactive inflammation from adjacent pancreatitis.
03/05/23 US abdomen
Several small shadowing gallstones are present within the gallbladder as well as a small amount of sludge. The bladder wall is slightly thickened, and is nonspecific.
No evidence for biliary ductal dilation.
No gross abnormality of the pancreas, with no evidence for peripancreatic collection. Of note, the pancreatic tail is not well-visualized with shadowing from overlying bowel gas.
Prior GI Procedures:
EGD 2020 with erosive esophagitis, small HH, bulbuous papilla , normal duodenum, bx neg
colon 2018 with IH, 3 mm AC polyp, otherwise normal bx TA polyp
Assessment / Plan
-
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
past for pancreatitis. Pt was admitted in August/September 2022 then 03/05 to 03/31/2023 with prolonged ICU admission with pancreatitis and ETOH withdrawal. He did have follow up in GI office in April with decreased ETOH use and recommended follow up
MRI. He completed MRI in July with resolution of pseudocyst in head of pancreas and stable chronic complex loculated collection adjacent to distal body and tail. He was recently admitted 11/06- 11/09 with acute on chronic pancreatitis with
admission of ETOH use 1 month prior up to 13 shots per day. During that admission he was noted with elevated lipase and severe acute pancreatitis interstitial edematous vs necrotizing in body and tail with 3.4 cm peripancreatic fluid collection
inferior to pancreatic tail with splenic vein thrombosis with collateral varices, fatty liver, cholelithiasis and severe enlargement of prostate gland. per imaging. He was treated with bowel rest, IVF with improved symptoms and diet advancement.
He was counseled on quitting ETOH. He was seen in close follow up 11/[address] Oropeza. He was recommended follow up CT in 6 weeks to reassess for pancreatic collection. He was given Tramadol for abdominal pain. He now returns with continued
abdominal pain. On admission noted normal WBC's and LFT's with lipase 1495. CT repeated with extensive stranding distal pancreas slightly decreased from prior study. colitis with increased thickening and stranding adjacent transverse colon likely
reactive. fat necrosis LUQ without drainage collection also persistent splenic vein thrombosis, bladder thickening with chronic bladder outlet.
-recurrent pancreatitis likely ETOH related last ETOH 6 weeks ago
-CT with 3.4 cm peripancreatic fluid collection inferior to panc tail 10/2023
-repeat CT iwth pancreatic stranding and adjacent colitis likely reactive with fat necrosis
-splenic vein thrombosis per CT with collateral varices/hx PE on Eliquis
-cholelithiasis
-ETOH abuse
-mild anemia
-restlessness on exam
other medical problems:
non hodgkin's lymphoma
hx erosive esophagitis/GERD
cholelithiasis
enlarged prostate on imaging
colon polyps
fatty liver
anxiety
chronic back pain
PLAN:
etiology of abdominal pain from recurrent pancreatitis from ETOH less likely gallstones related
cont with IVF
pain control
NPO
hold abx as no fever and colitis likely reactive
Dr. Oropeza to review imaging as rounding in AM
plan was for OP repeat CT after 6 week to reassess collection
stressed ETOH abstinence
due OP follow up colonoscopy for hx colon polyps consider when improved from pancreatic standpoint
-
-
Thank you for consultation and allowing me to participate in the patient's care. Please call the electronic organ technician GI physician during the after hours with any questions or concerns.
[2023-11-21 16:40] LABS: TSH Reflex To Free T4 1.45 uIU/ml (0.47-4.68)
[2023-11-21 16:51] LABS: Alcohol None Detected
[2023-11-21 16:56] LABS: Amphetamines Negative (Negative); Barbiturates Negative (Negative); Benzodiazepines Negative (Negative); Buprenorphine Negative (Negative); Cocaine Negative (Negative); Marijuana Positive (Negative); Methadone Negative (Negative); Methamphetamines Negative (Negative); Opiates Positive (Negative); Phencyclidine Negative (Negative); Tricyclic Antidepressants Negative (Negative)
[2023-11-21 17:24] LABS: Fentanyl, Urine Negative (Negative)
[2023-11-21] MEDS: NEURONTIN 300 MG PO ×2 (17:49→21:55)
[2023-11-21] MEDS: LR 1000 IV (17:52)
[2023-11-21] MEDS: LOPRESSOR 12.5 MG PO (20:00)
[2023-11-21] MEDS: ELIQUIS 5 MG PO (20:01)
[2023-11-21] MEDS: DESYREL 100 MG PO (21:55)
[2023-11-22] MEDS: LR 1000 IV ×3 (04:28→21:33)
[2023-11-22] MEDS: SYNTHROID 25 MCG PO (04:28)
[2023-11-22] MEDS: DILAUDID 1 MG IV ×5 (04:28→22:41)
[2023-11-22 05:51] LABS: ALT (SGPT) 15 U/L (0-50); AST (SGOT) 26 U/L (17-59); Albumin 3.4 g/dl (3.5-5.0); Alkaline Phosphatase 80 U/L (38-126); Blood Urea Nitrogen 8 mg/dl (9-20); Carbon Dioxide 24 mmol/L (22-30); Chloride 107 mmol/L (98-107); Estimated Creatinine Clearance 93 ml/min; Glucose 75 mg/dl (70-99); Magnesium 1.9 mg/dl (1.6-2.3); Potassium 4.1 mmol/L (3.5-5.1); Sodium 143 mmol/L (135-145); Total Bilirubin 0.3 mg/dl (0.2-1.3); Total Protein 6.3 g/dl (6.3-8.2); eGFR > 60.00
[2023-11-22 05:58] LABS: % Basophils 0.5 % (0-2); % Eosinophils 2.6 % (0-6); % Immature Granulocytes 0.4 % (0-0.5); % Lymphocytes 19.6 % (20.5-51.1); % Monocytes 11.6 % (1.7-9.3); % Neutrophils 65.3 % (42.2-75.2); Absolute Eosinophils 0.2 10^3/uL (0-0.7); Absolute Lymphocytes 1.5 10^3/uL (1.2-3.4); Absolute Monocytes 0.9 10^3/uL (0.1-0.6); Hematocrit 35.4 % (39.0-52.0); Hemoglobin 11.5 g/dL (13.0-18.0); Mean Corp Hgb Conc. 32.5 g/dL (33.0-37.0); Mean Corpuscular Hgb 24.9 pg (27.0-31.0); Mean Corpuscular Volume 76.8 fL (80.0-94.0); Nucleated Red Blood Cells % 0 % (-); Platelet Count 213 10^3/uL (130-400); Red Blood Cell Count 4.61 10^6/uL (4.70-6.10); Red Cell Dist. Width 17.1 % (11.5-14.5); White Blood Cell Count 7.6 10^3/uL (4.8-10.8)
[2023-11-22 06:00] VITALS: BMI 22.3
[2023-11-22 07:48] VITALS: BP 97/70
--- NOTE | 2023-11-22 08:24 | W.PN.HOSP.TC ---
Addendum entered and electronically signed by Efrem Lockwood MD 11/22/23 14:51:
I personally performed a history and physical exam of the patient and discussed management with the resident. I reviewed the resident's note and agree with the documented findings and plan of care HPI/CC except for changes in documentation
58-year-old male admitted with abdominal pain
07/31/2023-MRI of the abdomen-interval resolution of previously seen small pseudocyst in the head of the pancreas. Stable appearance of chronic complex loculated collection adjacent to the distal pancreatic body and tail. Cholelithiasis. Hepatic
steatosis.
CT scan of the abdomen and pelvis with IV contrast-extensive stranding along the distal pancreas which appears slightly decreased from prior consistent with acute pancreatitis. Increased wall thickening and stranding along adjacent transverse
colon-likely reactive colitis. Fat necrosis in the left upper quadrant without drainable fluid collection. Persistent splenic vein thrombosis. Prostatomegaly with circumferential chronic urinary bladder wall thickening. Cholelithiasis
CVS: S1-S2 normal
Chest: CTA B/L
Abdomen: Soft, mild abd tenderness, Bowel sounds present
Extremities: No edema, normal pulses
RIPRAP PLACING SUPERVISOR: Non focal exam
# Acute pancreatitis-likely alcohol related
Patient had a prolonged ICU stay for alcohol abuse/pancreatitis August/September of 2022, February/Mar 2023 patient had another admission
In October 2023 with alcoholic pancreatitis
In March 2023 he had significant encephalopathy and agitation required several days of anxiolytics and antipsychotics
Patient always had chronic abdominal pain
Patient reportedly stopped drinking in September 2023-was drinking up to 13 shots per day in September.
Suspect acute pancreatitis with elevated lipase and pain
N.p.o. with IV fluids and sips
Follow Lipase
GI following
# Had thickening of the wall of the gastric antrum on imaging and FebruaryMarch 2023, supposed to get EGD as OP
# MRI in July 2023 showed pseudocyst with stable complex loculated collection adjacent to the distal body and tail, splenic vein thrombosis with collateral varices
# Hepatic steatosis
# Hypothyroidism-continue Synthroid
# Anxiety and depression-continue trazodone, sertraline, lorazepam as needed
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
# Enlarged prostate-was recommended to get a urology evaluation earlier this year-continue Flomax.
# GERD/erosive esophagitis-continue PPI
# Insomnia-continue melatonin, trazodone
# Chronic back pain-continue gabapentin
# History of Hodgkin's lymphoma treated 8 years ago in [place]
# Marijuana use
# DVT prophylaxis-Eliquis
# Full code
D/W RN.
Original Note:
Today's Communication/Plan
-
Keep the patient on bowel rest
Give IV fluids and painkillers
Monitor input output
Monitor lipase levels
Gastroenterology on board
Assessment / Plan
Assessment / Plan
IMPRESSION
A 58 year old male, with past medical history of non-Hodgkin's lymphoma in remission for last 5 years, hypothyroidism, GERD, benign prostatic hyperplasia and chronic alcohol pancreatitis complicated with splenic vein thrombosis, pseudocyst and
pulmonary embolism in the past. He is on chronic anticoagulation with Eliquis. Currently presented with abdominal pain and nausea.
ASSESSMENT
# Acute on chronic pancreatitis
# Splenic vein thrombosis
# Non-Hodgkin lymphoma
# Anxiety/depression
# Hypothyroidism
# GERD
# Benign prostatic hyperplasia
PLAN
# Acute on chronic pancreatitis
Presented with abdominal pain and fever
Lipase 1495 in the emergency on November 21, 2023--- increased to 1521 today on November 22, 2023
CT scan abdomen with IV contrast impression: Extending stranding along distal pancreas slightly decreased from last time, acute inflammatory changes of the pancreas, reactive colitis of transverse colon, persistent splenic vein thrombosis,
prostatomegaly, cholelithiasis, 7 mm hepatic cyst
Gastroenterology consultation appreciated--> would recommend conservative management of patient's symptoms
Bowel rest
IV fluids and pain medications
Patient requiring 1 mg hydromorphone every 2 hours
Gradually introduce diet as tolerated
Monitor lipase levels and patient's symptoms
# Splenic vein thrombosis
Persistent
Patient had a pulmonary embolism on his last admission in February and March 2023
Continue on chronic Eliquis
# Non-Hodgkin lymphoma
Currently not being treated
In remission from last 4 to 5 years
# Anxiety/depression
Continue home dose of trazodone and sertraline
# Hypothyroidism
Continue home dose of levothyroxine 25 mcg daily
# GERD
Continue omeprazole
# Benign prostatic hyperplasia
Continue tamsulosin
Patient has history of chronic alcohol abuse, quit in September, says last drink on October 09
Give thiamine supplementation
Patient's urine positive for opioids and marijuana which the patient uses for pain
CODE STATUS---> full code
DVT prophylaxis---> continue Eliquis and sequential compression devices
Anticipated Discharge: 24 - 48 hours
Subjective/Interval History
-
Date of Service: November 22, 2023
Patient complains of the pain in the abdomen that is diffuse but is more on the left side.
Objective Data
-
Labs:
Laboratory Results
11/22/23 11/22/23
05:06 05:07
WBC 7.6
Hgb 11.5 L
Hct 35.4 L
Plt Count 213
Sodium 143
Potassium 4.1
Chloride 107
Carbon Dioxide 24
BUN 8 L
Creatinine 0.8
Glucose 75
Calcium 9.0
Total Bilirubin 0.3
AST 26
ALT 15
Alkaline Phosphatase 80
Vital Signs:
Vital Signs
Temp Pulse Resp BP Pulse Ox
98.3 F 101 18 97/70 95
11/22/23 07:48 11/22/23 07:48 11/22/23 07:48 11/22/23 07:48 11/22/23 08:18
I&O
11/21/23 11/22/23 11/23/23
06:59 06:59 06:59
Intake Total 1680 / 1680
Output Total 775 / 775
Balance 905 / 905
Review of Systems
-
All other systems: Reviewed and negative
Physical Exam
-
General: Comfortable, Appears in Distress (Restless, constantly scratching arms and legs, ), Conversant and Cachectic
HEENT: Normocephalic, Atraumatic and Other (Submandibular lymph nodes)
Respiratory: Clear to Auscultation
Cardiac: Regular Rhythm and S1/S2
GI: Soft, Normal Bowel Sounds and Tender (Mild tenderness to deep palpation)
Genito-urinary: No Costovertebral Tender
Musculoskeletal: No Clubbing, No Cyanosis, No Edema and Other (Insect bite law on legs)
Skin: Warm and Dry
Neuro: Awake, Alert, Oriented and No Motor Deficits
Hematologic / Lymphatic: Other (Submandibular lymph nodes)
Psych: Calm
[2023-11-22] MEDS: FLOMAX 0.4 MG PO (08:26)
[2023-11-22] MEDS: B COMPLEX w/VITAMIN C 1 CAPLET PO (08:26)
[2023-11-22] MEDS: LOPRESSOR 12.5 MG PO ×2 (08:26→20:02)
[2023-11-22] MEDS: VITAMIN D3 (cholecalciferol) 50 MCG PO (08:26)
[2023-11-22] MEDS: VITAMIN B1 100 MG PO (08:26)
[2023-11-22] MEDS: NEURONTIN 300 MG PO ×3 (08:26→21:31)
[2023-11-22] MEDS: MAGNESIUM OXIDE 500 MG PO (08:26)
[2023-11-22] MEDS: PROTONIX 40 MG PO (08:26)
[2023-11-22] MEDS: ATIVAN 0.5 MG PO (08:27)
[2023-11-22] MEDS: ELIQUIS 5 MG PO ×2 (08:27→20:02)
[2023-11-22] MEDS: FOLVITE 1 MG PO (08:27)
[2023-11-22] MEDS: ZOLOFT 150 MG PO (08:27)
[2023-11-22] MEDS: FLUSH (NSS) 1 FLUSH IV ×3 (08:28→18:36)
[2023-11-22 09:44] LABS: Lipase 1521 U/L (23-300)
[2023-11-22 10:20] VITALS: BP 91/71; PULSE 81
--- NOTE | 2023-11-22 10:49 | PTOTSP ---
The patient is independent with ambulation and elevations, no mobility deficits noted. No PT needs identified at this time, will sign off.
--- NOTE | 2023-11-22 11:34 | PTOTSP ---
pt currently demonstrates ability to complete simple ADLs, functional transfers, ambulation with supervision to no assistance. no acute OT needs identified at this time, will sign off.
--- NOTE | 2023-11-22 15:49 | W.PN.GI.CBS2 ---
Today's Communication / Plan
-
CLD today.
Assessment / Plan
-
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
past for pancreatitis. Pt was admitted in August/September 2022 then 03/05 to 03/31/2023 with prolonged ICU admission with pancreatitis and ETOH withdrawal. He did have follow up in GI office in April with decreased ETOH use and recommended follow up
MRI. He completed MRI in July with resolution of pseudocyst in head of pancreas and stable chronic complex loculated collection adjacent to distal body and tail. He was recently admitted 11/06- 11/09 with acute on chronic pancreatitis with
admission of ETOH use 1 month prior up to 13 shots per day. During that admission he was noted with elevated lipase and severe acute pancreatitis interstitial edematous vs necrotizing in body and tail with 3.4 cm peripancreatic fluid collection
inferior to pancreatic tail with splenic vein thrombosis with collateral varices, fatty liver, cholelithiasis and severe enlargement of prostate gland. per imaging. He was treated with bowel rest, IVF with improved symptoms and diet advancement.
He was counseled on quitting ETOH. He was seen in close follow up 11/[address] Oropeza. He was recommended follow up CT in 6 weeks to reassess for pancreatic collection. He was given Tramadol for abdominal pain. He now returns with continued
abdominal pain. On admission noted normal WBC's and LFT's with lipase 1495. CT repeated with extensive stranding distal pancreas slightly decreased from prior study. colitis with increased thickening and stranding adjacent transverse colon likely
reactive. fat necrosis LUQ without drainage collection also persistent splenic vein thrombosis, bladder thickening with chronic bladder outlet.
Pt was recently seen for alcohol induced pancreatitis and PFC in tail region. Plan was to repeat CT in about 6 weeks and stop drinking alcohol. Returned to ER yesterday with recurrent acute panc. Etiology is unclear - he states he has not drank
alcohol since 09/2023. A repeat CT showed extensive stranding along the distal panc. CT was reviewed by me. No organized fluid collection. The etiology is somewhat unclear at this point. Continue supportive mx. Start CLD.
Total Time Spent with Patient (in minutes): 35
Subjective
Subjective
Date of Service: November 22, 2023
Continues to have some abdo pain. Feeling hungry.
Objective
Data Reviewed
Laboratory Data:
Laboratory Results
11/22/23 05:07
11/22/23 05:06
Laboratory Results
Magnesium 1.9 mg/dl (1.6-2.3) 11/22/23 05:06
Total Bilirubin 0.3 mg/dl (0.2-1.3) 11/22/23 05:06
AST 26 U/L (17-59) 11/22/23 05:06
ALT 15 U/L (0-50) 11/22/23 05:06
Alkaline Phosphatase 80 U/L (38-126) 11/22/23 05:06
Lipase 1521 U/L (23-300) H* 11/22/23 05:06
Vital Signs and I&O:
Vital Signs
Temp Pulse Resp BP Pulse Ox
98.3 F 76 18 102/64 95
11/22/23 07:48 11/22/23 08:26 11/22/23 07:48 11/22/23 08:26 11/22/23 08:18
I&O
11/21/23 11/22/23 11/23/23
06:59 06:59 06:59
Intake Total 1680 / 1680
Output Total 775 / 775 500 / 500
Balance 905 / 905 -500 / -500
[2023-11-22 15:51] VITALS: BP 104/74
--- NOTE | 2023-11-22 16:28 | PTCARENOTE ---
Pt AAO x3, LAMB; resting in bed for shift. VSS. On room air- pulse ox 95%, no SOB noted. Abd soft, pt still c/o pain across lower abd. Paloma clear liquids. Voiding in urinal without difficulty. IVF's RL @ 120 ml/hr infusing via Lt SC port
without sx of infiltration. Resting comfortably at present. Will continue to monitor.
--- NOTE | 2023-11-22 17:09 | CM ---
Alert awake oriented patient who lives with his Girlfriend Nikki who live in a 1 story trailer with 4 steps to enter. He is independent in driving and in all activities of daily living.He uses a cane .He was offered VN he declined need.
No VN hx / No SNF history
Pharmacy [facility]
PCP DR Mark
PLAN Home Declined VN
[2023-11-22] MEDS: MELATONIN 10 MG PO (21:31)
[2023-11-22] MEDS: DESYREL 100 MG PO (21:31)
[2023-11-22 23:58] VITALS: BP 90/60
[2023-11-23] MEDS: DILAUDID 1 MG IV ×3 (03:01→13:53)
[2023-11-23] MEDS: LR 1000 IV ×3 (05:24→20:56)
[2023-11-23] MEDS: SYNTHROID 25 MCG PO (05:24)
[2023-11-23 05:29] VITALS: BP 128/85
[2023-11-23 06:00] VITALS: BMI 22.7
[2023-11-23 07:59] VITALS: BP 106/83
[2023-11-23] MEDS: FOLVITE 1 MG PO (08:24)
[2023-11-23] MEDS: NEURONTIN 300 MG PO ×3 (08:24→21:01)
[2023-11-23] MEDS: B COMPLEX w/VITAMIN C 1 CAPLET PO (08:24)
[2023-11-23] MEDS: PROTONIX 40 MG PO (08:24)
[2023-11-23] MEDS: FLOMAX 0.4 MG PO (08:25)
[2023-11-23] MEDS: MAGNESIUM OXIDE 500 MG PO (08:25)
[2023-11-23] MEDS: VITAMIN B1 100 MG PO (08:25)
[2023-11-23] MEDS: LOPRESSOR PO (08:25)
[2023-11-23] MEDS: ELIQUIS 5 MG PO ×2 (08:25→20:55)
[2023-11-23] MEDS: ATIVAN 0.5 MG PO (08:26)
[2023-11-23] MEDS: VITAMIN D3 (cholecalciferol) 50 MCG PO (08:26)
[2023-11-23] MEDS: ZOLOFT 150 MG PO (08:26)
[2023-11-23 08:34] LABS: % Basophils 0.3 % (0-2); % Eosinophils 3.6 % (0-6); % Immature Granulocytes 0.4 % (0-0.5); % Neutrophils 65.7 % (42.2-75.2); Absolute Eosinophils 0.3 10^3/uL (0-0.7); Absolute Lymphocytes 1.3 10^3/uL (1.2-3.4); Absolute Monocytes 0.8 10^3/uL (0.1-0.6); Absolute Neutrophils 4.6 10^3/uL (1.4-6.5); Hemoglobin 12.4 g/dL (13.0-18.0); Mean Corp Hgb Conc. 31.8 g/dL (33.0-37.0); Mean Corpuscular Hgb 24.8 pg (27.0-31.0); Mean Corpuscular Volume 77.8 fL (80.0-94.0); Mean Platelet Volume 9.1 fL (7.4-10.4); Nucleated Red Blood Cells % 0 % (-); Platelet Count 215 10^3/uL (130-400); Red Blood Cell Count 5.01 10^6/uL (4.70-6.10); Red Cell Dist. Width 16.9 % (11.5-14.5); White Blood Cell Count 6.9 10^3/uL (4.8-10.8)
[2023-11-23 08:36] LABS: INR 1.37; PT 16.6 Sec (11.4-14.6)
[2023-11-23 09:09] LABS: ALT (SGPT) 16 U/L (0-50); AST (SGOT) 30 U/L (17-59); Albumin 3.9 g/dl (3.5-5.0); Alkaline Phosphatase 91 U/L (38-126); Blood Urea Nitrogen 5 mg/dl (9-20); Calcium 9.2 mg/dl (8.4-10.2); Carbon Dioxide 26 mmol/L (22-30); Chloride 100 mmol/L (98-107); Estimated Creatinine Clearance 107 ml/min; Glucose 78 mg/dl (70-99); Lipase 1703 U/L (23-300); Potassium 3.8 mmol/L (3.5-5.1); Sodium 140 mmol/L (135-145); Total Bilirubin 0.4 mg/dl (0.2-1.3); Total Protein 6.9 g/dl (6.3-8.2); eGFR > 60.00
--- NOTE | 2023-11-23 13:02 | W.PN.GI.CBS2 ---
Today's Communication / Plan
-
low fat diet
Assessment / Plan
-
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
past for pancreatitis. Pt was admitted in August/September 2022 then 03/05 to 03/31/2023 with prolonged ICU admission with pancreatitis and ETOH withdrawal. He did have follow up in GI office in April with decreased ETOH use and recommended follow up
MRI. He completed MRI in July with resolution of pseudocyst in head of pancreas and stable chronic complex loculated collection adjacent to distal body and tail. He was recently admitted 11/06- 11/09 with acute on chronic pancreatitis with
admission of ETOH use 1 month prior up to 13 shots per day. During that admission he was noted with elevated lipase and severe acute pancreatitis interstitial edematous vs necrotizing in body and tail with 3.4 cm peripancreatic fluid collection
inferior to pancreatic tail with splenic vein thrombosis with collateral varices, fatty liver, cholelithiasis and severe enlargement of prostate gland. per imaging. He was treated with bowel rest, IVF with improved symptoms and diet advancement.
He was counseled on quitting ETOH. He was seen in close follow up 11/[address] Oropeza. He was recommended follow up CT in 6 weeks to reassess for pancreatic collection. He was given Tramadol for abdominal pain. He now returns with continued
abdominal pain. On admission noted normal WBC's and LFT's with lipase 1495. CT repeated with extensive stranding distal pancreas slightly decreased from prior study. colitis with increased thickening and stranding adjacent transverse colon likely
reactive. fat necrosis LUQ without drainage collection also persistent splenic vein thrombosis, bladder thickening with chronic bladder outlet.
Pain is improving. Tolerated CLD, will advance to low fat diet today. He adamantly denies recent drinking. Etiology of his recurrent acute panc is unclear at this time. Anticipate d/c home soon.
Total Time Spent with Patient (in minutes): 35
Subjective
Subjective
Date of Service: November 23, 2023
Pain improving, wants to eat
Objective
Data Reviewed
Laboratory Data:
Laboratory Results
11/23/23 06:13
11/23/23 06:13
Laboratory Results
PT 16.6 Sec (11.4-14.6) H 11/23/23 06:13
INR 1.37 11/23/23 06:13
Magnesium 1.9 mg/dl (1.6-2.3) 11/22/23 05:06
Total Bilirubin 0.4 mg/dl (0.2-1.3) 11/23/23 06:13
AST 30 U/L (17-59) 11/23/23 06:13
ALT 16 U/L (0-50) 11/23/23 06:13
Alkaline Phosphatase 91 U/L (38-126) 11/23/23 06:13
Lipase 1703 U/L (23-300) H* 11/23/23 06:13
Vital Signs and I&O:
Vital Signs
Temp Pulse Resp BP Pulse Ox
97.7 F 87 16 106/83 95
11/23/23 07:59 11/23/23 07:59 11/23/23 07:59 11/23/23 07:59 11/23/23 07:59
I&O
11/22/23 11/23/23 11/24/23
06:59 06:59 06:59
Intake Total 1680 / 1680 4800 / 4800
Output Total 775 / 775 3500 / 3500
Balance 905 / 905 1300 / 1300
--- NOTE | 2023-11-23 15:11 | W.PN.HOSP.TC ---
Today's Communication/Plan
-
Watch with solid diet to see the patient has pain if that is the case we will need to switch him back. I made the patient aware that he cannot keep having IV Dilaudid and also have diet which would be counterproductive if he has active
inflammation. Again difficult to gauge his pain how much of it is acute since he has chronic pain as well.
Assessment / Plan
Assessment / Plan
58-year-old male admitted with abdominal pain
07/31/2023-MRI of the abdomen-interval resolution of previously seen small pseudocyst in the head of the pancreas. Stable appearance of chronic complex loculated collection adjacent to the distal pancreatic body and tail. Cholelithiasis. Hepatic
steatosis.
CT scan of the abdomen and pelvis with IV contrast-extensive stranding along the distal pancreas which appears slightly decreased from prior consistent with acute pancreatitis. Increased wall thickening and stranding along adjacent transverse
colon-likely reactive colitis. Fat necrosis in the left upper quadrant without drainable fluid collection. Persistent splenic vein thrombosis. Prostatomegaly with circumferential chronic urinary bladder wall thickening. Cholelithiasis
CVS: S1-S2 normal
Chest: CTA B/L
Abdomen: Soft, mild abd tenderness, Bowel sounds present
Extremities: No edema, normal pulses
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
# Acute pancreatitis-likely alcohol related
Patient had a prolonged ICU stay for alcohol abuse/pancreatitis August/September of 2022, February/Mar 2023 patient had another admission
In October 2023 with alcoholic pancreatitis
In March 2023 he had significant encephalopathy and agitation required several days of anxiolytics and antipsychotics
Patient always had chronic abdominal pain
Patient reportedly stopped drinking in September 2023-was drinking up to 13 shots per day in September.
Suspect acute pancreatitis with elevated lipase and pain
Started on Solids. If patient still having a lot of pain I would change him back to clears. Unclear to gauge his pain
Follow Lipase
GI following
# Had thickening of the wall of the gastric antrum on imaging and FebruaryMarch 2023, supposed to get EGD as OP
# MRI in July 2023 showed pseudocyst with stable complex loculated collection adjacent to the distal body and tail, splenic vein thrombosis with collateral varices
# Hepatic steatosis
# Hypothyroidism-continue Synthroid
# Anxiety and depression-continue trazodone, sertraline, lorazepam as needed
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
# Enlarged prostate-was recommended to get a urology evaluation earlier this year-continue Flomax.
# GERD/erosive esophagitis-continue PPI
# Insomnia-continue melatonin, trazodone
# Chronic back pain-continue gabapentin
# History of Hodgkin's lymphoma treated 8 years ago in [place]
# Marijuana use
# DVT prophylaxis-Eliquis
# Full code
D/W RN.
D/W GI
Anticipated Discharge: Within 24 hours
Subjective/Interval History
-
Date of Service: November 23, 2023
Objective Data
-
Labs:
Laboratory Results
11/23/23
06:13
WBC 6.9
Hgb 12.4 L
Hct 39.0
Plt Count 215
PT 16.6 H
INR 1.37
Sodium 140
Potassium 3.8
Chloride 100
Carbon Dioxide 26
BUN 5 L
Creatinine 0.7
Glucose 78
Calcium 9.2
Total Bilirubin 0.4
AST 30
ALT 16
Alkaline Phosphatase 91
Vital Signs:
Vital Signs
Temp Pulse Resp BP Pulse Ox
97.7 F 87 16 106/83 95
11/23/23 07:59 11/23/23 07:59 11/23/23 07:59 11/23/23 07:59 11/23/23 07:59
I&O
11/22/23 11/23/23 11/24/23
06:59 06:59 06:59
Intake Total 1680 / 1680 4800 / 4800
Output Total 775 / 775 3500 / 3500
Balance 905 / 905 1300 / 1300
[2023-11-23 15:22] VITALS: BP 115/87
[2023-11-23] MEDS: DILAUDID 0.5 MG IV ×2 (18:28→23:08)
[2023-11-23] MEDS: LOPRESSOR 12.5 MG PO (20:56)
[2023-11-23] MEDS: DESYREL 100 MG PO (21:01)
[2023-11-23] MEDS: MELATONIN 10 MG PO (21:01)
[2023-11-23 23:44] VITALS: BP 101/70
[2023-11-24] MEDS: DILAUDID 0.5 MG IV ×2 (04:34→08:46)
[2023-11-24] MEDS: SYNTHROID 25 MCG PO (04:39)
[2023-11-24] MEDS: LR 1000 IV (04:39)
[2023-11-24 06:00] VITALS: BMI 22.3
[2023-11-24 07:10] LABS: Glucose - Point of Care 99 mg/dl (70-99)
[2023-11-24 07:22] VITALS: BP 105/63
[2023-11-24] MEDS: NEURONTIN 300 MG PO (07:45)
[2023-11-24] MEDS: B COMPLEX w/VITAMIN C 1 CAPLET PO (07:46)
[2023-11-24] MEDS: PROTONIX 40 MG PO (07:46)
[2023-11-24] MEDS: FOLVITE 1 MG PO (07:46)
[2023-11-24] MEDS: MAGNESIUM OXIDE 500 MG PO (07:46)
[2023-11-24] MEDS: LOPRESSOR 12.5 MG PO (07:46)
[2023-11-24] MEDS: ZOLOFT 150 MG PO (07:46)
[2023-11-24] MEDS: FLOMAX 0.4 MG PO (07:47)
[2023-11-24] MEDS: ELIQUIS 5 MG PO (07:47)
[2023-11-24] MEDS: VITAMIN B1 100 MG PO (07:47)
[2023-11-24] MEDS: ATIVAN 0.5 MG PO (07:47)
[2023-11-24] MEDS: VITAMIN D3 (cholecalciferol) 50 MCG PO (07:47)
[2023-11-24 08:31] LABS: % Basophils 0.3 % (0-2); % Eosinophils 4.3 % (0-6); % Immature Granulocytes 0.5 % (0-0.5); % Lymphocytes 16.1 % (20.5-51.1); % Monocytes 15.2 % (1.7-9.3); % Neutrophils 63.6 % (42.2-75.2); Absolute Eosinophils 0.3 10^3/uL (0-0.7); Absolute Neutrophils 4.1 10^3/uL (1.4-6.5); Hematocrit 34.3 % (39.0-52.0); Hemoglobin 11.3 g/dL (13.0-18.0); Mean Corp Hgb Conc. 32.9 g/dL (33.0-37.0); Mean Corpuscular Hgb 25.8 pg (27.0-31.0); Mean Corpuscular Volume 78.3 fL (80.0-94.0); Mean Platelet Volume 9.5 fL (7.4-10.4); Nucleated Red Blood Cells % 0 % (-); Platelet Count 175 10^3/uL (130-400); Red Blood Cell Count 4.38 10^6/uL (4.70-6.10); Red Cell Dist. Width 16.5 % (11.5-14.5); White Blood Cell Count 6.4 10^3/uL (4.8-10.8)
[2023-11-24 09:17] LABS: ALT (SGPT) 15 U/L (0-50); AST (SGOT) 26 U/L (17-59); Albumin 3.5 g/dl (3.5-5.0); Alkaline Phosphatase 80 U/L (38-126); Blood Urea Nitrogen 3 mg/dl (9-20); Calcium 9.2 mg/dl (8.4-10.2); Carbon Dioxide 27 mmol/L (22-30); Chloride 103 mmol/L (98-107); Estimated Creatinine Clearance 123 ml/min; Glucose 99 mg/dl (70-99); Lipase 442 U/L (23-300); Potassium 4.2 mmol/L (3.5-5.1); Sodium 140 mmol/L (135-145); Total Bilirubin 0.3 mg/dl (0.2-1.3); Total Protein 6.3 g/dl (6.3-8.2); eGFR > 60.00
[2023-11-24] MEDS: ULTRAM 50 MG PO (12:35)
--- NOTE | 2023-11-24 12:51 | W.PN.GI.CBS2 ---
Today's Communication / Plan
-
can d/c home
Assessment / Plan
-
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
past for pancreatitis. Pt was admitted in September 2022 then 03/05 to 03/31/2023 with prolonged ICU admission with pancreatitis and ETOH withdrawal. He did have follow up in GI office in April with decreased ETOH use and recommended follow up
MRI. He completed MRI in July with resolution of pseudocyst in head of pancreas and stable chronic complex loculated collection adjacent to distal body and tail. He was recently admitted 11/06- 11/09 with acute on chronic pancreatitis with
admission of ETOH use 1 month prior up to 13 shots per day. During that admission he was noted with elevated lipase and severe acute pancreatitis interstitial edematous vs necrotizing in body and tail with 3.4 cm peripancreatic fluid collection
inferior to pancreatic tail with splenic vein thrombosis with collateral varices, fatty liver, cholelithiasis and severe enlargement of prostate gland. per imaging. He was treated with bowel rest, IVF with improved symptoms and diet advancement.
He was counseled on quitting ETOH. He was seen in close follow up 11/[address] Oropeza. He was recommended follow up CT in 6 weeks to reassess for pancreatic collection. He was given Tramadol for abdominal pain. He now returns with continued
abdominal pain. On admission noted normal WBC's and LFT's with lipase 1495. CT repeated with extensive stranding distal pancreas slightly decreased from prior study. colitis with increased thickening and stranding adjacent transverse colon likely
reactive. fat necrosis LUQ without drainage collection also persistent splenic vein thrombosis, bladder thickening with chronic bladder outlet.
Pain is adequately controlled. Tolerated solid diet. Can d/c home today.
Total Time Spent with Patient (in minutes): 35
Subjective
Subjective
Date of Service: November 24, 2023
Tolerating solid diet
Objective
Data Reviewed
Laboratory Data:
Laboratory Results
11/24/23 08:04
11/24/23 08:04
Laboratory Results
PT 16.6 Sec (11.4-14.6) H 11/23/23 06:13
INR 1.37 11/23/23 06:13
Magnesium 1.9 mg/dl (1.6-2.3) 11/22/23 05:06
Total Bilirubin 0.3 mg/dl (0.2-1.3) 11/24/23 08:04
AST 26 U/L (17-59) 11/24/23 08:04
ALT 15 U/L (0-50) 11/24/23 08:04
Alkaline Phosphatase 80 U/L (38-126) 11/24/23 08:04
Lipase 442 U/L (23-300) H 11/24/23 08:04
Vital Signs and I&O:
Vital Signs
Temp Pulse Resp BP Pulse Ox
97.9 F 69 20 105/63 95
11/24/23 07:22 11/24/23 07:46 11/24/23 07:22 11/24/23 07:46 11/24/23 07:22
I&O
11/23/23 11/24/23 11/25/23
06:59 06:59 06:59
Intake Total 4800 / 4800 2400 / 2400
Output Total 3500 / 3500 3000 / 3000
Balance 1300 / 1300 -600 / -600
--- NOTE | 2023-11-24 14:17 | W.PN.HOSP.TC ---
Today's Communication/Plan
-
Discharge
Assessment / Plan
Assessment / Plan
58-year-old male admitted with abdominal pain
07/31/2023-MRI of the abdomen-interval resolution of previously seen small pseudocyst in the head of the pancreas. Stable appearance of chronic complex loculated collection adjacent to the distal pancreatic body and tail. Cholelithiasis. Hepatic
steatosis.
CT scan of the abdomen and pelvis with IV contrast-extensive stranding along the distal pancreas which appears slightly decreased from prior consistent with acute pancreatitis. Increased wall thickening and stranding along adjacent transverse
colon-likely reactive colitis. Fat necrosis in the left upper quadrant without drainable fluid collection. Persistent splenic vein thrombosis. Prostatomegaly with circumferential chronic urinary bladder wall thickening. Cholelithiasis
CVS: S1-S2 normal
Chest: CTA B/L
Abdomen: Soft, very mild abd tenderness, Bowel sounds present
Extremities: No edema, normal pulses
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
# Acute pancreatitis-
Patient had a prolonged ICU stay for alcohol abuse/pancreatitis August/September of 2022, February/Mar 2023 patient had another admission
In October 2023 with alcoholic pancreatitis
In March 2023 he had significant encephalopathy and agitation required several days of anxiolytics and antipsychotics
Patient always has chronic abdominal pain
Patient reportedly stopped drinking in September 2023-was drinking up to 13 shots per day in September.
Started on Solids. Lipase better.
# Had thickening of the wall of the gastric antrum on imaging and FebruaryMarch 2023, supposed to get EGD as OP
# MRI in July 2023 showed pseudocyst with stable complex loculated collection adjacent to the distal body and tail, splenic vein thrombosis with collateral varices
# Hepatic steatosis
# Hypothyroidism-continue Synthroid
# Anxiety and depression-continue trazodone, sertraline, lorazepam as needed
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
# Enlarged prostate-was recommended to get a urology evaluation earlier this year-continue Flomax.
# GERD/erosive esophagitis-continue PPI
# Insomnia-continue melatonin, trazodone
# Chronic back pain-continue gabapentin
# History of Hodgkin's lymphoma treated 8 years ago in [place]
# Marijuana use
# DVT prophylaxis-Eliquis
# Full code
D/W RN.
D/W GI
OK for discharge
Will give a week of Ultram .
Pt stopped drinking in September and wants to stay like that. Patient is aware that he cannot drink alcohol when he takes tramadol.
More than 30 minutes spent in discharge including
Final examination of the patient
Summarizing hospital stay
Instructions for continuing care to all relevant caregivers
Preparation of discharge records, prescriptions, and referral forms
Total time spent (in minutes): 34 min
Anticipated Discharge: Today
Subjective/Interval History
-
Date of Service: November 24, 2023
Objective Data
-
Labs:
Laboratory Results
11/24/23
08:04
WBC 6.4
Hgb 11.3 L
Hct 34.3 L
Plt Count 175
Sodium 140
Potassium 4.2
Chloride 103
Carbon Dioxide 27
BUN 3 L
Creatinine 0.6 L
Glucose 99
Calcium 9.2
Total Bilirubin 0.3
AST 26
ALT 15
Alkaline Phosphatase 80
Vital Signs:
Vital Signs
Temp Pulse Resp BP Pulse Ox
97.9 F 69 20 105/63 95
11/24/23 07:22 11/24/23 07:46 11/24/23 07:22 11/24/23 07:46 11/24/23 07:22
I&O
11/23/23 11/24/23 11/25/23
06:59 06:59 06:59
Intake Total 4800 / 4800 2400 / 2400
Output Total 3500 / 3500 3000 / 3000
Balance 1300 / 1300 -600 / -600
--- NOTE | 2023-11-24 14:29 | W.DS.TRANS ---
Addendum entered and electronically signed by Efrem Lockwood MD 11/24/23 17:36:
Dictation- [id number]
Original Note:
DC Summary - Office Inspector
-
Discharge Instructions:
Discharge Diagnosis/Procedures Pancreatitis
Fatty liver
Hypothyroidism
Anxiety and depression
History of PE
Enlarged prostate
GERD
Insomnia
Chronic back pain
Diet Low Fat
Activity As tolerated
Driving Restrictions As prior to admission
Instructions:
Stand-Alone Forms:
Changes to Home Medications: Yes
Discharge Medications:
DC Medications w/original date entered in [facility]
tamsulosin 0.4 mg capsule (Flomax) 0.4 mg PO DAILY Urinary Issue 09/04/22
folic acid 1 mg tablet 1 mg PO DAILY Supplement #30 tabs 09/24/22
omeprazole 40 mg capsule,delayed release 40 mg PO DAILY GERD 03/05/23
thiamine HCl (vitamin B1) 100 mg tablet 100 mg PO DAILY Supplement 03/05/23
cholecalciferol (vitamin D3) 50 mcg (2,000 unit) tablet 50 mcg PO DAILY defeciency #30 tabs 03/31/23
magnesium oxide 500 mg PO DAILY Electrolyte Repletion #0 tabs 03/31/23
metoprolol tartrate 25 mg tablet 12.5 mg (1/2 x 25 mg) PO BID Blood pressure #60 tabs 03/31/23
gabapentin 300 mg capsule 300 mg PO TID Neurological Condition 11/07/23
levothyroxine 25 mcg tablet 25 mcg PO DAILY Thyroid 11/07/23
lorazepam 0.5 mg tablet 0.5 mg PO DAILY Mental Health/Anxiety 11/07/23
sertraline 100 mg tablet 150 mg PO DAILY Depression 11/07/23
sildenafil (pulm.hypertension) 20 mg tablet 60 mg PO DAILYPRN PRN ed 11/07/23
trazodone 100 mg tablet 100 mg PO HS Sleep 11/07/23
vitamin B complex 1 tab PO DAILY Supplement 11/07/23
oxycodone 5 mg tablet 5 mg PO BIDPRN PRN severe Pain 11/21/23
apixaban 5 mg tablet (Eliquis) 5 mg PO BID Blood clot prevention/tx #0 tabs 11/24/23
melatonin 5 mg tablet 10 mg (2 x 5 mg) PO HS Sleep #0 tabs 11/24/23
sennosides 8.6 mg capsule (senna) 8.6 mg PO BID PRN when you take Ultram and Percocet #60 caps 11/24/23
tramadol 50 mg tablet 50 mg PO Q6HPRN PRN moderate pain #30 tabs 11/24/23
Home Medication Changes
new
sennosides 8.6 mg capsule (senna) 8.6 mg PO BID PRN when you take Ultram and Percocet #60 caps 11/24/23
tramadol 50 mg tablet 50 mg PO Q6HPRN PRN moderate pain #30 tabs 11/24/23
Pending Results: No
[2023-11-24 15:12] VITALS: BP 115/81
== END 2023-11-24 16:58 | disposition home or self-care (01) | DRG 438 ==
LOC: 4 EAST ACU 15:23
PROVIDERS: Clinical Nurse Specialist Family Health; Physician Assistant; ADMITTING PHYSICIAN Internal Medicine; ATTENDING PHYSICIAN Hospitalist; CONSULT PHYSICIAN Internal Medicine Gastroenterology; EMERGENCY PHYSICIAN Student in an Organized Health Care Education/Training Program; FAMILY PHYSICIAN Family Medicine
DX: K85.81 Other acute pancreatitis with uninfected necrosis (principal); I26.99 Other pulmonary embolism without acute cor pulmonale; K22.10 Ulcer of esophagus without bleeding; F03.93 Unspecified dementia, unspecified severity, with mood disturbance; Z87.891 Personal history of nicotine dependence; E03.9 Hypothyroidism, unspecified; K76.0 Fatty (change of) liver, not elsewhere classified; F41.1 Generalized anxiety disorder; F32.A Depression, unspecified; N40.0 Benign prostatic hyperplasia without lower urinary tract symptoms; K21.9 Gastro-esophageal reflux disease without esophagitis; D64.9 Anemia, unspecified
CPT/HCPCS: 71046; 74177; 80053; 80306; 80307; 82077; 82962; 83690; 83735; 84443; 84484; 85025; 85610; 93005; 96361; 96374; 96375; 97161; 97165; 99285; Q9967

== ENCOUNTER 2024-09-09 11:43 | Emergency (ER) | payer OTHER, SELFPAY ==
[2024-09-09] VITALS (9 sets, daily range): BP systolic 68–127; BP diastolic 48–100; BMI 21.3
[2024-09-09 12:30] LABS: Hematocrit 39.7 % (39.0-52.0); Hemoglobin 12.9 g/dL (13.0-18.0); Mean Corp Hgb Conc. 32.5 g/dL (33.0-37.0); Mean Corpuscular Volume 81.5 fL (80.0-94.0); Nucleated Red Blood Cells % 0 % (-); Platelet Count 238 10^3/uL (130-400); Red Cell Dist. Width 17.5 % (11.5-14.5)
[2024-09-09 12:47] LABS: ALT (SGPT) 18 U/L (0-50); AST (SGOT) 36 U/L (17-59); Albumin 4.3 g/dl (3.5-5.0); Alkaline Phosphatase 64 U/L (38-126); Blood Urea Nitrogen 6 mg/dl (9-20); Calcium 9.1 mg/dl (8.4-10.2); Carbon Dioxide 23 mmol/L (22-30); Chloride 105 mmol/L (98-107); Glucose 106 mg/dl (70-99); Potassium 3.8 mmol/L (3.5-5.1); Sodium 138 mmol/L (135-145); Total Protein 7.1 g/dl (6.3-8.2); eGFR > 60.00
[2024-09-09] MEDS: NSS 1000 IV ×2 (13:57→15:42)
--- NOTE | 2024-09-09 14:19 | ED.GENMED ---
History of Present Illness
General
Chief Complaint: Fall
Time Seen by Provider: 09/09/24 13:13
History of Present Illness
History of Present Illness:
59-year-old male presents to the emergency department for evaluation of dizziness and falls, states he has been dizzy for quite some time. He has a long history of alcohol abuse and apparently was just released from detention 1 week ago, since that
time admits to drinking approximately 16 shots of liquor daily. States he felt dizzy today leading him to trip and fall to the ground. He also notes that he has not seen his primary care physician in quite some time and is running out of all of
his medications but does not know offhand what these medications are. He is currently homeless and living out of his car
Past History
Past History
ED Past Medical History: Psychiatric (Generalized anxiety disorder), Other (Chronic back pain) and Other (Hodgkin's Lymphoma); Negative HTN or NIDDM
ED Past Surgical History: Orthopedic
Social History
Tobacco: Smoker (History of chewing tobacco use, quit one year ago)
Alcohol: None
Drug: None
Living: with family
Employment: Employed
Family History
Family History: CAD
Review of Systems
Review of Systems
Allergies reviewed?: Yes
All Other Systems: ROS reviewed and negative except as documented in HPI and ROS
Phy Exam
Physical Exam
Physical Exam:
GEN: Well appearing, NAD, WDWN
HEENT: Oral mucosa moist, no scleral icterus
Cardiac: Regular rate and rhythm, no murmur
Lung: No respiratory distress, no tachypnea
MSK: No gross deformity or injuries
Skin: Good color, no pallor or jaundice, no rashes. Numerous superficial abrasions to the upper extremities bilaterally
Neuro: AO x3, moves all extremities freely
Psych: Calm, cooperative
Course
Orders/Labs/Results
Orders:
Orders
09/09/24 12:02
Electrocardiogram (*1) Urgent
Reason for Study: Vertigo / Dizzy
EKG- Treatment ONCE
09/09/24 12:10
Alcohol Urgent
CMP [Comprehensive Metabolic Panel] Urgent
Complete Blood Count/With Diff Urgent
09/09/24 13:41
CT Head W/o Iv Contrast Urgent
Comment:
Reason For Exam: fall on Eliquis
0.9% Sodium Chloride 1000 ml [Nss] 1,000 ml IV BOLUS
09/09/24 15:00
0.9% Sodium Chloride 1000 ml [Nss] 1,000 ml IV BOLUS
09/09/24 16:07
Add On- LAB Urgent
Tests Added?: alcohol
Abnormal Lab Results
09/09/24
12:10
Hgb 12.9 L g/dL
(13.0-18.0)
MCH 26.5 L pg
(27.0-31.0)
MCHC 32.5 L g/dL
(33.0-37.0)
RDW 17.5 H %
(11.5-14.5)
Absolute Monos (auto) 0.8 H 10^3/uL
(0.1-0.6)
Lymphocytes % 16.5 L %
(20.5-51.1)
Monocytes % 10.1 H %
(1.7-9.3)
BUN 6 L mg/dl
(9-20)
Glucose 106 H mg/dl
(70-99)
09/09/24 12:10
09/09/24 12:10
Vital Signs
Initial and Last Documented VS:
Initial Vital Signs
Temp Pulse Resp BP Pulse Ox
97.9 F 76 18 82/54 96
09/09/24 11:51 09/09/24 11:51 09/09/24 11:51 09/09/24 11:51 09/09/24 11:51
Last Documented Vital Signs
Temp Pulse Resp BP Pulse Ox
97.9 F 65 16 68/49 97
09/09/24 11:51 09/09/24 15:45 09/09/24 15:45 09/09/24 15:31 09/09/24 15:45
MDM/Problems Addressed
MDM/Problems Addressed:
Patient noted persistently hypotensive despite aggressive IV fluid resuscitation in the emergency department. Labs are reassuring. He is mildly intoxicated by serum alcohol however clinically appears coherent, alert and fully oriented. He was
advised to be admitted to the hospital for hypotension however he declined and opted to leave AGAINST MEDICAL ADVICE. He verbalized understanding of all risks of ongoing hypotension
*Pulse Oximetry
SaO2: 96
Oxygen Mode of Delivery: Room air
Patient hypoxic: no
*Critical Care Note
Total Time (30-74mins, 75-104mins- exclusive of procedures): Not Applicable
ED Attending Note
-
Portions of this chart may have been created with voice recognition software.� Occasional wrong word or��sound alike� substitutions may have occurred due to the inherent limitations of voice recognition software.
Discharge Plan
Departure
Patient Disposition: Against Medical Advice
Date of Disposition: 09/09/24
Time of Disposition: 16:41
Discharge Problem:
Hypotension, Alcohol abuse
Instructions: Alcohol use disorder - ED discharge instructions
Prescriptions:
No Action
tamsulosin [Flomax] 0.4 mg Capsule
0.4 mg PO DAILY
folic acid 1 mg tablet
1 mg PO DAILY Qty: 30 0RF
omeprazole 40 mg Capsule,Delayed Release(Dr/Ec)
40 mg PO DAILY
thiamine HCl (vitamin B1) 100 mg tablet
100 mg PO DAILY
metoprolol tartrate 25 mg Tablet
12.5 mg PO BID Qty: 60 0RF
magnesium oxide 500 mg magnesium Tablet
500 mg PO DAILY Qty: 0 0RF
cholecalciferol (vitamin D3) 50 mcg (2,000 unit) Tablet
50 mcg PO DAILY Qty: 30 0RF
sertraline 100 mg Tablet
150 mg PO DAILY
trazodone 100 mg Tablet
100 mg PO HS
gabapentin 300 mg Capsule
300 mg PO TID
vitamin B complex Tablet
1 tab PO DAILY
sildenafil (pulm.hypertension) 20 mg Tablet
60 mg PO DAILYPRN PRN (Reason: ed)
levothyroxine 25 mcg tablet
25 mcg PO DAILY
lorazepam 0.5 mg tablet
0.5 mg PO DAILY
Patient Comments:
11/07/23: last filled 10/21/23 for 30 tablets
oxycodone 5 mg tablet
5 mg PO BIDPRN PRN (Reason: severe Pain)
tramadol 50 mg Tablet
50 mg PO Q6HPRN PRN (Reason: moderate pain) Qty: 30 0RF
melatonin 5 mg tablet
10 mg PO HS Qty: 0 0RF
Eliquis 5 mg tablet
5 mg PO BID Qty: 0 0RF
Patient Comments:
11/21/23--patient knows suppose to take this bid but has not/choosen to take it once a day
senna 8.6 mg capsule
8.6 mg PO BID PRN (Reason: when you take Ultram and Percocet) Qty: 60 0RF
Referrals:
NONE,* [Family Provider, Internal Medicine]
Activity Restrictions/Additional Instructions:
We recommended admission to the hospital due to your low blood pressures as this was likely causing your dizziness however you declined. Please be aware that there is high risk of you having further falls and difficulty walking due to your low
blood pressure. This could even result in severe injury or . Do not hesitate to return to the emergency department if your symptoms worsen
Interventions
Interventions:
*Risk Screen - Suicide Last Done: 09/09/24 11:51
*General Assessment Last Done: 09/09/24 12:30
*ED- Fall Risk Assessment Last Done: 09/09/24 12:30
*ED COVID-19 Vaccine History Last Done: 09/09/24 12:30
ED-Musculoskeletal Assessment Last Done: 09/09/24 12:30
ED- Neurological Assessment Last Done: 09/09/24 12:30
ED-Skin Assessment Last Done: 09/09/24 12:30
Discharge Date and Time
Print Language: FAROESE
== END 2024-09-09 17:18 | disposition left against medical advice (07) ==
LOC: EMR 11:43
PROVIDERS: Emergency Medicine; EMERGENCY PHYSICIAN Emergency Medicine
DX: I95.9 Hypotension, unspecified (principal); F10.10 Alcohol abuse, uncomplicated; F41.1 Generalized anxiety disorder; M54.9 Dorsalgia, unspecified; G89.29 Other chronic pain; Z79.01 Long term (current) use of anticoagulants; Z91.128 Patient's intentional underdosing of medication regimen for other reason; T45.516A Underdosing of anticoagulants, initial encounter; Z59.02 Unsheltered homelessness; Z87.891 Personal history of nicotine dependence; Z85.71 Personal history of Hodgkin lymphoma
CPT/HCPCS: 99284; 96360; 96361; 70450; 80053; 82077; 85025; 93005

== ENCOUNTER 2024-09-25 13:30 | Emergency (ER) | payer OTHER, SELFPAY ==
[2024-09-25 13:46] VITALS: BP 122/85
--- NOTE | 2024-09-25 14:40 | ED.GENMED ---
History of Present Illness
General
Chief Complaint: Anxiety
Source: patient and other (Girlfriend)
Time Seen by Provider: 09/25/24 14:24
History of Present Illness
History of Present Illness:
59-year-old male was dropped off by his girlfriend and family for ental help. Patient apparently told them he was depressed. He is not does not describe any suicidal or homicidal ideation or plan. He is not describing any intent to hurt himself
or anything dangerous. However he has been drinking per the family and was asking for mental health. For me the patient was very belligerent. He was not going to the room. He sat on the floor by the doorway. He denied suicidal or homicidal
ideation. He was not cooperative with the history or evaluation.
Past History
Past History
ED Past Medical History: Psychiatric (Generalized anxiety disorder), Other (Chronic back pain) and Other (Hodgkin's Lymphoma); Negative HTN or NIDDM
ED Past Surgical History: Orthopedic
Social History
Tobacco: Smoker (History of chewing tobacco use, quit one year ago)
Alcohol: None
Drug: None
Living: with family
Employment: Employed
Family History
Family History: CAD
Review of Systems
Review of Systems
All Other Systems: Not applicable
Phy Exam
Physical Exam
Physical Exam:
GENERAL: Alert. Initially sitting outside the door leaning against the door. He would not get up. Interacting belligerently and aggressively. No obvious signs of trauma. He would not allow me to examine him.
LUNGS: No respiratory distress
NEUROLOGICAL: Alert. Nonfocal. He did get up and is walking around interacting and fighting with the security staff. Nonfocal.
SKIN: Good color
PSYCH: Aggressive. Agitated. Belligerent. However has not done anything imminently danger to himself or others
Course
Vital Signs
Initial and Last Documented VS:
Initial Vital Signs
Temp Pulse Resp BP Pulse Ox
98.3 F 106 16 122/85 98
09/25/24 13:46 09/25/24 13:46 09/25/24 13:46 09/25/24 13:46 09/25/24 13:46
Last Documented Vital Signs
Temp Pulse Resp BP Pulse Ox
98.3 F 106 16 122/85 98
09/25/24 13:46 09/25/24 13:46 09/25/24 13:46 09/25/24 13:46 09/25/24 14:45
*Pulse Oximetry
SaO2: 98
Oxygen Mode of Delivery: Room air
Patient hypoxic: no
*Critical Care Note
Total Time (30-74mins, 75-104mins- exclusive of procedures): Not Applicable
Data Reviewed
Review of Other/Old Records Reveals: Labs and Testing
Update Note
Update Note:
Patient's girlfriend was called to help with the history. Patient was belligerent and would not add history. Per the girlfriend he has been drinking and states he wants help for his alcohol issue. His girlfriend admitted that he denied any
suicidal ideation or plan. But stated he did want help for his alcohol. For me again patient is very belligerent and uncooperative despite my efforts to try to help him. I do not find anything that is committable. The family also is not going to
petition. However currently I do not feel he is safe to walk out of the ER based on intoxication. I did ask the girlfriend to come. In the meantime we will have security watch him
1515... Patient's mom and girlfriend are here. I had a lengthy discussion with them. I again went back into the patient to offer help. He is currently talking to his mom.
1530... When I came back patient was already leaving in the car with his mom and girlfriend. He did not want further help. Again he has done nothing acutely suicidal or homicidal or danger to himself. He was not committable. And he was not
cooperative for further help.
ED Attending Note
-
Portions of this chart may have been created with voice recognition software.� Occasional wrong word or��sound alike� substitutions may have occurred due to the inherent limitations of voice recognition software.
Discharge Plan
Departure
Patient Disposition: Home (Routine Discharge)
Date of Disposition: 09/25/24
Time of Disposition: 15:34
Patient with high blood pressure during this ER visit?: Yes
Discharge Problem:
Alcohol intoxication, Chronic alcohol abuse, Possible depression
Prescriptions:
No Action
tamsulosin [Flomax] 0.4 mg Capsule
0.4 mg PO DAILY
folic acid 1 mg tablet
1 mg PO DAILY Qty: 30 0RF
omeprazole 40 mg Capsule,Delayed Release(Dr/Ec)
40 mg PO DAILY
thiamine HCl (vitamin B1) 100 mg tablet
100 mg PO DAILY
metoprolol tartrate 25 mg Tablet
12.5 mg PO BID Qty: 60 0RF
magnesium oxide 500 mg magnesium Tablet
500 mg PO DAILY Qty: 0 0RF
cholecalciferol (vitamin D3) 50 mcg (2,000 unit) Tablet
50 mcg PO DAILY Qty: 30 0RF
sertraline 100 mg Tablet
150 mg PO DAILY
trazodone 100 mg Tablet
100 mg PO HS
gabapentin 300 mg Capsule
300 mg PO TID
vitamin B complex Tablet
1 tab PO DAILY
sildenafil (pulm.hypertension) 20 mg Tablet
60 mg PO DAILYPRN PRN (Reason: ed)
levothyroxine 25 mcg tablet
25 mcg PO DAILY
lorazepam 0.5 mg tablet
0.5 mg PO DAILY
Patient Comments:
11/07/23: last filled 10/21/23 for 30 tablets
oxycodone 5 mg tablet
5 mg PO BIDPRN PRN (Reason: severe Pain)
tramadol 50 mg Tablet
50 mg PO Q6HPRN PRN (Reason: moderate pain) Qty: 30 0RF
melatonin 5 mg tablet
10 mg PO HS Qty: 0 0RF
Eliquis 5 mg tablet
5 mg PO BID Qty: 0 0RF
Patient Comments:
11/21/23--patient knows suppose to take this bid but has not/choosen to take it once a day
senna 8.6 mg capsule
8.6 mg PO BID PRN (Reason: when you take Ultram and Percocet) Qty: 60 0RF
Interventions
Interventions:
*Risk Screen - Suicide Last Done: 09/25/24 13:46
*General Assessment Last Done: 09/25/24 14:25
*Neglect/Abuse Screening Last Done: 09/25/24 13:46
*ED- Fall Risk Assessment Last Done: 09/25/24 14:25
*ED COVID-19 Vaccine History Last Done: 09/25/24 14:25
*Nursing Disposition Last Done: 09/25/24 15:36
ED-Psychological Assessment Last Done: 09/25/24 14:26
Discharge Date and Time
Discharge Date/Time: 09/25/24 15:32
Print Language: BERMUDIAN
== END 2024-09-25 15:32 | disposition home or self-care (01) ==
LOC: EMR 13:30
PROVIDERS: EMERGENCY PHYSICIAN Emergency Medicine
DX: F10.129 Alcohol abuse with intoxication, unspecified (principal); F17.200 Nicotine dependence, unspecified, uncomplicated; R03.0 Elevated blood-pressure reading, without diagnosis of hypertension
CPT/HCPCS: 99281

== ENCOUNTER 2024-09-27 14:36 | Emergency (ER) | payer OTHER, SELFPAY ==
[2024-09-27 14:42] VITALS: BP 125/80
[2024-09-27 15:06] LABS: Urine Character Clear (Clear)
--- NOTE | 2024-09-27 16:39 | ED.GENMED ---
History of Present Illness
General
Chief Complaint: Crisis Evaluation
Source: patient
Exam Limitations: none
Time Seen by Provider: 09/27/24 16:30
Nursing documentation reviewed up to this point in time: agreed with
History of Present Illness
History of Present Illness:
59-year-old male with significant psychiatric illness and alcohol abuse presenting to the emergency department today claiming that he is very depressed he was stopped on Zoloft in the past due to lack of follow-up is requesting Zoloft at this time.
Claims that he was taking 100 mg daily in the past. Claims that he also does drink daily. He denies any specific suicidal or homicidal ideation. Claims that he does not want to harm anyone. He is homeless.
Past History
Past History
ED Past Medical History: Psychiatric (Generalized anxiety disorder), Other (Chronic back pain) and Other (Hodgkin's Lymphoma); Negative HTN or NIDDM
ED Past Surgical History: Orthopedic
Social History
Tobacco: Smoker (History of chewing tobacco use, quit one year ago)
Alcohol: None
Drug: None
Living: with family
Employment: Employed
Family History
Family History: CAD
Review of Systems
Review of Systems
Allergies reviewed?: Yes
All Other Systems: ROS reviewed and negative except as documented in HPI and ROS
Phy Exam
Physical Exam
Physical Exam:
GENERAL: Alert , in no apparent distress
EYE: pupils equal and reactive
NECK: Supple, no significant adenopathy.
ENT: o/p clr, mmm.
CARDIAC: Regular rate and rhythm .
LUNGS: Clear breath sounds bilaterally, no acute respiratory distress, no wheezes/rales/rhonchi
ABDOMEN: Soft, without focal tenderness, no r/g, no cvat
NEUROLOGICAL: Alert and oriented, no focal neuro deficits
SKIN: Warm and dry, skin intact.
MUSCULOSKELETAL: No edema, well perfused.
PSYCH: Tangential but redirectable
Course
Orders/Labs/Results
Orders:
Orders
09/27/24 14:58
Urinalysis Reflex To Culture Urgent
Date Specimen was Collected: 09/27/24
Time Specimen was Collected: 14:46
Urine Drug Abuse Screen Urgent
Date Specimen was Collected: 09/27/24
Time Specimen was Collected: 14:46
09/27/24 16:40
Crisis Consult Urgent
Reason for Consult: depression
Sertraline HCl [Zoloft] 50 mg PO NOW STA
Abnormal Lab Results
09/27/24
14:58
U Marijuana (THC) Screen Positive H
(Negative)
Vital Signs
Initial and Last Documented VS:
Initial Vital Signs
Temp Pulse Resp BP Pulse Ox
98.2 F 110 16 125/80 97
09/27/24 14:42 09/27/24 14:42 09/27/24 14:42 09/27/24 14:42 09/27/24 14:42
Last Documented Vital Signs
Temp Pulse Resp BP Pulse Ox
98.2 F 110 16 125/80 97
09/27/24 14:42 09/27/24 14:42 09/27/24 14:42 09/27/24 14:42 09/27/24 16:41
MDM/Problems Addressed
MDM/Problems Addressed:
59-year-old male presenting to the emergency department today with concerns of depression. Patient claims that he previously had some relief when taking Zoloft. Difficulty with follow-up and has not had medication recently. He is requesting to
restart this medication. This seems reasonable was given initial dose here advised for close outpatient follow-up and crisis consult to help facilitate with this. Otherwise no emergent symptoms not homicidal or suicidal at this time. No 302
criteria met. Patient walking with steady gait here. He was heavily advised for significant psychiatric treatment and offered inpatient care but did not want this at this time. We written for Zoloft as he has taken this in the past with good
success. Return precautions given.
*Pulse Oximetry
SaO2: 97
Oxygen Mode of Delivery: Room air
Patient hypoxic: no (97)
*Critical Care Note
Total Time (30-74mins, 75-104mins- exclusive of procedures): Not Applicable
ED Attending Note
-
Portions of this chart may have been created with voice recognition software.� Occasional wrong word or��sound alike� substitutions may have occurred due to the inherent limitations of voice recognition software.
Discharge Plan
Departure
Patient Disposition: Home (Routine Discharge)
Date of Disposition: 09/27/24
Time of Disposition: 18:21
Patient with high blood pressure during this ER visit?: No
Condition: Good
Covid-19: Not Applicable
Discharge Problem:
Depression
Instructions: Depression, Adult (DC)
Prescriptions:
New
sertraline [Zoloft] 50 mg tablet
50 mg PO DAILY 14 Days Qty: 14 0RF
No Action
tamsulosin [Flomax] 0.4 mg Capsule
0.4 mg PO DAILY
folic acid 1 mg tablet
1 mg PO DAILY Qty: 30 0RF
omeprazole 40 mg Capsule,Delayed Release(Dr/Ec)
40 mg PO DAILY
thiamine HCl (vitamin B1) 100 mg tablet
100 mg PO DAILY
metoprolol tartrate 25 mg Tablet
12.5 mg PO BID Qty: 60 0RF
magnesium oxide 500 mg magnesium Tablet
500 mg PO DAILY Qty: 0 0RF
cholecalciferol (vitamin D3) 50 mcg (2,000 unit) Tablet
50 mcg PO DAILY Qty: 30 0RF
sertraline 100 mg Tablet
150 mg PO DAILY
trazodone 100 mg Tablet
100 mg PO HS
gabapentin 300 mg Capsule
300 mg PO TID
vitamin B complex Tablet
1 tab PO DAILY
sildenafil (pulm.hypertension) 20 mg Tablet
60 mg PO DAILYPRN PRN (Reason: ed)
levothyroxine 25 mcg tablet
25 mcg PO DAILY
lorazepam 0.5 mg tablet
0.5 mg PO DAILY
Patient Comments:
11/07/23: last filled 10/21/23 for 30 tablets
oxycodone 5 mg tablet
5 mg PO BIDPRN PRN (Reason: severe Pain)
tramadol 50 mg Tablet
50 mg PO Q6HPRN PRN (Reason: moderate pain) Qty: 30 0RF
melatonin 5 mg tablet
10 mg PO HS Qty: 0 0RF
Eliquis 5 mg tablet
5 mg PO BID Qty: 0 0RF
Patient Comments:
11/21/23--patient knows suppose to take this bid but has not/choosen to take it once a day
senna 8.6 mg capsule
8.6 mg PO BID PRN (Reason: when you take Ultram and Percocet) Qty: 60 0RF
Referrals:
NONE,* [Family Provider, Internal Medicine]
Activity Restrictions/Additional Instructions:
You came to the emergency department today with concerns of depression. Please take the Zoloft and follow-up closely with [facility] behavioral health. Return for any worsening, new or concerning symptoms.
Interventions
Interventions:
*Risk Screen - Suicide Last Done: 09/27/24 14:50
*Neglect/Abuse Screening Last Done: 09/27/24 14:50
Discharge Date and Time
Print Language: MONGOLIAN
[2024-09-27] MEDS: ZOLOFT 50 MG PO (17:10)
== END 2024-09-27 19:20 | disposition home or self-care (01) ==
LOC: EMR 14:36
PROVIDERS: EMERGENCY PHYSICIAN Emergency Medicine
DX: F32.A Depression, unspecified (principal); F10.10 Alcohol abuse, uncomplicated; F41.1 Generalized anxiety disorder; M54.9 Dorsalgia, unspecified; G89.29 Other chronic pain; F17.200 Nicotine dependence, unspecified, uncomplicated; Z59.00 Homelessness unspecified; Z85.71 Personal history of Hodgkin lymphoma
CPT/HCPCS: 99283; 80306; 81003

== ENCOUNTER 2024-11-14 02:48 | Emergency (ER) | payer OTHER, SELFPAY ==
[2024-11-14 02:54] VITALS: BP 165/120
[2024-11-14 03:14] VITALS: BMI 22.3
[2024-11-14 03:38] VITALS: BP 131/95
[2024-11-14 04:00] VITALS: BP 150/100
[2024-11-14] MEDS: VALIUM INJECTION 5 MG IV (04:09)
[2024-11-14] MEDS: THIAMINE INJECTION 200 MG IV (04:09)
[2024-11-14] MEDS: NSS 500 IV (04:10)
[2024-11-14 04:11] LABS: Hematocrit 44.4 % (39.0-52.0); Hemoglobin 14.9 g/dL (13.0-18.0); Mean Corp Hgb Conc. 33.6 g/dL (33.0-37.0); Mean Corpuscular Volume 79.0 fL (80.0-94.0); Nucleated Red Blood Cells % 0 % (-); Platelet Count 145 10^3/uL (130-400); Red Cell Dist. Width 16.1 % (11.5-14.5)
[2024-11-14 04:17] LABS: INR 0.93; PT 12.8 Sec (11.4-14.6)
[2024-11-14 04:41] LABS: ALT (SGPT) 25 U/L (0-50); AST (SGOT) 59 U/L (17-59); Albumin 4.7 g/dl (3.5-5.0); Alkaline Phosphatase 80 U/L (38-126); Blood Urea Nitrogen 7 mg/dl (9-20); Calcium 9.0 mg/dl (8.4-10.2); Carbon Dioxide 24 mmol/L (22-30); Chloride 106 mmol/L (98-107); Estimated Creatinine Clearance 104 ml/min; Glucose 106 mg/dl (70-99); Lipase 33 U/L (23-300); Potassium 3.9 mmol/L (3.5-5.1); Sodium 142 mmol/L (135-145); Total Protein 7.9 g/dl (6.3-8.2); eGFR > 60.00
[2024-11-14 05:00] VITALS: BP 153/102
--- NOTE | 2024-11-14 05:06 | ED.GENMED ---
History of Present Illness
General
Chief Complaint: Alcohol Problem
Source: patient and police
Time Seen by Provider: 11/14/24 03:13
History of Present Illness
History of Present Illness:
59-year-old male brought to the emergency room by police for medical clearance prior to incarceration. Patient admits to alcohol consumption on a regular basis. Last drink was about 8 hours prior to coming to the emergency room. He is starting to
feel a bit jittery. Patient also concerned because he passed some blood via his rectum a couple days ago. None today. No chest pain or shortness of breath. Patient denies any previous alcohol withdrawal seizures.
Past History
Past History
ED Past Medical History: Psychiatric (Generalized anxiety disorder), Other (Chronic back pain) and Other (Hodgkin's Lymphoma); Negative HTN or NIDDM
ED Past Surgical History: Orthopedic
Social History
Tobacco: Smoker (History of chewing tobacco use, quit one year ago)
Alcohol: None
Drug: None
Living: with family
Employment: Employed
Family History
Family History: CAD
Phy Exam
Physical Exam
Physical Exam:
General: Awake, Alert, Oriented X3. No acute distress.
Vitals: Tachycardic
Head: Atraumatic
Eyes: Pupils equal, EOMI
Throat: Airway intact, no exudates
Neck: Trachea midline
Lungs: Clear and equal b/l
Heart: Regular rate, no murmurs
Abd: Soft, Nontender, No pulsatile mass
Neuro: Nonfocal, mild tremor
Skin: Warm, dry, no rash
Extremities: pulses equal b/l, no edema
Scores
Withdrawal Assessment of Alcohol
Withdrawal Assessment Completed?: Yes
Nausea and Vomiting: No nausea and no vomiting
Tactile Disturbances: None
Tremor: Moderate, with patient's arms extended
Auditory Disturbances: Not present
Paroxysmal Sweats: No sweat visible
Visual Disturbances: Not present
Anxiety: No anxiety, at ease
Headache, Fullness in Head: Not present
Agitation: Moderately fidgety and restless
Orientation and clouding of sensorium: Oriented and can do serial additions
Total CIWA Score: 8
Alcohol Withdrawal Medication Recommendation: Equal to MSAS Score 5-7. Lorazepam 1mg IV or PO NOW & re-assess q2hrs
Course
Orders/Labs/Results
Orders:
Orders
11/14/24 03:26
0.9% Sodium Chloride 500 ml [Nss] 500 ml IV BOLUS
Thiamine Injection 200 mg IV NOW STA
diazePAM [Valium Injection] 5 mg IV NOW STA
11/14/24 03:59
Complete Blood Count/With Diff Urgent
Comprehensive Metabolic Panel Urgent
Lipase Urgent
Prothrombin Time Urgent
11/14/24 05:15
Oxazepam [Serax] 15 mg PO NOW STA
Abnormal Lab Results
11/14/24
03:59
MCV 79.0 L fL
(80.0-94.0)
MCH 26.5 L pg
(27.0-31.0)
RDW 16.1 H %
(11.5-14.5)
Abs Immat Gran (auto) 0.1 H 10^3/uL
(0-0.05)
Absolute Monos (auto) 0.8 H 10^3/uL
(0.1-0.6)
Immature Gran % 0.8 H %
(0-0.5)
Lymphocytes % 19.6 L %
(20.5-51.1)
Monocytes % 10.7 H %
(1.7-9.3)
BUN 7 L mg/dl
(9-20)
Glucose 106 H mg/dl
(70-99)
11/14/24 03:59
11/14/24 03:59
Vital Signs
Initial and Last Documented VS:
Initial Vital Signs
Temp Pulse Resp BP Pulse Ox
98.1 F 108 26 165/120 99
11/14/24 02:54 11/14/24 02:54 11/14/24 02:54 11/14/24 02:54 11/14/24 02:54
Last Documented Vital Signs
Temp Pulse Resp BP Pulse Ox
98.1 F 107 17 153/102 98
11/14/24 02:54 11/14/24 05:15 11/14/24 05:00 11/14/24 05:00 11/14/24 05:15
MDM/Problems Addressed
Differential Diagnosis Includes:
Alcohol fall, anemia, electrolyte abnormality
MDM/Problems Addressed:
Patient presents with mild tachycardia and some jitters. Patient quite stable although appearing in the vomit that he might be. Also given CRx p.o. Labs are unremarkable. No evidence for liver injury. No electrolyte abnormality. His hemoglobin
is normal. His platelet count is normal. Patient medically clear for incarceration. Present will have to continue to treat the patient for potential alcohol withdrawal if he remains incarcerated.
*Pulse Oximetry
SaO2: 97
Oxygen Mode of Delivery: Room air
Patient hypoxic: no
*Critical Care Note
Total Time (30-74mins, 75-104mins- exclusive of procedures): Not Applicable
ED Attending Note
-
Portions of this chart may have been created with voice recognition software.� Occasional wrong word or��sound alike� substitutions may have occurred due to the inherent limitations of voice recognition software.
Discharge Plan
Departure
Patient Disposition: Home (Routine Discharge)
Date of Disposition: 11/14/24
Time of Disposition: 05:07
Patient with high blood pressure during this ER visit?: No
Condition: Good
Discharge Problem:
Alcohol abuse
Instructions: Alcohol Withdrawal (DC), Alcohol Use Disorder (DC), BLOOD PRESSURE
Prescriptions:
No Action
tamsulosin [Flomax] 0.4 mg Capsule
0.4 mg PO DAILY
folic acid 1 mg tablet
1 mg PO DAILY Qty: 30 0RF
omeprazole 40 mg Capsule,Delayed Release(Dr/Ec)
40 mg PO DAILY
Rx Instructions:
hasn't been taking it
thiamine HCl (vitamin B1) 100 mg tablet
100 mg PO DAILY
Patient Comments:
hasn't been taking it
metoprolol tartrate 25 mg Tablet
12.5 mg PO BID Qty: 60 0RF
magnesium oxide 500 mg magnesium Tablet
500 mg PO DAILY Qty: 0 0RF
Patient Comments:
hasn't been taking it
cholecalciferol (vitamin D3) 50 mcg (2,000 unit) Tablet
50 mcg PO DAILY Qty: 30 0RF
sertraline 100 mg Tablet
150 mg PO DAILY
Rx Instructions:
hasn't been taking it
trazodone 100 mg Tablet
100 mg PO HS
Patient Comments:
hasn't been taking it
gabapentin 300 mg Capsule
300 mg PO TID
Patient Comments:
hasn't been taking it
vitamin B complex Tablet
1 tab PO DAILY
sildenafil (pulm.hypertension) 20 mg Tablet
60 mg PO DAILYPRN PRN (Reason: ed)
Patient Comments:
hasn't been taking it
levothyroxine 25 mcg tablet
25 mcg PO DAILY
Patient Comments:
hasn't been taking it
lorazepam 0.5 mg tablet
0.5 mg PO DAILY
Patient Comments:
hasn't been taking it
oxycodone 5 mg tablet
5 mg PO BIDPRN PRN (Reason: severe Pain)
Rx Instructions:
hasn't been taking it
tramadol 50 mg Tablet
50 mg PO Q6HPRN PRN (Reason: moderate pain) Qty: 30 0RF
Patient Comments:
hasn't been taking it
melatonin 5 mg tablet
10 mg PO HS Qty: 0 0RF
Eliquis 5 mg tablet
5 mg PO BID Qty: 0 0RF
Patient Comments:
hasn't been taking it
sertraline [Zoloft] 50 mg tablet
50 mg PO DAILY 14 Days Qty: 14 0RF
Referrals:
[facility] [Family Provider, General]
Activity Restrictions/Additional Instructions:
medically cleared for incarceration but will need further treatment for etoh withdrawal if not released
Interventions
Interventions:
*Risk Screen - Suicide Last Done: 11/14/24 02:54
*General Assessment Last Done: 11/14/24 02:54
*Neglect/Abuse Screening Last Done: 11/14/24 02:54
*ED- Fall Risk Assessment Last Done: 11/14/24 02:54
*ED COVID-19 Vaccine History Last Done: 11/14/24 02:54
*ED Influenza Vaccine History Last Done: 11/14/24 02:54
*Nursing Disposition Last Done: 11/14/24 05:30
ED- Neurological Assessment Last Done: 11/14/24 03:15
ED-Psychological Assessment Last Done: 11/14/24 03:15
Discharge Date and Time
Discharge Date/Time: 11/14/24 05:30
Print Language: LATVIAN
[2024-11-14] MEDS: SERAX 15 MG PO (05:27)
== END 2024-11-14 05:30 ==
LOC: EMR 02:48
PROVIDERS: EMERGENCY PHYSICIAN Emergency Medicine
DX: F10.10 Alcohol abuse, uncomplicated (principal); F41.1 Generalized anxiety disorder; M54.9 Dorsalgia, unspecified; G89.29 Other chronic pain; Z85.71 Personal history of Hodgkin lymphoma; Z87.891 Personal history of nicotine dependence
CPT/HCPCS: 99284; 96374; 96375; 96361; 80053; 83690; 85025; 85610